=== PATIENT | female | born 1940 | race Caucasian/White ===

== ENCOUNTER 2020-01-20 15:28 | Inpatient (IN) ==
--- NOTE | 2020-01-20 16:12 | Emergency Department Note ---
ED Provider Note NAME: CRYSTAL REYNOLDS AGE: 79 SEX: F ARRIVES VIA: Walk-In INFORMANT: [Patient] ED PROVIDER(S): [Alex Carpenter MD] CHIEF COMPLAINT: Fevers, dysuria, abdominal pain IMPRESSION: Neutropenic fever, Acute UTI, Thrombocytopenia, Dehydration MEDICAL DECISION MAKING: The patient is a pleasant 71-year-old woman with a past medical history of breast cancer undergoing chemotherapy who presents emergency department with complaint of fevers, nausea, generalized weakness, abdominal pain in setting of being seen in the emergency department for similar symptoms but also including cough. Of note, the on the patient's prior emergency visit she did have a urine analysis that demonstrated WBCs bacteria but epithelial cells> 30. At that time the patient denied any urinary symptoms and so decision was made to defer treatment. Urine culture subsequently resulting with E. coli. An earlier urine analysis that was obtained at outside hospital previous to her visit here also resulted demonstrating E. coli with antibiotic sensitivities showing resistance to Cipro but sensitivity to cephalosporin. However the patient is chronically ill-appearing, fatigued but no acute distress, afebrile stable vital signs. The patient appears clinically dry. She has generalized abdominal discomfort without discrete tenderness. UA today with clean sample again consistent with UTI. WBC 1.45 decreased from prior result with new neutropenia with ANC of 0.6. H/H9 0.4/28.1 also decreased from prior value. Platelets stable at 78K. Sodium 128 however in the setting of glucose 201. Lactate 1.1. Chemistry without acidosis. Electrolytes and LFTs otherwise unremarkable. Troponin negative/undetectable. EKG unremarkable without evidence of acute ischemia. CXR negative. Procalcitonin within normal range. Thus, given sepsis less likely and urine culture with antibiotic sensitivities will treat with ceftriaxone for now despite the patient's neutropenic fever. Given the patient's symptoms in the setting of neutropenia patient is agreeable for admission. Case was discussed with Dr. Marte, [facility] hospitalist, who evaluate the patient for admission. Triage Nursing notes reviewed and agree them. [Prior medical records reviewed] [] Differential diagnosis: Viral syndrome, otitis, pharyngitis, pneumonia, influenza, meningitis, urinary tract infection, sepsis, bacteremia, as well as other pathologies. ER treatment provided: See below Diagnostics interpreted by me: ECG: NSR, 98 bpm, Normal axis, No ectopy, No ST elevation or depression. Cardiac Monitoring: NSR, 98 bpm, No extopy. Laboratory studies: [See below] [] Imaging studies: [See below] [] Consultation(s): Dr. Marte, [facility] hospitalist. HPI: The patient is a pleasant 71-year-old woman with a past medical history of breast cancer undergoing chemotherapy who presents emergency department with co mplaint of fevers, nausea, generalized weakness, abdominal pain in setting of being seen in the emergency department for similar symptoms but also including cough. The patient reports onset as gradual. Reports no provoking factors. Describes symptoms as malaise. Reports no radiation. Reports severity as moderate. Timing of symptoms are constant. Has tried Compazine for nausea with some improvement . ROS: See above HPI for pertinent positives & negatives. A total of [10] systems reviewed and were otherwise negative. PAST MEDICAL HISTORY:[See Below] PAST SURGICAL HISTORY:[See Below] FAMILY HISTORY:[See Below] SOCIAL HISTORY:[See Below] HOME MEDICATIONS:[See Below] ALLERGIES:[See Below] VITALS:[See Below] PHYSICAL EXAMINATION: GENERAL: Awake, alert, Fatigued/ill-appearing, in no distress HENT: Normocephalic, atraumatic. Oropharynx with dry mucous membranes and otherwise unremarkable. . EYES: Normal conjunctiva. Sclera non-icteric. NECK: Supple. No nuchal rigidity. FROM. No JVD. RESPIRATORY: Clear to auscultation. CARDIAC: Regular rate, normal rhythm. Extremities warm and well perfused. Pulses equal. ABDOMEN: Soft, non-distended. Generalized abdominal discomfort without discrete tenderness. No rebound or guarding. No masses. RECTAL: Deferred. MUSCULOSKELETAL: Chest examination reveals no tenderness. The back is symmetrical on inspection without obvious abnormality. There is no CVA tenderness to palpation. No joint edema. LOWER EXTREMITIES: Calves are equal size bilaterally and non-tender. No edema. No discoloration. NEURO: Normal sensorium. No sensory or motor deficits noted. SKIN: No rash or jaundice noted. ED COURSE: Procedures: [none] [Critical Care:] [None] Impression & Plan Neutropenic fever, Acute UTI, Thrombocytopenia, Dehydration Past Med/Surg History Medical History Arthritis Breast cancer, left 10/2001 > LUMPECTOMY > RECENTLY DX'ED AGAIN WITH LEFT BREAST CA Carotid stenosis Mild stenosis at the origin of the left common carotid artery. Cataract of both eyes (Chronic) Chronic kidney disease, stage III (moderate) (Chronic) F/U PCP Diabetes (Chronic) Glaucoma Hyperlipidemia Hypertension Pt went to ED week of 11/19 with BP in 200s systolic. Had f/u with PCP, med changes made. 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 Vision loss potentially related to stroke though MRI negative. Osteoporosis (Chronic) Raynauds syndrome (Chronic) Reflux esophagitis (Chronic) Vertebral artery stenosis Moderate stenosis at origin of L vertebral artery per 10/2019 Neck CTA Visual impairment 2/2 vertebral artery stenosis. F/U DR VIRGEN-PLACED ON PLAVIX Surgical History H/O tubal ligation (Chronic) H/O: hysterectomy (Chronic) History of appendectomy (Chronic) 1974 History of cataract surgery R/L History of colonoscopy Port-A-Cath in place (01/03/20) Access port placement. Dr. Mendoza 01-03-20 S/P bronchoscopy few weeks ago at [facility] S/P lumpectomy, left breast (Chronic) Family History Father Coronary heart disease Heart disease Hypertension Mother Diabetes CHF (congestive heart failure) Heart disease Colorectal cancer Hypertension Stroke Family history of reaction to anesthesia SLOW TO WAKE UP Son Multiple sclerosis Social History Preferred Language: German Communication Ability: Effective Visual Impairment: No Limitations Hearing Ability: Normal [employer] Required: No Beliefs That Will Affect Care: None marital status: Current Living Situation: Spouse current occupational status: other current occupation: semi retired substitute clerical person Feels Safe at Home: Yes Safety Concerns: Feels Safe At This Time Smoking Status: Never smoker Second Hand Exposure: No ; Hx Alcohol Use: No Hx Substance Use: No Results & Data Vital Signs Vital Signs - 24 hr 01/20/20 15:30 01/20/20 15:54 01/20/20 16:00 Temperature 36.9 C Temperature Source Oral Pulse Rate 106 H 102 H 100 H Pulse Rate [Right Finger] Pulse Rate from SpO2 Sensor 103 H 100 H Respiratory Rate 20 25 H 28 H Respiratory Effort / Characteristics Blood Pressure 110/51 L 126/51 L 132/49 L Blood Pressure Mean 70 67 87 Blood Pressure Position Sitting Pulse Oximetry 94 89 L 91 Oxygen Delivery Method Oxygen Flow Rate Sepsis Recent Fever Within 48 Hours No Sepsis New/Unexplained Change in Mental Status No Sepsis Action Taken by Nursing No Action Required 01/20/20 16:30 01/20/20 16:48 01/20/20 17:00 Temperature Temperature Source Pulse Rate 101 H 100 H Pulse Rate [Right Finger] 102 H Pulse Rate from SpO2 Sensor 101 H 100 H Respiratory Rate 28 H 25 H 27 H Respiratory Effort / Characteristics Spontaneous Blood Pressure 130/51 L 135/56 L Blood Pressure Mean 72 89 Blood Pressure Position Pulse Oximetry 91 99 98 Oxygen Delivery Method Room Air Oxygen Flow Rate Sepsis Recent Fever Within 48 Hours Sepsis New/Unexplained Change in Mental Status Sepsis Action Taken by Nursing 01/20/20 17:13 01/20/20 17:30 01/20/20 17:31 Temperature Temperature Source Pulse Rate 108 H 109 H Pulse Rate [Right Finger] Pulse Rate from SpO2 Sensor 106 H 109 H Respiratory Rate 25 H 27 H Respiratory Effort / Characteristics Blood Pressure 139/57 L 135/63 Blood Pressure Mean 92 98 Blood Pressure Position Pulse Oximetry 97 98 95 Oxygen Delivery Method Room Air Oxygen Flow Rate Sepsis Recent Fever Within 48 Hours Sepsis New/Unexplained Change in Mental Status Sepsis Action Taken by Nursing 01/20/20 18:00 01/20/20 18:30 01/20/20 19:00 Temperature Temperature Source Pulse Rate 114 H 113 H 113 H Pulse Rate [Right Finger] Pulse Rate from SpO2 Sensor 114 H 113 H 114 H Respiratory Rate 29 H 26 H 39 H Respiratory Effort / Characteristics Blood Pressure 156/59 H 142/63 H 159/83 H Blood Pressure Mean 93 87 100 Blood Pressure Position Pulse Oximetry 92 91 91 Oxygen Delivery Method Oxygen Flow Rate Sepsis Recent Fever Within 48 Hours Sepsis New/Unexplained Change in Mental Status Sepsis Action Taken by Nursing 01/20/20 19:01 01/20/20 19:29 01/20/20 19:30 Temperature Temperature Source Pulse Rate 112 H 113 H Pulse Rate [Right Finger] Pulse Rate from SpO2 Sensor 112 H 116 H Respiratory Rate 30 H 30 H Respiratory Effort / Characteristics Blood Pressure 129/76 Blood Pressure Mean 91 Blood Pressure Position Pulse Oximetry 90 96 93 Oxygen Delivery Method Nasal Cannula Room Air Nasal Cannula Oxygen Flow Rate 2 2 Sepsis Recent Fever Within 48 Hours Sepsis New/Unexplained Change in Mental Status Sepsis Action Taken by Nursing 01/20/20 19:31 01/20/20 20:00 01/20/20 20:01 Temperature Temperature Source Pulse Rate 112 H 107 H 108 H Pulse Rate [Right Finger] Pulse Rate from SpO2 Sensor 114 H 107 H 111 H Respiratory Rate 20 32 H 32 H Respiratory Effort / Characteristics Blood Pressure 129/54 L Blood Pressure Mean 83 Blood Pressure Position Pulse Oximetry 90 93 92 Oxygen Delivery Method Nasal Cannula Nasal Cannula Nasal Cannula Oxygen Flow Rate 2 2 2 Sepsis Recent Fever Within 48 Hours Sepsis New/Unexplained Change in Mental Status Sepsis Action Taken by Skilled Nursing Medications Current Medication List: was personally reviewed by me Laboratory Data Attestation: I reviewed the patient's lab results. Result diagrams: 01/20/20 16:40 01/20/20 16:40 Lab Results 01/20/20 01/20/20 01/20/20 Range/Units 16:40 16:40 16:40 WBC 1.45 L (4.8-10.8) K/uL RBC 3.31 L (4.2-5.4) M/uL Hgb 9.4 L (12.0-16.0) g/dL Hct 28.1 L (37-47) % MCV 84.9 (80-100) fL MCH 28.4 (25-34) pg MCHC 33.5 (32-36) g/dL RDW Std Deviation 37.0 (36.4-46.3) fL RDW Coeff of Alfredo 11.8 (11.5-14.5) % Plt Count 78 L (130-400) K/uL MPV 10.9 H (7.4-10.4) fL Neutrophils % (Manual) 41.5 % Lymphocytes % (Manual) 20.4 % Monocytes % (Manual) 31.0 % Eosinophils % (Manual) 3.5 % Metamyelocytes % (Man) 2.7 % Blast Cells % (Manual) 0.9 % Neutrophils # (Manual) 0.60 L (1.4-6.5) K/uL Total Absolute Neuts 0.60 L* (1.4-6.5) K/uL Lymphocytes # (Manual) 0.30 L (1.2-3.4) K/uL Total Abs Lymphocytes 0.30 L (1.2-3.4) K/uL Monocytes # (Manual) 0.45 (0.11-0.59) K/uL Eosinophils # (Manual) 0.05 (0-0.5) K/uL Metamyelocytes # (Man) 0.04 H (0-0) K/uL Blast Cells # (Man) 0.01 H (0-0) K/uL Toxic Granulation 1+ Toxic Vacuolation 1+ Dohle Bodies 1+ Platelet Estimate Decreased L (Normal) Giant Platelets 1+ PT 11.4 (9.0-12.0) Seconds INR 1.1 (0.9-1.1) APTT 29.9 (21.0-31.0) Seconds PTT Ratio 1.1 Sodium 128 L (136-145) mmol/L Potassium 3.9 (3.5-5.1) mmol/L Chloride 96 L (98-107) mmol/L Carbon Dioxide 25 (21-32) mmol/L Anion Gap 7.0 (3-11) BUN 19 H (7-18) mg/dl Creatinine 1.00 (0.6-1.2) mg/dl Est Cr Clr Drug Dosing 38.3 ml/min Est GFR ( Amer) 62.5 Est GFR (Non-Af Amer) 53.9 BUN/Creatinine Ratio 18.9 (10-20) Glucose 201 H (70-99) mg/dl Osmolality (280-300) mOsm/kg Lactate (0.4-2.0) mmol/L Calcium 8.2 L (8.5-10.1) mg/dl Phosphorus 3.4 (2.5-4.9) mg/dl Magnesium 1.9 (1.8-2.4) mg/dl Total Bilirubin 0.9 (0.2-1) mg/dl AST 9 L (15-37) U/L ALT 18 (12-78) U/L Alkaline Phosphatase 75 (45-117) U/L Troponin I < 0.015 (0-0.045) ng/ml Total Protein 6.4 (6.4-8.2) gm/dl Albumin 3.0 L (3.4-5.0) gm/dl Globulin 3.4 (2.5-4.0) gm/dl Albumin/Globulin Ratio 0.9 (0.9-2) Procalcitonin (0-0.5) ng/ml Urine Color Urine Appearance (Clear) Urine pH (4.5-7.5) Ur Specific [place] (1.000-1.030) Urine Protein (Negative) Urine Glucose (UA) (Negative) Urine Ketones (Negative) Urine Blood (Negative) Urine Nitrite (Negative) Urine Bilirubin (Negative) Urine Urobilinogen (Negative) Ur Leukocyte Esterase (Negative) Urine RBC (0-4) /hpf Urine WBC (0-5) /hpf Ur Epithelial Cells (0-5) /lpf Urine Bacteria (Negative) Influenza Type A (PCR) (Neg) Influenza Type B (PCR) (Neg) 01/20/20 01/20/20 01/20/20 Range/Units 16:40 16:40 16:47 WBC (4.8-10.8) K/uL RBC (4.2-5.4) M/uL Hgb (12.0-16.0) g/dL Hct (37-47) % MCV (80-100) fL MCH (25-34) pg MCHC (32-36) g/dL RDW Std Deviation (36.4-46.3) fL RDW Coeff of Alfredo (11.5-14.5) % Plt Count (130-400) K/uL MPV (7.4-10.4) fL Neutrophils % (Manual) % Lymphocytes % (Manual) % Monocytes % (Manual) % Eosinophils % (Manual) % Metamyelocytes % (Man) % Blast Cells % (Manual) % Neutrophils # (Manual) (1.4-6.5) K/uL Total Absolute Neuts (1.4-6.5) K/uL Lymphocytes # (Manual) (1.2-3.4) K/uL Total Abs Lymphocytes (1.2-3.4) K/uL Monocytes # (Manual) (0.11-0.59) K/uL Eosinophils # (Manual) (0-0.5) K/uL Metamyelocytes # (Man) (0-0) K/uL Blast Cells # (Man) (0-0) K/uL Toxic Granulation Toxic Vacuolation Dohle Bodies Platelet Estimate (Normal) Giant Platelets PT (9.0-12.0) Seconds INR (0.9-1.1) APTT (21.0-31.0) Seconds PTT Ratio Sodium (136-145) mmol/L Potassium (3.5-5.1) mmol/L Chloride (98-107) mmol/L Carbon Dioxide (21-32) mmol/L Anion Gap (3-11) BUN (7-18) mg/dl Creatinine (0.6-1.2) mg/dl Est Cr Clr Drug Dosing ml/min Est GFR ( Amer) Est GFR (Non-Af Amer) BUN/Creatinine Ratio (10-20) Glucose (70-99) mg/dl Osmolality 274 L (280-300) mOsm/kg Lactate 1.1 (0.4-2.0) mmol/L Calcium (8.5-10.1) mg/dl Phosphorus (2.5-4.9) mg/dl Magnesium (1.8-2.4) mg/dl Total Bilirubin (0.2-1) mg/dl AST (15-37) U/L ALT (12-78) U/L Alkaline Phosphatase (45-117) U/L Troponin I (0-0.045) ng/ml Total Protein (6.4-8.2) gm/dl Albumin (3.4-5.0) gm/dl Globulin (2.5-4.0) gm/dl Albumin/Globulin Ratio (0.9-2) Procalcitonin 0.19 (0-0.5) ng/ml Urine Color Urine Appearance (Clear) Urine pH (4.5-7.5) Ur Specific [place] (1.000-1.030) Urine Protein (Negative) Urine Glucose (UA) (Negative) Urine Ketones (Negative) Urine Blood (Negative) Urine Nitrite (Negative) Urine Bilirubin (Negative) Urine Urobilinogen (Negative) Ur Leukocyte Esterase (Negative) Urine RBC (0-4) /hpf Urine WBC (0-5) /hpf Ur Epithelial Cells (0-5) /lpf Urine Bacteria (Negative) Influenza Type A (PCR) (Neg) Influenza Type B (PCR) (Neg) 01/20/20 01/20/20 Range/Units 17:15 17:15 WBC (4.8-10.8) K/uL RBC (4.2-5.4) M/uL Hgb (12.0-16.0) g/dL Hct (37-47) % MCV (80-100) fL MCH (25-34) pg MCHC (32-36) g/dL RDW Std Deviation (36.4-46.3) fL RDW Coeff of Alfredo (11.5-14.5) % Plt Count (130-400) K/uL MPV (7.4-10.4) fL Neutrophils % (Manual) % Lymphocytes % (Manual) % Monocytes % (Manual) % Eosinophils % (Manual) % Metamyelocytes % (Man) % Blast Cells % (Manual) % Neutrophils # (Manual) (1.4-6.5) K/uL Total Absolute Neuts (1.4-6.5) K/uL Lymphocytes # (Manual) (1.2-3.4) K/uL Total Abs Lymphocytes (1.2-3.4) K/uL Monocytes # (Manual) (0.11-0.59) K/uL Eosinophils # (Manual) (0-0.5) K/uL Metamyelocytes # (Man) (0-0) K/uL Blast Cells # (Man) (0-0) K/uL Toxic Granulation Toxic Vacuolation Dohle Bodies Platelet Estimate (Normal) Giant Platelets PT (9.0-12.0) Seconds INR (0.9-1.1) APTT (21.0-31.0) Seconds PTT Ratio Sodium (136-145) mmol/L Potassium (3.5-5.1) mmol/L Chloride (98-107) mmol/L Carbon Dioxide (21-32) mmol/L Anion Gap (3-11) BUN (7-18) mg/dl Creatinine (0.6-1.2) mg/dl Est Cr Clr Drug Dosing ml/min Est GFR ( Amer) Est GFR (Non-Af Amer) BUN/Creatinine Ratio (10-20) Glucose (70-99) mg/dl Osmolality (280-300) mOsm/kg Lactate (0.4-2.0) mmol/L Calcium (8.5-10.1) mg/dl Phosphorus (2.5-4.9) mg/dl Magnesium (1.8-2.4) mg/dl Total Bilirubin (0.2-1) mg/dl AST (15-37) U/L ALT (12-78) U/L Alkaline Phosphatase (45-117) U/L Troponin I (0-0.045) ng/ml Total Protein (6.4-8.2) gm/dl Albumin (3.4-5.0) gm/dl Globulin (2.5-4.0) gm/dl Albumin/Globulin Ratio (0.9-2) Procalcitonin (0-0.5) ng/ml Urine Color Yellow Urine Appearance Cloudy A (Clear) Urine pH 5.5 (4.5-7.5) Ur Specific [place] 1.025 (1.000-1.030) Urine Protein Negative (Negative) Urine Glucose (UA) Negative (Negative) Urine Ketones Negative (Negative) Urine Blood Trace H (Negative) Urine Nitrite Negative (Negative) Urine Bilirubin Negative (Negative) Urine Urobilinogen Negative (Negative) Ur Leukocyte Esterase Negative (Negative) Urine RBC 0-4 (0-4) /hpf Urine WBC 10-30 H (0-5) /hpf Ur Epithelial Cells 0-5 (0-5) /lpf Urine Bacteria 4+ H (Negative) Influenza Type A (PCR) Neg for Influ A (Neg) Influenza Type B (PCR) Neg for Influ B (Neg) Administered Medications Guaifenesin (Mucinex) 1,200 mg PO Q12 [facility] Stop: 02/19/20 23:18 Last Admin: 01/21/20 00:00 Dose: 1,200 mg Documented by: [id number] Sodium Chloride (Nss 1000ml) 1,000 mls @ 80 mls/hr IV .[id number] [facility] Stop: 01/22/20 00:18 Last Admin: 01/20/20 23:57 Dose: 80 mls/hr Documented by: [id number] Cefepime HCl 2,000 mg/ Syringe 20 mls @ 5.5 mls/min IV Q24H [facility]; Protocol Stop: 01/26/20 00:00 Last Admin: 01/21/20 00:11 Dose: 5.5 mls/min Documented by: [id number] Insulin Aspart (Novolog Flexpen) 0 units SC ACHS [facility] Stop: 02/19/20 23:18 Last Admin: 01/21/20 00:01 Dose: 2 units Documented by: [id number] Cosigned by: [id number] Insulin Detemir (Levemir Flextouch) 15 units SC [facility] Stop: 02/19/20 23:29 Last Admin: 01/21/20 00:02 Dose: 15 units Documented by: [id number] Cosigned by: [id number] Metoprolol Succinate (Toprol Xl) 100 mg PO [facility] Stop: 02/19/20 23:18 Last Admin: 01/21/20 00:00 Dose: 100 mg Documented by: [id number] Prochlorperazine (Compazine) 10 mg PO Q6 PRN PRN Reason: nausea Stop: 02/20/20 00:00 Last Admin: 01/21/20 00:03 Dose: 10 mg Documented by: [id number] Rosuvastatin Calcium (Crestor) 5 mg PO [facility] Stop: 02/19/20 23:18 Last Admin: 01/20/20 23:59 Dose: 5 mg Documented by: [id number] Discontinued Medications Albuterol (Duoneb) 12 ml NEB ONE ONE Stop: 01/20/20 16:33 Last Admin: 01/20/20 16:48 Dose: 12 ml Documented by: [id number] Benzonatate (Tessalon Perle) 100 mg PO NOW ONE Stop: 01/20/20 16:35 Last Admin: 01/20/20 17:15 Dose: 100 mg Documented by: [id number] Sodium Chloride (Nss 1000ml) 1,000 mls @ 999 mls/hr IV .Q1H1M ONE Stop: 01/20/20 17:32 Last Infusion: 01/20/20 18:23 Dose: 0 mls/hr Documented by: [id number] Admin: 01/20/20 17:17 Dose: 999 mls/hr Documented by: [id number] Ceftriaxone Sodium (Rocephin) 2,000 mg in 70 mls @ 140 mls/hr IV NOW STA Stop: 01/20/20 17:04 Last Infusion: 01/20/20 18:23 Dose: 0 mls/hr Documented by: [id number] Admin: 01/20/20 17:15 Dose: 140 mls/hr Documented by: [id number] Prochlorperazine (Compazine) 1 mls @ 1 mls/min IV ONE ONE Stop: 01/20/20 18:02 Last Admin: 01/20/20 18:32 Dose: 1 mls/min Documented by: [id number] Famotidine (Pepcid 20mg Iv Push) 20 mg in 5 mls @ 2.5 mls/min IV NOW STA Stop: 01/20/20 18:02 Last Admin: 01/20/20 18:32 Dose: 2.5 mls/min Documented by: [id number] Imaging Data Radiologist's Impression: XR chest 1V portable CLINICAL HISTORY: SEPSIS COMPARISON STUDY: 01/18/2020 FINDINGS: The cardiac and mediastinal contours remain stable. There is a right- sided A-Port catheter. There is no failure. There is no focal pulmonary consolidation. There is minimal left basilar atelectasis. A small metallic clip projects over the left lung base/breast. There are no significant pleural effusions.[ IMPRESSION: No active disease in the chest.\ Blood Pressure Blood Pressure Findings: Normal blood pressure Discharge Plan Visit Data *Final* Discharge Date/Time: 01/20/20 22:34 Chief Complaint: Urinary Symptoms Stated Complaint: URINARY SYMPTOMS ED Provider: Alex Carpenter Discharge Problem: Neutropenic fever, Acute UTI, Thrombocytopenia, Dehydration Patient Disposition: Admitted As Inpatient Discharge Instructions Interventions: ED Discharge Assessment Last Done: 01/20/20 22:34 Meds Home Medications and Allergies Home Medications Medication Instructions Recorded Confirmed Type cholecalciferol (vitamin D3) 25 1,000 units PO QAM 10/02/18 01/20/20 History mcg (1,000 unit) capsule insulin aspar prot-insulin aspart 6 units SQ .supper ml 10/02/18 01/20/20 History 100 unit/mL (70-30) subcutaneous pen levothyroxine 88 mcg capsule 88 mcg PO QAM 10/02/18 01/20/20 History ranitidine HCl 300 mg tablet 300 mg PO QPM 10/02/18 01/20/20 History rosuvastatin 5 mg tablet 5 mg PO HS tab 10/02/18 01/20/20 History aspirin 81 mg tablet,delayed 81 mg PO QAM 10/19/19 01/20/20 History release clopidogrel 75 mg tablet 75 mg PO QAM 10/19/19 01/20/20 History losartan 50 mg-hydrochlorothiazide 1 tab PO QAM 10/19/19 01/20/20 History 12.5 mg tablet metoprolol succinate 50 mg 100 mg PO HS 10/19/19 01/20/20 History tablet,extended release 24 hr Allergy Relief (cetirizine) 10 mg PO HS 11/27/19 01/20/20 History insulin detemir U-100 100 unit/mL 15 units SUBCUT HS ml 12/07/19 01/20/20 History subcutaneous solution magnesium hydroxide [Milk of 400 mg PO 3XWK PRN 12/28/19 01/20/20 History Magnesia] Cytoxan 0 mg IV UD 01/18/20 01/20/20 History docetaxel [Taxotere] 0 mg IV UD 01/18/20 01/20/20 History letrozole 2.5 mg PO DAILY 01/18/20 01/20/20 History loratadine [Claritin] 10 mg PO DAILY 01/18/20 01/20/20 History prochlorperazine maleate 10 mg PO Q6 PRN 01/18/20 01/20/20 History Allergies Allergy/AdvReac Type Severity Reaction Status Date / Time Penicillins Allergy Unknown ITCHY Verified 01/20/20 16:05 morphine AdvReac Severe NAUSEA AND Verified 01/20/20 16:05 VOMITING
[2020-01-20] MEDS ORDERED: SODIUM CHLORIDE 0.9% 1000ML 1,000 ML IV ONE (16:32)
[2020-01-20] MEDS ORDERED: ALBUT/IPRATROP 3MG/0.5MG NEB 3 ML VIAL NEB ONE (16:32)
[2020-01-20] MEDS ORDERED: BENZONATATE 100 MG CAPSULE PO ONE (16:34)
[2020-01-20] MEDS ORDERED: cefTRIAXone SODIUM 2,000 MG/70 ML BAG IV STA (16:35)
[2020-01-20 17:05] LABS: Hematocrit (blood only) 28.1 % (37-47); Hemoglobin 9.4 g/dL (12.0-16.0); Mean Corpuscular Hemoglobin 28.4 pg (25-34); Mean Corpuscular Hgb Conc 33.5 g/dL (32-36); Mean Corpuscular Volume 84.9 fL (80-100); RDW Coefficient of Variation 11.8 % (11.5-14.5); Red Blood Count 3.31 M/uL (4.2-5.4); White Blood Count 1.45 K/uL (4.8-10.8)
--- NOTE | 2020-01-20 17:12 | XRay Report ---
XR chest 1V portable CLINICAL HISTORY: SEPSIS COMPARISON STUDY: 01/18/2020 FINDINGS: The cardiac and mediastinal contours remain stable. There is a right-sided A-Port catheter. There is no failure. There is no focal pulmonary consolidation. There is minimal left basilar atelec tasis. A small metallic clip projects over the left lung base/breast. There are no significant pleura l effusions.[ IMPRESSION: No active disease in the chest. ACT 112: Negative or not required by law. Electronically signed by: Ari Taylor M.D. 01/20/2020 5:10 PM
[2020-01-20 17:20] LABS: INR 1.1 (0.9-1.1); Partial Thromboplastin Ratio 1.1; Partial Thromboplastin Time 29.9 Seconds (21.0-31.0); Prothrombin Time 11.4 Seconds (9.0-12.0)
[2020-01-20 17:28] LABS: Alanine Aminotransferase 18 U/L (12-78); Aspartate Aminotransferase 9 U/L (15-37); BUN Creatinine Ratio 18.9 (10-20); Blood Urea Nitrogen 19 mg/dl (7-18); Calcium 8.2 mg/dl (8.5-10.1); Carbon Dioxide 25 mmol/L (21-32); Chloride 96 mmol/L (98-107); Creatinine Clr Calc Pharmacy 38.3 ml/min; Est GFR (African American) 62.5; Est GFR (Non-African American) 53.9; Glucose 201 mg/dl (70-99); Magnesium 1.9 mg/dl (1.8-2.4); Potassium 3.9 mmol/L (3.5-5.1); Sodium 128 mmol/L (136-145)
[2020-01-20 17:30] LABS: Mean Platelet Volume 10.9 fL (7.4-10.4); Platelet Count 78 K/uL (130-400)
[2020-01-20 17:36] LABS: Albumin Globulin Ratio 0.9 (0.9-2); Alkaline Phosphatase 75 U/L (45-117); Bilirubin,Total 0.9 mg/dl (0.2-1); Globulin 3.4 gm/dl (2.5-4.0); Phosphorus 3.4 mg/dl (2.5-4.9); Total Protein 6.4 gm/dl (6.4-8.2); Troponin I < 0.015 ng/ml (0-0.045)
[2020-01-20 17:40] LABS: Appearance Urine Cloudy (Clear); Bilirubin Urine Negative (Negative); Blood Urine Trace (Negative); Color Urine Yellow; Glucose Urine UA Negative (Negative); Ketones Urine Negative (Negative); Leukocyte Esterase Urine Negative (Negative); Nitrite Urine Negative (Negative); Protein Urine Negative (Negative); Specific Gravity Urine 1.025 (1.000-1.030); Urobilinogen Urine Negative (Negative); pH Urine 5.5 (4.5-7.5)
[2020-01-20 18:00] LABS: Dohle Bodies 1+; Giant Platelets 1+; Platelet Estimate Decreased (Normal); Toxic Granulation 1+; Toxic Vacuolation 1+
[2020-01-20 18:01] LABS: Blast # (manual) 0.01 K/uL (0-0); Blast Cells % (manual) 0.9 %; Eosinophils # (manual) 0.05 K/uL (0-0.5); Eosinophils % (manual) 3.5 %; Lymphocytes % (manual) 20.4 %; Metamyelocytes # (manual) 0.04 K/uL (0-0); Metamyelocytes % (manual) 2.7 %; Monocytes # (manual) 0.45 K/uL (0.11-0.59); Neutrophils % (manual) 41.5 %
[2020-01-20] MEDS ORDERED: FAMOTIDINE 20MG IV PUSH 20 MG/5 ML SYR IV STA (18:01)
[2020-01-20] MEDS ORDERED: PROCHLORPERAZINE 1 ML IV ONE (18:01)
[2020-01-20 18:05] LABS: Bacteria Urine 4+ (Negative); Epithelial Cell Urine 0-5 /lpf (0-5); RBC Urine 0-4 /hpf (0-4)
[2020-01-20 18:16] LABS: Influenza A virus by PCR Neg for Influ A (Neg); Influenza B virus by PCR Neg for Influ B (Neg)
--- NOTE | 2020-01-20 20:22 | History & Physical Report ---
Date of Service January 20, 2020 Assessment & Plan (1) Neutropenia: 79yo C female with invasive ductal carcinoma of left breast recently started on chemotherapy. Question of metastatic disease currently undergoing workup under Dr. Nagel and Dr. Rios, planned for video mediastinoscopy 01/29/20 to assess mediastinal LAD which was suspicious on PET. +Fever at home. +UTI -Admit to medical floor -Monitor CBC -Neutropenic precautions -Heme/Onc consultation appreciated Present on Admission?: Yes (2) UTI (urinary tract infection): +Urine culture from 01/17 - >100,000 CFU of E. coli. Sn/Sp pending -Cefepime 2gm IV q 8 hours for now. -Await sensitivities and adjust antibiotics accordingly Present on Admission?: Yes (3) Breast cancer, left: Patient follows with Hematology. To have mediastinoscopy for metastatic workup -Continue letrozole -Heme/Onc consultation as above Present on Admission?: Yes (4) Chronic kidney disease, stage III (moderate): BUN=19, Cr=1 which is near baseline. Patient appears to be dry on physical exam -IVF - NSS at 80mL/hr x 2 liters -Monitor BUN/Cr/electrolytes and UOP -Avoid nephrotoxic agents Present on Admission?: Yes (5) Diabetes: Chronic -Continue levemir 15u qHS -ISS -CC diet -Hold ASA due to low platelets Present on Admission?: Yes (6) Hypertension: BP stable -Continue home medications -Losartan/HCTZ -Metoprolol Present on Admission?: Yes (7) Hypothyroidism: Chronic -Continue Synthroid Present on Admission?: Yes (8) High cholesterol: Chronic -Continue Crestor F/E/N - NSS at 80mL/hr x 2 liters, monitor electrolytes, CC diet Ppx - SCDs, no DVT chemoppx due to low platelets at this time Code - Full Dispo - Admit to medical floor 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 She returned to care in September 2019 with an inverted left nipple found to have new masses. Biopsy of nipple lesion on 10/10/19 consistent with ductal breast carcinoma. PET CT on 12/03/19 with moderate uptake, borderline enlarged mediastinal and right hilar LN and 8mm irregular RUL pulmonary nodule. She had bronchoscopy/EBUS and transbronchial biopsy performed of multiple nodes on 12/14/19 which were negative for malignancy by biopsy. However, concern remains that these lesions/nodes are, indeed, metastatic despite negative biopsies by EBUS, therefore patient is to have a mediastinocopy on 01/29/20. She was started on neoadjuvant letrozole on 01/14/20. She began feeling ill on Wednesday 01/17. She was seen in the ER with complaint of cough/congestion and chest tightness as well as generalized weakness, nausea and vomiting. WBC = 2.99 and Neutrophil # = 2.83. She was discharged home after negative workup. Patient states that antibiotics were to be called in from the ER, however, upon review of the ER note, no obvious source of infection was identified during that visit therefore no prescriptions were given. Her urine culture from that visit 01/17 grew >100,000 E. coli, Sn/Sp pending resulted on 01/20/20. She returns today with subjective fevers, chills, body aches as well as weakness/fatigue. She has had a cough productive for yellow sputum since receiving chemotherapy. Additionally she complains of diffuse abdominal pain and constipation. Fever to 101 today which prompted her to come to the ER. Patient with no recent international or domestic travel. No sick contacts. No concern for exposure to Covid-19. ER Course: Albuterol, Tessalon, Ceftriaxone, Pepcid Allergies Allergy/AdvReac Type Severity Reaction Status Date / Time Penicillins Allergy Unknown ITCHY Verified 01/20/20 16:05 morphine AdvReac Severe NAUSEA AND Verified 01/20/20 16:05 VOMITING Home Medications Home Medications Medication Instructions Recorded Confirmed Type cholecalciferol (vitamin D3) 25 1,000 units PO QAM 10/02/18 01/20/20 History mcg (1,000 unit) capsule insulin aspar prot-insulin aspart 6 units SQ .supper ml 10/02/18 01/20/20 History 100 unit/mL (70-30) subcutaneous pen levothyroxine 88 mcg capsule 88 mcg PO QAM 10/02/18 01/20/20 History ranitidine HCl 300 mg tablet 300 mg PO QPM 10/02/18 01/20/20 History rosuvastatin 5 mg tablet 5 mg PO HS tab 10/02/18 01/20/20 History aspirin 81 mg tablet,delayed 81 mg PO QAM 10/19/19 01/20/20 History release clopidogrel 75 mg tablet 75 mg PO QAM 10/19/19 01/20/20 History losartan 50 mg-hydrochlorothiazide 1 tab PO QAM 10/19/19 01/20/20 History 12.5 mg tablet metoprolol succinate 50 mg 100 mg PO HS 10/19/19 01/20/20 History tablet,extended release 24 hr Allergy Relief (cetirizine) 10 mg PO HS 11/27/19 01/20/20 History insulin detemir U-100 100 unit/mL 15 units SUBCUT HS ml 12/07/19 01/20/20 History subcutaneous solution magnesium hydroxide [Milk of 400 mg PO 3XWK PRN 12/28/19 01/20/20 History Magnesia] Cytoxan 0 mg IV UD 01/18/20 01/20/20 History docetaxel [Taxotere] 0 mg IV UD 01/18/20 01/20/20 History letrozole 2.5 mg PO DAILY 01/18/20 01/20/20 History loratadine [Claritin] 10 mg PO DAILY 01/18/20 01/20/20 History prochlorperazine maleate 10 mg PO Q6 PRN 01/18/20 01/20/20 History Past Med/Surg History Social History Preferred Language: [place] Communication Ability: Effective Visual Impairment: No Limitations Hearing Ability: Normal Lining Strap Closer Required: No Beliefs That Will Affect Care: None marital status: Current Living Situation: Spouse current occupational status: other current occupation: semi retired substitute clerical person Feels Safe at Home: Yes Safety Concerns: Feels Safe At This Time Smoking Status: Never smoker Second Hand Exposure: No ; Hx Alcohol Use: No Hx Substance Use: No Review of Systems Review of Systems: All systems reviewed & are unremarkable except as noted in HPI & below +weakness/fatigue/fevers/chills/body aches/abdominal pain/constipation Physical Exam Physical Exam: General: patient resting comfortably, ill in appearance, AA&O x 4 Skin: warm, dry, intact, no rashes or lesions HEENT: NC/AT, PERRL, EOMI, anicteric sclera, conjunctiva without injection, external ear normal to inspection and nontender, nares patent, dry mucus membranes, dentition intact, no oropharyngeal lesions, neck supple, trachea midline, no LAD, no thyromegaly, no JVD Heart: +S1/S2, regular, no m/r/g, port in right chest Lungs: equal air entry bilaterally, no rales/rhonchi/wheezes Abd: +BS, soft, NT/ND, no masses/organomegaly/ascites Ext: warm, 2+ pulses in UE/LE bilaterally, no clubbing/cyanosis or edema Neuro: nonfocal, patient AA&O x 4, speech intact, no facial droop, moving all extremities on command with equal strength 5/5 Results & Data Vital Signs (Past 12 Hours) Vital Signs Temp Pulse Pulse Resp BP Pulse Ox 01/20/20 19:30 113 H 22 129/76 93 01/20/20 19:29 96 01/20/20 19:00 113 H 39 H 159/83 H 91 01/20/20 18:30 113 H 26 H 142/63 H 91 01/20/20 18:00 114 H 29 H 156/59 H 92 01/20/20 17:31 95 01/20/20 17:30 109 H 27 H 135/63 98 01/20/20 17:13 108 H 25 H 139/57 L 97 01/20/20 17:00 100 H 27 H 135/56 L 98 01/20/20 16:48 102 H 25 H 99 01/20/20 16:30 101 H 28 H 130/51 L 91 01/20/20 16:00 100 H 28 H 132/49 L 91 01/20/20 15:54 102 H 25 H 126/51 L 89 L 01/20/20 15:30 36.9 C 106 H 20 110/51 L 94 Laboratory Results Lab Results 01/20/20 01/20/20 01/20/20 Range/Units 16:40 16:40 16:40 WBC 1.45 L (4.8-10.8) K/uL RBC 3.31 L (4.2-5.4) M/uL Hgb 9.4 L (12.0-16.0) g/dL Hct 28.1 L (37-47) % MCV 84.9 (80-100) fL MCH 28.4 (25-34) pg MCHC 33.5 (32-36) g/dL RDW Std Deviation 37.0 (36.4-46.3) fL RDW Coeff of Alfredo 11.8 (11.5-14.5) % Plt Count 78 L (130-400) K/uL MPV 10.9 H (7.4-10.4) fL Neutrophils % (Manual) 41.5 % Lymphocytes % (Manual) 20.4 % Monocytes % (Manual) 31.0 % Eosinophils % (Manual) 3.5 % Metamyelocytes % (Man) 2.7 % Blast Cells % (Manual) 0.9 % Neutrophils # (Manual) 0.60 L (1.4-6.5) K/uL Total Absolute Neuts 0.60 L* (1.4-6.5) K/uL Lymphocytes # (Manual) 0.30 L (1.2-3.4) K/uL Total Abs Lymphocytes 0.30 L (1.2-3.4) K/uL Monocytes # (Manual) 0.45 (0.11-0.59) K/uL Eosinophils # (Manual) 0.05 (0-0.5) K/uL Metamyelocytes # (Man) 0.04 H (0-0) K/uL Blast Cells # (Man) 0.01 H (0-0) K/uL Toxic Granulation 1+ Toxic Vacuolation 1+ Dohle Bodies 1+ Platelet Estimate Decreased L (Normal) Giant Platelets 1+ PT 11.4 (9.0-12.0) Seconds INR 1.1 (0.9-1.1) APTT 29.9 (21.0-31.0) Seconds PTT Ratio 1.1 Sodium 128 L (136-145) mmol/L Potassium 3.9 (3.5-5.1) mmol/L Chloride 96 L (98-107) mmol/L Carbon Dioxide 25 (21-32) mmol/L Anion Gap 7.0 (3-11) BUN 19 H (7-18) mg/dl Creatinine 1.00 (0.6-1.2) mg/dl Est Cr Clr Drug Dosing 38.3 ml/min Est GFR ( Amer) 62.5 Est GFR (Non-Af Amer) 53.9 BUN/Creatinine Ratio 18.9 (10-20) Glucose 201 H (70-99) mg/dl POC Glucose (70-99) mg/dl Lactate (0.4-2.0) mmol/L Calcium 8.2 L (8.5-10.1) mg/dl Phosphorus 3.4 (2.5-4.9) mg/dl Magnesium 1.9 (1.8-2.4) mg/dl Total Bilirubin 0.9 (0.2-1) mg/dl AST 9 L (15-37) U/L ALT 18 (12-78) U/L Alkaline Phosphatase 75 (45-117) U/L Troponin I < 0.015 (0-0.045) ng/ml Total Protein 6.4 (6.4-8.2) gm/dl Albumin 3.0 L (3.4-5.0) gm/dl Globulin 3.4 (2.5-4.0) gm/dl Albumin/Globulin Ratio 0.9 (0.9-2) Procalcitonin (0-0.5) ng/ml Urine Color Urine Appearance (Clear) Urine pH (4.5-7.5) Ur Specific [place] (1.000-1.030) Urine Protein (Negative) Urine Glucose (UA) (Negative) Urine Ketones (Negative) Urine Blood (Negative) Urine Nitrite (Negative) Urine Bilirubin (Negative) Urine Urobilinogen (Negative) Ur Leukocyte Esterase (Negative) Urine RBC (0-4) /hpf Urine WBC (0-5) /hpf Ur Epithelial Cells (0-5) /lpf Urine Bacteria (Negative) Influenza Type A (PCR) (Neg) Influenza Type B (PCR) (Neg) 01/20/20 01/20/20 01/20/20 Range/Units 16:40 16:47 17:15 WBC (4.8-10.8) K/uL RBC (4.2-5.4) M/uL Hgb (12.0-16.0) g/dL Hct (37-47) % MCV (80-100) fL MCH (25-34) pg MCHC (32-36) g/dL RDW Std Deviation (36.4-46.3) fL RDW Coeff of Alfredo (11.5-14.5) % Plt Count (130-400) K/uL MPV (7.4-10.4) fL Neutrophils % (Manual) % Lymphocytes % (Manual) % Monocytes % (Manual) % Eosinophils % (Manual) % Metamyelocytes % (Man) % Blast Cells % (Manual) % Neutrophils # (Manual) (1.4-6.5) K/uL Total Absolute Neuts (1.4-6.5) K/uL Lymphocytes # (Manual) (1.2-3.4) K/uL Total Abs Lymphocytes (1.2-3.4) K/uL Monocytes # (Manual) (0.11-0.59) K/uL Eosinophils # (Manual) (0-0.5) K/uL Metamyelocytes # (Man) (0-0) K/uL Blast Cells # (Man) (0-0) K/uL Toxic Granulation Toxic Vacuolation Dohle Bodies Platelet Estimate (Normal) Giant Platelets PT (9.0-12.0) Seconds INR (0.9-1.1) APTT (21.0-31.0) Seconds PTT Ratio Sodium (136-145) mmol/L Potassium (3.5-5.1) mmol/L Chloride (98-107) mmol/L Carbon Dioxide (21-32) mmol/L Anion Gap (3-11) BUN (7-18) mg/dl Creatinine (0.6-1.2) mg/dl Est Cr Clr Drug Dosing ml/min Est GFR ( Amer) Est GFR (Non-Af Amer) BUN/Creatinine Ratio (10-20) Glucose (70-99) mg/dl POC Glucose (70-99) mg/dl Lactate 1.1 (0.4-2.0) mmol/L Calcium (8.5-10.1) mg/dl Phosphorus (2.5-4.9) mg/dl Magnesium (1.8-2.4) mg/dl Total Bilirubin (0.2-1) mg/dl AST (15-37) U/L ALT (12-78) U/L Alkaline Phosphatase (45-117) U/L Troponin I (0-0.045) ng/ml Total Protein (6.4-8.2) gm/dl Albumin (3.4-5.0) gm/dl Globulin (2.5-4.0) gm/dl Albumin/Globulin Ratio (0.9-2) Procalcitonin 0.19 (0-0.5) ng/ml Urine Color Yellow Urine Appearance Cloudy A (Clear) Urine pH 5.5 (4.5-7.5) Ur Specific [place] 1.025 (1.000-1.030) Urine Protein Negative (Negative) Urine Glucose (UA) Negative (Negative) Urine Ketones Negative (Negative) Urine Blood Trace H (Negative) Urine Nitrite Negative (Negative) Urine Bilirubin Negative (Negative) Urine Urobilinogen Negative (Negative) Ur Leukocyte Esterase Negative (Negative) Urine RBC 0-4 (0-4) /hpf Urine WBC 10-30 H (0-5) /hpf Ur Epithelial Cells 0-5 (0-5) /lpf Urine Bacteria 4+ H (Negative) Influenza Type A (PCR) (Neg) Influenza Type B (PCR) (Neg) 01/20/20 01/20/20 Range/Units 17:15 23:29 WBC (4.8-10.8) K/uL RBC (4.2-5.4) M/uL Hgb (12.0-16.0) g/dL Hct (37-47) % MCV (80-100) fL MCH (25-34) pg MCHC (32-36) g/dL RDW Std Deviation (36.4-46.3) fL RDW Coeff of Alfredo (11.5-14.5) % Plt Count (130-400) K/uL MPV (7.4-10.4) fL Neutrophils % (Manual) % Lymphocytes % (Manual) % Monocytes % (Manual) % Eosinophils % (Manual) % Metamyelocytes % (Man) % Blast Cells % (Manual) % Neutrophils # (Manual) (1.4-6.5) K/uL Total Absolute Neuts (1.4-6.5) K/uL Lymphocytes # (Manual) (1.2-3.4) K/uL Total Abs Lymphocytes (1.2-3.4) K/uL Monocytes # (Manual) (0.11-0.59) K/uL Eosinophils # (Manual) (0-0.5) K/uL Metamyelocytes # (Man) (0-0) K/uL Blast Cells # (Man) (0-0) K/uL Toxic Granulation Toxic Vacuolation Dohle Bodies Platelet Estimate (Normal) Giant Platelets PT (9.0-12.0) Seconds INR (0.9-1.1) APTT (21.0-31.0) Seconds PTT Ratio Sodium (136-145) mmol/L Potassium (3.5-5.1) mmol/L Chloride (98-107) mmol/L Carbon Dioxide (21-32) mmol/L Anion Gap (3-11) BUN (7-18) mg/dl Creatinine (0.6-1.2) mg/dl Est Cr Clr Drug Dosing ml/min Est GFR ( Amer) Est GFR (Non-Af Amer) BUN/Creatinine Ratio (10-20) Glucose (70-99) mg/dl POC Glucose 221 H (70-99) mg/dl Lactate (0.4-2.0) mmol/L Calcium (8.5-10.1) mg/dl Phosphorus (2.5-4.9) mg/dl Magnesium (1.8-2.4) mg/dl Total Bilirubin (0.2-1) mg/dl AST (15-37) U/L ALT (12-78) U/L Alkaline Phosphatase (45-117) U/L Troponin I (0-0.045) ng/ml Total Protein (6.4-8.2) gm/dl Albumin (3.4-5.0) gm/dl Globulin (2.5-4.0) gm/dl Albumin/Globulin Ratio (0.9-2) Procalcitonin (0-0.5) ng/ml Urine Color Urine Appearance (Clear) Urine pH (4.5-7.5) Ur Specific [place] (1.000-1.030) Urine Protein (Negative) Urine Glucose (UA) (Negative) Urine Ketones (Negative) Urine Blood (Negative) Urine Nitrite (Negative) Urine Bilirubin (Negative) Urine Urobilinogen (Negative) Ur Leukocyte Esterase (Negative) Urine RBC (0-4) /hpf Urine WBC (0-5) /hpf Ur Epithelial Cells (0-5) /lpf Urine Bacteria (Negative) Influenza Type A (PCR) Neg for Influ A (Neg) Influenza Type B (PCR) Neg for Influ B (Neg) Diagnostic Findings XR chest 1V portable CLINICAL HISTORY: SEPSIS COMPARISON STUDY: 01/18/2020 FINDINGS: The cardiac and mediastinal contours remain stable. There is a right- sided A-Port catheter. There is no failure. There is no focal pulmonary consolidation. There is minimal left basilar atelectasis. A small metallic clip projects over the left lung base/breast. There are no significant pleural e ffusions.[ IMPRESSION: No active disease in the chest. ACT 112: Negative or not required by law. Electronically signed by: Ari Taylor M.D. 01/20/2020 5:10 PM Dictated: 01/20/201708 Transcribed: 01/20/201708 ECG Additional Comments: NSR at 98, normal axis, KY=386, QRS=68, MHi=188, no acute ischemic changes Code Status & VTE Plan Code Status FULL CODE VTE Prophylaxis Plan VTE Prophylaxis will be ordered: Yes PG Care Time/CCT Total # of Minutes Spent Total Time Spent with Patient: Total time spent is greater than 50% in coordination of care (as documented) at patient's floor/unit and/or counseling patient: Coding Level of Care Code 00119 Initial Inpt Care Lvl 3 Diagnoses Neutropenia D70.1; T45.1X5A Neutropenia type: secondary to cancer chemotherapy UTI (urinary tract infection) N30.00 Urinary tract infection type: acute cystitis Hematuria presence: without hematuria Breast cancer, left C50.912 Breast location: unspecified site of breast Estrogen receptor status: unspecified Patient sex: female Chronic kidney disease, stage III (moderate) N18.3 Diabetes E11.9; Z79.4 Diabetes mellitus type: type 2 Diabetes mellitus cager operator insulin use: with cager operator use Diabetes mellitus complication status: without complication Hypertension I10 Hypertension type: essential hypertension Hypothyroidism E03.9 Hypothyroidism type: unspecified High cholesterol E78.00 (1) Neutropenia Neutropenia type: secondary to cancer chemotherapy Qualified Code(s): D70.1 - Agranulocytosis secondary to cancer chemotherapy; T45.1X5A - Adverse effect of antineoplastic and immunosuppressive drugs, initial encounter (2) Breast cancer, left Breast location: unspecified site of breast Estrogen receptor status: unspecified Patient sex: female Qualified Code(s): C50.912 - Malignant neoplasm of unspecified site of left female breast (3) Diabetes Diabetes mellitus type: type 2 Diabetes mellitus cager operator insulin use: with fci use Diabetes mellitus complication status: without complication Qualified Code(s): E11.9 - Type 2 diabetes mellitus without complications; Z79.4 - health information specialist (current) use of insulin (4) Hypertension Hypertension type: essential hypertension Qualified Code(s): I10 - Essential (primary) hypertension (5) Hypothyroidism Hypothyroidism type: unspecified Qualified Code(s): E03.9 - Hypothyroidism, unspecified (6) UTI (urinary tract infection) Urinary tract infection type: acute cystitis Hematuria presence: without hematuria Qualified Code(s): N30.00 - Acute cystitis without hematuria
[2020-01-20] MEDS ORDERED: DEXTROSE 50% 50 ML SYRINGE IV PRN (23:19)
[2020-01-20] MEDS ORDERED: DOCUSATE SODIUM 100 MG CAP PO PRN (23:19)
[2020-01-20] MEDS ORDERED: GLUCOSE 40% GEL 15 GM TUBE PO PRN (23:19)
[2020-01-20] MEDS ORDERED: POLYETHYLENE (MIRALAX) 17 GM PACK PO PRN (23:19)
[2020-01-20] MEDS ORDERED: GLUCOSE 10 TABS/TUBE PO PRN (23:19)
[2020-01-20] MEDS ORDERED: CARBOHYDRATES FOR HYPOGLYCEMIA PO PRN (23:19)
[2020-01-20] MEDS ORDERED: ACETAMINOPHEN 325 MG TAB PO PRN (23:19)
[2020-01-20] MEDS ORDERED: GLUCAGON FOR INJ 1 MG VIAL SQ PRN (23:19)
[2020-01-20] MEDS ORDERED: CEFEPIME 2,000 MG in SYRINGE 7.5 ML IV SCH (23:19)
[2020-01-20] MEDS: SODIUM CHLORIDE 0.9% 1000ML 1,000 ML IV SCH (23:57)
[2020-01-20] MEDS: ROSUVASTATIN CALCIUM 5 MG TAB PO SCH (23:59)
[2020-01-21] MEDS: INSULIN ASPART 100 UNITS/ML 3 ML PEN SC SCH ×5 (00:01→21:29)
[2020-01-21] MEDS: INSULIN DETEMIR FLEXPEN/FLEX TOUCH 100 UNITS/ML 3ML SC SCH ×2 (00:02→21:57)
[2020-01-21] MEDS: PROCHLORPERAZINE MALEATE 10 MG TAB PO PRN ×2 (00:03→17:20)
[2020-01-21] MEDS: CEFEPIME 2,000 MG in SYRINGE 7.5 ML IV SCH ×2 (00:11→23:57)
[2020-01-21 01:57] LABS: Sodium Random Urine 50 mmol/L; Urea Nitrogen, Urine Random 213 mg/dl
[2020-01-21] MEDS: LEVOTHYROXINE SODIUM 88 MCG TABLET PO SCH (05:44)
[2020-01-21 06:41] LABS: Hematocrit (blood only) 25.7 % (37-47); Hemoglobin 8.6 g/dL (12.0-16.0); Mean Corpuscular Hemoglobin 28.5 pg (25-34); Mean Corpuscular Hgb Conc 33.5 g/dL (32-36); Mean Corpuscular Volume 85.1 fL (80-100); RDW Coefficient of Variation 11.9 % (11.5-14.5); RDW Standard Deviation 37.3 fL (36.4-46.3); Red Blood Count 3.02 M/uL (4.2-5.4); White Blood Count 3.08 K/uL (4.8-10.8)
[2020-01-21 06:46] LABS: Mean Platelet Volume 10.8 fL (7.4-10.4); Platelet Count 90 K/uL (130-400)
[2020-01-21 07:09] LABS: Basophils # (auto) 0.01 K/uL (0-0.2); Basophils % (auto) 0.3 %; Dohle Bodies 1+; Eosinophils # (auto) 0.06 K/uL (0-0.5); Eosinophils % (auto) 1.9 %; Giant Platelets 1+; Immature Granulocytes # (auto) 0.07 K/uL (0.00-0.02); Immature Granulocytes % (auto) 2.3 %; Lymphocytes # (auto) 0.31 K/uL (1.2-3.4); Lymphocytes % (auto) 10.1 %; Monocytes # (auto) 1.02 K/uL (0.11-0.59); Monocytes % (auto) 33.1 %; Neutrophils # (auto) 1.61 K/uL (1.4-6.5); Neutrophils % (auto) 52.3 %; Toxic Granulation 1+; Toxic Vacuolation 1+
[2020-01-21 07:13] LABS: BUN Creatinine Ratio 17.2 (10-20); Calcium 8.2 mg/dl (8.5-10.1); Creatinine Clr Calc Pharmacy 39.9 ml/min; Est GFR (African American) 69.1; Est GFR (Non-African American) 59.6
[2020-01-21] MEDS: LETROZOLE 2.5 MG TAB PO SCH (08:35)
[2020-01-21] MEDS: LORATADINE 10 MG TAB PO SCH (08:35)
[2020-01-21] MEDS: LOSARTAN/HCTZ 50/12.5MG TAB PO SCH (08:35)
[2020-01-21] MEDS: guaiFENesin 600 MG TABCR PO SCH ×3 (08:35→21:32)
[2020-01-21] MEDS: CLOPIDOGREL BISULFATE 75 MG TAB PO SCH (08:35)
--- NOTE | 2020-01-21 10:57 | Hospitalist Progress Note ---
Date of Service January 21, 2020 Assessment & Plan (1) Neutropenia: Chemotherapy induced 79yo C female with invasive ductal carcinoma of left breast recently started on chemotherapy. Question of metastatic disease currently undergoing workup under Dr. Nagel and Dr. Rios, planned for video mediastinoscopy 01/29/20 to assess mediastinal LAD which was suspicious on PET. +Fever at home. +UTI -Neutropenic precautions - wbcs improved today -Heme/Onc consultation appreciated (2) Pancytopenia: Chemotherapy induced - Anemia, thrombocytopenia Hgb decreased to 8.6 today, no s/s of bleeding Platelets improving somewhat at 90,000 (3) UTI (urinary tract infection): +Urine culture from 01/17 - >100,000 CFU of E. coli. -Continue Cefepime 2gm IV q 8 hours - will await blood culture results before adjusting antibiotics (4) Breast cancer, left: Patient follows with Hematology. 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 Viral bronchitis vs chemo induced (12) Hyponatremia: On admission sodium was 128, now resolved. (13) DVT prophylaxis: Ppx - SCDs, no DVT chemoppx due to low platelets at this time and decreasing hgb Admission and Anticipated Discharge Date Admission Date: January 20, 2020 Subjective Ms. Ray reports feeling better today than when she came in. She continues to have a cough which is productive of colorless sputum which started after chemotherapy. No sob. She did have some chest pain which she attributed to coughing that has resolved. ROS Constitutional: no chills, aches, sweats or fever Respiratory: see HPI Cardiac: no chest pain, palpitations, edema, orthopnea or lightheadedness GI: no abdominal pain, nausea, vomiting, diarrhea or constipation : no dysuria or hesitancy Extremities: no joint pain or weakness Skin: no rash All other systems reviewed and negative Physical Exam Physical Exam: General: no distress Eyes: normal inspection, PERLL Respiratory: chest non tender, clear to auscultation, normal breath sounds, no respiratory distress, no accessory muscle use Cardiac: regular rate and rhythm, no rub or gallop, no murmur, no edema, no jvd GI/: active bowel sounds, no abd pain or tenderness, soft, non distended Extremities: normal range of motion, normal strength, non tender Neuro/Psych: alert and oriented x 3, normal mood and affect Skin: normal color, dry Results & Data ([facility]) Vital Signs (Past 12 Hours) Vital Signs Temp Pulse Resp BP Pulse Ox 01/21/20 07:15 36.8 C 89 18 119/61 98 01/21/20 04:00 36.9 C 99 H 18 121/64 91 01/20/20 23:42 36.9 C 102 H 20 135/68 94 PG Care Time/CCT Total # of Minutes Spent Total Time Spent with Patient: Total time spent is greater than 50% in coordination of care (as documented) at patient's floor/unit and/or counseling patient: Coding Level of Care Code 25613 Subseq Hosp Care Lvl 3 Diagnoses Neutropenia D70.1; T45.1X5A Neutropenia type: secondary to cancer chemotherapy Pancytopenia D61.818 UTI (urinary tract infection) N30.00 Urinary tract infection type: acute cystitis Hematuria presence: without hematuria Breast cancer, left C50.912 Breast location: unspecified site of breast Estrogen receptor status: unspecified Patient sex: female Chronic kidney disease, stage III (moderate) N18.3 Diabetes E11.9; Z79.4 Diabetes mellitus type: type 2 Diabetes mellitus terminal operations supervisor insulin use: with terminal operations supervisor use Diabetes mellitus complication status: without complication Hypertension I10 Hypertension type: essential hypertension Hypothyroidism E03.9 Hypothyroidism type: unspecified High cholesterol E78.00 Artery stenosis I77.1 Cough R05 Hyponatremia E87.1 DVT prophylaxis Z29.9 (1) Neutropenia Neutropenia type: secondary to cancer chemotherapy Qualified Code(s): D70.1 - Agranulocytosis secondary to cancer chemotherapy; T45.1X5A - Adverse effect of antineoplastic and immunosuppressive drugs, initial encounter (2) UTI (urinary tract infection) Urinary tract infection type: acute cystitis Hematuria presence: without hematuria Qualified Code(s): N30.00 - Acute cystitis without hematuria (3) Breast cancer, left Breast location: unspecified site of breast Estrogen receptor status: unspecified Patient sex: female Qualified Code(s): C50.912 - Malignant neoplasm of unspecified site of left female breast (4) Diabetes Diabetes mellitus type: type 2 Diabetes mellitus fpc insulin use: with terminal operations supervisor use Diabetes mellitus complication status: without complication Qualified Code(s): E11.9 - Type 2 diabetes mellitus without complications; Z79.4 - intermediate accountant (current) use of insulin (5) Hypertension Hypertension type: essential hypertension Qualified Code(s): I10 - Essential (primary) hypertension (6) Hypothyroidism Hypothyroidism type: unspecified Qualified Code(s): E03.9 - Hypothyroidism, unspecified
[2020-01-21] MEDS ORDERED: MAGNESIUM HYDROXIDE SUSP 30 ML UDC PO PRN (11:56)
[2020-01-21] MEDS ORDERED: MAGNESIUM HYDROXIDE SUSP 30 ML UDC ONE (12:06)
[2020-01-21] MEDS: ONDANSETRON INJ 2 MG/ML 2 ML VIAL IV PRN ×2 (12:21→21:32)
[2020-01-21] MEDS: SODIUM CHLORIDE 0.9% 1000ML 1,000 ML IV SCH (12:21)
--- NOTE | 2020-01-21 19:34 | CT Scan Report ---
CT SCAN OF THE ABDOMEN AND PELVIS WITHOUT IV CONTRAST CLINICAL HISTORY: Generalized abdominal pain. Nausea. COMPARISON STUDY: PET/CT dated 12/03/2019. TECHNIQUE: CT scan of the abdomen and pelvis is performed from the lung bases to the proximal femora. Images are reviewed in the axial, sagittal, and coronal planes. IV contrast was not administered for this examination as per the referring clinician. Note that the examination is suboptimal without IV contrast. Oral contrast was utilized. A dose lowering technique was utilized adhering to the principl es of ALA. CT DOSE: 251.57 mGy.cm FINDINGS: Lung bases: The heart is normal in size and without pericardial effusion. There is a trace right pleu ral effusion. Tree-in-bud airspace opacities with groundglass consolidation is present at both lung b ases, right greater than left. Postoperative change is noted in the left breast. There is a small hia nickie hernia. Liver: The unenhanced liver is normal in size, contour, and attenuation. There are coronary artery ca lcifications. There is no intrahepatic biliary ductal dilatation. Gallbladder: Unremarkable. Spleen: Normal in size and attenuation. There is a 12 mm peripherally calcified splenic artery aneury sm. Pancreas: The unenhanced pancreas is atrophic and grossly unremarkable. Adrenal glands: Unremarkable. Kidneys: The unenhanced kidneys are atrophic and without hydronephrosis. There are no renal calculi i dentified. There is no evidence of contour deforming renal mass lesion. A retroaortic left renal vein is incidentally noted. Abdominal vasculature: The abdominal aorta is normal in course and caliber noting moderate to advance d atherosclerotic calcification. Bowel: There is moderate to severe constipation. No bowel obstruction is identified. Enteric contrast reaches the right colon. The appendix is not identified and reported surgically absent. Peritoneum: There is no intraperitoneal free air or abdominal ascites. Lymphadenopathy: None. Pelvic viscera: The bladder is normal as visualized. The uterus is surgically absent. No adnexal lesi on is seen. Skeletal structures: The skeletal structures are osteopenic. Lumbosacral spondylosis is observed. The re are chronic compression deformities of L2, L3, L4, and L5. Mildly retropulsed fragments are noted at L2, L3, and L4. No lytic or blastic lesions are seen. IMPRESSION: 1. There is a trace right pleural effusion with bibasilar tree-in-bud nodularity/ground glass consoli dation. The appearance is typical for a mild infectious/inflammatory pneumonitis and clinical correla tion will be required. 2. No acute infectious or inflammatory findings are seen in the abdomen or pelvis. 3. Moderate to severe constipation. 4. Additional findings as above. ACT 112: Negative or not required by law. Electronically signed by: Dario Chandler M.D. 01/21/2020 7:33 PM
[2020-01-21] MEDS ORDERED: SOD PHOSPHATE/SOD BIPHOSPHATE ENEMA 132 ML BTL PR STA (20:12)
[2020-01-21] MEDS: DOCUSATE SODIUM 100 MG CAP PO SCH (21:31)
[2020-01-21] MEDS: ROSUVASTATIN CALCIUM 5 MG TAB PO SCH (21:31)
[2020-01-21] MEDS: METOPROLOL SUCC 50MG EXT REL TAB PO SCH ×2 (21:32)
[2020-01-22] MEDS: PROCHLORPERAZINE MALEATE 10 MG TAB PO PRN ×2 (03:07→12:00)
[2020-01-22] MEDS: HEPARIN 100 UNIT/ML 5ML FLUSH FLUSH PRN (05:24)
--- NOTE | 2020-01-22 05:31 | Electrocardiogram Report ---
Test Reason : Blood Pressure : / mmHG Vent. Rate : 098 BPM Atrial Rate : 098 BPM P-R Int : 138 ms QRS Dur : 068 ms QT Int : 346 ms P-R-T Axes : 026 021 069 degrees QTc Int : 441 ms Normal sinus rhythm Normal ECG When compared with ECG of 18-JAN-2020 21:03, No significant change was found Confirmed by Luis Smith ([id number]) on 01/22/2020 5:30:48 AM Referred By: REFERRED SELF Confirmed By:Luis Smith
[2020-01-22] MEDS: LEVOTHYROXINE SODIUM 88 MCG TABLET PO SCH (05:43)
[2020-01-22 06:43] LABS: BUN Creatinine Ratio 23.8 (10-20); Calcium 7.3 mg/dl (8.5-10.1); Creatinine Clr Calc Pharmacy 43.7 ml/min; Est GFR (African American) 77.2; Est GFR (Non-African American) 66.6; Potassium 3.6 mmol/L (3.5-5.1)
[2020-01-22 07:02] LABS: Hematocrit (blood only) 27.6 % (37-47); Mean Corpuscular Hemoglobin 27.9 pg (25-34); Mean Corpuscular Hgb Conc 32.6 g/dL (32-36); Mean Corpuscular Volume 85.4 fL (80-100); Mean Platelet Volume 10.6 fL (7.4-10.4); Platelet Count 141 K/uL (130-400); Red Blood Count 3.23 M/uL (4.2-5.4)
[2020-01-22 07:05] LABS: Dohle Bodies 1+; Lymphocytes % (manual) 0.9 %; Monocytes % (manual) 3.5 %; Myelocytes % (manual) 0.9 %; Neutrophils % (manual) 94.7 %; Toxic Granulation 3+
[2020-01-22] MEDS ORDERED: POLYETHYLENE (MIRALAX) 17 GM PACK PO ONE (08:23)
[2020-01-22] MEDS ORDERED: bisacodyL 10 MG SUPP PR PRN (08:24)
[2020-01-22] MEDS ORDERED: SOD PHOSPHATE/SOD BIPHOSPHATE ENEMA 132 ML BTL PR PRN (08:24)
[2020-01-22] MEDS ORDERED: AZITHROMYCIN 500 MG in DEXTROSE 5% 250 ML IV ONE (08:45)
[2020-01-22] MEDS: cefTRIAXone SODIUM 1,000 MG in DEXTROSE 5% 50 ML IV SCH (08:52)
[2020-01-22] MEDS: INSULIN ASPART 100 UNITS/ML 3 ML PEN SC SCH ×4 (09:01→20:35)
[2020-01-22] MEDS: SODIUM CHLORIDE 0.9% 1000ML 1,000 ML IV SCH ×2 (10:10→21:53)
[2020-01-22] MEDS: DOCUSATE SODIUM 100 MG CAP PO SCH ×2 (10:27→20:31)
[2020-01-22] MEDS: LORATADINE 10 MG TAB PO SCH (11:59)
[2020-01-22] MEDS: guaiFENesin 600 MG TABCR PO SCH ×2 (11:59→20:34)
[2020-01-22] MEDS: CLOPIDOGREL BISULFATE 75 MG TAB PO SCH (11:59)
[2020-01-22] MEDS: FAMOTIDINE 20 MG TAB PO SCH ×2 (11:59→20:32)
[2020-01-22] MEDS: LETROZOLE 2.5 MG TAB PO SCH (11:59)
[2020-01-22] MEDS: LOSARTAN/HCTZ 50/12.5MG TAB PO SCH (11:59)
[2020-01-22] MEDS ORDERED: Nursing to Pharmacy Communication ONE (12:05)
[2020-01-22] MEDS ORDERED: PHARMACY GLYCEMIC MGMT CONSULT PRN (12:08)
[2020-01-22] MEDS ORDERED: INSULIN DETEMIR FLEXPEN/FLEX TOUCH 100 UNITS/ML 3ML SC STA (12:33)
--- NOTE | 2020-01-22 14:19 | Pharmacy Report ---
Pharmacy Glycemic Short Note 2 - Date of Service January 22, 2020 - Glycemic Short BSG Results (Last 24 hours): 01/21/20 01/21/20 01/22/20 17:06 20:24 05:23 Glucose 121 H POC Glucose 99 105 H 01/22/20 01/22/20 08:24 11:36 Glucose POC Glucose 144 H 290 H OUTPATIENT ANTIDIABETIC REGIMEN: * Levemir 15 units SQ daily at bedtime * Novolog 6 units with supper * A1c = 7.6% 11/28/19 ASSESSMENT: * Patient admitted for febrile neutropenia, possibly from UTI * BSGs well controlled until pre-lunch BSG today - suspect this may be due to omission of basal insulin last evening, or possibly lack of prandial insulin w/ breakfast this AM * She has been eating poorly, therefore will resume basal insulin at a reduced dose (~80% of home dosage) * Will base rapid acting insulin dose upon weight and "moderate" stress level PLAN FOR INPATIENT GLYCEMIC CONTROL: * Basal insulin * Levemir 12 units SQ Bx 1 now, then resume HS dosing tomorrow * Bolus insulin * NovoLog per scale ACHS and at 0200 tonight to screen for hyper- / hypoglycemia * Goal Range: Low 110 mg/dL - High 140 mg/dL * Correction Factor: 35 mg/dL/unit * Nutritional / Prandial insulin per carb ratio of 1 unit per 15 grams CHO consumed PLAN FOR DISCHARGE: * Can likely resume outpt regimen on discharge given A1c result of 7.6% if pt's dietary habits not changing and not experiencing frequent hypoglycemic episodes.
[2020-01-22] MEDS ORDERED: SODIUM CHLORIDE 0.9% 1000ML 500 ML IV ONE (15:10)
--- NOTE | 2020-01-22 15:16 | Hospitalist Progress Note ---
Date of Service January 22, 2020 Assessment & Plan (1) Neutropenia: Chemotherapy induced - resolved 79yo C female with invasive ductal carcinoma of left breast recently started on chemotherapy. Question of metastatic disease currently undergoing workup under Dr. Nagel and Dr. Rios, planned for video mediastinoscopy 01/29/20 to assess mediastinal LAD which was suspicious on PET. +Fever at home. +UTI -Patient no longer neutropenic - mild leukocytosis - had received Neulasta -Heme/Onc consultation appreciated (2) Pancytopenia: Chemotherapy induced - Anemia, thrombocytopenia Hgb improving, no s/s of bleeding Platelets normalized (3) UTI (urinary tract infection): +Urine culture from 01/17 - >100,000 CFU of E. coli. -Discontinue Cefepime and initiate ceftriaxone as E.coli in urine is sensitive (4) Pneumonia: As seen on CT abd/pelvis Add azithromycin and ceftriaxone as above (5) Breast cancer, left: Patient follows with Hematology. 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 (13) DVT prophylaxis: Ppx - SCDs, initiate DVT proph now that hgb is improving and platelets have normalized - heparin subq Admission and Anticipated Discharge Date Admission Date: January 20, 2020 Supervising Physician Co-Signing Physician Notes I supervised Allison Denney NP on this patient's care. I examined the patient today independently of her. I discussed the plan of care with her with the plan being as written in her note except for any following changes/exceptions: None. Tired today, but focal issues improving (shortness of breath, diarrhea). No indication of untreated infectious source. Continue abx, monitor CBC. Hopeful discharge soon. Subjective Ms. Ray feels generally unwell though her specific complaints are im proving such as abdominal pain and cough. She is having frequent bowel movements since starting laxatives. She continues to be nauseas ROS Constitutional: no chills, aches, sweats or fever Respiratory: see HPI Cardiac: no chest pain, palpitations, edema, orthopnea or lightheadedness GI: no abdominal pain,vomiting, : no dysuria or hesitancy Extremities: no joint pain or weakness Skin: no rash All other systems reviewed and negative Physical Exam Physical Exam: General: no distress Eyes: normal inspection, PERLL Respiratory: chest non tender, clear to auscultation, normal breath sounds, no respiratory distress, no accessory muscle use Cardiac: regular rate and rhythm, no rub or gallop, no murmur, no edema, no jvd GI/: active bowel sounds, no abd pain or tenderness, soft, non distended Extremities: normal range of motion, normal strength, non tender Neuro/Psych: alert and oriented x 3, normal mood and affect Skin: normal color, dry Results & Data ([facility]) Vital Signs (Past 12 Hours) Vital Signs Temp Pulse Resp BP Pulse Ox 01/22/20 11:15 37 C 89 16 97/59 L 97 01/22/20 07:25 36.4 C L 90 16 106/56 L 91 01/22/20 03:35 36.8 C 90 16 108/47 L 92 PG Care Time/CCT Total # of Minutes Spent Total Time Spent with Patient: Total time spent is greater than 50% in coordination of care (as documented) at patient's floor/unit and/or counseling patient: Coding Level of Care Code 03398 Subseq Hosp Care Lvl 3 Diagnoses Neutropenia D70.1; T45.1X5A Neutropenia type: secondary to cancer chemotherapy Pancytopenia D61.818 UTI (urinary tract infection) N30.00 Hematuria presence: without hematuria Urinary tract infection type: acute cystitis Pneumonia J18.9 Breast cancer, left C50.912 Breast location: unspecified site of breast Estrogen receptor status: unspecified Patient sex: female Chronic kidney disease, stage III (moderate) N18.3 Diabetes E11.9; Z79.4 Diabetes mellitus complication status: without complication Diabetes mellitus prison insulin use: with prison use Diabetes mellitus type: type 2 Hypertension I10 Hypertension type: essential hypertension Hypothyroidism E03.9 Hypothyroidism type: unspecified High cholesterol E78.00 Artery stenosis I77.1 Hyponatremia E87.1 DVT prophylaxis Z29.9 (1) UTI (urinary tract infection) Hematuria presence: without hematuria Urinary tract infection type: acute cystitis Qualified Code(s): N30.00 - Acute cystitis without hematuria (2) Breast cancer, left Breast location: unspecified site of breast Estrogen receptor status: unspecified Patient sex: female Qualified Code(s): C50.912 - Malignant neoplasm of unspecified site of left female breast (3) Diabetes Diabetes mellitus complication status: without complication Diabetes mellitus prison insulin use: with emt intermediate use Diabetes mellitus type: type 2 Edgar lified Code(s): E11.9 - Type 2 diabetes mellitus without complications; Z79.4 - emt intermediate (current) use of insulin (4) Hypothyroidism Hypothyroidism type: unspecified Qualified Code(s): E03.9 - Hypothyroidism, unspecified (5) Neutropenia Neutropenia type: secondary to cancer chemotherapy Qualified Code(s): D70.1 - Agranulocytosis secondary to cancer chemotherapy; T45.1X5A - Adverse effect of antineoplastic and immunosuppressive drugs, initial encounter (6) Hypertension Hypertension type: essential hypertension Qualified Code(s): I10 - Essential (primary) hypertension
[2020-01-22] MEDS: ALUMINUM/MAGNESIUM SUSP 50 ML, DiphenhydrAMINE Syrup 125 MG, LIDOCAINE HCL 2% VISCOUS 4... PO PRN (15:55)
[2020-01-22] MEDS: METOPROLOL SUCC 50MG EXT REL TAB PO SCH (20:32)
[2020-01-22] MEDS: HEPARIN SOD 5,000 UNIT/0.5 ML VIAL SQ SCH (20:35)
[2020-01-22] MEDS: ROSUVASTATIN CALCIUM 5 MG TAB PO SCH (20:35)
[2020-01-23] MEDS ORDERED: INSULIN ASPART 100 UNITS/ML 3 ML PEN SC SCH (02:00)
[2020-01-23] MEDS: LEVOTHYROXINE SODIUM 88 MCG TABLET PO SCH (06:04)
[2020-01-23 06:19] LABS: Hematocrit (blood only) 24.3 % (37-47); Hemoglobin 8.3 g/dL (12.0-16.0); Mean Corpuscular Hemoglobin 28.8 pg (25-34); Mean Corpuscular Hgb Conc 34.2 g/dL (32-36); Mean Corpuscular Volume 84.4 fL (80-100); Mean Platelet Volume 9.6 fL (7.4-10.4); Platelet Count 173 K/uL (130-400); RDW Coefficient of Variation 12.1 % (11.5-14.5); RDW Standard Deviation 37.6 fL (36.4-46.3); Red Blood Count 2.88 M/uL (4.2-5.4); White Blood Count 16.69 K/uL (4.8-10.8)
[2020-01-23 06:50] LABS: Basophils # (auto) 0.03 K/uL (0-0.2); Basophils % (auto) 0.2 %; Dohle Bodies 1+; Eosinophils # (auto) 0.02 K/uL (0-0.5); Eosinophils % (auto) 0.1 %; Immature Granulocytes # (auto) 0.38 K/uL (0.00-0.02); Immature Granulocytes % (auto) 2.3 %; Lymphocytes # (auto) 0.91 K/uL (1.2-3.4); Lymphocytes % (auto) 5.5 %; Monocytes # (auto) 0.99 K/uL (0.11-0.59); Monocytes % (auto) 5.9 %; Neutrophils # (auto) 14.36 K/uL (1.4-6.5); Toxic Granulation 1+
[2020-01-23 06:51] LABS: BUN Creatinine Ratio 19.4 (10-20); Calcium 7.7 mg/dl (8.5-10.1); Est GFR (African American) 63.3; Est GFR (Non-African American) 54.6; Potassium 3.4 mmol/L (3.5-5.1)
[2020-01-23] MEDS: AZITHROMYCIN 250 MG TAB PO SCH (07:38)
[2020-01-23] MEDS: guaiFENesin 600 MG TABCR PO SCH ×2 (07:38→21:07)
[2020-01-23] MEDS: CLOPIDOGREL BISULFATE 75 MG TAB PO SCH (07:38)
[2020-01-23] MEDS: DOCUSATE SODIUM 100 MG CAP PO SCH ×2 (07:39→21:06)
[2020-01-23] MEDS: LORATADINE 10 MG TAB PO SCH (07:39)
[2020-01-23] MEDS: HEPARIN SOD 5,000 UNIT/0.5 ML VIAL SQ SCH ×2 (07:39→21:11)
[2020-01-23] MEDS: ASPIRIN 81 MG ECTAB PO SCH (07:39)
[2020-01-23] MEDS: LETROZOLE 2.5 MG TAB PO SCH (07:39)
[2020-01-23] MEDS: FAMOTIDINE 20 MG TAB PO SCH ×2 (07:40→21:12)
[2020-01-23] MEDS ORDERED: POTASSIUM CHLORIDE 20 MEQ TABCR PO STA (08:14)
[2020-01-23] MEDS: INSULIN ASPART 100 UNITS/ML 3 ML PEN SC SCH ×4 (08:55→21:10)
[2020-01-23] MEDS: cefTRIAXone SODIUM 1,000 MG in DEXTROSE 5% 50 ML IV SCH (08:56)
[2020-01-23] MEDS: SODIUM CHLOR 0.45% + 20MEQ KCL 20 MEQ/1,000 ML BAG IV SCH ×2 (08:58→21:04)
--- NOTE | 2020-01-23 09:01 | Pharmacy Report ---
Pharmacy Glycemic Short Note 2 - Date of Service January 23, 2020 - Glycemic Short BSG Results (Last 24 hours): 01/22/20 01/22/20 01/22/20 11:36 14:46 16:48 Glucose POC Glucose 290 H 234 H 173 H 01/22/20 01/23/20 01/23/20 19:56 02:15 05:50 Glucose 93 POC Glucose 208 H 118 H 01/23/20 08:05 Glucose POC Glucose 91 OUTPATIENT ANTIDIABETIC REGIMEN: * Levemir 15 units SQ daily at bedtime * Novolog 6 units with supper * A1c = 7.6% 11/28/19 ASSESSMENT: * Patient admitted for febrile neutropenia, possibly from UTI * Continues on ceftriaxone 1 g IV daily * BSGs labile yesterday ranging 144-290 mg/dL * Received 22 units of insulin yesterday - 12 units of basal and 10 units of prandial/correctional * Fasting BSG this morning of 91 mg/dL - continue current basal * BSGs better controlled with tightening of CF and CR yesterday - will continue for now PLAN FOR INPATIENT GLYCEMIC CONTROL: * Basal insulin * Levemir 12 units SC HS * Bolus insulin * NovoLog per scale ACHS * Goal Range: Low 110 mg/dL - High 140 mg/dL * Correction Factor: 35 mg/dL/unit * Nutritional / Prandial insulin per carb ratio of 1 unit per 15 grams CHO consumed PLAN FOR DISCHARGE: * Can likely resume outpt regimen on discharge given A1c result of 7.6% if pt's dietary habits not changing and not experiencing frequent hypoglycemic episodes.
--- NOTE | 2020-01-23 14:03 | Hospitalist Progress Note ---
Date of Service January 23, 2020 Assessment & Plan (1) Neutropenia: Chemotherapy induced - resolved 79yo C female with invasive ductal carcinoma of left breast recently started on chemotherapy. Question of metastatic disease currently undergoing workup under Dr. Nagel and Dr. Rios, planned for video mediastinoscopy 01/29/20 to assess mediastinal LAD which was suspicious on PET. +Fever at home. +UTI -Patient no longer neutropenic - mild leukocytosis - had received Neulasta previous to admission -Heme/Onc consultation appreciated (2) Pancytopenia: Chemotherapy induced - Anemia, thrombocytopenia Hgb stable, no s/s of bleeding Platelets normalized (3) UTI (urinary tract infection): +Urine culture from 01/17 - >100,000 CFU of E. coli. -Discontinued Cefepime - will change ceftriaxone to po cefdinir (4) Pneumonia: As seen on CT abd/pelvis Continue azithromycin and change ceftriaxone as above (5) Breast cancer, left: Patient follows with Hematology. 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 (13) DVT prophylaxis: Ppx - SCDs, heparin subq Admission and Anticipated Discharge Date Admission Date: January 20, 2020 Subjective Ms. Ray is feeling much better today. Nausea under better control. She has been having diarrhea over the last few days. She continues to cough with small amount of sputum production. ROS Constitutional: no chills, aches, sweats or fever Respiratory: see HPI Cardiac: no chest pain, palpitations, edema, orthopnea or lightheadedness GI: no abdominal pain,vomiting, : no dysuria or hesitancy Extremities: no joint pain or weakness Skin: no rash All other systems reviewed and negative Physical Exam Physical Exam: General: no distress Eyes: normal inspection, PERLL Respiratory: chest non tender, clear to auscultation, normal breath sounds, no respiratory distress, no accessory muscle use Cardiac: regular rate and rhythm, no rub or gallop, no murmur, no edema, no jvd GI/: active bowel sounds, no abd pain or tenderness, soft, non distended Extremities: normal range of motion, normal strength, non tender Neuro/Psych: alert and oriented x 3, normal mood and affect Skin: normal color, dry Results & Data ([facility]) Vital Signs (Past 12 Hours) Vital Signs Temp Pulse Resp BP Pulse Ox 01/23/20 11:42 36.5 C 80 20 112/55 L 95 01/23/20 07:48 36.5 C 77 18 112/55 L 92 01/23/20 04:09 36.6 C 86 18 108/62 95 PG Care Time/CCT Total # of Minutes Spent Total Time Spent with Patient: Total time spent is greater than 50% in coordination of care (as documented) at patient's floor/unit and/or counseling patient: Coding Level of Care Code 38831 Subseq Hosp Care Lvl 2 Diagnoses Neutropenia D70.1; T45.1X5A Neutropenia type: secondary to cancer chemotherapy Pancytopenia D61.818 UTI (urinary tract infection) N30.00 Urinary tract infection type: acute cystitis Hematuria presence: without hematuria Pneumonia J18.9 Breast cancer, left C50.912 Breast location: unspecified site of breast Estrogen receptor status: unspecified Patient sex: female Chronic kidney disease, stage III (moderate) N18.3 Diabetes E11.9; Z79.4 Diabetes mellitus type: type 2 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 Diabetes mellitus complication status: without complication Hypertension I10 Hypertension type: essential hypertension Hypothyroidism E03.9 Hypothyroidism type: unspecified High cholesterol E78.00 Artery stenosis I77.1 Hyponatremia E87.1 DVT prophylaxis Z29.9 (1) Neutropenia Neutropenia type: secondary to cancer chemotherapy Qualified Code(s): D70.1 - Agranulocytosis secondary to cancer chemotherapy; T45.1X5A - Adverse effect of antineoplastic and immunosuppressive drugs, initial encounter (2) UTI (urinary tract infection) Urinary tract infection type: acute cystitis Hematuria presence: without hematuria Qualified Code(s): N30.00 - Acute cystitis without hematuria (3) Breast cancer, left Breast location: unspecified site of breast Estrogen receptor status: unspecified Patient sex: female Qualified Code(s): C50.912 - Malignant neoplasm of unspecified site of left female breast (4) Diabetes Diabetes mellitus type: type 2 Diabetes mellitus petroleum terminal plant operator insulin use: with petroleum terminal plant operator use Diabetes mellitus complication status: without complication Qualified Code(s): E11.9 - Type 2 diabetes mellitus without complications; Z79.4 - petroleum terminal plant operator (current) use of insulin (5) Hypertension Hypertension type: essential hypertension Qualified Code(s): I10 - Essential (primary) hypertension (6) Hypothyroidism Hypothyroidism type: unspecified Qualified Code(s): E03.9 - Hypothyroidism, unspecified
[2020-01-23] MEDS ORDERED: CEFDINIR 300 MG CAP PO STA (14:12)
[2020-01-23] MEDS ORDERED: GUAIFENESIN/CODEINE 100MG/10MG 5ML UDC PO PRN (17:50)
[2020-01-23] MEDS ORDERED: cefUROXime axetil 500 MG TAB PO SCH (21:00)
[2020-01-23] MEDS ORDERED: INSULIN DETEMIR FLEXPEN/FLEX TOUCH 100 UNITS/ML 3ML SC SCH (21:00)
[2020-01-23] MEDS: ROSUVASTATIN CALCIUM 5 MG TAB PO SCH (21:07)
[2020-01-23] MEDS: METOPROLOL SUCC 50MG EXT REL TAB PO SCH (21:12)
[2020-01-24] MEDS: LEVOTHYROXINE SODIUM 88 MCG TABLET PO SCH (06:14)
[2020-01-24] MEDS: ALUMINUM/MAGNESIUM SUSP 50 ML, DiphenhydrAMINE Syrup 125 MG, LIDOCAINE HCL 2% VISCOUS 4... PO PRN ×2 (06:18→08:23)
[2020-01-24 06:25] LABS: Hematocrit (blood only) 24.7 % (37-47); Mean Corpuscular Hemoglobin 28.1 pg (25-34); Mean Corpuscular Hgb Conc 32.4 g/dL (32-36); Mean Corpuscular Volume 86.7 fL (80-100); Mean Platelet Volume 9.8 fL (7.4-10.4); Platelet Count 198 K/uL (130-400); RDW Coefficient of Variation 12.3 % (11.5-14.5); RDW Standard Deviation 39.5 fL (36.4-46.3); Red Blood Count 2.85 M/uL (4.2-5.4); White Blood Count 16.36 K/uL (4.8-10.8)
[2020-01-24 06:58] LABS: Basophils # (auto) 0.03 K/uL (0-0.2); Basophils % (auto) 0.2 %; Eosinophils # (auto) 0.07 K/uL (0-0.5); Eosinophils % (auto) 0.4 %; Immature Granulocytes # (auto) 0.54 K/uL (0.00-0.02); Immature Granulocytes % (auto) 3.3 %; Lymphocytes # (auto) 1.28 K/uL (1.2-3.4); Lymphocytes % (auto) 7.8 %; Monocytes # (auto) 0.92 K/uL (0.11-0.59); Monocytes % (auto) 5.6 %; Neutrophils # (auto) 13.52 K/uL (1.4-6.5); Neutrophils % (auto) 82.7 %
[2020-01-24 07:10] VITALS: TEMP 98.1; O2SAT 95
[2020-01-24 07:13] LABS: BUN Creatinine Ratio 13.3 (10-20); Creatinine Clr Calc Pharmacy 41.7 ml/min; Est GFR (African American) 72.9; Est GFR (Non-African American) 62.9; Magnesium 2.1 mg/dl (1.8-2.4); Potassium 3.9 mmol/L (3.5-5.1)
[2020-01-24] MEDS: SODIUM CHLOR 0.45% + 20MEQ KCL 20 MEQ/1,000 ML BAG IV SCH (07:14)
[2020-01-24] MEDS ORDERED: SODIUM CHLORIDE 0.65% NA SOLN 45 ML (OCEAN) ONE (07:17)
[2020-01-24] MEDS: ASPIRIN 81 MG ECTAB PO SCH (08:14)
[2020-01-24] MEDS: DOCUSATE SODIUM 100 MG CAP PO SCH (08:14)
[2020-01-24] MEDS: LORATADINE 10 MG TAB PO SCH (08:14)
[2020-01-24] MEDS: guaiFENesin 600 MG TABCR PO SCH (08:15)
[2020-01-24] MEDS: FAMOTIDINE 20 MG TAB PO SCH (08:15)
[2020-01-24] MEDS: AZITHROMYCIN 250 MG TAB PO SCH (08:15)
[2020-01-24] MEDS: CLOPIDOGREL BISULFATE 75 MG TAB PO SCH (08:15)
[2020-01-24] MEDS: HEPARIN SOD 5,000 UNIT/0.5 ML VIAL SQ SCH (08:16)
[2020-01-24] MEDS: INSULIN ASPART 100 UNITS/ML 3 ML PEN SC SCH ×2 (08:18→12:21)
[2020-01-24] MEDS: LETROZOLE 2.5 MG TAB PO SCH (08:18)
--- NOTE | 2020-01-24 08:43 | Oncology Consultation ---
Date of Consultation January 23, 2020 Assessment & Plan (1) Pancytopenia: Ms. Ray had a chemotherapy induced pancytopenia on admission that is already mostly resolved. She was neutropenic on the day of admission but was not febrile and recovered by the following day. Her WBCs are high now because of the GCSF she received. She is being treated appropriately for her UTI. If her respiratory symptoms do not improve, we could consider adding coverage for HCAP. She has no history or exposures to suggest COVID-19 and her symptomatology also does not fit that diagnosis. We may need to adjust her chemotherapy given this event. We can discuss this more as an outpatient. Present on Admission?: Yes History of Present Illness Reason for Consultation: Neutropenia UTI Breast cancer Attending Physician: Nahid Briseno MD History of Present Illness Ms. Ray is a 79 year old woman with a history of of HTN, CKD, carotid stenosis, DM, and hypothyroidism. She follows with me for a recently diagnosed breast cancer. She was initially treated in 2000 and has a locally recurrent cancer in her left breast. She had some suspicious mediastinal lymph nodes on staging imaging, but they have been sampled twice and revealed no evidence of metastatic disease. She started neoadjuvant chemotherapy with Taxotere and Cytoxan on 01/13. She called my office on 01/16 complaining of urinary frequency and dysuria. We brought her in for a UA the following day that revealed an E. coli UTI. We sent her to the ER because she sounded unwell on the phone, but she was sent home that day. She returned to the ER 01/19 and was admitted for neutropenia and the UTI. She also has a cough and imaging suggests a mild pneumonic process. She has felt much better since starting IV antibiotics. Her energy is improved and she has been afebrile. She did not report other major issues with the chemo so far. She denied any nausea or vomiting, diarrhea, rashes, or neuropathy. Allergies Allergy/AdvReac Type Severity Reaction Status Date / Time Penicillins Allergy Unknown ITCHY Verified 01/20/20 16:05 morphine AdvReac Severe NAUSEA AND Verified 01/20/20 16:05 VOMITING Home Medications Home Medications Medication Instructions Recorded Confirmed Type cholecalciferol (vitamin D3) 25 1,000 units PO QAM 10/02/18 01/20/20 History mcg (1,000 unit) capsule levothyroxine 88 mcg capsule 88 mcg PO QAM 10/02/18 01/20/20 History ranitidine HCl 300 mg tablet 300 mg PO QPM 10/02/18 01/20/20 History rosuvastatin 5 mg tablet 5 mg PO HS tab 10/02/18 01/20/20 History aspirin 81 mg tablet,delayed 81 mg PO QAM 10/19/19 01/20/20 History release clopidogrel 75 mg tablet 75 mg PO QAM 10/19/19 01/20/20 History losartan 50 mg-hydrochlorothiazide 1 tab PO QAM 10/19/19 01/20/20 History 12.5 mg tablet metoprolol succinate 50 mg 100 mg PO HS 10/19/19 01/20/20 History tablet,extended release 24 hr Allergy Relief (cetirizine) 10 mg PO HS 11/27/19 01/20/20 History insulin detemir U-100 100 unit/mL 15 units SUBCUT HS ml 12/07/19 01/20/20 History subcutaneous solution magnesium hydroxide [Milk of 400 mg PO 3XWK PRN 12/28/19 01/20/20 History Magnesia] Cytoxan 0 mg IV UD 01/18/20 01/20/20 History docetaxel [Taxotere] 0 mg IV UD 01/18/20 01/20/20 History letrozole 2.5 mg PO DAILY 01/18/20 01/20/20 History loratadine [Claritin] 10 mg PO DAILY 01/18/20 01/20/20 History prochlorperazine maleate 10 mg PO Q6 PRN 01/18/20 01/20/20 History insulin aspart U-100 [Novolog 6 unit SUBCUT .WITH SUPPER 01/22/20 01/22/20 History Flexpen U-100 Insulin] Patient History Medical History Arthritis Breast cancer, left 10/2001 > LUMPECTOMY > RECENTLY DX'ED AGAIN WITH LEFT BREAST CA Carotid stenosis Mild stenosis at the origin of the left common carotid artery. Cataract of both eyes (Chronic) Chronic kidney disease, stage III (moderate) (Chronic) F/U PCP Diabetes (Chronic) Glaucoma Hyperlipidemia Hypertension Pt went to ED week of 11/19 with BP in 200s systolic. Had f/u with PCP, med changes made. 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 Vision loss potentially related to stroke though MRI negative. Osteoporosis (Chronic) Raynauds syndrome (Chronic) Reflux esophagitis (Chronic) Vertebral artery stenosis Moderate stenosis at origin of L vertebral artery per 10/2019 Neck CTA Visual impairment 2/2 vertebral artery stenosis. F/U DR VIRGEN-PLACED ON PLAVIX Surgical History H/O tubal ligation (Chronic) H/O: hysterectomy (Chronic) History of appendectomy (Chronic) 1974 History of cataract surgery R/L History of colonoscopy Port-A-Cath in place (01/03/20) Access port placement. Dr. Mendoza 01-03-20 S/P bronchoscopy few weeks ago at [facility] S/P lumpectomy, left breast (Chronic) Family History Father Coronary heart disease Heart disease Hypertension Mother Diabetes CHF (congestive heart failure) Heart disease Colorectal cancer Hypertension Stroke Family history of reaction to anesthesia SLOW TO WAKE UP Son Multiple sclerosis Social History Preferred Language: [place] Communication Ability: Effective Visual Impairment: No Limitations Hearing Ability: Normal Waiter/Waitress Tourist Class Required: No Beliefs That Will Affect Care: None marital status: Current Living Situation: Spouse current occupational status: other current occupation: semi retired substitute clerical person Feels Safe at Home: Yes Safety Concerns: Feels Safe At This Time Smoking Status: Never smoker Second Hand Exposure: No ; Hx Alcohol Use: No Hx Substance Use: No Review of Systems Review of Systems: All systems reviewed & are unremarkable except as noted in HPI & below Physical Exam Constitutional: comfortable; no acute distress ENMT: external ear and nose normal, oropharynx normal Respiratory: normal respiratory effort Coarse breath sounds and rhonchi in the R lower field, otherwise clear Cardiovascular: RRR, no murmur, no edema Gastrointestinal (Abdomen): Inspection/Auscultation: normal bowel sounds; abdomen not distended Percussion/Palpation: abdomen soft; abdomen nontender Skin: no rashes, warm and dry Psychiatric: A+Ox3, euthymic affect Lymphatic: no cervical or axillary lymphadenopathy Results & Data Vital Signs (Past 12 Hours) Vital Signs Temp Pulse Resp BP Pulse Ox 01/24/20 07:00 36.7 C 91 H 16 166/70 H 95 01/24/20 02:56 36.4 C L 72 22 141/67 H 99 01/23/20 22:53 36.9 C 99 H 20 153/78 H 95 01/23/20 21:55 18 93 Laboratory Results Laboratory Tests 01/20/20 01/23/20 01/23/20 16:40 05:50 05:50 WBC 1.45 L 16.69 H Hgb 9.4 L 8.3 L Plt Count 78 L 173 Creatinine 0.99
[2020-01-24] MEDS: HEPARIN 100 UNIT/ML 5ML FLUSH FLUSH PRN ×2 (08:54→11:48)
[2020-01-24] MEDS ORDERED: CEFDINIR 300 MG CAP PO SCH (09:00)
--- NOTE | 2020-01-24 10:32 | Pharmacy Report ---
Pharmacy Glycemic Short Note 2 - Date of Service January 24, 2020 - Glycemic Short BSG Results (Last 24 hours): 01/23/20 01/23/20 01/23/20 12:00 17:00 20:07 Glucose POC Glucose 140 H 157 H 198 H 01/24/20 01/24/20 05:05 07:34 Glucose 54 L POC Glucose 76 OUTPATIENT ANTIDIABETIC REGIMEN: * Levemir 15 units SQ daily at bedtime * Novolog 6 units with supper * A1c = 7.6% 11/28/19 ASSESSMENT: * Patient admitted for febrile neutropenia * Converted to PO antibiotics yesterday - azithromycin and cefdinir * BSGs reasonably well controlled yesterday - ranging 91-198 mg/dL * Received 17 units of insulin yesterday - 12 units of basal and 5 units of prandial/correctional * Fasting BSG this morning of 76 mg/dL - possibly due to correctional insulin HS vs. too much basal insulin * Will consider slight basal dose reduction this evening vs. loosening CF * Patient discharged today PLAN FOR DISCHARGE: * Can likely resume outpt regimen on discharge given A1c result of 7.6% if pt's dietary habits not changing and not experiencing frequent hypoglycemic episodes.
[2020-01-24 11:26] VITALS: BP 171/73; PULSE 92
--- NOTE | 2020-01-24 11:35 | Discharge Summary ---
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 She returned to care in September 2019 with an inverted left nipple found to have new masses. Biopsy of nipple lesion on 10/10/19 consistent with ductal breast carcinoma. PET CT on 12/03/19 with moderate uptake, borderline enlarged mediastinal and right hilar LN and 8mm irregular RUL pulmonary nodule. She had bronchoscopy/EBUS and transbronchial biopsy performed of multiple nodes on 12/14/19 which were negative for malignancy by biopsy. However, concern remains that these lesions/nodes are, indeed, metastatic despite negative biopsies by EBUS, therefore patient is to have a mediastinocopy on 01/29/20. She was started on neoadjuvant letrozole on 01/14/20. She began feeling ill on Wednesday 01/17. She was seen in the ER with complaint of cough/congestion and chest tightness as well as generalized weakness, nausea and vomiting. WBC = 2.99 and Neutrophil # = 2.83. She was discharged home after negative workup. Patient states that antibiotics were to be called in from the ER, however, upon review of the ER note, no obvious source of infection was identified during that visit therefore no prescriptions were given. Her urine culture from that visit 01/17 grew >100,000 E. coli, Sn/Sp pending resulted on 01/20/20. She returns today with subjective fevers, chills, body aches as well as weakness/fatigue. She has had a cough productive for yellow sputum since receiving chemotherapy. Additionally she complains of diffuse abdominal pain and constipation. Fever to 101 today which prompted her to come to the ER. Patient with no recent international or domestic travel. No sick contacts. No concern for exposure to Covid-19. ER Course: Albuterol, Tessalon, Ceftriaxone, Pepcid Principal Diagnosis UTI, pneumonia Discharge Exam Constitutional WD/WN, vitals as above Respiratory normal respiratory effort, lungs clear to auscultation Cardiovascular RRR, no murmur, no edema Gastrointestinal (Abdomen) Inspection/Auscultation: abdomen normal to inspection and normal bowel sounds; abdomen not distended Percussion/Palpation: abdomen soft; abdomen nontender Musculoskeletal no cyanosis or clubbing, extremities motor strength 5/5 Skin no rashes, warm and dry Neurologic moves all extremities and awake Psychiatric A+Ox3, euthymic affect Discharge Data Allergies Allergy/AdvReac Type Severity Reaction Status Date / Time Penicillins Allergy Unknown ITCHY Verified 01/20/20 16:05 morphine AdvReac Severe NAUSEA AND Verified 01/20/20 16:05 VOMITING Consultations 01/20/20 18:44 ED Decision to Admit Stat 01/20/20 23:19 Consult Hematology Routine Ordered Studies 01/21/20 16:30 CT abd pelvis oral con only Routine Hospital Course (1) Neutropenia: Chemotherapy induced - resolved 79yo C female with invasive ductal carcinoma of left breast recently started on chemotherapy. Question of metastatic disease currently undergoing workup under Dr. Nagel and Dr. Rios, planned for video mediastinoscopy 01/29/20 to assess mediastinal LAD which was suspicious on PET. +Fever at home. +UTI -Patient no longer neutropenic - mild leukocytosis - had received Neulasta previous to admission -Heme/Onc consultation appreciated (2) Pancytopenia: Chemotherapy induced - Anemia, thrombocytopenia Hgb stable, no s/s of bleeding Platelets normalized (3) UTI (urinary tract infection): +Urine culture from 01/17 - >100,000 CFU of E. coli. -Discontinued Cefepime - changed ceftriaxone to po cefdinir (4) Pneumonia: As seen on CT abd/pelvis Continue azithromycin and change ceftriaxone as above (5) Breast cancer, left: Patient follows with Hematology. 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 Will continue with HCTZ as patient's sodium rebounded while still taking it. May want to recheck bmp outpatient in the next weeks to verify it is staying stable. (13) DVT prophylaxis: Ppx - SCDs, heparin subq Total Time Total Time Spent Total Time Spent (In Minutes): greater than 30 minutes Discharge Plan Discharge Items Patient Disposition: Home - Self-Care Reason For Visit: NEUTROPENIC FEVER Discharge Diagnosis: Urinary tract infection, pneumonia Activity: Resume your previous activity Activity Comment: gradually as tolerated Non-emergency contact: Primary Care Provider Call non-emergency contact if: you have any medication questions Follow-up/Referrals: Billy Craig [Primary Care Provider] - (can defer on primary care follow up ) Reuben Nagel [Physician] - (follow up 1 week SPOKE WITH JIGAR AT OFFICE SHE WILL CALL PATIENT WITH APPT DUE TO LIMITED AVAILABILITY OF PHYSICIAN) Diet: Carb Consistent or DM2 Ambulatory Orders: Complete Blood Count with Diff (Routine) Timeframe: [id number] Location: Determined by Patient Ordered By: Allison Cifuentes Attending Provider Instructions: (1) Neutropenia: Chemotherapy induced - resolved (2) Pancytopenia (low blood counts): Chemotherapy induced - Anemia, thrombocytopenia (low platelets) Platelets have normalized You continue to be anemic which is likely partially from the chemotherapy and appearing worse today due to dilution from IV fluids Please call your doctor right away if you see any signs of bleeding such as blood in your stool or urine, dark tarry stools, or excessive bruising. Please have your blood drawn on Tuesday to check the blood count. You can follow up with either Dr. Craig or Dr. Nagel on the results (3) UTI (urinary tract infection): Continue cefdinir (4) Pneumonia: As seen on CT Continue azithromycin and cefdinir (5) Breast cancer, left: Please follow up with Oncology -Continue letrozole Pending Studies at Discharge: No Stand-Alone Forms: My Native[employer], Smoking Cessation Medications and DC Order Prescriptions: New azithromycin [Zithromax] 250 mg Tablet 250 mg PO QAM Qty: 3 RF: 0 cefdinir 300 mg Capsule 300 mg PO BID Qty: 7 RF: 0 codeine-guaifenesin [Guaiatussin AC] 10-100 mg/5 mL Liquid 5 ml PO HS PRN (Reason: cough) Qty: 7 RF: 0 Continued levothyroxine 88 mcg capsule 88 mcg PO QAM RF: 0 rosuvastatin [Crestor] 5 mg tablet 5 mg PO HS RF: 0 cholecalciferol (vitamin D3) 1,000 unit capsule 1,000 units PO QAM RF: 0 ranitidine HCl 300 mg tablet 300 mg PO QPM RF: 0 clopidogrel [Plavix] 75 mg tablet 75 mg PO QAM RF: 0 losartan-hydrochlorothiazide 50-12.5 mg tablet 1 tab PO QAM RF: 0 metoprolol succinate 50 mg tablet extended release 24 hr 100 mg PO HS RF: 0 aspirin [Adult Aspirin Regimen] 81 mg tablet,delayed release (DR/EC) 81 mg PO QAM RF: 0 Allergy Relief (cetirizine) 10 mg Capsule 10 mg PO HS RF: 0 Levemir U-100 Insulin 100 unit/mL solution 15 units SUBCUT HS RF: 0 magnesium hydroxide [Milk of Magnesia] 400 mg/5 mL Suspension 400 mg PO 3XWK PRN (Reason: Constipation) RF: 0 letrozole 2.5 mg tablet 2.5 mg PO DAILY RF: 0 prochlorperazine maleate 10 mg tablet 10 mg PO Q6 PRN (Reason: Nausea) RF: 0 loratadine [Claritin] 10 mg Tablet 10 mg PO DAILY RF: 0 docetaxel [Taxotere] 20 mg/mL (1 mL) Solution 0 mg IV UD RF: 0 Cytoxan 0 mg IV UD RF: 0 insulin aspart U-100 [Novolog Flexpen U-100 Insulin] 100 unit/mL (3 mL) Insulin Pen 6 unit subcut .WITH SUPPER RF: 0 Discharge Orders: Discharge Order (Routine); Ordered 01/24/20 Ordered By: Allison Denney Admission Data Admit Date/Time: 01/20/20 20:21 Attending Provider: Nahdi Briseno Admit Provider: Radha Dow Primary Care Provider: Billy rCaig Other Providers: Reuben Nagel ; Nahid Briseno Other Interventions: Discharge Summary Assessment (RN) Last Done: 01/24/20 09:59 DC Date/Time DO NOT enter until pt leaves facility: 01/24/20 13:00 Supervising Physician Co-Signing Physician Notes I supervised Allison Denney NP on this patient's care. I examined the patient today independently of her. I discussed the plan of care with her with the plan being as written in her note except for any following changes/exceptions: None. Feeling better now. Ready to go home. Focal symptoms all improved or resolved. Will follow up with labs on Tuesday and Dr. Nagel as previously planned. Coding Level of Care Code D/C Day Management >30 mins Diagnoses Neutropenia D70.1; T45.1X5A Neutropenia type: secondary to cancer chemotherapy Pancytopenia D61.818 UTI (urinary tract infection) N30.00 Hematuria presence: without hematuria Urinary tract infection type: acute cystitis Pneumonia J18.9 Breast cancer, left C50.912 Breast location: unspecified site of breast Estrogen receptor status: unspecified Patient sex: female Chronic kidney disease, stage III (moderate) N18.3 Diabetes E11.9; Z79.4 Diabetes mellitus complication status: without complication Diabetes mellitus jail insulin use: with jail use Diabetes mellitus type: type 2 Hypertension I10 Hypertension type: essential hypertension Hypothyroidism E03.9 Hypothyroidism type: unspecified High cholesterol E78.00 Artery stenosis I77.1 Hyponatremia E87.1 DVT prophylaxis Z29.9
--- NOTE | 2020-01-24 18:27 | Pharmacy Report ---
ED Pharmacist Progress Note - ED Pharmacist Progress Note Date of Service:: January 24, 2020 Notes:: Received call from [facility] pharmacy regarding prescription that was sent over today for Guaiatussin AC, they do not have this in stock but do have Virtussin AC (a different brand) and wanted to confirm dispense amount (sent over as 7 doses). Confirmed this switch is okay with Allison MARIA who was the prescribing provider and confirmed #35 mL dispense amount (for 7 doses). Attempted to call back [facility] pharmacy several times- their phone system is down. Will continue to attempt to reach.
== END 2020-01-24 13:00 | disposition home or self-care (01) | DRG 809 ==
LOC: ED 15:28 → SUATTDRO 20:21 → 4W 20:21

== ENCOUNTER 2020-05-05 07:45 | Inpatient (IN) ==
--- NOTE | 2020-01-03 06:23 | History & Physical Report ---
Date of Service January 03, 2020 Assessment & Plan (1) Recurrent cancer of left breast: Patient is for access port This will most likely be on the right side [facility] Local sedation History of Present Illness Primary Care Provider: Billy Craig Patient with recurrent left breast cancer She also had a shave biopsy of the left breast skin which was positive There is some concern Regional lymph node involvement We are considering neoadjuvant chemotherapy Patient is for an access port Allergies Allergy/AdvReac Type Severity Reaction Status Date / Time Penicillins Allergy Unknown ITCHY Verified 01/03/20 05:57 morphine AdvReac Severe NAUSEA AND Verified 01/03/20 05:57 VOMITING Home Medications Home Medications Medication Instructions Recorded Confirmed Type cholecalciferol (vitamin D3) 25 1,000 units PO QAM 10/02/18 01/03/20 History mcg (1,000 unit) capsule insulin aspar prot-insulin aspart 6 units SQ .supper ml 10/02/18 01/03/20 History 100 unit/mL (70-30) subcutaneous pen levothyroxine 88 mcg capsule 88 mcg PO QAM 10/02/18 01/03/20 History ranitidine HCl 300 mg tablet 300 mg PO QPM 10/02/18 01/03/20 History rosuvastatin 5 mg tablet 5 mg PO HS tab 10/02/18 01/03/20 History aspirin 81 mg tablet,delayed 81 mg PO QAM 10/19/19 01/03/20 History release clopidogrel 75 mg tablet 75 mg PO QAM 10/19/19 01/03/20 History losartan 50 mg-hydrochlorothiazide 1 tab PO QAM 10/19/19 01/03/20 History 12.5 mg tablet metoprolol succinate 50 mg 100 mg PO HS 10/19/19 01/03/20 History tablet,extended release 24 hr Allergy Relief (cetirizine) 10 mg PO HS 11/27/19 01/03/20 History insulin detemir U-100 100 unit/mL 15 units SUBCUT HS ml 12/07/19 01/03/20 History subcutaneous solution magnesium hydroxide [Milk of 400 mg PO 3XWK PRN 12/28/19 01/03/20 History Magnesia] letrozole 2.5 mg PO DAILY 12/31/19 01/03/20 History tramadol [Ultram] 50 mg PO QID PRN #12 tab 12/31/19 01/03/20 Rx Past Med/Surg History Medical History (Updated 12/28/19 @ 09:52 by Lima Martin PA-C) Arthritis Breast cancer, left 10/2001 > LUMPECTOMY > RECENTLY DX'ED AGAIN WITH LEFT BREAST CA Carotid stenosis Mild stenosis at the origin of the left common carotid artery. Cataract of both eyes (Chronic) Chronic kidney disease, stage III (moderate) (Chronic) F/U PCP Diabetes (Chronic) Glaucoma Hyperlipidemia Hypertension Pt went to ED week of 11/19 with BP in 200s systolic. Had f/u with PCP, med changes made. 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 Vision loss potentially related to stroke though MRI negative. Osteoporosis (Chronic) Raynauds syndrome (Chronic) Reflux esophagitis (Chronic) Vertebral artery stenosis Moderate stenosis at origin of L vertebral artery per 10/2019 Neck CTA Visual impairment 2/2 vertebral artery stenosis. F/U DR VIRGEN-PLACED ON PLAVIX Social History (Updated 11/16/19 @ 10:18 by Mitali Cosme, RN) Preferred Language: Macanese Communication Ability: Effective Visual Impairment: No Limitations Hearing Ability: Normal Fish And Wildlife Biologist Required: No Beliefs That Will Affect Care: None marital status: Current Living Situation: Spouse current occupational status: other current occupation: semi retired substitute clerical person Other Information That Helps Us Care for You: No Feels Safe at Home: Yes Safety Concerns: Feels Safe At This Time Smoking Status: Never smoker Do You Dip or Chew Tobacco: No ; Second Hand Exposure: No ; Hx Alcohol Use: No Hx Substance Use: No Review of Systems All systems reviewed & are unremarkable except as noted in HPI & below Physical Exam Physical Exam: Patient does have palpable breast disease in the left breast Involvement is in the nipple area Constitutional: well developed and well nourished; no acute distress Eyes: + anicteric sclerae Respiratory: normal respiratory effort; no respiratory distress Cardiovascular: Rate/Rhythm: regular rate Gastrointestinal (Abdomen): Percussion/Palpation: abdomen soft Musculoskeletal: Gait: normal gait Skin: no rashes, warm and dry Neurologic: awake Psychiatric: Orientation: alert
--- NOTE | 2020-01-03 08:14 | Post Operative Brief Note ---
PG Immediate Post Op with CF Date of Surgery January 03, 2020 I identified the patient and participated in the time-out.: Yes Procedure port placement Surgeon Alexis Mendoza MD, FACS [employer] nurses Estimated Blood Loss 5 Findings Consistent with Post-Op Diagnosis
--- NOTE | 2020-04-27 14:20 | PAT Medication Instructions ---
Medication Instructions Date of Service April 27, 2020 Home Medications cholecalciferol (vitamin D3) 25 mcg (1,000 unit) capsule 1,000 units PO QAM levothyroxine 88 mcg capsule 88 mcg PO QAM rosuvastatin 5 mg tablet 5 mg PO HS aspirin 81 mg tablet,delayed release 81 mg PO QAM clopidogrel 75 mg tablet 75 mg PO QAM Allergy Relief (cetirizine) 10 mg PO HS insulin detemir U-100 100 unit/mL subcutaneous solution 14 units SUBCUT HS magnesium hydroxide [Milk of Magnesia] 400 mg PO 3XWK PRN letrozole 2.5 mg PO DAILY insulin aspart U-100 [Novolog Flexpen U-100 Insulin] 6 unit SUBCUT .WITH SUPPER metoprolol succinate 50 mg tablet,extended release 24 hr 50 mg PO HS ASK your prescriber and surgeon aspirin 81 mg tablet,delayed release 81 mg PO QAM clopidogrel 75 mg tablet 75 mg PO QAM letrozole 2.5 mg PO DAILY DO NOT take the morning of surgery cholecalciferol (vitamin D3) 25 mcg (1,000 unit) capsule 1,000 units PO QAM magnesium hydroxide [Milk of Magnesia] 400 mg PO 3XWK PRN Take morning of surgery With a small sip of water, OTHERWISE NOTHING TO EAT OR DRINK AFTER MIDNIGHT: levothyroxine 88 mcg capsule 88 mcg PO QAM Take evening before surgery rosuvastatin 5 mg tablet 5 mg PO HS Allergy Relief (cetirizine) 10 mg PO HS insulin detemir U-100 100 unit/mL subcutaneous solution 14 units SUBCUT HS magnesium hydroxide [Milk of Magnesia] 400 mg PO 3XWK PRN (if needed) insulin aspart U-100 [Novolog Flexpen U-100 Insulin] 6 unit SUBCUT .WITH SUPPER metoprolol succinate 50 mg tablet,extended release 24 hr 50 mg PO HS Other Notes If you have any questions please call us at [phone] or [phone] or [phone] or [phone]
--- NOTE | 2020-05-01 09:49 | Anesthesiology Consultation ---
Date of Service May 01, 2020 Assessment & Plan (1) Encounter for pre-operative examination: Per PAT assessment on 05/01: Travel screen- Lives in [place]. Travel to [facility] for doctor appts. No known COVID-19 positive contacts. No current COVID-19 related symptoms. Patient had preop COVID testing at PAT visit 05/01. Awaiting results. - S/P video mediastinoscopy with biopsy: 12/31/19: Grade 2 view, MAC#3, ETT 7.5 at [facility] - Hx of severe left posterior cerebral artery stenosis for which she follows with neurology (Dr. Mccall). Prior to video mediastinoscopy surgery done 12/2019 at [facility], neurology preop recommendations response: 12/28/19: "no further immediate recommendations. Patient has a severe stenosis of the left posterior cerebral artery, although no evidence of stroke on MRI. She has been neurologically stable since her last assessment with me in October. I do not think the severe stenosis of the left posterior cerebral artery would present an absolute contraindication to proceeding with video mediastinoscopy and biopsy. She may continue with her antiplatelet therapy regimen which may be temporarily held for any necessary surgical procedure and restarted at the discretion of her surgeon.. Pt acceptable risk to surgery" Patient subsequently had video mediastinoscopy with biopsy 12/31/19 without issue. - ASA/plavix instructions per surgeon/prescriber (per patient, already on hold/holding 7 days prior to surgery) - Check BSG AM DOS Chart Review Chart Review: Acceptable Risk for Surgery (pending preop COVID testing) and Patient seen in Pre Admission Testing Teaching & Discussion Pre-Anesthesia Teaching/Discussion Notes: Instructed NPO after midnight before surgery,except medications with 15 cc of water. Medication instructions provided according to the PAT guidelines. History Surgery Operation Date: 05/05/20 07:00 Proposed Procedures p Bilateral Breast Mastectomy with Bilateral [place] Lymph Node Biopsy, Possilbe Left Axillary Dissection Injection Only @0800, No Needle Loc - Alexis Mendoza MD, FACS Height/Weight Height: 5 ft 2.5 in Weight: 53.5 kg Allergies Allergy/AdvReac Type Severity Reaction Status Date / Time Penicillins Allergy Unknown ITCHY Verified 04/24/20 10:35 morphine AdvReac Severe NAUSEA AND Verified 04/24/20 10:35 VOMITING Medications Home Medications Medication Instructions Recorded Confirmed Last Taken cholecalciferol (vitamin D3) 25 ,000 units PO QAM 10/02/18 04/24/20 01/20/20 mcg (1,000 unit) capsule levothyroxine 88 mcg capsule 88 mcg PO QAM 10/02/18 04/24/20 01/20/20 rosuvastatin 5 mg tablet 5 mg PO HS tab 10/02/18 04/24/20 01/19/20 aspirin 81 mg tablet,delayed 81 mg PO QAM 10/19/19 04/24/20 01/20/20 release clopidogrel 75 mg tablet 75 mg PO QAM 10/19/19 04/24/20 01/20/20 Allergy Relief (cetirizine) 10 mg PO HS 11/27/19 04/24/20 01/19/20 insulin detemir U-100 100 unit/mL 14 units SUBCUT HS ml 12/07/19 04/24/20 01/19/20 subcutaneous solution magnesium hydroxide [Milk of 400 mg PO 3XWK PRN 12/28/19 04/24/20 12/30/19 Magnesia] letrozole 2.5 mg PO DAILY 01/18/20 04/24/20 Unknown insulin aspart U-100 [Novolog 6 unit SUBCUT .WITH SUPPER 01/22/20 04/24/20 Unknown Flexpen U-100 Insulin] metoprolol succinate 50 mg 50 mg PO HS tab 04/09/20 04/24/20 Unknown tablet,extended release 24 hr Past Medical History Medical History (Updated 05/01/20 @ 15:05 by Izzy Lilly) Anemia chronic, baseline hgb in the 8-10 range Arthritis Breast cancer, left 10/2001 s/p lumpectomy, recent recurrence, chemo completed 03/24/20 Carotid stenosis Mild stenosis at the origin of the left common carotid artery Chronic kidney disease, stage III (moderate) (Chronic) follows with PCP Diabetes (Chronic) Glaucoma History of solitary pulmonary nodule under surveillance with routine imaging Hyperlipidemia Hypertension Hypothyroidism (Chronic) Migraine hx MVP (mitral valve prolapse) Very remote h/o echo per pt, no murmur 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 Vision loss potentially related to stroke though MRI negative. Osteoporosis (Chronic) Raynauds syndrome (Chronic) Vertebral artery stenosis Moderate stenosis at origin of L vertebral artery per 10/2019 Neck CTA Visual impairment 2/2 vertebral artery stenosis. F/U DR MCCALL-PLACED ON PLAVIX Exercise / Class Metabolic Activity II 4-5 Yardwork/Stairs/Walk up hill Past Family History Family History Father Coronary heart disease Heart disease Hypertension Mother Diabetes CHF (congestive heart failure) Heart disease Colorectal cancer Hypertension Stroke Family history of reaction to anesthesia SLOW TO WAKE UP Son Multiple sclerosis Past Surgical History Surgical History H/O tubal ligation (Chronic) H/O: hysterectomy (Chronic) History of appendectomy (Chronic) 1974 History of bronchoscopy video mediastinoscopy with biopsy: 12/31/19: Grade 2 view, MAC#3, ETT 7.5 at [facility] History of cataract surgery R/L History of colonoscopy Port-A-Cath in place (01/03/20) RIGHT CHEST S/P lumpectomy, left breast (Chronic) HX OF Past Anesthesia History No Hx of Anesthesia Complications Mother: "very slow to wake." No similar issues for patient. History of PONV No Hx of PONV and No Hx of Motion Sickness Social History Smoking Status: Never smoker Do You Dip or Chew Tobacco: No Hx Alcohol Use: No Hx Substance Use: No substance use type: does not use Review of Systems Patient denies chest pain, shortness of breath, dyspnea on exertion, joint pain, reflux, cough, wheezing, palpitations. Physical Exam Vital Signs VITALS BP 149/75 P 92 TEM 98.3P SP02 98%RA RESP 16 PHYSICAL Full neck and c-spine range of motion (mild cervicalgia with extension) Full TMJ range of motion. TMD 3 finger breaths Mallampati Score 1 Dentition: full dentures upper/lower Lungs: clear throughout to auscultation Cardiac: regular rate and rhythm, no murmurs noted Spine: normal Carotid arteries: negative bruit Extremities: no edema Testing Laboratory Results 05/01/20 10:10 04/03/20 SODIUM 139 POTASSIUM 4.4 CHLORIDE 109 CO2 25 BUN 16 CREATININE 1.04 GLUCOSE 217 11/28/19 HGBA1C 7.6% Electrocardiogram Date: 01/20/20 Findings: + NSR @ (98) Chest X-Ray Date: 01/20/20 FINDINGS: The cardiac and mediastinal contours remain stable. There is a right- sided A-Port catheter. There is no failure. There is no focal pulmonary consolidation. There is minimal left basilar atelectasis. A small metallic clip projects over the left lung base/breast. There are no significant pleural e ffusions. IMPRESSION: No active disease in the chest. Other Testing Neck CTA 10/29/19 1. No stenosis within the bilateral cervical internal carotid arteries. Mild plaque. 2. Suspected moderate stenosis at origin of the left vertebral artery which arises from the aortic arch. Mild stenosis at the origin of the left common c arotid artery. MRA of Head 12/10/19= No change in the narrowing of the bilateral posterior cerebral artery P1 segments (high-grade stenosis seen within the mid to distal left P1 segment and mild stenosis within the proximal right P1 segment.) Moderate focal narrowing seen within the cavernous segment of the left internal carotid artery is also unchanged. No areas of arterial occlusion or aneurysm within the chilkat of [place]. PET scan 12/03/19= Moderate FDG uptake within borderline enlarged mediastinal and right hilar lymph nodes. This kieran uptake is nonspecific and kieran spread of malignancy is within the differential. 8 mm irregular right upper lobe nodule with minimal FDG uptake. This nodule is indeterminate and comparison with prior chest CTs, if available, is recommended. In the absence of prior chest CT, a follow up chest CT in 6 months is recommended. Mild left retroareolar FDG uptake with 1 cm nodular opacity. This may correspo nd to the finding on prior ultrasound and correlation with previous biopsy results is recommended.
[2020-05-01 10:47] LABS: Basophils # (auto) 0.02 K/uL (0-0.2); Basophils % (auto) 0.4 %; Eosinophils # (auto) 0.28 K/uL (0-0.5); Eosinophils % (auto) 5.1 %; Hematocrit (blood only) 32.4 % (37-47); Hemoglobin 10.5 g/dL (12.0-16.0); Immature Granulocytes # (auto) 0.02 K/uL (0.00-0.02); Immature Granulocytes % (auto) 0.4 %; Lymphocytes # (auto) 0.61 K/uL (1.2-3.4); Lymphocytes % (auto) 11.1 %; Mean Corpuscular Hemoglobin 28.1 pg (25-34); Mean Corpuscular Hgb Conc 32.4 g/dL (32-36); Mean Corpuscular Volume 86.6 fL (80-100); Mean Platelet Volume 9.6 fL (7.4-10.4); Monocytes # (auto) 0.61 K/uL (0.11-0.59); Monocytes % (auto) 11.1 %; Neutrophils # (auto) 3.97 K/uL (1.4-6.5); Neutrophils % (auto) 71.9 %; Platelet Count 227 K/uL (130-400); RDW Coefficient of Variation 13.6 % (11.5-14.5); RDW Standard Deviation 43.4 fL (36.4-46.3); Red Blood Count 3.74 M/uL (4.2-5.4); White Blood Count 5.51 K/uL (4.8-10.8)
[~2020-05-05 07:45] MED LIST: BACITRACIN INJ 50,000 UNIT VIAL ONE; CEFAZOLIN 2000MG 2,000 MG/15 ML SYR IV SCH; DEXAMETHASONE SOD INJ 4 MG/ML VIAL ONE; GLYCOPYRROLATE 0.2 MG/ML VIAL ONE; LIDOCAINE HCL 2% 2 ML VIAL/AMP(20MG/ML) INFIL ONE; LR 15ML/HR IV SCH; MIDAZOLAM HCL 1 MG/ML 2ML VIAL ONE; NEOSTIGMINE METHYLSULFATE 5 MG/5 ML SYR ONE; ONDANSETRON INJ 2 MG/ML 2 ML VIAL ONE; PROPOFOL IV EMULSION 10 MG/ML 20 ML VIAL IV ONE; fentaNYL citrate 100 MCG/2 ML VIAL ONE
[2020-05-05] MEDS ORDERED: ISOSULFAN BLUE 10 MG/ML VIAL 5 ML ONE (08:16)
[2020-05-05] MEDS ORDERED: BUPIVACAINE 0.5 % 5 MG/1 ML MPF 30ML VIAL ONE (08:16)
[2020-05-05] MEDS ORDERED: ATROPINE SULFATE 0.1 MG/ML 10ML SYR IV PRN (08:35)
[2020-05-05] MEDS ORDERED: ONDANSETRON INJ 2 MG/ML 2 ML VIAL IV PRN ×2 (08:35→14:49)
[2020-05-05] MEDS ORDERED: ePHEDrine sulfate 50 MG/ML AMP IV PRN (08:35)
--- NOTE | 2020-05-05 08:40 | History & Physical Bridge Note ---
Date of Service May 05, 2020 History & Physical Bridge Note I have examined the patient, reviewed the History & Physical and in the interval since the performance of the History & Physical I have noted the following changes of clinical significance: no changes noted
[2020-05-05] MEDS ORDERED: BUPIVACAINE 0.5 % 5 MG/1 ML PF 10ML VIAL ONE (08:52)
--- NOTE | 2020-05-05 09:10 | Nuclear Medicine Report ---
RIGHT BREAST LYMPHOSCINTIGRAPHY CLINICAL HISTORY: BREAST BILATERAL COMPARISON STUDY: PET/CT April 09, 2020. PROCEDURE: Patient presents for bilateral breast lymphoscintigraphy. This represents the report for r ight breast lymphoscintigraphy. The procedure, risks and benefits were discussed with the patient and informed consent was obtained. The procedure was performed by Dr. Smith following a timeout. Rig ht breast was prepped and draped in typical fashion. A total of 0.478 mCi of Lymphoseek is injected i n 5 intradermal aliquots within a right periareolar distribution. The patient tolerated the procedure well. No imaging was requested. IMPRESSION: Successful right breast lymphoscintigraphy. ACT 112: Negative or not required by law. Electronically signed by: Steven Smith M.D. 05/05/2020 9:08 AM
--- NOTE | 2020-05-05 09:11 | Nuclear Medicine Report ---
LEFT BREAST LYMPHOSCINTIGRAPHY CLINICAL HISTORY: BREAST CA COMPARISON STUDY: PET/CT April 09, 2020. PROCEDURE: Patient presents for bilateral breast lymphoscintigraphy. This represents report for left breast lymphoscintigraphy. The procedure, risks and benefits were discussed with the patient and info rmed consent was obtained. This procedure was performed by Dr. Smith following a timeout. The lef t breast was prepped in typical fashion. A total of 0.473 mCi of Lymphoseek injected in 5 intradermal aliquots within the left breast. The patient tolerated the procedure well. No immediate complication s were evident. No imaging was requested. IMPRESSION: Successful left breast lymphoscintigraphy. ACT 112: Negative or not required by law. Electronically signed by: Steven Smith M.D. 05/05/2020 9:10 AM
[2020-05-05] MEDS ORDERED: ePHEDrine sulfate 50 MG/ML SYR ONE (09:52)
[2020-05-05] MEDS ORDERED: PHENYLEPHRINE 100MCG/ML 5ML SYR ONE (09:52)
[2020-05-05] MEDS ORDERED: CEFAZOLIN 1000MG 1,000 MG/7.5 ML SYR IV ONE (10:20)
[2020-05-05] MEDS ORDERED: ACETAMINOPHEN 1,000 MG/100 ML VIAL IV ONE (12:06)
--- NOTE | 2020-05-05 12:06 | Post Operative Brief Note ---
PG Immediate Post Op with CF Date of Surgery May 05, 2020 Pre & Post Diagnosis Operation Date: 05/05/20 10:00 Pre-Op Diagnosis: Reccurent Left Breast Cancer Post-Op Diagnosis: Reccurent Left Breast Cancer I identified the patient and participated in the time-out.: Yes Procedure Operation Date: 05/05/20 10:00 Actual Procedures p Bilateral Breast Mastectomy with Bilateral [place] Lymph Node Biopsy - Alexis Mendoza MD, FACS Surgeon Alexis Mendoza MD, FACS Residential Team Leader nurses Estimated Blood Loss 20 Findings Consistent with Post-Op Diagnosis Specimens Specimen Description: Permanent A: Right Axillary Lymph Node B.. Right Breast / Silk suture lateral C. Left breast /Long silk =lateral /short silk= superior and prior biopsy site D. Left breast skin /silk joe medial E. Additional left inferior pectoralis scar F. Left pectoralis- blue= deep margin G. Left sentinel node Fresh #1 Right Axillary Lymph Node #2 Left [place] Lymph Node Drains Mario-Watkins Drain ( x2 )
[2020-05-05] MEDS ORDERED: HYDROmorphone INJ 0.5 MG/0.5 ML SYR IV PRN (12:12)
[2020-05-05] MEDS: fentaNYL citrate 100 MCG/2 ML VIAL IV PRN ×2 (12:21→12:30)
--- NOTE | 2020-05-05 12:30 | Anesthesiology Progress Note ---
Date of Service May 05, 2020 Anesthesia Post Procedure Vital Signs Vital Signs: Temp Pulse Resp BP Pulse Ox 05/05/20 08:58 36.8 C 98 H 18 179/80 H 99 Transfer of Care Handoff Completed per policy Notes Mental Status: alert / awake / arousable Patient Amnestic to Procedure: Yes Nausea / Vomiting: adequately controlled Pain: adequately controlled Airway Patency, RR, SpO2: stable & adequate BP & HR: stable & adequate Hydration State: stable & adequate Anesthetic Complications: no major complications apparent Notes: block working well in pacu
--- NOTE | 2020-05-05 12:33 | Operative Report (OR) ---
DATE OF OPERATION: 05/05/2020 NAME OF OPERATION: Bilateral mastectomy with sentinel lymph node biopsy bilaterally. PREOPERATIVE DIAGNOSIS: Left breast cancer. POSTOPERATIVE DIAGNOSIS: Left breast cancer. STAFF SURGEON: Alexis Mendoza MD. SILO MAN: Harvey Mosquera PA-C. ANESTHESIA: General. DESCRIPTION OF PROCEDURE: The patient was brought in the operating room and placed on the operating table in supine position. She underwent regional block by Dr. Wilde and then her chest was prepped and draped bilaterally as well as her axilla. Right side was approached first. 0.5% plain Marcaine was used to anesthetize the axillary tissue and then incision made using the Neoprobe identifying 2 lymph nodes, one was a sentinel lymph node, one was sent as permanent. The pathology on these is currently pending. Mastectomy was performed on the right side, making an elliptical incision around the nipple-areolar complex, then dissecting the breast tissue away from the subcutaneous tissue superiorly and inferiorly down to the pectoralis major muscle and then removing the breast from the pectoralis major muscle. It was marked with a long silk suture lateral. Packing was applied and the left side of the chest was approached. Incision was made in the left axilla using 0.5% plain Marcaine. Using the Neoprobe, we dissected down deeply and superiorly identifying 2 lymph nodes, one was considered as sentinel node, which was negative on frozen section. The other one was sent as permanent. During the frozen section, mastectomy was performed on the left side. The patient had had previous lumpectomy and radiation therapy as well as sentinel lymph node biopsy. Elliptical incision was made around the nipple-areolar complex, which was noted as severely retracted from a retroareolar mass. The patient also had a prior biopsy superiorly, which was positive for carcinoma. Dissection was carried out superiorly and inferiorly, dissecting the breast tissue away from the subcutaneous tissue down to the pectoralis major muscle and then the breast dissected away from the muscle. It was very adherent retroareolar from prior radiation therapy. I did take additional muscle deep to the areola and marked it with methylene blue as the new margin. I also took additional left pectoralis scar tissue inferiorly and marked it with methylene blue as new margin. I also took a skin ellipse around the area of prior biopsy superiorly in the breast and that tissue was marked with a silk suture medially. The breast tissue was marked with a silk suture laterally. At this point, the axillae were closed, reapproximating the deep tissue using 2-0 plain suture and then 4-0 nylon for the skin. #15 round Mario-Watkins drains were placed bilaterally. The skin on the left side superiorly from the prior biopsy site was closed using 5-0 Prolene suture. Then, the main breast incisions closed using subcutaneous 3-0 Vicryl, subcuticular 4-0 Monocryl with Steri-Strips. Dressing applied and patient was transferred to recovery room in stable condition. My minister assistant helped with prepping, draping, removal of the breast tissue and axillary tissue and closure of the wounds. I attest to the content of the Intraoperative Record and any orders documented therein. Any exception s are noted below.
[2020-05-05] MEDS ORDERED: LABETALOL HCL IV 5 MG/ML 20ML IV ONE (12:50)
[2020-05-05] MEDS ORDERED: HYDROmorphone INJ 1 MG/ML SYRINGE ONE (12:51)
[2020-05-05] MEDS ORDERED: LABETALOL HCL IV 5 MG/ML 20ML IV PRN (12:58)
[2020-05-05] MEDS: HYDROmorphone INJ 0.5 MG/0.5 ML SYR IV PRN ×2 (13:01→13:25)
[2020-05-05] MEDS ORDERED: HYDROCODONE/ACETAMOPHEN 5/325MG TAB PO PRN (14:49)
[2020-05-05] MEDS ORDERED: PROMETHAZINE HCL 12.5 MG in SODIUM CHLORIDE 0.9% 50 ML IV PRN (14:49)
[2020-05-05] MEDS ORDERED: SODIUM CHLORIDE 0.9% 1000ML 1,000 ML IV SCH (14:49)
[2020-05-05] MEDS ORDERED: PNEUMOCOCCAL ADMINISTRATION CHARGE ONE (15:01)
[2020-05-05] MEDS ORDERED: PNEUMOCOCCAL POLYSACCHARIDES 25 MCG/0.5 ML VIAL/SYR IM ONE (15:01)
--- NOTE | 2020-05-05 16:05 | Hospitalist Consultation ---
Date of Consultation May 05, 2020 Assessment & Plan (1) Recurrent cancer of left breast: 05/05/20 10:00 Bilateral Breast Mastectomy with Bilateral [place] Lymph Node Biopsy, Left Axillary Dissection Surgeon: Alexis Mendoza Typically follows with Dr. [facility] on received presurgical chemotherapeutic treatment (2) Hypertension: Patient states with chemotherapy her hypertension has become easier to treat now she is only on metoprolol 50 at night (3) High cholesterol: Patient is Crestor for dyslipidemia (4) Hypothyroidism: Patient remains on Synthroid 88 mcg (5) DVT prophylaxis: pt will be on early ambulation and if stays longer than an overnight, may consider lovenox History of Present Illness Attending Physician: Alexis Mendoza MD, [facility] History of Present Illness 71-year-old female here for bilateral mastectomy with sentinel node biopsy for recurrent breast cancer initially diagnosed at the outside facility for 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 This was diagnosed as stage Ia seen most recently [facility] in March 2020 treated with docetaxel and Cytoxan. This surgery was for recurrence of changes seen on PET scan She is seen postoperatively and resting comfortably Allergies Allergy/AdvReac Type Severity Reaction Status Date / Time Penicillins Allergy Unknown ITCHY Verified 05/05/20 08:49 morphine AdvReac Severe NAUSEA AND Verified 05/05/20 08:49 VOMITING Home Medications Home Medications Medication Instructions Recorded Confirmed Type cholecalciferol (vitamin D3) 25 1,000 units PO QAM 10/02/18 05/05/20 History mcg (1,000 unit) capsule levothyroxine 88 mcg capsule 88 mcg PO QAM 10/02/18 05/05/20 History rosuvastatin 5 mg tablet 5 mg PO HS tab 10/02/18 05/05/20 History aspirin 81 mg tablet,delayed 81 mg PO QAM 10/19/19 05/05/20 History release clopidogrel 75 mg tablet 75 mg PO QAM 10/19/19 05/05/20 History Allergy Relief (cetirizine) 10 mg PO HS 11/27/19 05/05/20 History insulin detemir U-100 100 unit/mL 14 units SUBCUT HS ml 12/07/19 05/05/20 History subcutaneous solution magnesium hydroxide [Milk of 400 mg PO 3XWK PRN 12/28/19 05/05/20 History Magnesia] letrozole 2.5 mg PO DAILY 01/18/20 05/05/20 History insulin aspart U-100 [Novolog 6 unit SUBCUT .WITH SUPPER 01/22/20 05/05/20 History Flexpen U-100 Insulin] metoprolol succinate 50 mg 50 mg PO HS tab 04/09/20 05/05/20 History tablet,extended release 24 hr Patient History Medical History (Updated 05/05/20 @ 16:03 by Shaka Chan MD) Anemia chronic, baseline hgb in the 8-10 range Arthritis Breast cancer, left 10/2001 s/p lumpectomy, recent recurrence, chemo completed 03/24/20 Carotid stenosis Mild stenosis at the origin of the left common carotid artery Chronic kidney disease, stage III (moderate) (Chronic) follows with PCP Diabetes (Chronic) Glaucoma History of solitary pulmonary nodule under surveillance with routine imaging Hyperlipidemia Hypertension Hypothyroidism (Chronic) Migraine hx MVP (mitral valve prolapse) Very remote h/o echo per pt, no murmur 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 Vision loss potentially related to stroke though MRI negative. Osteoporosis (Chronic) Raynauds syndrome (Chronic) Vertebral artery stenosis Moderate stenosis at origin of L vertebral artery per 10/2019 Neck CTA Visual impairment 2/2 vertebral artery stenosis. F/U DR VIRGEN-PLACED ON PLAVIX Surgical History (Updated 05/05/20 @ 12:54 by Cassandra Hassan RN) H/O mastectomy (05/05/20) Bilateral mastectomy with sentinel lymph node biopsy bilaterally. Dr. Mendoza 05/05/20 H/O tubal ligation (Chronic) H/O: hysterectomy (Chronic) History of appendectomy (Chronic) 1974 History of bronchoscopy video mediastinoscopy with biopsy: 12/31/19: Grade 2 view, MAC#3, ETT 7.5 at [facility] History of cataract surgery R/L History of colonoscopy Port-A-Cath in place (01/03/20) RIGHT CHEST S/P lumpectomy, left breast (Chronic) HX OF Family History Father Coronary heart disease Heart disease Hypertension Mother Diabetes CHF (congestive heart failure) Heart disease Colorectal cancer Hypertension Stroke Family history of reaction to anesthesia SLOW TO WAKE UP Son Multiple sclerosis Social History Preferred Language: Nepalese Communication Ability: Effective Visual Impairment: No Limitations Hearing Ability: Normal Blood Bank Laboratory Professional Required: No Beliefs That Will Affect Care: None marital status: Current Living Situation: Spouse current occupational status: other current occupation: semi retired substitute clerical person Other Information That Helps Us Care for You: No Feels Safe at Home: Yes Smoking Status: Never smoker Do You Dip or Chew Tobacco: No ; Second Hand Exposure: No ; Hx Alcohol Use: No Hx Substance Use: No Review of Systems Review of Systems: Mild to moderate distress and fatigue no headache, blurry or double vision no speech or swallowing issues Does have some chest wall pain no shortness of breath, cough or wheezes no abdominal pain, nausea or vomiting, diarrhea or constipation no dysuria, hematuria or frequency no focal joint pain or swelling no back pain, CVA tenderness or radicular pain no bruising, bleeding or rashes no focal signs of weakness or numbness or altered sensation no complaints or anxiety or depression. Physical Exam Physical Exam: The patient appeared with thinning hair appears older than her stated age in mild distress postoperatively Vital signs as documented. Head exam is normocephalic atraumatic no scleral icterus Neck is without JVD, thyromegaly, or carotid bruits. Lungs are clear to auscultation, no focal loss of breath sounds Cardiac exam, Rhythm is regular.. No murmurs, rubs or gallops. Abdominal exam reveals normal bowel sounds, soft non tender, no masses Extremities are nonedematous and both pedal pulses are normal. Neurologic exam is alert and oriented, no focal loss of strength or sensation Results & Data Results & Data ([facility]) Vital Signs (Past 12 Hours) Vital Signs Temp Pulse Pulse Resp BP Pulse Ox 05/05/20 15:22 97.5 F L 82 16 148/67 H 96 05/05/20 14:51 97.7 F 85 14 155/64 H 96 05/05/20 14:40 97.5 F L 82 12 149/66 H 95 05/05/20 14:35 82 12 152/61 H 95 05/05/20 14:25 83 14 149/65 H 98 05/05/20 14:10 80 12 163/64 H 99 05/05/20 14:00 79 14 159/65 H 99 05/05/20 13:50 80 16 165/71 H 98 05/05/20 13:40 81 18 160/65 H 98 05/05/20 13:30 83 20 168/76 H 98 05/05/20 13:20 78 14 150/71 H 98 05/05/20 13:10 81 14 161/92 H 98 05/05/20 13:00 79 12 152/80 H 96 05/05/20 12:50 78 16 161/59 H 98 05/05/20 12:40 76 14 168/66 H 98 05/05/20 12:30 78 18 175/79 H 99 05/05/20 12:20 79 14 191/82 H 100 05/05/20 12:14 96.1 F L 79 16 196/80 H 100 05/05/20 08:58 98.2 F 98 H 18 179/80 H 99 PG Care Time/CCT Total # of Minutes Spent Total Time Spent with Patient: Total time spent is greater than 50% in coordination of care (as documented) at patient's floor/unit and/or counseling patient: Coding Level of Care Code 32739 Inpt Consult Level 3 Diagnoses Recurrent cancer of left breast C50.912 Hypertension I10 Hypertension type: essential hypertension High cholesterol E78.00 Hypothyroidism E03.9 DVT prophylaxis Z29.9 (1) Hypertension Hypertension type: essential hypertension Qualified Code(s): I10 - Essential (primary) hypertension
[2020-05-05] MEDS ORDERED: DEXTROSE 50% 50 ML SYRINGE IV PRN (17:52)
[2020-05-05] MEDS ORDERED: CARBOHYDRATES FOR HYPOGLYCEMIA PO PRN (17:52)
[2020-05-05] MEDS ORDERED: GLUCOSE 40% GEL 15 GM TUBE PO PRN (17:52)
[2020-05-05] MEDS ORDERED: GLUCAGON FOR INJ 1 MG VIAL SQ PRN (17:52)
[2020-05-05] MEDS ORDERED: GLUCOSE 10 TABS/TUBE PO PRN (17:52)
[2020-05-05] MEDS ORDERED: PHARMACY GLYCEMIC MGMT CONSULT PRN (18:02)
[2020-05-05] MEDS: INSULIN ASPART 100 UNITS/ML 3 ML PEN SC SCH ×2 (18:53→21:11)
[2020-05-05] MEDS: INSULIN DETEMIR FLEXPEN/FLEX TOUCH 100 UNITS/ML 3ML SC SCH (18:54)
[2020-05-05] MEDS: CEFAZOLIN 1000MG 1,000 MG/7.5 ML SYR IV SCH (18:57)
[2020-05-05] MEDS: ROSUVASTATIN CALCIUM 5 MG TAB PO SCH (20:43)
[2020-05-05] MEDS: METOPROLOL SUCC 50MG EXT REL TAB PO SCH (20:43)
[2020-05-05] MEDS: HYDROCODONE/ACETAMOPHEN 5/325MG TAB PO PRN (20:54)
[2020-05-05] MEDS: ACETAMINOPHEN 325 MG TAB PO PRN (20:57)
[2020-05-05] MEDS ORDERED: INSULIN DETEMIR SQ SCH (21:00)
[2020-05-06] MEDS: HYDROCODONE/ACETAMOPHEN 5/325MG TAB PO PRN ×2 (02:48→21:51)
[2020-05-06] MEDS: CEFAZOLIN 1000MG 1,000 MG/7.5 ML SYR IV SCH (02:52)
[2020-05-06 06:25] LABS: Basophils # (auto) 0.03 K/uL (0-0.2); Basophils % (auto) 0.4 %; Eosinophils # (auto) 0.09 K/uL (0-0.5); Eosinophils % (auto) 1.3 %; Hemoglobin 8.9 g/dL (12.0-16.0); Immature Granulocytes # (auto) 0.01 K/uL (0.00-0.02); Immature Granulocytes % (auto) 0.1 %; Lymphocytes # (auto) 0.58 K/uL (1.2-3.4); Lymphocytes % (auto) 8.7 %; Mean Corpuscular Hemoglobin 27.6 pg (25-34); Mean Corpuscular Hgb Conc 31.8 g/dL (32-36); Mean Corpuscular Volume 86.7 fL (80-100); Monocytes # (auto) 0.76 K/uL (0.11-0.59); Monocytes % (auto) 11.4 %; Neutrophils # (auto) 5.21 K/uL (1.4-6.5); Neutrophils % (auto) 78.1 %; Platelet Count 218 K/uL (130-400); RDW Coefficient of Variation 13.3 % (11.5-14.5); RDW Standard Deviation 42.4 fL (36.4-46.3); Red Blood Count 3.23 M/uL (4.2-5.4); White Blood Count 6.68 K/uL (4.8-10.8)
[2020-05-06] MEDS: LEVOTHYROXINE SODIUM 88 MCG TABLET PO SCH (06:26)
[2020-05-06 06:52] LABS: Estimated Average Glucose 157 mg/dl; Hemoglobin A1C 7.1 % (4.5-5.6)
--- NOTE | 2020-05-06 07:38 | Surgery Progress Note ---
Date of Service May 06, 2020 Assessment & Plan (1) H/O bilateral mastectomy: Patient status post bilateral mastectomy Overall vital signs are stable and she does not have any significant bleeding Expected drainage She is having some itching and it may be from her Antibiotics We will change her to clindamycin Continue supportive care today and possible discharge tomorrow Results & Data Vital Signs (Past 12 Hours) Vital Signs Temp Pulse Resp BP Pulse Ox 05/06/20 07:25 36.6 C 83 16 125/64 92 05/06/20 03:52 36.9 C 88 16 111/55 L 95 05/05/20 23:35 36.6 C 90 16 122/63 94 05/05/20 22:54 36.6 C 89 20 125/64 96 05/05/20 20:49 150/72 H PG Care Time/CCT Total # of Minutes Spent Total Time Spent with Patient: Total time spent is greater than 50% in coordination of care (as documented) at patient's floor/unit and/or counseling patient: Coding Level of Care Code None Diagnoses H/O bilateral mastectomy Z90.13
--- NOTE | 2020-05-06 07:54 | Anesthesiology Progress Note ---
Date of Service May 06, 2020 Anesthesia Post Procedure Vital Signs Vital Signs: Temp Pulse Pulse Resp BP Pulse Ox 05/06/20 07:25 36.6 C 83 16 125/64 92 05/06/20 03:52 36.9 C 88 16 111/55 L 95 05/05/20 23:35 36.6 C 90 16 122/63 94 05/05/20 22:54 36.6 C 89 20 125/64 96 05/05/20 20:49 150/72 H 05/05/20 19:36 36.6 C 87 16 114/63 98 05/05/20 17:50 36.6 C 87 18 139/70 97 05/05/20 16:52 36.4 C L 84 16 115/61 99 05/05/20 15:54 36.3 C L 84 16 139/64 100 05/05/20 15:22 36.4 C L 82 16 148/67 H 96 05/05/20 14:51 36.5 C 85 14 155/64 H 96 05/05/20 14:40 36.4 C L 82 12 149/66 H 95 05/05/20 14:35 82 12 152/61 H 95 05/05/20 14:25 83 14 149/65 H 98 05/05/20 14:10 80 12 163/64 H 99 05/05/20 14:00 79 14 159/65 H 99 05/05/20 13:50 80 16 165/71 H 98 05/05/20 13:40 81 18 160/65 H 98 05/05/20 13:30 83 20 168/76 H 98 05/05/20 13:20 78 14 150/71 H 98 05/05/20 13:10 81 14 161/92 H 98 05/05/20 13:00 79 12 152/80 H 96 05/05/20 12:50 78 16 161/59 H 98 05/05/20 12:40 76 14 168/66 H 98 05/05/20 12:30 78 18 175/79 H 99 05/05/20 12:20 79 14 191/82 H 100 05/05/20 12:14 35.6 C L 79 16 196/80 H 100 05/05/20 08:58 36.8 C 98 H 18 179/80 H 99 Pain Intensity Bilateral Breast: Pain Intensity: 5 Notes Mental Status: alert / awake / arousable and participated in evaluation Patient Amnestic to Procedure: Yes Nausea / Vomiting: adequately controlled Pain: adequately controlled Airway Patency, RR, SpO2: stable & adequate BP & HR: stable & adequate Hydration State: stable & adequate Anesthetic Complications: no major complications apparent, see Notes below (Patient c/o being itchy from head to toe all night. Dr. Mendoza there and thinks it's from the Anc. He is going to change the order.) and Pt Satisfied with anesthetic care
[2020-05-06] MEDS: CLINDAMYCIN 600 MG in DEXTROSE 5% 50 ML IV SCH ×3 (08:18→23:37)
[2020-05-06 08:36] LABS: Albumin Level 2.9 gm/dl (3.4-5.0); BUN Creatinine Ratio 24.2 (10-20); Calcium 9.1 mg/dl (8.5-10.1); Creatinine Clr Calc Pharmacy 37.9 ml/min; Est GFR (African American) 63.3; Est GFR (Non-African American) 54.6; Potassium 4.1 mmol/L (3.5-5.1)
[2020-05-06 08:39] LABS: Albumin Globulin Ratio 0.9 (0.9-2); Bilirubin,Total 0.3 mg/dl (0.2-1); Globulin 3.1 gm/dl (2.5-4.0)
[2020-05-06] MEDS: LETROZOLE 2.5 MG TAB PO SCH (09:33)
[2020-05-06] MEDS: INSULIN ASPART 100 UNITS/ML 3 ML PEN SC SCH ×4 (09:35→21:45)
[2020-05-06] MEDS: ACETAMINOPHEN 325 MG TAB PO PRN (09:37)
--- NOTE | 2020-05-06 14:11 | Hospitalist Progress Note ---
Date of Service May 06, 2020 Assessment & Plan (1) Recurrent cancer of left breast: * POD #1 s/p Bilateral Breast Mastectomy with Bilateral [place] Lymph Node Biopsy, Left Axillary Dissection with Dr. Mendoza on 05/05. Had received chemo prior to procedure x 4 (4 weeks apart, 2nd treatment not given based on labs, per patient) * PT/OT/Pain management/DVT prophylaxis per primary team * Pre-op h/h 10.5/32.4 * H/h dropped to 8.9/28.0 -- acute blood loss anemia likely combination of acute blood loss and IVF * Antibiotic switched from Cefazolin to Clindamycin for itching/possible reaction Ordered benadryl prn itching * CBC in AM (2) Hypertension: * Chronic. Stable --> has been on metoprolol 50mg PO HS * BP 134/66 * Continue to monitor (3) High cholesterol: * Chronic. * Continue Crestor (4) Hypothyroidism: * Last TSH 0.168 January 2020 * Patient remains on Synthroid 88 mcg -- continued * Will repeat TSH in AM (5) Diabetes mellitus: * Most recent A1c 7.1, down from 7.6 * Patient takes Levimir 14unit HS, Novolog 6 units QAM as outpatient * Continue levimir 14 units HS * ISS while inpatient --> sugars have been running on higher side --> made adjustments to CF, CR * Continue to monitor (6) Abnormal CT scan of lung: * 7.5 mm spiculated nodule posterior aspect right upper lobe on CTA 01/17, also noted on PET scan 04/09 with an 8 mm irregular right upper lobe pulmonary nodule * -->"There may be minimal FDG uptake within this lesion, and it is too small for PET characterization. The appearance remains concerning for neoplasm, and a primary pulmonary neoplasm is favored over metastatic breast cancer. At a minimum, continued attention at follow-up is recommended." * Follows with Dr. Pelayo as above (7) DVT prophylaxis: * Ambulation encouraged * Chemoprophylaxis deferred to primary Thank you for allowing medicine to participate in the care of Mrs. Ray. Hospitalist service will follow peripherally. Admission and Anticipated Discharge Date Admission Date: May 05, 2020 Supervising Physician Co-Signing Physician Notes PA Supervision Note: I did not personally see or examine the patient today, but I verified all vo points of TENZIN Cervantes's assessment and plan with the following exceptions/additions: None Subjective Patient evaluated this morning. Reports pain as tolerable with tylenol and is requesting to just stick to that for now, but is aware that there are other medications available if needed. Eating and drinking without difficulty. She states she did have somewhat of a rough night, with increased pain and itching/flushing of her face. Discussed that Dr. Mendoza switched her antibiotic and suggested that we can try to see if benadryl provides any relief. She denies any need currently, but states she would be appreciative if it was available if needed. She states her last chemo prior to b/l mastectomy was on March 24 and she follows with Dr[address] Pelayo. She states she has had a cough, but no recent reported shortness of breath. She states she is aware of RUL nodule on imaging that will need follow up outpatient. She states she already has scan scheduled. She states she has had some sputum production but has a history of allergies and takes generic cetirizine as needed. She believes increased congestion prior to admission secondary to air conditioner use but she has not had any issues since being in the hospital and states she does not believe she needs anything at this time. She has been utilizing her incentive spirometer. She states she had issues in the past with her blood pressure, but since being on chemo she has been able to cut her metoprolol down to 50mg at night. Review of Systems Review of Systems: All systems reviewed & are unremarkable except as noted in HPI & below Constitutional: no fever and no chills Ear, Nose, Mouth, Throat: no sore throat and no dysphagia Respiratory: + cough; no dyspnea Cardiovascular: no chest pain, no palpitations and no syncope Gastrointestinal: no abdominal pain, no nausea and no vomiting Musculoskeletal: no back pain and no joint pain Physical Exam Constitutional: + thin and + frail appearing; no acute distress thinning hair with cap on Eyes: + anicteric sclerae ENMT: Mouth: no dentition abnormality Mallampati Class: II Neck: normal visual inspection Respiratory: normal respiratory effort; no respiratory distress Auscultation: lungs clear to auscultation bilaterally Cardiovascular: Rate/Rhythm: regular rate and regular rhythm Chest (Breasts): Additional Comments: dressing to chest just changed by nursing c/d/i sutures to bilateral axilla increased tenderness to palpation left axilla bilateral REINA drains in place with bloody drainage Gastrointestinal (Abdomen): Percussion/Palpation: abdomen soft Musculoskeletal: Gait: normal gait Skin: warm, dry flushing to bilateral checks and nose Neurologic: PERRL, EOMI, accommodation nl, no face palsy, no dysarthria Psychiatric: Orientation: alert Lymphatic: no cervical or axillary lymphadenopathy Results & Data Results & Data ([facility]) Vital Signs (Past 12 Hours) Vital Signs Temp Pulse Resp BP Pulse Ox 05/06/20 11:20 36.7 C 83 16 130/63 95 05/06/20 07:25 36.6 C 83 16 125/64 92 05/06/20 03:52 36.9 C 88 16 111/55 L 95 Laboratory Results 05/06/20 05/06/20 05/06/20 Range/Units 17:14 13:26 12:17 WBC (4.8-10.8) K/uL RBC (4.2-5.4) M/uL Hgb (12.0-16.0) g/dL Hct (37-47) % MCV (80-100) fL MCH (25-34) pg MCHC (32-36) g/dL RDW Std Deviation (36.4-46.3) fL RDW Coeff of Alfredo (11.5-14.5) % Plt Count (130-400) K/uL MPV (7.4-10.4) fL Immature Gran % (Auto) % Neut % (Auto) % Lymph % (Auto) % Sharp % (Auto) % Eos % (Auto) % Baso % (Auto) % Neut # (Auto) (1.4-6.5) K/uL Lymph # (Auto) (1.2-3.4) K/uL Sharp # (Auto) (0.11-0.59) K/uL Eos # (Auto) (0-0.5) K/uL Baso # (Auto) (0-0.2) K/uL Immature Gran # (Auto) (0.00-0.02) K/uL Sodium (136-145) mmol/L Potassium (3.5-5.1) mmol/L Chloride (98-107) mmol/L Carbon Dioxide (21-32) mmol/L Anion Gap (3-11) BUN (7-18) mg/dl Creatinine (0.6-1.2) mg/dl Est Cr Clr Drug Dosing ml/min Est GFR ( Amer) Est GFR (Non-Af Amer) BUN/Creatinine Ratio (10-20) Glucose (70-99) mg/dl POC Glucose 180 H 150 H 175 H (70-99) mg/dl Estimat Average Glucose mg/dl Hemoglobin A1c (4.5-5.6) % Calcium (8.5-10.1) mg/dl Total Bilirubin (0.2-1) mg/dl AST (15-37) U/L ALT (12-78) U/L Alkaline Phosphatase (45-117) U/L Total Protein (6.4-8.2) gm/dl Albumin (3.4-5.0) gm/dl Globulin (2.5-4.0) gm/dl Albumin/Globulin Ratio (0.9-2) 05/06/20 05/06/20 05/06/20 Range/Units 08:16 06:11 06:05 WBC 6.68 (4.8-10.8) K/uL RBC 3.23 L (4.2-5.4) M/uL Hgb 8.9 L (12.0-16.0) g/dL Hct 28.0 L (37-47) % MCV 86.7 (80-100) fL MCH 27.6 (25-34) pg MCHC 31.8 L (32-36) g/dL RDW Std Deviation 42.4 (36.4-46.3) fL RDW Coeff of Alfredo 13.3 (11.5-14.5) % Plt Count 218 (130-400) K/uL MPV 9.0 (7.4-10.4) fL Immature Gran % (Auto) 0.1 % Neut % (Auto) 78.1 % Lymph % (Auto) 8.7 % Sharp % (Auto) 11.4 % Eos % (Auto) 1.3 % Baso % (Auto) 0.4 % Neut # (Auto) 5.21 (1.4-6.5) K/uL Lymph # (Auto) 0.58 L (1.2-3.4) K/uL Sharp # (Auto) 0.76 H (0.11-0.59) K/uL Eos # (Auto) 0.09 (0-0.5) K/uL Baso # (Auto) 0.03 (0-0.2) K/uL Immature Gran # (Auto) 0.01 (0.00-0.02) K/uL Sodium 141 (136-145) mmol/L Potassium 4.1 (3.5-5.1) mmol/L Chloride 109 H (98-107) mmol/L Carbon Dioxide 26 (21-32) mmol/L Anion Gap 6.0 (3-11) BUN 24 H (7-18) mg/dl Creatinine 0.99 (0.6-1.2) mg/dl Est Cr Clr Drug Dosing 37.9 ml/min Est GFR ( Amer) 63.3 Est GFR (Non-Af Amer) 54.6 BUN/Creatinine Ratio 24.2 H (10-20) Glucose 145 H (70-99) mg/dl POC Glucose 134 H (70-99) mg/dl Estimat Average Glucose mg/dl Hemoglobin A1c (4.5-5.6) % Calcium 9.1 (8.5-10.1) mg/dl Total Bilirubin 0.3 (0.2-1) mg/dl AST 15 (15-37) U/L ALT 15 (12-78) U/L Alkaline Phosphatase 77 (45-117) U/L Total Protein 6.0 L (6.4-8.2) gm/dl Albumin 2.9 L (3.4-5.0) gm/dl Globulin 3.1 (2.5-4.0) gm/dl Albumin/Globulin Ratio 0.9 (0.9-2) 05/06/20 05/06/20 05/05/20 Range/Units 06:05 02:49 22:52 WBC (4.8-10.8) K/uL RBC (4.2-5.4) M/uL Hgb (12.0-16.0) g/dL Hct (37-47) % MCV (80-100) fL MCH (25-34) pg MCHC (32-36) g/dL RDW Std Deviation (36.4-46.3) fL RDW Coeff of Alfredo (11.5-14.5) % Plt Count (130-400) K/uL MPV (7.4-10.4) fL Immature Gran % (Auto) % Neut % (Auto) % Lymph % (Auto) % Sharp % (Auto) % Eos % (Auto) % Baso % (Auto) % Neut # (Auto) (1.4-6.5) K/uL Lymph # (Auto) (1.2-3.4) K/uL Sharp # (Auto) (0.11-0.59) K/uL Eos # (Auto) (0-0.5) K/uL Baso # (Auto) (0-0.2) K/uL Immature Gran # (Auto) (0.00-0.02) K/uL Sodium (136-145) mmol/L Potassium (3.5-5.1) mmol/L Chloride (98-107) mmol/L Carbon Dioxide (21-32) mmol/L Anion Gap (3-11) BUN (7-18) mg/dl Creatinine (0.6-1.2) mg/dl Est Cr Clr Drug Dosing ml/min Est GFR ( Amer) Est GFR (Non-Af Amer) BUN/Creatinine Ratio (10-20) Glucose (70-99) mg/dl POC Glucose 193 H 245 H (70-99) mg/dl Estimat Average Glucose 157 mg/dl Hemoglobin A1c 7.1 H (4.5-5.6) % Calcium (8.5-10.1) mg/dl Total Bilirubin (0.2-1) mg/dl AST (15-37) U/L ALT (12-78) U/L Alkaline Phosphatase (45-117) U/L Total Protein (6.4-8.2) gm/dl Albumin (3.4-5.0) gm/dl Globulin (2.5-4.0) gm/dl Albumin/Globulin Ratio (0.9-2) 05/05/20 05/05/20 Range/Units 21:07 21:05 WBC (4.8-10.8) K/uL RBC (4.2-5.4) M/uL Hgb (12.0-16.0) g/dL Hct (37-47) % MCV (80-100) fL MCH (25-34) pg MCHC (32-36) g/dL RDW Std Deviation (36.4-46.3) fL RDW Coeff of Alfredo (11.5-14.5) % Plt Count (130-400) K/uL MPV (7.4-10.4) fL Immature Gran % (Auto) % Neut % (Auto) % Lymph % (Auto) % Sharp % (Auto) % Eos % (Auto) % Baso % (Auto) % Neut # (Auto) (1.4-6.5) K/uL Lymph # (Auto) (1.2-3.4) K/uL Sharp # (Auto) (0.11-0.59) K/uL Eos # (Auto) (0-0.5) K/uL Baso # (Auto) (0-0.2) K/uL Immature Gran # (Auto) (0.00-0.02) K/uL Sodium (136-145) mmol/L Potassium (3.5-5.1) mmol/L Chloride (98-107) mmol/L Carbon Dioxide (21-32) mmol/L Anion Gap (3-11) BUN (7-18) mg/dl Creatinine (0.6-1.2) mg/dl Est Cr Clr Drug Dosing ml/min Est GFR ( Amer) Est GFR (Non-Af Amer) BUN/Creatinine Ratio (10-20) Glucose (70-99) mg/dl POC Glucose 222 H 246 H (70-99) mg/dl Estimat Average Glucose mg/dl Hemoglobin A1c (4.5-5.6) % Calcium (8.5-10.1) mg/dl Total Bilirubin (0.2-1) mg/dl AST (15-37) U/L ALT (12-78) U/L Alkaline Phosphatase (45-117) U/L Total Protein (6.4-8.2) gm/dl Albumin (3.4-5.0) gm/dl Globulin (2.5-4.0) gm/dl Albumin/Globulin Ratio (0.9-2) PG Care Time/CCT Total # of Minutes Spent Total Time Spent with Patient: Total time spent is greater than 50% in coordination of care (as documented) at patient's floor/unit and/or counseling patient: Coding Level of Care Code 73663 Subseq Hosp Care Lvl 3 Diagnoses Recurrent cancer of left breast C50.912 Hypertension I10 Hypertension type: essential hypertension High cholesterol E78.00 Hypothyroidism E03.9 Diabetes mellitus E11.[address] scan of lung R91.8 DVT prophylaxis Z29.9 (1) Hypertension Hypertension type: essential hypertension Qualified Code(s): I10 - Essential (primary) hypertension
[2020-05-06] MEDS ORDERED: DiphenhydrAMINE HCL 50 MG/ML VIAL IV PRN (14:30)
--- NOTE | 2020-05-06 15:21 | Pharmacy Report ---
Glycemic Control Consultation - Date of Service May 06, 2020 - Scope Scope: Glycemic Pharmacist consulted for glycemic control and to write orders per [facility] inpatient glycemic control protocol. - Objective Weight: 53.2 kg Accuchecks BSG (last 24hrs): 05/05/20 05/05/20 05/05/20 17:12 21:05 21:07 Glucose POC Glucose 192 H 246 H 222 H 05/05/20 05/06/20 05/06/20 22:52 02:49 06:11 Glucose 145 H POC Glucose 245 H 193 H 05/06/20 05/06/20 05/06/20 08:16 12:17 13:26 Glucose POC Glucose 134 H 175 H 150 H Laboratory Data (last 24hrs): 05/06/20 06:11 Potassium 4.1 Carbon Dioxide 26 Anion Gap 6.0 Creatinine 0.99 Est Cr Clr Drug Dosing 37.9 HbA1c: Hemoglobin A1c 7.1 % (4.5-5.6) H 05/06/20 06:05 - Recent Pertinent Medications Outpatient Anti-diabetic Regimen: * Levemir 14 units hs, novolog 6 units with dinner * A1c = 7.1 % 04/2020 Risk Factors for Insulin Resistance: * Recent Surgery POD1 * Diet: yes - Assessment & Plan Assessment & Plan: ASSESSMENT: * 79 year old female now s/p mastectomy. POD 1 - pharmacy consulted for glycemic management postop * Steroids given intraop therefore BSGs yesterday were elevated / however now trending down * Plan to continue home regimen for now - received home dose last evening and fasting BSG this AM w/in range - diet ordered and po intake increasing PLAN FOR INPATIENT GLYCEMIC CONTROL: * Basal insulin * Lantus 14 units HS * Bolus insulin * NovoLog per scale ACHS or Q6hrs while NPO * Goal Range: Low 110 mg/dL - High 140 mg/dL * Correction Factor: 35 mg/dL/unit * Nutritional / Prandial insulin per carb ratio of 1 unit per 12 grams CHO consumed * Please note that the plan above was derived based on current level of insulin resistance and hospital stress. These recommendations are appropriate for inpatient admission only. Plan of care upon discharge will need to be reassessed to avoid potential outpatient hypo/hyperglycemia. Thank you.
[2020-05-06] MEDS ORDERED: ENOXAPARIN INJ 40 MG/0.4 ML SYR SQ SCH (21:00)
[2020-05-06] MEDS: INSULIN DETEMIR FLEXPEN/FLEX TOUCH 100 UNITS/ML 3ML SC SCH (21:45)
[2020-05-06] MEDS: ROSUVASTATIN CALCIUM 5 MG TAB PO SCH (21:51)
[2020-05-06] MEDS: METOPROLOL SUCC 50MG EXT REL TAB PO SCH (21:52)
[2020-05-07] MEDS: ACETAMINOPHEN 325 MG TAB PO PRN (04:23)
[2020-05-07] MEDS: LEVOTHYROXINE SODIUM 88 MCG TABLET PO SCH (04:25)
[2020-05-07 07:32] VITALS: BP 148/68; PULSE 79; TEMP 97.7; O2SAT 94
[2020-05-07] MEDS: CLINDAMYCIN 600 MG in DEXTROSE 5% 50 ML IV SCH (08:55)
[2020-05-07] MEDS: INSULIN ASPART 100 UNITS/ML 3 ML PEN SC SCH (08:57)
[2020-05-07] MEDS: LETROZOLE 2.5 MG TAB PO SCH (09:15)
--- NOTE | 2020-05-07 13:15 | Discharge Summary (DS) ---
PRINCIPAL DIAGNOSIS: Left breast cancer. PROCEDURES: The patient underwent bilateral mastectomy with bilateral sentinel lymph node biopsy. HISTORY OF PRESENT ILLNESS: The patient is a 79-year-old female with recurrent left breast cancer, brought into the hospital on 05/05/2020. She underwent bilateral mastectomy with bilateral sentinel lymph node biopsy. She has done quite well and has progressed in both diet and activity and felt stable for discharge home on 05/07/2020, to be followed in the surgical clinic within 1 week. She does have drains in place.
--- NOTE | 2020-05-14 14:42 | Coding Query ---
PATHOLOGY To promote full compliance with coding requirements relating to patient care, physician participation is requested in all cases of hims coder uncertainty. Please assist us with the question(s) below: Please review the Pathology report and please document any relevant diagnosis(es) below: Diagnosis(es): Lt breast cancer with metastatic disease to Lt axillary lymph node After discussion with Dr Arreola- we feel the initial "Right" axillary lymph node was mislabelled and was actually the Left sentinel lymph node and the tissue cells were identical to the Lt breast cancer Thank you Christa WELDON
== END 2020-05-07 11:14 | disposition home health service (06) | DRG 580 ==
LOC: ASU 07:45 → 3E 12:06

== ENCOUNTER 2021-10-10 18:14 | Inpatient (IN) ==
[2021-10-10] MEDS ORDERED: ONDANSETRON INJ 2 MG/ML 2 ML VIAL IV STA ×2 (20:20→23:23)
[2021-10-10] MEDS ORDERED: HYDROmorphone INJ 0.5 MG/0.5 ML SYR IV STA ×2 (20:20→23:23)
--- NOTE | 2021-10-10 20:25 | Emergency Department Note ---
Impression & Plan Sternal fracture, Closed rib fracture, Fall ED Provider Note NAME: CRYSTAL REYNOLDS AGE: 81 SEX: F : 1940 ARRIVES VIA: Walk-In INFORMANT: Patient ED PROVIDER(S): Aubrey Lomeli DO CHIEF COMPLAINT: chest pain HPI: Patient is an 81-year-old female who presents the ER following mechanical fall around 3 PM today. She was walking with 2 boxes to go to a craft show. She fell forward and onto her buttocks that she was carrying. She hit her chest above the nipple line and has been having severe pain since then. Is worse with breathing, twisting, turning, and bending. Denies any belly pain, nausea, vomiting, or diarrhea. No dysuria, urgency, or frequency. No other exacerbating or remitting factors. Pain is sharp and a 10 out of 10. Improves with trying to stay as still as possible. She did not hit her head or neck. There is no loss consciousness. She does take Plavix. ROS: See above HPI for pertinent positives & negatives. A total of 10 systems reviewed and were otherwise negative. PAST MEDICAL HISTORY:See Below PAST SURGICAL HISTORY:See Below FAMILY HISTORY:See Below SOCIAL HISTORY:See Below HOME MEDICATIONS:See Below ALLERGIES:See Below VITALS:See Below PHYSICAL EXAMINATION: GENERAL: alert, well appearing, well nourished, no distress, non-toxic HEAD: normal cephalic, atraumatic EYE EXAM: normal conjunctiva, PERRL and EOM's grossly intact OROPHARYNX: no exudate, no erythema, lips, buccal mucosa, and tongue normal and mucous membranes are moist NECK: supple, no nuchal rigidity, no adenopathy, non-tender CHEST: stable to compression anteriorly and posteriorly but severe reproducible tenderness over the anterior chest wall in the mid sternum around ribs 3 through 6 LUNGS: clear to auscultation. Normal chest wall mechanics HEART: no murmurs, S1 normal and S2 normal ABDOMEN: abdomen soft, non-tender, normo-active bowel sounds, no masses, no rebound or guarding. PELVIS: stable to compression anteriorly and posteriorly BACK: Back is symmetrical on inspection and there is no deformity, no midline tenderness, no CVA tenderness. UPPER EXTREMITIES: full active and passive range of motion of all joints without tenderness to palpation LOWER EXTREMITIES: full active and passive range of motion of all joints without tenderness to palpation NEURO EXAM: Normal sensorium, cranial nerves II-XII grossly intact, normal speech, no gross weakness of arms, no gross weakness of legs. GCS: 15. MEDICAL DECISION MAKING: Patient is an 81-year-old female who presents ER following mechanical fall for chest wall pain. IV was established with orders taylor labs show no significant leukocytosis. No significant anemia. BMP along with LFTs bilirubin and troponin was negative. Covid was negative. CT of the chest showed sternal fracture and 3 rib fractures. She had significant pain with any kind of movement and consequently was given 2 rounds of morphine. Updated bedside discussed the hospitalist Victor M for further evaluation. Triage Nursing notes reviewed. Limited review of prior medical records performed Vital Signs: reviewed and remarkable for HTN Differential diagnosis: Differential diagnoses include major intracranial, cervical, spinal, thoracic, abdominal, pelvic and neurologic injury. Fracture, contusion, sprain, strain, laceration, abrasions included as well. ER treatment provided: See below Diagnostics interpreted by me: ECG: Sinus rhythm rate of 98 Normal axis No PVCs QTC 444 Cardiac Monitoring: An order was placed for continuous cardiac monitoring. The monitor shows a rate of 99 with sinus rhythm. Laboratory studies: As stated above and show below. Imaging studies: CT as described shows rib fractures and sternal fracture Consultation(s): Discussed with Dinora Dow for further evaluation Procedures: none Critical Care: None Past Med/Surg History Medical History (Updated 10/11/21 @ 01:19 by Aubrey Lomeli DO) Abnormal CT scan of lung Anemia chronic, baseline hgb in the 8-10 range Artery stenosis Arthritis Breast cancer, left (10/10/19) Carotid stenosis Mild stenosis at the origin of the left common carotid artery Cataract of both eyes Chronic kidney disease, stage III (moderate) follows with PCP Diabetes mellitus DVT prophylaxis Glaucoma History of solitary pulmonary nodule under surveillance with routine imaging Hyperlipidemia Hypertension Hyponatremia Hypothyroidism Lumbar compression fracture Acute L4 and chronic L2 Mediastinal adenopathy Migraine hx MVP (mitral valve prolapse) Very remote h/o echo per pt, no murmur 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 Vision loss potentially related to stroke though MRI negative. Osteoporosis Raynauds syndrome Recurrent cancer of left breast Reflux esophagitis Vertebral artery stenosis Moderate stenosis at origin of L vertebral artery per 10/2019 Neck CTA Visual impairment 2/2 vertebral artery stenosis. F/U DR VIRGEN-PLACED ON PLAVIX Surgical History (Updated 07/24/21 @ 13:22 by Genevieve Cobb PA-C) H/O mastectomy (05/05/20) H/O tubal ligation H/O: hysterectomy History of appendectomy 1975 History of bronchoscopy video mediastinoscopy with biopsy: 12/31/19: Grade 2 view, MAC#3, ETT 7.5 at [facility] History of cataract surgery R/L History of colonoscopy Port-A-Cath in place (01/03/20) RIGHT CHEST S/P bronchoscopy HX OF S/P lumpectomy, left breast HX OF Family History Father Coronary heart disease Heart disease Hypertension Mother , age 86 Diabetes CHF (congestive heart failure) Heart disease Colorectal cancer Hypertension Stroke Family history of reaction to anesthesia SLOW TO WAKE UP Son Multiple sclerosis Social History Smoking Status: Never smoker Second Hand Exposure: No; Hx Alcohol Use: No Hx Substance Use: No Preferred Language: Icelandic Communication Ability: Effective Visual Impairment: No Limitations Hearing Ability: Normal Tandem Mill Roller Required: No Beliefs That Will Affect Care: None marital status: Current Living Situation: Spouse current occupational status: other current occupation: semi retired substitute clerical person How many Children do You have: 6 How many Children do You have Comment: 6 Feels Safe at Home: Yes Childhood Exposure to Second-Hand Smoke: No during the past year weight has: remained stable Dental Care, Regularly: No Assistive Devices: Walker Allergies Allergies Allergy/AdvReac Type Severity Reaction Status Date / Time Penicillins Allergy Intermediate ITCHY Verified 10/10/21 20:48 morphine AdvReac Intermediate NAUSEA AND Verified 10/10/21 20:48 VOMITING Home Meds Home Medications Medication Instructions Recorded Confirmed cholecalciferol (vitamin D3) 25 1,000 units PO QAM 10/02/18 10/10/21 mcg (1,000 unit) capsule levothyroxine 88 mcg capsule 88 mcg PO QAM 10/02/18 10/10/21 rosuvastatin 5 mg tablet (Crestor) 5 mg PO HS tab 10/02/18 10/10/21 clopidogrel 75 mg tablet (Plavix) 75 mg PO QAM 10/19/19 10/10/21 cetirizine 10 mg capsule (Allergy 10 mg PO HS 11/27/19 10/10/21 Relief (cetirizine)) magnesium hydroxide 400 mg/5 mL 400 mg PO 3XWK PRN 12/28/19 10/10/21 oral suspension (Milk of Magnesia) letrozole 2.5 mg tablet 2.5 mg PO HS 01/18/20 10/10/21 vitamin E (dl, acetate) 180 mg 400 unit PO DAILY 07/15/20 10/10/21 (400 unit) capsule insulin aspart U-100 100 unit/mL 4 unit SUBCUT QPM ml 02/19/21 10/10/21 (3 mL) subcutaneous pen (Novolog Flexpen U-100 Insulin aspart) insulin detemir U-100 100 unit/mL 10 unit SUBCUT HS ml 02/19/21 10/10/21 subcutaneous solution (Levemir U-100 Insulin) metoprolol succinate 100 mg 100 mg PO HS 10/10/21 10/10/21 tablet,extended release 24 hr Results & Data (ED) Vital Signs Vital Signs - 24 hr 10/10/21 18:38 10/10/21 21:04 10/10/21 22:20 Temperature 35.7 C L Temperature Source Temporal Artery Scan Pulse Rate 97 H Pulse Rate [Finger] 94 H 94 H Respiratory Rate 18 18 20 Respiratory Effort / Characteristics Non-Labored Non-Labored Spontaneous Non-Labored Spontaneous Respiratory Depth Normal Normal Normal Respiratory Pattern Regular Blood Pressure 194/89 H Blood Pressure [Right Arm] 185/73 H 172/77 H Blood Pressure Mean 124 Blood Pressure Mean [Right Arm] 110 108 Pulse Oximetry 98 94 92 Oxygen Delivery Method Room Air Room Air Room Air Sepsis Recent Fever Within 48 Hours No Sepsis New/Unexplained Change in Mental Status No Sepsis Action Taken by Nursing No Action Required 10/11/21 00:13 Temperature Temperature Source Pulse Rate Pulse Rate [Finger] 96 H Respiratory Rate 16 Respiratory Effort / Characteristics Non-Labored Spontaneous Respiratory Depth Normal Respiratory Pattern Blood Pressure Blood Pressure [Right Arm] 172/84 H Blood Pressure Mean Blood Pressure Mean [Right Arm] 113 Pulse Oximetry 95 Oxygen Delivery Method Room Air Sepsis Recent Fever Within 48 Hours Sepsis New/Unexplained Change in Mental Status Sepsis Action Taken by Nursing Laboratory Data Result diagrams: 10/10/21 20:47 10/10/21 20:47 Lab Results 10/10/21 10/10/21 10/10/21 Range/Units 20:26 20:47 20:47 WBC 10.19 (4.8-10.8) K/uL RBC 4.09 L (4.2-5.4) M/uL Hgb 11.6 L (12.0-16.0) g/dL POC Hgb (12.0-16.0) g/dl Hct 35.2 L (37-47) % POC Hct (37-47) % MCV 86.1 (80-100) fL MCH 28.4 (25-34) pg MCHC 33.0 (32-36) g/dL RDW Std Deviation 39.3 (36.4-46.3) fL RDW Coeff of Alfredo 12.3 (11.5-14.5) % Plt Count 215 (130-400) K/uL MPV 8.7 (7.4-10.4) fL Immature Gran % (Auto) 0.1 % Neut % (Auto) 86.7 % Lymph % (Auto) 5.8 % [place] % (Auto) 7.1 % Eos % (Auto) 0.2 % Baso % (Auto) 0.1 % Neut # (Auto) 8.84 H (1.4-6.5) K/uL Lymph # (Auto) 0.59 L (1.2-3.4) K/uL [place] # (Auto) 0.72 H (0.11-0.59) K/uL Eos # (Auto) 0.02 (0-0.5) K/uL Baso # (Auto) 0.01 (0-0.2) K/uL Immature Gran # (Auto) 0.01 (0.00-0.02) K/uL POC Sodium (135-144) mmol/L Sodium 139 (136-145) mmol/L POC Potassium (3.3-5.0) mmol/L Potassium 3.9 (3.5-5.1) mmol/L POC Chloride (101-112) mmol/L Chloride 108 H (98-107) mmol/L Carbon Dioxide 25 (21-32) mmol/L POC Total CO2 (24-31) mmol/L Anion Gap 7.0 (3-11) POC Anion Gap (16-25) mmol/L POC BUN (7-18) mg/dl BUN 20 H (7-18) mg/dl Creatinine 0.75 (0.6-1.2) mg/dl POC Creatinine (0.6-1.3) mg/dl Est Cr Clr Drug Dosing Not Reportable Est GFR ( Amer) 87.3 ml/min Est GFR (Non-Af Amer) 75.3 ml/min BUN/Creatinine Ratio 26.5 H (10-20) Glucose 171 H (70-99) mg/dl POC Glucose 161 H (70-99) mg/dl POC Glucose (other) (70-99) mg/dl Calcium 9.2 (8.5-10.1) mg/dl POC Ioniz Calcium Hannah (1.12-1.32) mmol/l Total Bilirubin 0.4 (0.2-1) mg/dl AST 15 (15-37) U/L ALT 26 (12-78) Alkaline Phosphatase 103 (45-117) U/L Troponin I < 0.015 (0-0.045) ng/ml Total Protein 7.7 (6.4-8.2) gm/dl Albumin 3.9 (3.4-5.0) gm/dl Globulin 3.8 (2.5-4.0) gm/dl Albumin/Globulin Ratio 1.0 (0.9-2) SARS-CoV-2, RNA, NAAT (NEGATIVE) 10/10/21 10/10/21 Range/Units 20:53 23:40 WBC (4.8-10.8) K/uL RBC (4.2-5.4) M/uL Hgb (12.0-16.0) g/dL POC Hgb 11.2 L (12.0-16.0) g/dl Hct (37-47) % POC Hct 33 L (37-47) % MCV (80-100) fL MCH (25-34) pg MCHC (32-36) g/dL RDW Std Deviation (36.4-46.3) fL RDW Coeff of Alfredo (11.5-14.5) % Plt Count (130-400) K/uL MPV (7.4-10.4) fL Immature Gran % (Auto) % Neut % (Auto) % Lymph % (Auto) % [place] % (Auto) % Eos % (Auto) % Baso % (Auto) % Neut # (Auto) (1.4-6.5) K/uL Lymph # (Auto) (1.2-3.4) K/uL [place] # (Auto) (0.11-0.59) K/uL Eos # (Auto) (0-0.5) K/uL Baso # (Auto) (0-0.2) K/uL Immature Gran # (Auto) (0.00-0.02) K/uL POC Sodium 141 (135-144) mmol/L Sodium (136-145) mmol/L POC Potassium 3.9 (3.3-5.0) mmol/L Potassium (3.5-5.1) mmol/L POC Chloride 106 (101-112) mmol/L Chloride (98-107) mmol/L Carbon Dioxide (21-32) mmol/L POC Total CO2 24 (24-31) mmol/L Anion Gap (3-11) POC Anion Gap 15.0 L (16-25) mmol/L POC BUN 20 H (7-18) mg/dl BUN (7-18) mg/dl Creatinine (0.6-1.2) mg/dl POC Creatinine 0.6 (0.6-1.3) mg/dl Est Cr Clr Drug Dosing Est GFR ( Amer) ml/min Est GFR (Non-Af Amer) ml/min BUN/Creatinine Ratio (10-20) Glucose (70-99) mg/dl POC Glucose (70-99) mg/dl POC Glucose (other) 175 H (70-99) mg/dl Calcium (8.5-10.1) mg/dl POC Ioniz Calcium Hannah 1.20 (1.12-1.32) mmol/l Total Bilirubin (0.2-1) mg/dl AST (15-37) U/L ALT (12-78) Alkaline Phosphatase (45-117) U/L Troponin I (0-0.045) ng/ml Total Protein (6.4-8.2) gm/dl Albumin (3.4-5.0) gm/dl Globulin (2.5-4.0) gm/dl Albumin/Globulin Ratio (0.9-2) SARS-CoV-2, RNA, NAAT NEGATIVE (NEGATIVE) Administered Medications Discontinued Medications Hydromorphone HCl (Hydromorphone Inj 0.5 Mg/0.5 Ml Syr) 0.5 mg IV NOW STA Stop: 10/10/21 20:21 Last Admin: 10/10/21 20:58 Dose: 0.5 mg Documented by: [id number] Hydromorphone HCl (Hydromorphone Inj 0.5 Mg/0.5 Ml Syr) 0.5 mg IV NOW STA Stop: 10/10/21 23:24 Last Admin: 10/10/21 23:35 Dose: 0.5 mg Documented by: [id number] Ioversol (Optiray 320 100ml) 95 ml IV ONCE ONE Stop: 10/10/21 21:51 Last Admin: 10/10/21 21:50 Dose: 1 ml Documented by: [id number] Ondansetron HCl (Ondansetron Inj 2 Mg/Ml 2 Ml Vial) 4 mg IV NOW STA Stop: 10/10/21 20:21 Last Admin: 10/10/21 20:56 Dose: 4 mg Documented by: [id number] Ondansetron HCl (Ondansetron Inj 2 Mg/Ml 2 Ml Vial) 4 mg IV NOW STA Stop: 10/10/21 23:24 Last Admin: 10/10/21 23:34 Dose: 4 mg Documented by: [id number] Discharge Plan Visit Data Chief Complaint: Chest Pain Stated Complaint: FALL, CHEST PAINS ED Provider: Aubrey Lomeli Discharge Problem: Sternal fracture, Closed rib fracture, Fall Forms Stand Alone Forms: [facility] Prescriptions Prescriptions: No Action levothyroxine 88 mcg capsule 88 mcg PO QAM RF: 0 rosuvastatin [Crestor] 5 mg tablet 5 mg PO HS RF: 0 cholecalciferol (vitamin D3) 1,000 unit capsule 1,000 units PO QAM RF: 0 vitamin E (dl, acetate) 400 unit capsule 400 unit PO DAILY RF: 0 clopidogrel [Plavix] 75 mg tablet 75 mg PO QAM RF: 0 insulin aspart U-100 [Novolog Flexpen U-100 Insulin] 100 unit/mL (3 mL) insulin pen 4 unit subcut QPM RF: 0 Allergy Relief (cetirizine) 10 mg Capsule 10 mg PO HS RF: 0 Levemir U-100 Insulin 100 unit/mL solution 10 unit SUBCUT HS RF: 0 magnesium hydroxide [Milk of Magnesia] 400 mg/5 mL Suspension 400 mg PO 3XWK PRN (Reason: Constipation) RF: 0 letrozole 2.5 mg tablet 2.5 mg PO HS RF: 0 metoprolol succinate 100 mg tablet extended release 24 hr 100 mg PO HS RF: 0 Referrals Referrals: Billy Craig [Primary Care Provider] - Discharge Problem: Sternal fracture Qualifiers: Encounter type: initial encounter Sternal location: unspecified Fracture type: closed Qualified Code(s): S22.20XA - Unspecified fracture of sternum, initial encounter for closed fracture Closed rib fracture Qualifiers: Encounter type: initial encounter Rib fracture type: multiple ribs Laterality: unspecified laterality Qualified Code(s): S22.49XA - Multiple fractures of ribs, unspecified side, initial encounter for closed fracture Fall Qualifiers: Encounter type: initial encounter Qualified Code(s): W19.XXXA - Unspecified fall, initial encounter
[2021-10-10 20:55] LABS: Basophils # (auto) 0.01 K/uL (0-0.2); Basophils % (auto) 0.1 %; Eosinophils # (auto) 0.02 K/uL (0-0.5); Eosinophils % (auto) 0.2 %; Hematocrit (blood only) 35.2 % (37-47); Hemoglobin 11.6 g/dL (12.0-16.0); Immature Granulocytes # (auto) 0.01 K/uL (0.00-0.02); Immature Granulocytes % (auto) 0.1 %; Lymphocytes # (auto) 0.59 K/uL (1.2-3.4); Lymphocytes % (auto) 5.8 %; Mean Corpuscular Hemoglobin 28.4 pg (25-34); Mean Corpuscular Volume 86.1 fL (80-100); Mean Platelet Volume 8.7 fL (7.4-10.4); Monocytes # (auto) 0.72 K/uL (0.11-0.59); Monocytes % (auto) 7.1 %; Neutrophils # (auto) 8.84 K/uL (1.4-6.5); Neutrophils % (auto) 86.7 %; Platelet Count 215 K/uL (130-400); RDW Coefficient of Variation 12.3 % (11.5-14.5); RDW Standard Deviation 39.3 fL (36.4-46.3); Red Blood Count 4.09 M/uL (4.2-5.4); White Blood Count 10.19 K/uL (4.8-10.8)
[2021-10-10 21:05] LABS: iSTAT Creatinine 0.6 mg/dl (0.6-1.3); iSTAT Hemoglobin 11.2 g/dl (12.0-16.0); iSTAT Ionized Calcium 1.2 mmol/l (1.12-1.32); iSTAT Potassium 3.9 mmol/L (3.3-5.0)
[2021-10-10 21:32] LABS: Alanine Aminotransferase 26 (12-78); Albumin Level 3.9 gm/dl (3.4-5.0); Aspartate Aminotransferase 15 U/L (15-37); BUN Creatinine Ratio 26.5 (10-20); Blood Urea Nitrogen 20 mg/dl (7-18); Calcium 9.2 mg/dl (8.5-10.1); Carbon Dioxide 25 mmol/L (21-32); Chloride 108 mmol/L (98-107); Est GFR (African American) 87.3 ml/min; Est GFR (Non-African American) 75.3 ml/min; Glucose 171 mg/dl (70-99); Potassium 3.9 mmol/L (3.5-5.1); Sodium 139 mmol/L (136-145)
[2021-10-10 21:37] LABS: Alkaline Phosphatase 103 U/L (45-117); Bilirubin,Total 0.4 mg/dl (0.2-1); Globulin 3.8 gm/dl (2.5-4.0); Total Protein 7.7 gm/dl (6.4-8.2); Troponin I < 0.015 ng/ml (0-0.045)
[2021-10-10] MEDS ORDERED: OPTIRAY 320 100ml IV ONE (21:50)
--- NOTE | 2021-10-11 01:07 | History & Physical Report ---
Date of Service October 11, 2021 Assessment & Plan (1) Sternal fracture: Plan: 81yo female s/p mechanical fall with mild anterior chest wall trauma resulting in depressed sternal fracture as well as acute fracture of ribs 3, 4 and 5. No cardiac contusion, pulmonary contusion, damage of great vessels, pericardial effusion. EKG is WNL. Troponin is WNL. Patient is in significant discomfort, short and shallow breathing due to splinting. -Observation to medical -Pain control with Lidoderm patch, scheduled Tylenol 1gm po TID -Cautious use of opioids in elderly female - Oxycodone 5mg po q 4 hours PRN and Morphine 0.5mg - 1mg per acute pain scale -Zofran PRN -Colace PRN -Incentive spirometry - encourage use q hourly as tolerated (2) Closed rib fracture: Plan: As above. Non-displaced. No PTX or effusion -Pain control as above -Incentive spirometry -Ambulation with assistance as tolerated (3) Fall: Plan: Mechanical fall - no head trauma or LOC -Fall precautions (4) Diabetes mellitus: Plan: Chronic. Blood sugar = 171 at present. -Lantus 4u BID -ISS -Goal blood sugar 100 - 140 (5) Hyperlipidemia: Plan: Chronic -Continue Crestor 5mg po qHS (6) Hypertension: Plan: Chronic. Blood pressure elevated in setting of acute trauma with pain -Continue Metoprolol succinate 100mg po qHS (7) Hypothyroidism: Plan: Chronic -Continue Synthroid 88mcg po daily Plan: F/E/N - Heplock. Electrolytes WNL, CC diet as tolerated Ppx - SCDs Code - Full per discussion with patient Dispo - Admit to medical for ongoing pain control History of Present Illness Chief Complaint: Sternal and rib pain Primary Care Provider: Billy Craig Jo Ray is a pleasant 81yo female with history of DM, HTN, HLP, remote breast CA s/p bilateral mastectomy. 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 She was moving plastic totes full of craft supplies and lost her balance and fell forward striking her anterior chest off the corner of the plastic tote. She had immediate pain. ER workup revealed a depressed sternal fracture as well as fractures of ribs 3, 4 and 5. Presently complaining of bandlike upper chest pain, pleuritic in nature, Discomfort 9/10 with breathing and 5/10 at rest. She developed some mild dizziness and nausea after receiving pain medication in the ER but states that pain medications often make her nauseous. No additional complaints at this time. ER Course: Dilaudid, Zofran Allergies Allergy/AdvReac Type Severity Reaction Status Date / Time Penicillins Allergy Intermediate ITCHY Verified 10/10/21 20:48 morphine AdvReac Intermediate NAUSEA AND Verified 10/10/21 20:48 VOMITING Home Medications Medication Instructions Recorded Confirmed Type cholecalciferol (vitamin D3) 25 1,000 units PO QAM 10/02/18 10/10/21 History mcg (1,000 unit) capsule levothyroxine 88 mcg capsule 88 mcg PO QAM 10/02/18 10/10/21 History rosuvastatin 5 mg tablet (Crestor) 5 mg PO HS tab 10/02/18 10/10/21 History clopidogrel 75 mg tablet (Plavix) 75 mg PO QAM 10/19/19 10/10/21 History cetirizine 10 mg capsule (Allergy 10 mg PO HS 11/27/19 10/10/21 History Relief (cetirizine)) magnesium hydroxide 400 mg/5 mL 400 mg PO 3XWK PRN 12/28/19 10/10/21 History oral suspension (Milk of Magnesia) letrozole 2.5 mg tablet 2.5 mg PO HS 01/18/20 10/10/21 History vitamin E (dl, acetate) 180 mg 400 unit PO DAILY 07/15/20 10/10/21 History (400 unit) capsule insulin aspart U-100 100 unit/mL 4 unit SUBCUT QPM ml 02/19/21 10/10/21 History (3 mL) subcutaneous pen (Novolog Flexpen U-100 Insulin aspart) insulin detemir U-100 100 unit/mL 10 unit SUBCUT HS ml 02/19/21 10/10/21 History subcutaneous solution (Levemir U-100 Insulin) metoprolol succinate 100 mg 100 mg PO HS 10/10/21 10/10/21 History tablet,extended release 24 hr Past Med/Surg History Medical History (Updated 10/11/21 @ 02:56 by Radha Dow DO) Abnormal CT scan of lung Anemia chronic, baseline hgb in the 8-10 range Artery stenosis Arthritis Breast cancer, left (10/10/19) Carotid stenosis Mild stenosis at the origin of the left common carotid artery Cataract of both eyes Chronic kidney disease, stage III (moderate) follows with PCP Diabetes mellitus DVT prophylaxis Glaucoma History of solitary pulmonary nodule under surveillance with routine imaging Hyperlipidemia Hypertension Hyponatremia Hypothyroidism Lumbar compression fracture Acute L4 and chronic L2 Mediastinal adenopathy Migraine hx MVP (mitral valve prolapse) Very remote h/o echo per pt, no murmur 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 Vision loss potentially related to stroke though MRI negative. Osteoporosis Raynauds syndrome Recurrent cancer of left breast Reflux esophagitis Vertebral artery stenosis Moderate stenosis at origin of L vertebral artery per 10/2019 Neck CTA Visual impairment 2/2 vertebral artery stenosis. F/U DR VIRGEN-PLACED ON PLAVIX Surgical History (Updated 07/24/21 @ 13:22 by Genevieve Cobb PA-C) H/O mastectomy (05/05/20) H/O tubal ligation H/O: hysterectomy History of appendectomy 1974 History of bronchoscopy video mediastinoscopy with biopsy: 12/31/19: Grade 2 view, MAC#3, ETT 7.5 at [facility] History of cataract surgery R/L History of colonoscopy Port-A-Cath in place (01/03/20) RIGHT CHEST S/P bronchoscopy HX OF S/P lumpectomy, left breast HX OF Family History Father Coronary heart disease Heart disease Hypertension Mother , age 86 Diabetes CHF (congestive heart failure) Heart disease Colorectal cancer Hypertension Stroke Family history of reaction to anesthesia SLOW TO WAKE UP Son Multiple sclerosis Social History Smoking Status: Never smoker Second Hand Exposure: No; Hx Alcohol Use: No Hx Substance Use: No Preferred Language: Croatian Communication Ability: Effective Visual Impairment: No Limitations Hearing Ability: Normal Supervisor [employer] Furniture Assembly Required: No Beliefs That Will Affect Care: None marital status: Current Living Situation: Spouse current occupational status: other current occupation: semi retired substitute clerical person How many Children do You have: 6 How many Children do You have Comment: 6 Feels Safe at Home: Yes Safety Concerns: Feels Safe At This Time Childhood Exposure to Second-Hand Smoke: No during the past year weight has: remained stable Dental Care, Regularly: No Assistive Devices: None Review of Systems Review of Systems: All systems reviewed & are unremarkable except as noted in HPI & below Physical Exam Physical Exam: General: patient in significant discomfort, short/shallow breaths, tearful Skin: warm, dry, intact, no rashes or lesions HEENT: NC/AT, PERRL, EOMI, anicteric sclera, conjunctiva without injection, external ear normal to inspection and nontender, nares patent, moist mucus membranes, dentition intact, no oropharyngeal lesions, neck supple, trachea midline, no LAD, no thyromegaly, no JVD Heart: +S1/S2, regular, no m/r/g, no bruising of anterior chest wall, no crepitus. Extreme tenderness with light palpation of sternum and anterior ribs. Normal chest wall mechanics. Lungs: equal air entry bilaterally, no rales/rhonchi/wheezes Abd: +BS, soft, NT/ND, no masses/organomegaly/ascites Ext: warm, 2+ pulses in UE/LE bilaterally, no clubbing/cyanosis or edema Neuro: nonfocal, patient AA&O x 4, speech intact, no facial droop, moving all extremities on command with equal strength 5/5 Results & Data Results & Data ([facility]) Vital Signs (Past 12 Hours) Vital Signs Temp Pulse Pulse Resp BP BP Pulse Ox 10/11/21 00:13 96 H 16 172/84 H 95 10/10/21 22:20 94 H 20 172/77 H 92 10/10/21 21:04 94 H 18 185/73 H 94 10/10/21 18:38 35.7 C L 97 H 18 194/89 H 98 Laboratory Results Laboratory Results WBC 10.19 K/uL (4.8-10.8) 10/10/21 20:47 RBC 4.09 M/uL (4.2-5.4) L 10/10/21 20:47 Hgb 11.6 g/dL (12.0-16.0) L 10/10/21 20:47 POC Hgb 11.2 g/dl (12.0-16.0) L 10/10/21 20:53 Hct 35.2 % (37-47) L 10/10/21 20:47 POC Hct 33 % (37-47) L 10/10/21 20:53 MCV 86.1 fL (80-100) 10/10/21 20:47 MCH 28.4 pg (25-34) 10/10/21 20:47 MCHC 33.0 g/dL (32-36) 10/10/21 20:47 RDW Std Deviation 39.3 fL (36.4-46.3) 10/10/21 20:47 RDW Coeff of Alfredo 12.3 % (11.5-14.5) 10/10/21 20:47 Plt Count 215 K/uL (130-400) 10/10/21 20:47 MPV 8.7 fL (7.4-10.4) 10/10/21 20:47 Immature Gran % (Auto) 0.1 % 10/10/21 20:47 Neut % (Auto) 86.7 % 10/10/21 20:47 Lymph % (Auto) 5.8 % 10/10/21 20:47 Stark % (Auto) 7.1 % 10/10/21 20:47 Eos % (Auto) 0.2 % 10/10/21 20:47 Baso % (Auto) 0.1 % 10/10/21 20:47 Neut # (Auto) 8.84 K/uL (1.4-6.5) H 10/10/21 20:47 Lymph # (Auto) 0.59 K/uL (1.2-3.4) L 10/10/21 20:47 Stark # (Auto) 0.72 K/uL (0.11-0.59) H 10/10/21 20:47 Eos # (Auto) 0.02 K/uL (0-0.5) 10/10/21 20:47 Baso # (Auto) 0.01 K/uL (0-0.2) 10/10/21 20:47 Immature Gran # (Auto) 0.01 K/uL (0.00-0.02) 10/10/21 20:47 POC Sodium 141 mmol/L (135-144) 10/10/21 20:53 Sodium 139 mmol/L (136-145) 10/10/21 20:47 POC Potassium 3.9 mmol/L (3.3-5.0) 10/10/21 20:53 Potassium 3.9 mmol/L (3.5-5.1) 10/10/21 20:47 POC Chloride 106 mmol/L (101-112) 10/10/21 20:53 Chloride 108 mmol/L (98-107) H 10/10/21 20:47 Carbon Dioxide 25 mmol/L (21-32) 10/10/21 20:47 POC Total CO2 24 mmol/L (24-31) 10/10/21 20:53 Anion Gap 7.0 (3-11) 10/10/21 20:47 POC Anion Gap 15.0 mmol/L (16-25) L 10/10/21 20:53 POC BUN 20 mg/dl (7-18) H 10/10/21 20:53 BUN 20 mg/dl (7-18) H 10/10/21 20:47 Creatinine 0.75 mg/dl (0.6-1.2) 10/10/21 20:47 POC Creatinine 0.6 mg/dl (0.6-1.3) 10/10/21 20:53 Est Cr Clr Drug Dosing Not Reportable 10/10/21 20:47 Est GFR ( Amer) 87.3 ml/min 10/10/21 20:47 Est GFR (Non-Af Amer) 75.3 ml/min 10/10/21 20:47 BUN/Creatinine Ratio 26.5 (10-20) H 10/10/21 20:47 Glucose 171 mg/dl (70-99) H 10/10/21 20:47 POC Glucose 161 mg/dl (70-99) H 10/10/21 20:26 POC Glucose (other) 175 mg/dl (70-99) H 10/10/21 20:53 Calcium 9.2 mg/dl (8.5-10.1) 10/10/21 20:47 POC Ioniz Calcium Hannah 1.20 mmol/l (1.12-1.32) 10/10/21 20:53 Total Bilirubin 0.4 mg/dl (0.2-1) 10/10/21 20:47 AST 15 U/L (15-37) 10/10/21 20:47 ALT 26 (12-78) 10/10/21 20:47 Alkaline Phosphatase 103 U/L (45-117) 12/04/21 20:47 Troponin I < 0.015 ng/ml (0-0.045) 10/10/21 20:47 Total Protein 7.7 gm/dl (6.4-8.2) 10/10/21 20:47 Albumin 3.9 gm/dl (3.4-5.0) 10/10/21 20:47 Globulin 3.8 gm/dl (2.5-4.0) 10/10/21 20:47 Albumin/Globulin Ratio 1.0 (0.9-2) 10/10/21 20:47 SARS-CoV-2, RNA, NAAT NEGATIVE (NEGATIVE) 10/10/21 23:[address] Chest with contrast - per STAT-rad - Sternal fracture depressed. NO mediastinal hematoma. No traumatic injury to the heart or great vessels. Postradiation changes in the NOHEMY as well as within the left anterolateral ribs. Fractures of the left 3rd, 4th and 5th ribs appear acute. No pulmonary contusio n, pleural effusion or PTX ECG Additional Comments: EKG with NSR at 98, normal axis, GB=583, QRS=66, OTj=989, LVH criteria met, no change when compared with prior study. No acute ischemic changes, arrhythmia or ectopy. Code Status & VTE Plan VTE Prophylaxis Plan VTE Prophylaxis will be ordered: Yes PG Care Time/CCT Total # of Minutes Spent Total Time Spent with Patient: Total time spent is greater than 50% in coordination of care (as documented) at patient's floor/unit and/or counseling patient: Coding Level of Care Code INT OBSERVATION CARE 70M LVL 3 Diagnoses Sternal fracture S22.20XA Encounter type: initial encounter Fracture type: closed Sternal location: unspecified Closed rib fracture S22.49XA Encounter type: initial encounter Laterality: unspecified laterality Rib fracture type: multiple ribs Fall W19.XXXA Encounter type: initial encounter Diabetes mellitus E11.9 Hyperlipidemia E78.5 Hypertension I10 Hypothyroidism E03.9 Hypothyroidism type: unspecified (1) Sternal fracture Encounter type: initial encounter Fracture type: closed Sternal location: unspecified Qualified Code(s): S22.20XA - Unspecified fracture of sternum, initial encounter for closed fracture (2) Closed rib fracture Encounter type: initial encounter Laterality: unspecified laterality Rib fracture type: multiple ribs Qualified Code(s): S22.49XA - Multiple fractures of ribs, unspecified side, initial encounter for closed fracture (3) Fall Encounter type: initial encounter Qualified Code(s): W19.XXXA - Unspecified fall, initial encounter (4) Hypothyroidism Hypothyroidism type: unspecified Qualified Code(s): E03.9 - Hypothyroidism, unspecified
[2021-10-11] MEDS ORDERED: GLUCOSE 10 TABS/TUBE PO PRN (02:24)
[2021-10-11] MEDS ORDERED: GLUCAGON FOR INJ 1 MG VIAL SQ PRN (02:24)
[2021-10-11] MEDS ORDERED: MoRPHine SULFATE 4 MG/ML 1 ML CARP\\VIAL IV PRN (02:24)
[2021-10-11] MEDS ORDERED: GLUCOSE 40% GEL 15 GM TUBE PO PRN (02:24)
[2021-10-11] MEDS ORDERED: CARBOHYDRATES FOR HYPOGLYCEMIA PO PRN (02:24)
[2021-10-11] MEDS ORDERED: MoRPHine SULFATE 2 MG/ML CARP IV PRN (02:24)
[2021-10-11] MEDS ORDERED: ONDANSETRON INJ 2 MG/ML 2 ML VIAL IV PRN (02:24)
[2021-10-11] MEDS ORDERED: DEXTROSE 50% 50 ML SYRINGE IV PRN (02:24)
[2021-10-11] MEDS ORDERED: DOCUSATE SODIUM 100 MG CAP PO PRN (02:59)
[2021-10-11] MEDS: oxyCODONE HCL IR 5 MG TAB (IMMEDIATE RELEASE) PO PRN ×2 (04:18→10:29)
[2021-10-11] MEDS: LEVOTHYROXINE SODIUM 88 MCG TABLET PO SCH (05:37)
[2021-10-11] MEDS: ACETAMINOPHEN 500 MG TAB PO SCH ×3 (08:03→20:50)
[2021-10-11] MEDS: LIDOCAINE 5% 1 PATCH TD SCH (08:03)
[2021-10-11] MEDS: CLOPIDOGREL BISULFATE 75 MG TAB PO SCH (08:03)
[2021-10-11] MEDS ORDERED: INSULIN GLARGINE SOLOSTAR 100 UNITS/ML 3 ML PEN SC SCH (09:00)
[2021-10-11] MEDS: INSULIN ASPART 100 UNITS/ML 3 ML PEN SC SCH ×4 (09:26→21:01)
[2021-10-11] MEDS ORDERED: HEPARIN 100 UNIT/ML 5ML FLUSH FLUSH PRN (10:12)
--- NOTE | 2021-10-11 10:18 | XRay Report ---
XR sternum min 2V CLINICAL HISTORY: Fall. Mid chest pain. Evaluate for sternal fracture. COMPARISON STUDY: Chest 10/10/2021. FINDINGS: A right subclavian Port-A-Cath terminates at the distal SVC. Mildly displaced sternal fract ure with presternal soft tissue swelling. Deformity within the left anterior ribs consistent with age indeterminate fractures. IMPRESSION: 1. Mildly displaced sternal fracture. 2. Deformity within the left anterior ribs consistent with age indeterminate fractures. ACT 112: Negative or not required by law. Electronically signed by: Niko Waite M.D. 10/11/2021 10:17 AM
--- NOTE | 2021-10-11 10:32 | CT Scan Report ---
CHEST CT WITH CONTRAST CT DOSE: 174.49 mGy.cm HISTORY: fall severe chest pain TECHNIQUE: Multiaxial CT images of the chest were performed following the intravenous administration of contrast. A dose lowering technique was utilized adhering to the principles of ALARA. COMPARISON: Chest CTA 03/24/2021. FINDINGS: Mildly displaced sternal fracture. This demonstrates up to 4 mm of posterior displacement. Left third through fifth anterior rib fractures which appear acute. Sclerosis within the left anterio r ribs favoring post radiation change. Mild peristernal edema. There is an oval-shaped hyperdense foc us within the retrosternal soft tissues adjacent to the internal mammary vessels on the left. This me asures 1.2 x 0.6 cm and is concerning for a mildly enlarged internal mammary lymph node. This could a lso represent trace retrosternal hemorrhage secondary to the fracture. Prior left mastectomy. Skin th ickening favors post radiation change. Suggestion of prior right mastectomy. Limited views of the upp er abdomen demonstrate a normal liver, spleen, and adrenal glands. Normal caliber esophagus. No supra clavicular, axillary, or hilar lymphadenopathy. No pleural or pericardial effusions. The heart remain s mildly enlarged. Normal caliber thoracic aorta with no evidence for dissection. The heart is normal in size. The central pulmonary arteries are patent. Right subclavian Port-A-Cath terminates at the d istal SVC. Consolidation within the left lung apex favors fibrosis and may be due to post radiation c hanges. Subpleural thickening within the left upper lobe anteriorly also suggestive post radiation ch [place]uko. No change in the 8 mm irregular nodule within the right upper lobe on image 68. Groundglass den sities within the lung bases favor mild dependent change. No pneumothorax. IMPRESSION: 1. Mildly displaced sternal fracture. No pneumothorax. 2. Left anterior third through fifth rib fractures which may also be acute. 3. There is an oval-shaped hyperdense focus within the retrosternal soft tissues adjacent to the inte rnal mammary vessels on the left. This measures 1.2 x 0.6 cm and is concerning for a mildly enlarged internal mammary lymph node. This could also represent trace retrosternal hemorrhage secondary to the fracture. Follow-up chest CT in one to 2 months is recommended for further evaluation. 4. Stable irregular 8 mm nodule within the right upper lobe. This bears watching on future examinatio ns. ACT 112: Positive. There are findings on this exam that require communication between the performing entity and the patient following Patient Test Result Information Act ([place] Act 112) guidelines. Electronically signed by: Niko Waite M.D. 10/11/2021 10:31 AM
--- NOTE | 2021-10-11 11:01 | XRay Report ---
XR chest 2V PA/lateral HISTORY: sternal pain eval for fx COMPARISON: Chest 03/24/2021. FINDINGS: No pneumothorax. No pleural effusions. Heart is normal in size. Right subclavian central ve nous catheter terminates in the distal SVC. There is mild chronic interstitial thickening, unchanged. Surgical clips within the left axilla are noted. Chronic left apical opacity consistent with fibrosi s remains unchanged. Mildly displaced acute left lateral fourth rib fracture. There are old, healed l eft upper rib fractures also noted. Mildly displaced mid sternal fracture. Compression deformities wi thin the upper lumbar spine are likely chronic. IMPRESSION: 1. Mildly displaced sternal fracture. 2. Displaced left lateral fourth rib fracture. 3. No pneumothorax. ACT 112: Negative or not required by law. Electronically signed by: Niko Waite M.D. 10/11/2021 10:59 AM
[2021-10-11] MEDS: DICLOFENAC SOD 1% GEL 100 GM TUBE EXT SCH ×2 (11:33→20:53)
[2021-10-11 12:06] LABS: Hematocrit (blood only) 30.9 % (37-47); Mean Corpuscular Hemoglobin 27.9 pg (25-34); Mean Corpuscular Hgb Conc 32.4 g/dL (32-36); Mean Corpuscular Volume 86.1 fL (80-100); Mean Platelet Volume 9.4 fL (7.4-10.4); Platelet Count 195 K/uL (130-400); RDW Coefficient of Variation 12.2 % (11.5-14.5); RDW Standard Deviation 38.3 fL (36.4-46.3); Red Blood Count 3.59 M/uL (4.2-5.4); White Blood Count 6.16 K/uL (4.8-10.8)
[2021-10-11] MEDS ORDERED: diphenhydrAMINE 50 MG/ML VIAL IV STA (12:15)
[2021-10-11] MEDS ORDERED: traMADol HCL 50 MG TABLET PO STA (12:20)
[2021-10-11 12:37] LABS: BUN Creatinine Ratio 16.7 (10-20); Calcium 8.7 mg/dl (8.5-10.1); Creatinine Clr Calc Pharmacy 34.8 ml/min; Est GFR (African American) 60.2 ml/min; Est GFR (Non-African American) 51.9 ml/min; Potassium 3.7 mmol/L (3.5-5.1)
[2021-10-11] MEDS ORDERED: PHARMACY GLYCEMIC MGMT CONSULT PRN (12:53)
--- NOTE | 2021-10-11 13:01 | Electrocardiogram Report ---
Test Reason : Blood Pressure : / mmHG Vent. Rate : 098 BPM Atrial Rate : 098 BPM P-R Int : 172 ms QRS Dur : 066 ms QT Int : 348 ms P-R-T Axes : 047 029 061 degrees QTc Int : 444 ms Normal sinus rhythm Voltage criteria for left ventricular hypertrophy Abnormal ECG When compared with ECG of 24-MAR-2021 19:50, No significant change was found Confirmed by Ariel Peter ([id number]) on 10/11/2021 1:00:22 PM Referred By: REFERRED SELF Confirmed By:Ariel Peter
[2021-10-11 13:13] LABS: Beta-Hydroxybutyrate 0.57 mg/dl (0.2-2.81)
[2021-10-11] MEDS ORDERED: INSULIN ASPART 100 UNITS/ML 3 ML PEN SC ONE (13:22)
[2021-10-11] MEDS ORDERED: INSULIN GLARGINE SOLOSTAR 100 UNITS/ML 3 ML PEN SC ONE (13:45)
[2021-10-11] MEDS ORDERED: diphenhydrAMINE 50 MG/ML VIAL IV PRN (18:12)
--- NOTE | 2021-10-11 18:25 | History & Physical Bridge Note ---
Date of Service October 11, 2021 History & Physical Bridge Note I have examined the patient, reviewed the History & Physical and in the interval since the performance of the History & Physical I have noted the following changes of clinical significance: no changes noted Patient evaluated this afternoon. Just got a dose of oxycodone and has been extremely uncomfortable with itching and this is causing her some mild distress and she has not yet been able to get rest because of this. Any movement of chest/sitting up in bed or palpation causes increased discomfort as well. Port to R chest. No crepitus appreciated. Shallow breathing 2nd to pain-- she notes she has been using the incentive spirometer but "not getting it very high" ~200. Encouraged adequate pain control and continued use given multiple rib fractures. (of note hx breast ca s/p b/l mastectomy and prior note of tracer uptake in area of an anterior rib in past, also with suspicious lung nodule RUL) Benadryl 25mg x1 NOW, then 12.5mg prn itching if she requires further opiates CT Chest on admission: * 1. Mildly displaced sternal fracture. No pneumothorax. * 2. Left anterior third through fifth rib fractures which may also be acute. * 3. There is an oval-shaped hyperdense focus within the retrosternal soft tissues adjacent to the internal mammary vessels on the left. This measures 1.2 x 0.6 cm and is concerning for a mildly enlarged internal mammary lymph node. This could also represent trace retrosternal hemorrhage secondary to the fracture. Follow-up chest CT in one to 2 months is recommended for further evaluation. * 4. Stable irregular 8 mm nodule within the right upper lobe. This bears watching on future examinations. --> when I had patient in April 2020 s/p b/l mastectomy it was noted she had spiculated nodule posterior aspect RUL on CT 01/17 and noted on PET scan 04/09 with 8mm irregular RUL pulm nodule and would have continued follow up as outpatient Continue incentive spirometer -- currently 93% on RA hgb 10 from 11.6 on admission --> no chemo DVT proph/ambulation encouraged. Continue to monitor blood counts. BSGs increased to 300s this evening (was switched to glargine 4u BID, normally takes 10u HS and missed evening dose) --> admin extra 10u NOW this afternoon, resume usual 10u HS * --> Continue to monitor BSGs No fever/chills/abd pain/nausea or vomiting at this time. Discussed trial tramadol/Voltaren --> improvement in pain control attending addendum, Aubrey Martinez DO: chart reviewed, case d/w L Billy PAC. agree w above
[2021-10-11] MEDS: METOPROLOL SUCC 50MG EXT REL TAB PO SCH (20:49)
[2021-10-11] MEDS: ROSUVASTATIN CALCIUM 5 MG TAB PO SCH (20:49)
[2021-10-11] MEDS: LETROZOLE 2.5 MG TAB PO SCH (20:49)
[2021-10-11] MEDS: traMADol HCL 50 MG TABLET PO PRN (21:01)
[2021-10-12] MEDS: traMADol HCL 50 MG TABLET PO PRN ×2 (04:03→18:42)
[2021-10-12] MEDS: LEVOTHYROXINE SODIUM 88 MCG TABLET PO SCH (06:24)
[2021-10-12] MEDS: ACETAMINOPHEN 500 MG TAB PO SCH ×3 (08:49→20:29)
[2021-10-12] MEDS: CLOPIDOGREL BISULFATE 75 MG TAB PO SCH (08:49)
[2021-10-12] MEDS: DICLOFENAC SOD 1% GEL 100 GM TUBE EXT SCH ×2 (08:49→20:28)
[2021-10-12] MEDS: LIDOCAINE 5% 1 PATCH TD SCH (08:49)
[2021-10-12] MEDS: INSULIN ASPART 100 UNITS/ML 3 ML PEN SC SCH ×4 (08:50→20:34)
[2021-10-12 10:15] LABS: Hematocrit (blood only) 35.3 % (37-47); Hemoglobin 11.4 g/dL (12.0-16.0); Mean Corpuscular Hemoglobin 27.9 pg (25-34); Mean Corpuscular Hgb Conc 32.3 g/dL (32-36); Mean Corpuscular Volume 86.5 fL (80-100); Mean Platelet Volume 8.8 fL (7.4-10.4); Platelet Count 220 K/uL (130-400); RDW Coefficient of Variation 12.3 % (11.5-14.5); RDW Standard Deviation 39.4 fL (36.4-46.3); Red Blood Count 4.08 M/uL (4.2-5.4); White Blood Count 5.88 K/uL (4.8-10.8)
[2021-10-12 10:44] LABS: BUN Creatinine Ratio 19.5 (10-20); Calcium 8.8 mg/dl (8.5-10.1); Creatinine Clr Calc Pharmacy 38.6 ml/min; Est GFR (African American) 68.2 ml/min; Est GFR (Non-African American) 58.8 ml/min
--- NOTE | 2021-10-12 14:17 | Hospitalist Progress Note ---
Date of Service October 12, 2021 Assessment & Plan (1) Sternal fracture: Plan: Supportive care. Pain control measures. OT and PT evaluations. No sign of cardiac contusion. Incentive spirometry (2) Closed rib fracture: Plan: As above. Non-displaced multiple left rib fractures. No PTX or effusion -Pain control as above -Incentive spirometry -Ambulation with assistance as tolerated (3) Fall: Plan: Mechanical fall - no head trauma or LOC -Fall precautions (4) Diabetes mellitus: Plan: Chronic. -Lantus 4u BID -ISS -ADA diet (5) Hyperlipidemia: Plan: Chronic -Continue Crestor 5mg po qHS (6) Hypertension: Plan: Chronic. Blood pressure elevated in setting of acute trauma with pain -Continue Metoprolol succinate 100mg po qHS (7) Hypothyroidism: Plan: Chronic -Continue Synthroid 88mcg po daily (8) Anemia due to blood loss, acute: Plan: Currently mild. Repeat CBC tomorrowOctober 13 Plan: F/E/N - [place]. Electrolytes WNL, CC diet as tolerated Ppx - SCDs Code - Full per discussion with patient Dispo -home tomorrowOctober 13 if hemodynamically stable. Admission and Anticipated Discharge Date Admission Date: October 11, 2021 Subjective Alert and oriented. Considerable sternal fracture pain at times. Hemoglobin is drifting down consistent with acute blood loss anemia due to fractures. We will continue to monitor this and request OT and PT evaluations. Hopefully she will remain stable and she can go home tomorrow, October 13. Review of Systems Review of Systems: Constitutional-no fever or chills ENT-no blurred vision, no double vision, no epistaxis, no sore throat Respiratory-no cough, no wheezing, no shortness of breath Cardiac-no palpitations, no chest pain, no syncope GI-no nausea, vomiting, diarrhea, melena, hematochezia -no urinary retention, no urinary incontinence, no dysuria, no hematuria Musculoskeletal-markedly tender sternum and several left lateral ribs Skin-no bruising, no rashes, no pruritus Neuro-no isolated weakness, no paresthesia, no weakness Psych-no depression, no anxiety Physical Exam Physical Exam: General-alert and oriented x3, no fevers, no chills HEENT-head atraumatic and normocephalic, TMs intact bilaterally, pupils equal and reactive to light, extraocular muscles intact Neck-no lymphadenopathy or thyromegaly, trachea midline Chest-clear to auscultation percussion. No rales wheezing or rhonchi Cardiac-regular rate and rhythm, normal S1 and S2, no murmurs Abdomen-normal bowel sounds, nontender, no hepatosplenomegaly Extremities-no cyanosis, clubbing, or edema Neuro-cranial nerves II through XII intact, motor and sensory function within normal limits, strength symmetrical 5/5, no focal deficits Psych-normal affect, normal mood Results & Data Results & Data ([facility]) Vital Signs (Past 12 Hours) Vital Signs Temp Pulse Resp BP Pulse Ox 10/12/21 07:30 36.7 C 73 16 119/57 L 91 Laboratory Results 10/12/21 09:41 10/12/21 09:41 PG Care Time/CCT Total # of Minutes Spent Total Time Spent with Patient: Total time spent is greater than 50% in coordination of care (as documented) at patient's floor/unit and/or counseling patient: Coding Level of Care Code 51905 Subseq Hosp Care Lvl 3 Diagnoses Sternal fracture S22.20XA Encounter type: initial encounter Fracture type: closed Sternal location: unspecified Closed rib fracture S22.49XA Encounter type: initial encounter Laterality: unspecified laterality Rib fracture type: multiple ribs Fall W19.XXXA Encounter type: initial encounter Diabetes mellitus E11.9 Hyperlipidemia E78.5 Hypertension I10 Hypothyroidism E03.9 Hypothyroidism type: unspecified Anemia due to blood loss, acute D62 (1) Sternal fracture Encounter type: initial encounter Fracture type: closed Sternal location: unspecified Qualified Code(s): S22.20XA - Unspecified fracture of sternum, initial encounter for closed fracture (2) Closed rib fracture Encounter type: initial encounter Laterality: unspecified laterality Rib fracture type: multiple ribs Qualified Code(s): S22.49XA - Multiple fractures of ribs, unspecified side, initial encounter for closed fracture (3) Fall Encounter type: initial encounter Qualified Code(s): W19.XXXA - Unspecified fall, initial encounter (4) Hypothyroidism Hypothyroidism type: unspecified Qualified Code(s): E03.9 - Hypothyroidism, unspecified
[2021-10-12] MEDS ORDERED: INSULIN GLARGINE SOLOSTAR 100 UNITS/ML 3 ML PEN SC SCH (18:00)
[2021-10-12] MEDS: METOPROLOL SUCC 50MG EXT REL TAB PO SCH (20:29)
[2021-10-12] MEDS: LETROZOLE 2.5 MG TAB PO SCH (20:29)
[2021-10-12] MEDS: ROSUVASTATIN CALCIUM 5 MG TAB PO SCH (20:29)
[2021-10-12 23:21] VITALS: O2SAT 93
[2021-10-13] MEDS: LEVOTHYROXINE SODIUM 88 MCG TABLET PO SCH (05:46)
[2021-10-13 07:22] VITALS: BP 152/71; PULSE 77; TEMP 98.8
[2021-10-13] MEDS: ACETAMINOPHEN 500 MG TAB PO SCH ×2 (08:28→14:02)
[2021-10-13] MEDS: LIDOCAINE 5% 1 PATCH TD SCH (08:29)
[2021-10-13] MEDS: CLOPIDOGREL BISULFATE 75 MG TAB PO SCH (08:29)
[2021-10-13] MEDS: DICLOFENAC SOD 1% GEL 100 GM TUBE EXT SCH (08:38)
[2021-10-13 09:25] LABS: Basophils # (auto) 0.02 K/uL (0-0.2); Basophils % (auto) 0.3 %; Eosinophils # (auto) 0.12 K/uL (0-0.5); Eosinophils % (auto) 1.9 %; Hematocrit (blood only) 34.5 % (37-47); Hemoglobin 11.1 g/dL (12.0-16.0); Immature Granulocytes # (auto) 0.01 K/uL (0.00-0.02); Immature Granulocytes % (auto) 0.2 %; Lymphocytes # (auto) 0.72 K/uL (1.2-3.4); Lymphocytes % (auto) 11.6 %; Mean Corpuscular Hemoglobin 28.1 pg (25-34); Mean Corpuscular Hgb Conc 32.2 g/dL (32-36); Mean Corpuscular Volume 87.3 fL (80-100); Mean Platelet Volume 9.1 fL (7.4-10.4); Monocytes # (auto) 0.67 K/uL (0.11-0.59); Monocytes % (auto) 10.8 %; Neutrophils # (auto) 4.66 K/uL (1.4-6.5); Neutrophils % (auto) 75.2 %; Platelet Count 216 K/uL (130-400); RDW Coefficient of Variation 12.2 % (11.5-14.5); RDW Standard Deviation 39.4 fL (36.4-46.3); Red Blood Count 3.95 M/uL (4.2-5.4)
[2021-10-13 09:55] LABS: BUN Creatinine Ratio 19.4 (10-20); Calcium 8.9 mg/dl (8.5-10.1); Creatinine Clr Calc Pharmacy 43.3 ml/min; Est GFR (African American) 78.3 ml/min; Est GFR (Non-African American) 67.6 ml/min; Potassium 4.2 mmol/L (3.5-5.1)
[2021-10-13] MEDS: INSULIN ASPART 100 UNITS/ML 3 ML PEN SC SCH ×2 (10:20→13:56)
[2021-10-13] MEDS ORDERED: MAGNESIUM HYDROXIDE SUSP 30 ML UDC PO ONE (11:04)
--- NOTE | 2021-10-13 12:08 | Discharge Summary ---
Date of Service October 13, 2021 Admission HPI Per Admitting Provider Jo Ray is a pleasant 81yo female with history of DM, HTN, HLP, remote breast CA s/p bilateral mastectomy. 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 She was moving plastic totes full of craft supplies and lost her balance and fell forward striking her anterior chest off the corner of the plastic tote. She had immediate pain. ER workup revealed a depressed sternal fracture as well as fractures of ribs 3, 4 and 5. Presently complaining of bandlike upper chest pain, pleuritic in nature, Discomfort 9/10 with breathing and 5/10 at rest. She developed some mild d izziness and nausea after receiving pain medication in the ER but states that pain medications often make her nauseous. No additional complaints at this time. ER Course: Tono Luke Principal Diagnosis Mechanical fall resulting in sternal fracture and left third fourth and fifth rib fractures Discharge Exam General-alert and oriented x3, no fevers, no chills HEENT-head atraumatic and normocephalic, TMs intact bilaterally, pupils equal and reactive to light, extraocular muscles intact Neck-no lymphadenopathy or thyromegaly, trachea midline Chest-clear to auscultation percussion. No rales wheezing or rhonchi Cardiac-regular rate and rhythm, normal S1 and S2, no murmurs Abdomen-normal bowel sounds, nontender, no hepatosplenomegaly Extremities-no cyanosis, clubbing, or edema Neuro-cranial nerves II through XII intact, motor and sensory function within normal limits, strength symmetrical , no focal deficits MS- tender sternum and left lateral ribs Psych-normal affect, normal mood Discharge Data Allergies Allergy/AdvReac Type Severity Reaction Status Date / Time Penicillins Allergy Intermediate ITCHY Verified 10/10/21 20:48 morphine AdvReac Intermediate NAUSEA AND Verified 10/10/21 20:48 VOMITING Consultations 10/10/21 23:38 ED Decision to Admit Stat Ordered Studies 10/10/21 20:20 CT chest diagnostic w con Urgent Hospital Course (1) Sternal fracture: Supportive care. Pain control measures. OT and PT evaluations. No sign of cardiac contusion. Incentive spirometry (2) Closed rib fracture: As above. Non-displaced multiple left rib fractures. No PTX or effusion -Pain control as above -Incentive spirometry -Ambulation with assistance as tolerated (3) Fall: Mechanical fall - no head trauma or LOC -Fall precautions (4) Diabetes mellitus: Chronic. -Lantus 4u BID -ISS -ADA diet (5) Hyperlipidemia: Chronic -Continue Crestor 5mg po qHS (6) Hypertension: Chronic. Blood pressure was elevated in setting of acute trauma with pain on admission. -Continue Metoprolol succinate 100mg po qHS (7) Hypothyroidism: Chronic -Continue Synthroid 88mcg po daily (8) Anemia due to blood loss, acute: Currently mild. Repeat CBC tomorrow, October 13 Ppx - SCDs Code - Full Dispo -home todayOctober 13. Oxycodone prn. Follow up with PCP if hemodynamically stable. Total Time Total Time Spent Total Time Spent (In Minutes): 35 Discharge Plan Discharge Items Patient Disposition: Home - Self-Care Reason For Visit: STERNAL FRACTURE, RIB FRACTURES Discharge Diagnosis: Mechanical fall with sternal fracture and left third/fourth/fifth rib fracture Condition on Discharge: Good Activity: Resume your previous activity Non-emergency contact: Primary Care Provider Call non-emergency contact if: you have any medication questions and your symptoms worsen Follow-up/Referrals: Billy Craig [Primary Care Provider] - 10/19/21 10:00 am Diet: Carb Consistent or DM2 Addtl Attending Provider Instructions: Take oxycodone as needed for pain control. You may need to take a laxative since oxycodone can cause constipation Pending Studies at Discharge: No Stand-Alone Forms: My [facility] [employer], Smoking Cessation Medications and DC Order Prescriptions: New oxycodone 5 mg Tablet 5 mg PO Q4H PRN (Reason: pain) Qty: 20 RF: 0 Continued levothyroxine 88 mcg capsule 88 mcg PO QAM RF: 0 rosuvastatin [Crestor] 5 mg tablet 5 mg PO HS RF: 0 cholecalciferol (vitamin D3) 1,000 unit capsule 1,000 units PO QAM RF: 0 vitamin E (dl, acetate) 400 unit capsule 400 unit PO DAILY RF: 0 clopidogrel [Plavix] 75 mg tablet 75 mg PO QAM RF: 0 insulin aspart U-100 [Novolog Flexpen U-100 Insulin] 100 unit/mL (3 mL) insulin pen 4 unit subcut QPM RF: 0 Allergy Relief (cetirizine) 10 mg Capsule 10 mg PO HS RF: 0 Levemir U-100 Insulin 100 unit/mL solution 10 unit SUBCUT HS RF: 0 magnesium hydroxide [Milk of Magnesia] 400 mg/5 mL Suspension 400 mg PO 3XWK PRN (Reason: Constipation) RF: 0 letrozole 2.5 mg tablet 2.5 mg PO HS RF: 0 metoprolol succinate 100 mg tablet extended release 24 hr 100 mg PO HS RF: 0 Discharge Orders: Discharge Order (Routine); Ordered 10/13/21 Ordered By: Alexis Ascencio Admission Data Admit Date/Time: 10/12/21 14:18 Attending Provider: Alexis Ascencio Admit Provider: Radha Dow Primary Care Provider: Billy Craig Other Providers: Radha Dow Coding Level of Care Code D/C DAY MANAGEMENT >30 MINS Diagnoses Sternal fracture S22.20XA Encounter type: initial encounter Fracture type: closed Sternal location: unspecified Closed rib fracture S22.49XA Encounter type: initial encounter Laterality: unspecified laterality Rib fracture type: multiple ribs Fall W19.XXXA Encounter type: initial encounter Diabetes mellitus E11.9 Hyperlipidemia E78.5 Hypertension I10 Hypothyroidism E03.9 Hypothyroidism type: unspecified Anemia due to blood loss, acute D62
== END 2021-10-13 15:44 | disposition home or self-care (01) | DRG 184 ==
LOC: ED 18:14 → 3N 18:14 → SUATTDRO 10-11 00:59 → 3N 10-11 01:57

== ENCOUNTER 2024-12-08 18:58 | Inpatient (IN) ==
--- OUTSIDE RECORDS SUMMARY | 2024-12-08 19:02 | External Medical Summary | Continuity of Care Document ---
Author Name Unknown Organization [facility] Address [address] [place] [phone] Care Team Providers Care Furniture And Bedding Inspector Name Role Phone Jorge Wiley Primary Care Physician [phone] [id number] Date(s): 11/23/24 - 11/24/[address] [id number] [phone] Discharge Disposition: Left Against Medical Advice Attending Physician: MD Linda, Sanjay Shearer Allergies, Adverse Reactions, Alerts Substance Criticality Severity Reaction Reaction Severity Status morphine Hallucinosis Nausea Active penicillins Itching Hives Active traMADol Unable to assess criticality Moderate Nausea Itchy Active Immunizations Given and Recorded Vaccine Date Status Refusal Reason SARS-CoV-2 mRNA-1273 (6y+ bivalent) 09/09/22 Recor ded SARS-CoV-2 (COVID-19) mRNA BNT-162b2 vax 09/08/21 Recorded SARS-CoV-2 (COVID-19) mRNA-1273 vaccine 01/02/21 R ecorded SARS-CoV-2 (COVID-19) mRNA-1273 vaccine 12/05/20 R ecorded influenza virus vaccine, H1N1 09/13/09 Recorded Medications Allergy Relief Start: 01/26/22 3:28:00 PM EDT, 10 mg =, PO, Daily Start Date: 01/26/22 Status: Ordered atorvastatin 10 mg oral tablet 1 tab, PO, Daily, TAKE 1 TAB NIGHTLY WITH LARGE GLASS OF WATER Start Date: 08/10/24 Status: Ordered Benadryl Allergy 12.5 mg/5 mL oral liquid Start: 11/01/24 2:33:00 PM EST, See Instructions, Disp# 120 mL, Refills: 3, Patient an mix with viscous lidocaine and maalox and/or water to create a solution. then swish and spit 5 to 10 cc q4H, Pharmacy: [facility]/pharmacy #[id number] Start Date: 11/01/24 Status: Ordered Colace 100 mg oral capsule Start: 11/10/24 2:02:00 PM EST, 2 cap, PO, Daily, Disp# 60 cap, PRN: as needed for constipation, Pharmacy: [facility]/pharmacy #[id number] Start Date: 11/10/24 Status: Ordered Compazine 10 mg oral tablet Start: 11/23/24 9:01:00 AM EST, 1 tab, PO, q6h, Disp# 60 tab, Refills: 1, PRN: as needed for nausea/vomiting, Pharmacy: [facility] Start Date: 11/23/24 Status: Ordered fulvestrant 50 mg/mL intramuscular solution Start: 10/05/24 12:50:00 PM EST, 1 mL, IM, [id number] Start Date: 10/05/24 Status: Ordered HumaLOG Insulin Sliding Scale Tool 5 unit, subQ, 11/23/24 8:18:00 AM EST, Maintenance, Constant Indicator Start Date: 11/23/24 Status: Ordered Levemir Vial 100 units/mL subcutaneous solution Start: 08/10/24 2:15:00 PM EDT, 9 unit =, subQ, qhs Start Date: 08/10/24 Status: Ordered levothyroxine 88 mcg (0.088 mg) oral tablet Start: 01/26/22 3:27:00 PM EDT, 1 tab, PO, Daily, not taking on Sat/Sun Start Date: 01/26/22 Status: Ordered Lidocaine Viscous 2% mucous membrane solution Start: 11/01/24 2:31:00 PM EST, See Instructions, Disp# 100 mL, Refills: 3, As directed for mouth sores, with or without mixture with liquid benadryl and maaolx/water into a solution., Pharmacy: [facility]/pharmacy #[id number] Start Date: 11/01/24 Status: Ordered Magic mouthwash Start: 11/14/24 9:38:00 AM EST, Magic mouthwash, eRx Product Type: Compound, See Instructions, Disp# 480 mL, Refills: 3, magic mouthwash = Maalox/benadryl/lidocaine in 1:1:1 solution. Take 5-10 ml po q4h for mouth sores/pain., Pharmacy [facility] Start Date: 11/14/24 Status: Ordered metoprolol succinate 100 mg oral tablet, extended release Start: 01/26/22 3:27:00 PM EDT, 125 mg =, PO, Daily, 100mg at HS 25mg in AM Start Date: 01/26/22 Status: Ordered MiraLax oral powder for reconstitution Start: 10/09/24 10:47:00 AM EST, 17 g =, PO, Daily, Disp# 14 each, Pharmacy: [facility] Start Date: 10/09/24 Stop Date: 10/23/24 Status: Ordered nystatin 100,000 units/mL oral suspension Start: 11/23/24 9:04:00 AM EST, 5 mL, PO, qid, Disp# 60 mL, Refills: 0, Pharmacy: [facility] Start Date: 11/23/24 Status: Ordered oxyCODONE 10 mg oral tablet, extended release Start: 11/01/24 1:08:00 PM EST, See Instructions, Disp# 30 tab, Refills: 0, 1 tab PO at bedtime, Pharmacy: [facility]/pharmacy #[id number] Start Date: 11/01/24 Status: Ordered oxyCODONE 5 mg oral tablet Start: 10/19/24 4:58:00 PM EST, 5 mg =, PO, q4h, Disp# 180 tab, Refills: 0, PRN: as needed for pain, Pharmacy: [facility]/pharmacy #[id number] Start Date: 10/19/24 Status: Ordered OxyCONTIN 10 mg oral tablet, extended release Start: 10/30/24 9:42:00 AM EST, 15 each, 0 Refill(s), TAKE 1 TABLET BY MOUTH EVERYDAY AT BEDTIME Start Date: 10/30/24 Status: Ordered pantoprazole 20 mg oral delayed release tablet Start: 11/01/24 1:04:00 PM EST, 1 tab, PO, Daily, Disp# 60 tab, Refills: 2, Pharmacy: [facility]/pharmacy #[id number] Start Date: 11/01/24 Status: Ordered Peridex 0.12% mucous membrane liquid Start: 10/29/24 2:06:00 PM EST, 15 mL, swish + spit, bid, Disp# 900 mL, Refills: 1, Swish and spit;do not swallow, Pharmacy: [facility]/pharmacy #[id number] Start Date: 10/29/24 Stop Date: 12/28/24 Status: Ordered Plavix 75 mg oral tablet Start: 01/26/22 3:27:00 PM EDT, 1 tab, PO, Daily Start Date: 01/26/22 Status: Ordered senna (sennosides) 8.6 mg oral tablet Start: 11/26/24 7:10:00 AM EST, 1 tab, PO, bid, PRN: as needed for constipation Start Date: 11/26/24 Status: Ordered Tylenol 325 mg oral tablet Start: 10/08/24 8:54:00 AM EST, 2 tab, PO, q6h, Alternate with tramadol every 3 hours for pain. Do not exceed 4000mg/day. Start Date: 10/08/24 Status: Ordered Vitamin D3 1000 intl units (25 mcg) oral capsule Start: 01/26/22 3:27:00 PM EDT, 1 cap, PO, Daily Start Date: 01/26/22 Status: Ordered vitamin E 400 intl units oral capsule Start: 01/26/22 3:30:00 PM EDT, 1 cap, PO, Daily, Patient states 450 mg, 1 tab daily Start Date: 01/26/22 Status: Ordered Zofran 8 mg oral tablet Start: 11/23/24 9:01:00 AM EST, 1 tab, PO, q8h, Disp# 60 tab, Refills: 1, Starting 48 hrs after chemotherapy, PRN: as needed for nausea/vomiting, Pharmacy: [facility] Start Date: 11/23/24 Status: Ordered Problem List Condition Confirmation Course Effective Dates Status Health Status Informant Occlusion, artery, cerebral Confirmed Active Diabetes Confirmed Active Essential tremor Confirmed Active Hyperlipidemia Confirmed Active Hypertension Confirmed Active Hypothyroidism Confirmed Active Anorexia symptom Confirmed Active 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 In January 2022 she underwent partial glossectomy by OMFS with primary closure 01/2022 Comple libra bilateral cataract surgery Completed bilateral mastectomies Co mpleted Colonoscopy Completed Detached retina s/p L eye repair Completed Hysterectomy Completed previous biopsy of the media stinal lymph node Completed Results Laboratory List Name Date Glucose Meter (GLUCOSE METER) 11/23/24 Most recent to oldest [Reference Range]: 1 Gluc Meter [74-109 mg/dL] 303 mg/dL *HI* (11/23/24 10:22 PM) Vital Signs Most recent to oldest [Reference Range]: 1 Height 157.2 cm (11/23/24 10:16 PM) Patient Weight 47.8 kg (11/23/24 10:16 PM) Body Mass Index 19.34 kg/m2 (11/23/24 10:16 PM) Temperature [36.5-37.9 DegC] 36.1 DegC *LOW* (11/23/24 10:16 PM) Heart Rate 95 bpm (11/23/24 10:16 PM) Respiratory Rate 18 br/min (11/23/24 10:16 PM) Blood Pressure 156/73mmHg (11/23/24 10:16 PM) Mean Blood Pressure 96 mmHg (11/23/24 10:16 PM) Cuff Pulse Pressure 83 mmHg (11/23/24 10:16 PM) BP Location # 1 Right Arm (11/23/24 10:16 PM) Social History Social History Type Response Smoking Status Never smoked cigaret janes Sex Sex Representation Female (finding) Patient Care team information Care Team Personnel Name: MD Inez, Jorge Shearer Position: Referring Member Role: Primary Care Provider Address: [address] Name: Morgan Catalan Mohammed Position: Pharmacist Member Role: Pharmacy - Lifetime Name: Ayaan Armenta Position: HIS Supervisor_P Member Role: HIS Lifetime Care Team Related Persons Name: FERN GAO Name: SHIN LOO Name: KASSIE MORALES Name: JEREMY REYNOLDS
--- OUTSIDE RECORDS SUMMARY | 2024-12-08 19:02 | External Medical Summary | Continuity of Care Document ---
Author Name Unknown Organization [facility] Address [address] [place] [address] [id number] Care Team Providers Care Vp Medical Name Role Phone Jorge Gee Primary Care Physician [phone] 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/24 Palliative care by specialist(Discharge Diagnosis) - 11/29/24 Cancer related pain(Discharge Diagnosis) - 11/29/24 Discharge Disposition: Home w/ Home Health Care Attending Physician: MD Amaral Veronica Admitting Physician: MD Perez Kisha Allergies, Adverse Reactions, Alerts Substance Criticality Severity Reaction Reaction Severity Status morphine Hallucinosis Nausea Active penicillins Itching Hives Active traMADol Unable to assess criticality Moderate Nausea Itchy Active Functional Status 12/01/24 Neurological Symptoms Weakness ADLs Moderate assistance Facial Symmetry Symmetric Gait Unable to assess Swallowing Difficulty Pills, Solids Level of Consciousness Neuro Alert Hallucinations Present None Speech Pattern Clear 12/01/24 History of Fall in Last 3 Months Marks N o Presence of Secondary Diagnosis Marks Ye s Use of Ambulatory Aid Marks None/bedrest /nurse assist IV/Heparin Lock Fall Risk Marks Yes Gait/Transferring Fall Risk Marks Weak Mental Status Fall Risk Marks Oriented t o own ability Marks Fall Risk Score 45 Marks Fall Risk Low Risk Immunizations Given and Recorded Vaccine Date Status [...] spit 5 to 10 cc q4H, Pharmacy: [facility] #[id number] Start Date: 11/01/24 Status: Ordered Ceftin 500 mg oral tablet Start: 11/30/24 9:59:00 AM EST, 1 tab, G-tube, bid, Disp# 14, Pharmacy: [facility]/pharmacy #[id number] Start Date: 11/30/24 Status: Ordered Colace 100 mg oral capsule Start: 11/10/24 2:02:00 PM EST, 2 cap, PO, Daily, Disp# 60 cap, PRN: as needed for constipation, Pharmacy: [facility]/pharmacy #[id number] Start Date: 11/10/24 Status: Ordered Compazine 10 mg oral tablet Start: 11/23/24 9:01:00 AM EST, 1 tab, PO, q6h, Disp# 60 tab, Refills: 1, PRN: as needed for nausea/vomiting, Pharmacy: [facility] Start Date: 11/23/24 Status: Ordered fulvestrant 50 mg/mL intramuscular solution Start: 10/05/24 12:50:00 PM EST, 1 mL, IM, [id number] Start Date: 10/05/24 Status: Ordered HumaLOG Insulin Sliding Scale Tool 5 unit, subQ, 11/23/24 8:18:00 AM EST, Maintenance, Constant Indicator Start Date: 11/23/24 Status: Ordered HumaLOG Sliding Scale Moderate Dose Range: SSI, injection, subQ, 12/01/24 6:00:00 AM EST, 12/01/24 6:27:41 AM EST, Estimated correction need for patients using total insulin daily dose between 61 and 100 units., 11/26/24 7:31:00 EST Start Date: 12/01/24 Stop Date: 12/01/24 Status: Completed HumaLOG Sliding Scale Moderate Dose Range: SSI, injection, subQ, 11/30/24 10:00:00 PM EST, 11/30/24 10:39:15 PM EST, Estimated correction need for patients using total insulin daily dose between 61 and 100 units., 11/26/24 7:31:00 EST Start Date: 11/30/24 Stop Date: 11/30/24 Status: Completed lactulose 10 g/15 mL oral syrup Start: 12/01/24 11:08:00 AM EST, 15 mL, SD, Daily, Disp# 300 mL, PRN: as needed for constipation, Pharmacy: [facility]acy #[id number] Start Date: 12/01/24 Status: Ordered Levemir Vial 100 units/mL subcutaneous solution Start: 11/30/24 9:22:00 AM EST, 15 unit =, subQ, q12h, Disp# 15 mL, Pharmacy: [facility] #[id number] Start Date: 11/30/24 Status: Ordered levothyroxine 88 mcg (0.088 mg) oral tablet Start: 01/26/22 3:27:00 PM EDT, 1 tab, PO, Daily, not taking on Sat/Sun Start Date: 01/26/22 Status: Ordered Lidocaine Viscous 2% mucous membrane solution Start: 11/01/24 2:31:00 PM EST, See Instructions, Disp# 100 mL, Refills: 3, As directed for mouth sores, with or without mixture with liquid benadryl and maaolx/water into a solution., Pharmacy: [facility] #[id number] Start Date: 11/01/24 Status: Ordered Magic mouthwash Start: 11/14/24 9:38:00 AM EST, Magic mouthwash, eRx Product Type: Compound, See Instructions, Disp# 480 mL, Refills: 3, magic mouthwash = Maalox/benadryl/lidocaine in 1:1:1 solution. Take 5-10 ml po q4h for mouth sores/pain., Pharmacy [facility] Start Date: 11/14/24 Status: Ordered metoprolol tartrate 25 mg, oral susp, PEG-tube, 12/01/24 8:00:00 AM EST, 12/01/24 9:13:42 AM EST, immediate release product, 11/26/24 8:00:00 EST Start Date: 12/01/24 Stop Date: 12/01/24 Status: Completed metoprolol tartrate 50 mg oral tablet Start: 12/01/24 11:33:00 AM EST, 1 tab, PO, bid, Disp# 60 tab, Pharmacy: [facility] #[id number] Start Date: 12/01/24 Status: Ordered MiraLax oral powder for reconstitution Start: 10/09/24 10:47:00 AM EST, 17 g =, PO, Daily, Disp# 14 each, Pharmacy: [facility] Start Date: 10/09/24 Stop Date: 10/23/24 Status: Ordered nystatin 100,000 units/g topical ointment Start: 12/01/24 2:17:00 PM EST, 1 appl, topical, tid, Disp# 30 g, Pharmacy: [facility] #[id number] Start Date: 12/01/24 Status: Ordered nystatin 100,000 units/mL oral suspension Start: 12/03/24 4:03:00 PM EST, 5 mL, PO, qid, Disp# 60 mL, Refills: 0, Pharmacy: [facility] #[id number] Start Date: 12/03/24 Status: Ordered oxyCODONE 5 mg oral tablet Start: 11/30/24 9:26:00 AM EST, 5 mg =, PO, q4h, Disp# 180 tab, Refills: 0, PRN: as needed for pain,Pharmacy: [facility] #[id number] Start Date: 11/30/24 Status: Ordered pantoprazole 20 mg oral delayed release tablet Start: 11/01/24 1:04:00 PM EST, 1 tab, PO, Daily, Disp# 60 tab, Refills: 2, [id number] Start Date: 11/01/24 Status: Ordered Peridex 0.12% mucous membrane liquid Start: 10/29/24 2:06:00 PM EST, 15 mL, swish + spit, bid, Disp# 900 mL, Refills: 1, Swish and spit;do not swallow, Pharmacy: [facility] #[id number] Start Date: 10/29/24 Stop Date: 12/28/24 [...] exceed 4000mg/day. Start Date: 10/08/24 Status: Ordered Valtrex 1 g oral tablet Start: 12/01/24 11:31:00 AM EST, 1 tab, PO, tid, Disp# 30 tab, [id number] Start Date: 12/01/24 Status: Ordered Vitamin D3 1000 intl units [...] chemotherapy, PRN: as needed for nausea/vomiting, Pharmacy: [facility] Start Date: 11/23/24 Status: Ordered Mental Status 11/26/24 Communication Barrier Present No Primary Language Greenlandic Problem List Condition Confirmation Course Effective Dates [...] Active Palliative care by specialist Confirmed Active Diagnosis Diagnosis Type Effective Dates Health Status Clinical Service Informant Sepsis Discharge Diagnosis 11/26/24 Non-Specified Immunocompromised Discharge Diagnosis 11/26/24 Non-Specified Hyperglycemia Discharge Diagnosis 11/26/24 Non-Specified Hyponatremia Discharge Diagnosis 11/26/24 Non-Specified History of breast cancer Discharge Diagnosis 11/28/24 Non-Specified Oral ulcer Discharge Diagnosis 11/28/24 Non-Specified Lung nodules Discharge Diagnosis 11/28/24 Non-Specified Squamous cell cancer of tongue Discharge Diagnosis 11/28/24 Non-Specified HSV-1 (herpes simplex virus 1) infection Discharge Diagnosis 11/28/24 Non-Specified Cancer related pain Discharge Diagnosis 11/29/24 Non-Specified Palliative care by specialist Discharge Diagnosis 11/29/24 Non-Specified Procedures Procedure Date Related Diagnosis Body Site [...] List Name Date Glucose Meter (GLUCOSE METER) 12/01/24 Glucose Meter (GLUCOSE METER) 12/01/24 Glucose Meter (GLUCOSE METER) 12/01/24 Complete Blood Count w Differential (CBC w Platelets and Diff) 12/01/24 Comprehensive Metabolic Panel (CMP) 12/01 Magnesium Level (Mg Level) 12/01/24 Phosphorus Level 12/01/24 Complete Blood Count w Differential (CBC w Platelets and Diff) 11/30/24 Comprehensive Metabolic Panel (CMP) 11/30 Magnesium Level (Mg Level) 11/30/24 Phosphorus Level 11/30/24 Complete Blood Count w Differential (CBC w Platelets and Diff) 11/29/24 Comprehensive Metabolic Panel (CMP) 11/29 Magnesium Level (Mg Level) 11/29/24 Phosphorus Level 11/29/24 Specimen Type (SPECIMEN TYPE) 11/28/24 Urine Container on Hold in Laboratory (E XTRA URINE) 11/28/24 Histoplasma Antigen 11/28/24 Urine Analysis, Microscopic Only (Urinal ysis, Microscopic Only) 11/28/24 Legionella Antigen, Urine 11/28/24 Blood Glucose Monitoring Nurse POC Blood Type/Antibody Screen ( for possible transfusion) (Type and Screen (for possible transfusion)) 11/28/24 Histoplasma Antigen 11/28/24 Blood Type/Antibody Screen ( for possible transfusion) (Type and Screen (for possible transfusion)) 11/28/24 Fungitell 11/27/24 Cytomegalovirus, by PCR, Blood (CMV, by PCR, Blood) 11/27/24 Jose Velazquez Virus, by PCR, Blood (EBV, by PCR, Blood) 11/27/24 Complete Blood Count w Differential (CBC w Platelets and Diff) 11/27/24 Strep pneumoniae antigen, urine 11/26/24 Osmolality, Urine 11/26/24 Sodium, Urine, Random (Urine Sodium, Ran dom) 11/26/24 Creatinine, Urine, Random (Urine Creatin ine, Random) 11/26/24 MRSA Surveillance (Nasal Swab) 11/26/24 Osmolality 11/26/24 Prothrombin Time w/ INR (INR) 11/26/24 Thyroid Stimulating Hormone (TSH) 5 Free T3 11/26/24 Hemoglobin A1C 11/26/24 T4, Free 11/26/24 Specimen Type (SPECIMEN TYPE) 11/26/24 Specimen Type (SPECIMEN TYPE) 11/26/24 Urine Container on Hold in Laboratory (E XTRA URINE) 11/26/24 Urine Container on Hold in Laboratory (E XTRA URINE) 11/26/24 Urine Analysis w/ Reflexed Microscopic. (Urinalysis w/ Reflexed Microscopic.) 11/26/24 Lactic Acid Level 11/25/24 Lipase Level 11/25/24 Most recent to oldest [Reference Range]: 1 2 3 Urine Container Specimen available from 0 to 3 days based on specimen stability. Please use addon order if you wish to order testing. (11/28/24 7:26 PM) Specimen available from 0 to 3 days based on specimen stability. Please use addon order if you wish to order testing. (11/26/24 5:00 AM) Specimen available from 0 to 3 days based on specimen stability. Please use addon order if you wish to order testing. (11/26/24 5:00 AM) ABO/Rh B POSITIVE (11/28/24 11:07 AM) B POSITIVE (11/28/24 7:00 AM) Antibody Scr NEGATIVE (11/28/24 11:07 AM) NEGATIVE (11/28/24 7:00 AM) Expires at 0600AM on 12/01/2024 (11/28/24 11:07 AM) 12/01/2024 (11/28/24 7:00 AM) # Units 0 (11/28/24 11:07 AM) 1 (11/28/24 7:00 AM) R Number NRQ (11/28/24 11:07 AM) NRQ (11/28/24 7:00 AM) Fungitell <31 1 (11/27/24 8:51 PM) eGFR CKD-EPI [>60 mL/min/1.73 m2] 78 mL/min/1.73 m2 (12/01/24 6:21 AM) 79 mL/min/1.73 m2 (11/30/24 9:27 AM) 76 mL/min/1.73 m2 (11/29/24 8:15 AM) Blood Glucose [70-120 mg/dL] 106 mg/dL 2 (12/01/24 6:27 AM) 124 mg/dL 3 *HI* (11/30/24 10:38 PM) 108 mg/dL 4 (11/30/24 6:25 AM) Estimated Average Glucose 212 mg/dL (11/26/24 8:16 AM) Blood Glucose Ref Range [70 - 120 mg/dl] (11/30/24 6:25 AM) [70 - 120 mg/dl] (11/28/24 5:32 PM) [70 - 120 mg/dl] (11/26/24 8:27 PM) CMV, by PCR (bld), Log 1.74 I.U./mL (11/27/24 5:27 PM) Platelet Morphology NORMAL (11/27/24 5:43 AM) LegionellaAg NEGATIVE 5 (11/28/24 7:02 PM) EBV, by PCR (bld) EBV DNA Detected, <35.0 I.U./mL (11/27/24 5:27 PM) EBV, by PCR (bld), Log <1.54 I.U./mL (11/27/24 5:27 PM) EBV, by PCR, Srce BLOOD (11/27/24 5:27 PM) Histoplasma Ag Interpretation Negative 6 (11/28/24 7:02 PM) Negative 7 (11/28/24 7:06 AM) Estimated CrCl 43.74 mL/min (12/01/24 7:32 AM) 44.32 mL/min (11/30/24 10:23 AM) 43.17 mL/min (11/29/24 9:04 AM) MPV [9.0-12.2 fL] 9.8 fL (12/01/24 6:21 AM) 9.6 fL (11/30/24 9:27 AM) 9.7 fL (11/29/24 8:15 AM) Immature Gran% 0.4 % (12/01/24 6:21 AM) 1.2 % (11/30/24 9:27 AM) 1.2 % (11/29/24 8:15 AM) Neut% 85.5 % (12/01/24 6:21 AM) 92.3 % (11/30/24 9:27 AM) 95.4 % (11/29/24 8:15 AM) Lymph% 9.2 % (12/01/24 6:21 AM) 3.9 % (11/30/24 9:27 AM) 2.7 % (11/29/24 8:15 AM) [place]% 4.7 % (12/01/24 6:21 AM) 2.4 % (11/30/24 9:27 AM) 0.7 % (11/29/24 8:15 AM) Baso% 0.0 % (12/01/24 6:21 AM) 0.1 % (11/30/24 9:27 AM) 0.0 % (11/29/24 8:15 AM) Eos% 0.2 % (12/01/24 6:21 AM) 0.1 % (11/30/24 9:27 AM) 0.0 % (11/29/24 8:15 AM) Immat Gran, Abs [0-0.4 K/uL] 0.02 K/uL (12/01/24 6:21 AM) 0.10 K/uL (11/30/24 9:27 AM) 0.07 K/uL (11/29/24 8:15 AM) Neut, Abs [2.0-7.7 K/uL] 4.16 K/uL (12/01/24 6:21 AM) 7.41 K/uL (11/30/24 9:27 AM) 5.71 K/uL (11/29/24 8:15 AM) Lymph, Abs [1.0-3.4 K/uL] 0.45 K/uL *LOW* (12/01/24 6:21 AM) 0.31 K/uL *LOW* (11/30/24 9:27 AM) 0.16 K/uL *LOW* (11/29/24 8:15 AM) [place], Abs [0-1.0 K/uL] 0.23 K/uL (12/01/24 6:21 AM) 0.19 K/uL (11/30/24 9:27 AM) 0.04 K/uL (11/29/24 8:15 AM) Baso, Abs [0-0.1 K/uL] 0.00 K/uL (12/01/24 6:21 AM) 0.01 K/uL (11/30/24 9:27 AM) 0.00 K/uL (11/29/24 8:15 AM) Eos, Abs [0-0.5 K/uL] 0.01 K/uL (12/01/24 6:21 AM) 0.01 K/uL (11/30/24 9:27 AM) 0.00 K/uL (11/29/24 8:15 AM) Type of Diff: AUTO (12/01/24 6:21 AM) AUTO (11/30/24 9:27 AM) AUTO (11/29/24 8:15 AM) RBC Morphology NORMAL (11/27/24 5:43 AM) RDW [11.5-14.2 %] 12.6 % (12/01/24 6:21 AM) 12.4 % (11/30/24 9:27 AM) 12.1 % (11/29/24 8:15 AM) B Comments Second specimen for [facility] confirmation requested from: LEEANN 11/28/24 0733 (11/28/24 7:00 AM) Histoplasma Ag REPORT 8 (11/28/24 7:02 PM) REPORT 9 (11/28/24 7:06 AM) Histoplasma Ag, Specimen URINE (11/28/24 7:02 PM) SERUM 10 (11/28/24 7:06 AM) Component RED CELLS (11/28/24 11:07 AM) RED CELLS (11/28/24 7:00 AM) Squamous Epithelial Cells (u) FEW (11/28/24 7:02 PM) Mucous (u) FEW (11/28/24 7:02 PM) CMV, by PCR (bld) 55.0 I.U./mL 11 (11/27/24 5:27 PM) Fungitell Interpretation Negative N 12 (11/27/24 8:51 PM) MRSA Surveillance, on Admission [MSND] MRSA NOT detected (11/26/24 8:16 AM) Anion Gap [5-14 mmol/L] 10 mmol/L (12/01/24 6:21 AM) 12 mmol/L (11/30/24 9:27 AM) 12 mmol/L (11/29/24 8:15 AM) Alb [3.5-5.2 g/dL] 2.8 g/dL *LOW* (12/01/24 6:21 AM) 3.0 g/dL *LOW* (11/30/24 9:27 AM) 3.0 g/dL *LOW* (11/29/24 8:15 AM) Alk Phos [35-115 unit/L] 126 unit/L 13 *HI* (12/01/24 6:21 AM) 130 unit/L 14 *HI* (11/30/24 9:27 AM) 118 unit/L 15 *HI* (11/29/24 8:15 AM) ALT [0-33 unit/L] 49 unit/L *HI* (12/01/24 6:21 AM) 49 unit/L *HI* (11/30/24 9:27 AM) 28 unit/L (11/29/24 8:15 AM) AST [0-32 unit/L] 44 unit/L *HI* (12/01/24 6:21 AM) 57 unit/L *HI* (11/30/24 9:27 AM) 18 unit/L (11/29/24 8:15 AM) Bact (u) [NONE-NONE] NONE (11/28/24 7:02 PM) Bili (u) [NEG] NEGATIVE 16 (11/26/24 12:25 AM) BUN [6-23 mg/dL] 25 mg/dL *HI* (12/01/24 6:21 AM) 30 mg/dL *HI* (11/30/24 9:27 AM) 30 mg/dL *HI* (11/29/24 8:15 AM) Ca [8.4-10.2 mg/dL] 8.8 mg/dL (12/01/24 6:21 AM) 8.7 mg/dL (11/30/24 9:27 AM) 8.5 mg/dL (11/29/24 8:15 AM) Cl- [98-107 mmol/L] 99 mmol/L (12/01/24 6:21 AM) 98 mmol/L (11/30/24 9:27 AM) 99 mmol/L (11/29/24 8:15 AM) HCO3 [22-29 mmol/L] 25 mmol/L (12/01/24 6:21 AM) 22 mmol/L (11/30/24 9:27 AM) 22 mmol/L (11/29/24 8:15 AM) Cret [0.60-1.00 mg/dL] 0.76 mg/dL (12/01/24 6:21 AM) 0.75 mg/dL (11/30/24 9:27 AM) 0.77 mg/dL (11/29/24 8:15 AM) BF Source Urine cx tube held f or 48 hours (11/28/24 7:26 PM) Urine in TIGER top tube good for UA only (11/26/24 5:00 AM) Urine cx tube held for 48 hours (11/26/24 5:00 AM) HbA1c [<5.7 %] 9.0 % 17 *HI* (11/26/24 8:16 AM) Glu [74-109 mg/dL] 110 mg/dL 18 *HI* (12/01/24 6:21 AM) 202 mg/dL 19 *HI* (11/30/24 9:27 AM) 315 mg/dL 20 *HI* (11/29/24 8:15 AM) Gluc Meter [74-109 mg/dL] 129 mg/dL *HI* (12/01/24 2:13 PM) 190 mg/dL *HI* (12/01/24 9:32 AM) 106 mg/dL (12/01/24 5:55 AM) Hct [35-44 %] 23.6 % *LOW* (12/01/24 6:21 AM) 26.0 % *LOW* (11/30/24 9:27 AM) 26.4 % *LOW* (11/29/24 8:15 AM) Hgb [11.7-15.0 g/dL] 7.7 g/dL *LOW* (12/01/24 6:21 AM) 8.2 g/dL *LOW* (11/30/24 9:27 AM) 8.6 g/dL *LOW* (11/29/24 8:15 AM) INR [0.9-1.1] 1.1 21 (11/26/24 8:16 AM) K [3.5-5.1 mmol/L] 4.7 mmol/L 22 (12/01/24 6:21 AM) 4.7 mmol/L (11/30/24 9:27 AM) 4.7 mmol/L (11/29/24 8:15 AM) Ketones [NEG mg/dL] NEGATIVE mg/dL (11/26/24 12:25 AM) Lactate [0.5-2.2 mmol/L] 1.6 mmol/L (11/25/24 11:55 PM) Lipase [13-60 unit/L] 53 unit/L (11/25/24 11:53 PM) Leuk Est [NEG] NEGATIVE 23 (11/26/24 12:25 AM) MCH [28-33 pg] 28.7 pg (12/01/24 6:21 AM) 28.1 pg (11/30/24 9:27 AM) 28.7 pg (11/29/24 8:15 AM) MCHC [32-36 g/dL] 32.6 g/dL (12/01/24 6:21 AM) 31.5 g/dL *LOW* (11/30/24 9:27 AM) 32.6 g/dL (11/29/24 8:15 AM) MCV [81-96 fL] 88.1 fL (12/01/24 6:21 AM) 89.0 fL (11/30/24 9:27 AM) 88.0 fL (11/29/24 8:15 AM) Mg [1.6-2.6 mg/dL] 2.2 mg/dL (12/01/24 6:21 AM) 2.1 mg/dL (11/30/24 9:27 AM) 2.2 mg/dL (11/29/24 8:15 AM) Na [136-145 mmol/L] 134 mmol/L *LOW* (12/01/24 6:21 AM) 132 mmol/L *LOW* (11/30/24 9:27 AM) 133 mmol/L *LOW* (11/29/24 8:15 AM) Nitrite (u) [NEG] NEGATIVE 24 (11/26/24 12:25 AM) Osmolality [275-295 mOsm/kg] 285 mOsm/kg (11/26/24 8:16 AM) PO4 [2.5-4.5 mg/dL] 2.7 mg/dL (12/01/24 6:21 AM) 2.1 mg/dL *LOW* (11/30/24 9:27 AM) 2.2 mg/dL *LOW* (11/29/24 8:15 AM) Plts [150-350 K/uL] 186 K/uL (12/01/24 6:21 AM) 206 K/uL (11/30/24 9:27 AM) 241 K/uL (11/29/24 8:15 AM) PT [12.0-14.2 seconds] 14.2 seconds (11/26/24 8:16 AM) RBC [3.90-5.00 M/uL] 2.68 M/uL *LOW* (12/01/24 6:21 AM) 2.92 M/uL *LOW* (11/30/24 9:27 AM) 3.00 M/uL *LOW* (11/29/24 8:15 AM) Free T4 [0.9-1.7 ng/dL] 1.11 ng/dL (11/26/24 8:16 AM) T Bili [0.0-1.2 mg/dL] 0.3 mg/dL (12/01/24 6:21 AM) 0.2 mg/dL (11/30/24 9:27 AM) 0.2 mg/dL (11/29/24 8:15 AM) Prot [6.4-8.3 g/dL] 5.8 g/dL *LOW* (12/01/24 6:21 AM) 6.1 g/dL *LOW* (11/30/24 9:27 AM) 6.0 g/dL *LOW* (11/29/24 8:15 AM) TSH [0.30-4.20 uIU/mL] 3.01 uIU/mL (11/26/24 8:16 AM) Appear (u) CLEAR (11/26/24 12:25 AM) Color (u) YELLOW (11/26/24 12:25 AM) Creat (u) 17.47 mg/dL 25 (11/26/24 4:15 PM) Glu (u) [NEG mg/dL] >=500 mg/dL 26 *Abnormal* (11/26/24 12:25 AM) Hgb (u) [NEG] NEGATIVE 27 (11/26/24 12:25 AM) Na (u) 111 mmol/L 28 (11/26/24 4:15 PM) Osmol (u) [100-1000 mOsm/kg] 446 mOsm/kg (11/26/24 4:15 PM) pH (u) [5.0-8.0 unit] 8.0 unit (11/26/24 12:25 AM) Prot (u) [NEG mg/dL] NEGATIVE mg/dL (11/26/24 12:25 AM) RBC (u) [0-4 /HPF] 0-4 /HPF (11/28/24 7:02 PM) Urobili [0.1-1.0 EU/dL] 0.1-1.0 EU/dL (11/26/24 12:25 AM) SG [1.005-1.030] 1.010 (11/26/24 12:25 AM) WBC (u) [0-4 /HPF] 0-4 /HPF (11/28/24 7:02 PM) WBC [4.0-10.4 K/uL] 4.87 K/uL (12/01/24 6:21 AM) 8.03 K/uL (11/30/24 9:27 AM) 5.98 K/uL (11/29/24 8:15 AM) S Pneumo Antigens, Urine NEGATIVE 29 (11/26/24 4:15 PM) Free T3 [2.0-4.4 pg/mL] 1.5 pg/mL *LOW* (11/26/24 8:16 AM) 1Result Comment: Reference range: <60 Unit: pg/mL Performed at [facility] (formerly known as [facility]) [address] [place] [id number]. 2Result Comment: Performed at: [address] [place] [phone] 3Result Comment: Performed at: [address] [place] [address] 4Result Comment: Performed at: [address] [place] [address] 5Result Comment: Reference range: NEGATIVE Sample is negative for the presence of L. pneumophila serogroup 1 antigen in urine, suggesting no recent or current infection. Legionnaires' Disease cannot be ruled out since other serogroups and species may also cause disease. INTERPRETIVE INFORMATION: Legionella pneumophila Antigen, Urine This assay detects Legionella pneumophila serogroup one (1) antigen. Performed By: [facility] [address] [place] [id number] Phytochemistry Professor: Reed Baumann MD, PhD CLIA Number: [id number] 6Result Comment: Reference range: SEE COMMENT This test was developed and its performance characteristics determined by [facility]. It has not been cleared or approved by the FDA; however, FDA clearance or approval is not currently required for clinical use. The results are not intended to be used as the sole means for clinical diagnosis or patient management decisions. This document contains confidential privileged information. The recipient of the information is prohibited from disclosing the contents to another green party without authorization. If you are not the intended recipient, you are hereby notified that disclosure of the contents is strictly prohibited. Please notify [facility] immediately if you received this information in error. Test performed by [facility] [address] [place] [id number] Phone: Phytochemistry Professor: Jessie Cummings. PhD, D(ABMM) Test Reported by [facility], [address] [place] [id number] Niko Posada M.D., Ph.D., Director of Laboratories , CLIA [id number] Performed at [facility] (formerly known as [facility]) [address] [place] [address] . 7Result Comment: Reference range: SEE COMMENT This test was developed and its performance characteristics determined by [facility]. It has not been cleared or approved by the FDA; however, FDA clearance or approval is not currently required for clinical use. The results are not intended to be used as the sole means for clinical diagnosis or patient management decisions. This document contains confidential privileged information. The recipient of the information is prohibited from disclosing the contents to another green party without authorization. If you are not the intended recipient, you are hereby notified that disclosure of the contents is strictly prohibited. Please notify [facility] immediately if you received this information in error. Test performed by [facility] [address] [place] [id number] Phone: Phytochemistry Professor: Jessie Cumminsg. PhD, D(ABMM) Test Reported by [employer] [facility], [address] [place], [place] Niko Posada M.D., Ph.D., Director of Laboratories , CLIA [id number] Performed at [facility] (formerly known as [facility]) [address] [place] [address] . 8Result Comment: Reference range: SEE COMMENT Result: None Detected ng/mL Test Parameters: Reference Interval: None Detected Reportable Range: Positive Results reported in ng/mL from 0.20 ng/mL to 20.00 ng/mL Positive results above 20.00 ng/mL are reported as "Above the Limit of Quantification" Cross-reactions occur with Blastomyces spp., Coccidioides spp., and Paracoccidioides brasiliensis. Performed at [facility] (formerly known as [facility]) [address] [place] [address] . 9Result Comment: Reference range: SEE COMMENT Result: None Detected ng/mL Test Parameters: Reference Interval: None Detected Reportable Range: Positive Results reported in ng/mL from 0.20 ng/mL to 20.00 ng/mL Positive results above 20.00 ng/mL are reported as "Above the Limit of Quantification" Cross-reactions occur with Blastomyces spp., Coccidioides spp., and Paracoccidioides brasiliensis. Performed at [facility] (formerly known as [facility]) [address] [place] [address] . 10Result Comment: Corrected on 11/28 AT 1325: Previously reported as BLOOD 11Result Comment: by Britany Tommie [id number], (Real Time PCR) 12Result Comment: Reference range: SEE COMMENT This assay can be used as an aid in the diagnosis of invasive fungal infections and should be used in conjunction with other diagnostic procedures. Certain fungi, such as the genus Cryptococcus which produces very low levels of (1-3)-B-D-glucan, may not result in serum (1-3)-B-D-glucan sufficiently elevated so as to be detected by the assay. Infections with fungi of the Order Mucorales such as Absidia, Mucor and Rhizopus which are not known to produce (1-3)-B-D-glucan, are also observed to yield low serum (1-3)-B-D-glucan titers. In addition, the yeast phase of Blastomyces dermatitidis produces little (1-3)-B-D-glucan and may not be detected by the assay. Test Performed by [facility], [employer] [facility], [address] [place] [address] Niko Posada M.D., Ph.D., Director of Laboratories , [facility] [id number] Performed at [facility] (formerly known as [facility]) [address] [place] [address]. 13Result Comment: Low levels of ALKP may indicate a deficiency in zinc, magnesium, or malnutritionbutcan also be an indicator of a rare genetic disease hypophosphatasia (HPP). 14Result Comment: Low levels of ALKP may indicate a deficiency in zinc, magnesium, or malnutritionbutcan also be an indicator of a rare genetic disease hypophosphatasia (HPP). 15Result Comment: Low levels of ALKP may indicate a deficiency in zinc, magnesium, or malnutritionbutcan also be an indicator of a rare genetic disease hypophosphatasia (HPP). 16Result Comment: POSSIBLE INTERFERING SUBSTANCE. ASCORBIC ACID DETECTED IN URINE. RESULTS MAY BEUNRELIABLE. 17Result Comment: ADA Recommended [place] Reference Range: Normal: <5.7% Prediabetes: 5.7-6.4% Diabetes: >6.4% Hb A1c results in patients with severe anemia or recent RBC transfusion are unreliable and do not represent the patient glycemic control. 18Result Comment: ADA recommendation for FASTING Serum/Plasma Glucose: Normal: 70-100 mg/dL Prediabetes: 100-125 mg/dL Diabetes: 126 mg/dL or higher 19Result Comment: ADA recommendation for FASTING Serum/Plasma Glucose: Normal: 70-100 mg/dL Prediabetes: 100-125 mg/dL Diabetes: 126 mg/dL or higher 20Result Comment: ADA recommendation for FASTING Serum/Plasma Glucose: Normal: 70-100 mg/dL Prediabetes: 100-125 mg/dL Diabetes: 126 mg/dL or higher 21Result Comment: Suggested therapeutic range for low-intensity Coumadin therapy for venous thromboembolism is INR 2.0-3.0 (ex: atrial fibrillation, history of TIA/stroke). For high risk patients, the suggested therapeutic range is INR 2.5-3.5 (ex: mechanical prosthetic valves). 22Result Comment: HEMOLYZED SPECIMEN 23Result Comment: POSSIBLE INTERFERING SUBSTANCE. ASCORBIC ACID DETECTED IN URINE. RESULTS MAY BEUNRELIABLE. 24Result Comment: POSSIBLE INTERFERING SUBSTANCE. ASCORBIC ACID DETECTED IN URINE. RESULTS MAY BEUNRELIABLE. 25Result Comment: Reference Range for Random Urine Not Established. 26Result Comment: POSSIBLE INTERFERING SUBSTANCE. ASCORBIC ACID DETECTED IN URINE. RESULTS MAY BEUNRELIABLE. 27Result Comment: POSSIBLE INTERFERING SUBSTANCE. ASCORBIC ACID DETECTED IN URINE. RESULTS MAY BEUNRELIABLE. 28Result Comment: Reference Range for Random Urine Not Established. 29Result Comment: Reference range: NEGATIVE INTERPRETIVE INFORMATION: Streptococcus pneumoniae Ag, Urine False-positives may occur because of cross-reactivity with other members of the S. mitis group. Clinical correlation is recommended. 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 Susceptibilty: Herpes simplex type 1 detected Tested Drug TEST:Blood.Cx STATUS:Auth (Verified) BODY SITE: SOURCE:Blood COLLECTED DATE/TIME:11/26/24 8:16 AM Status FINAL 12/01/2024 TEST:Blood.Cx STATUS:Auth (Verified) BODY SITE: SOURCE:Blood COLLECTED DATE/TIME:11/25/24 11:56 PM Culture NO GROWTH IN 5 DAYS TEST:Blood.Cx STATUS:Auth (Verified) BODY SITE: SOURCE:Blood COLLECTED DATE/TIME:11/25/24 11:55 PM Status FINAL 12/01/2024 TEST:Respiratory Virus Panel, by PCR STATUS:Auth (Verified) BODY SITE: SOURCE:Nasal/Pharyngeal COLLECTED DATE/TIME:11/25/24 11:55 PM Status FINAL 11/26/2024 Radiology Reports * Exam Date Time Procedure Performing Provider Status 11/27/24 10:01 AM XR Abdomen 1 View Jorge Luis Pa; Long forman Notes: (XR Abdomen 1 View) Reason For Exam: pain XR Abdomen 1 View EXAMINATION: XR Abdomen 1 View CLINICAL HISTORY: pain COMPARISON: CT abdomen pelvis 11/26/2024. FINDINGS: AP supine view of the abdomen. Percutaneous enteric gastrostomy tube tip and balloon overlying the stomach. External urinary catheter. Nonobstructive bowel gas pattern. Technique limits evaluation for pneumoperitoneum. Partially visualized nodular opacities within the lungs, better evaluated on prior CT chest. No new large effusion or consolidative opacity within the visible lungs. Unchanged osseous structures. Bladder opacified with excreted contrast. IMPRESSION: Nonobstructive bowel gas pattern. Dr. Jose Alfredo Dias is the dictating resident. 'Finalized' report status indicates that the attending radiologist has reviewed the images and agrees with the interpretation. 'Preliminary' report status should be regarded as NOT interpreted by the attending radiologist. 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 presents with fevers COMPARISON: Outside CT 10/26/[address] 10/17/2024 TECHNIQUE: Routine helical tomographic images were obtained from the skull base through the upper thorax with intravenous contrast, sagittal and coronal reformats. CONTRAST: Contrast Type (IV): Omnipaque 350 Contrast Volume (IV) in ml: 75.00 DOSE: Total Reported Dose Length Product (DLP) = 321.23 mGy.cm FINDINGS: Neck: Peripherally enhancing, necrotic mass in the anterior right floor of the mouth measuring 2.4 x 2.9 x 2.4 cm, increased from 10/08/24. The mass is infiltrating adjacent intrinsic tongue musculature with displacement of the midline of the tongue. There is abutment of the mandible without erosivechanges. Salivary glands: Unchanged 1 cm lesion within the left parotid, likely lymph node. Increase enhancement of the right submandibular gland is also noted. Lymph nodes: Multiple bilateral necrotic lymph nodes, progressed from 10/08/2024. The largest lymph node on the left measures 1.6 cm and is located in level 3. The largest lymph node on the right measures 1.5 cm and is located in level IIa. Vascular structures: Dominant right internal jugular vein. Mild mass effect from enlarged lymph nodes without thrombosis. Thyroid gland: No dominant nodule. Paranasal sinuses: Clear Osseous structures: Multilevel degenerative disc changes. Visualized orbits/brain: Unremarkable. Lung apices: Please see separately dictated CT chest for multiple pulmonary lesions/masses. IMPRESSION: 1. Progression of anterior right floor of mouth squamous carcinoma compared to 10/08/2024. 2. Multiple bilateral enlarged, necrotic cervical lymph nodes, suspicious for metastatic disease and also progressed from prior CT. Please see separately dictated CT chest. [place] Act 112: This study does not meet the requirements of [place] Act 112. Dr. Alhaji Jurado is the dictating resident. Finalized reports status indicates that the attending has reviewed the images and report, and agrees with the interpretation. Preliminary report status should be regarded as NOT interpreted by the attending radiologist. Workstation ID: [id number] Final Dictated by:MD Jurado Aroh Jamanadas Dictated DT/TM:11/26/2024 9:01 Resident:MD Jurado Aroh Jamanadas Signed by:DO Haque Kyaw N Signed (Electronic Signature):11/26/2024 9:00 a * Exam Date Time Procedure Performing Provider Status 11/26/24 7:[address] Thorax w/ Contrast Lisa Cash ; Final Notes: (CT Thorax w/ Contrast) Reason For Exam: 84 yo with recurrence of SCC of floor of mouth, presents with fevers. r/o infection, abcess CT Thorax w/ Contrast EXAMINATION: CT CHEST WITH CONTRAST CLINICAL HISTORY: 84 yo with recurrence of SCC of floor of mouth, presents with fevers. r/o infection, abcess COMPARISON: Chest radiograph 11/14/[address] 10/17/2024 TECHNIQUE: Helical CT scan through the chest after intravenous contrast administration. Data reconstructed as axial, sagittal and coronal slices. CONTRAST: Contrast Type (IV): Omnipaque 350 Contrast Volume (IV) in ml: 75.00 FINDINGS: Pleura and Lungs: Multiple bilateral shaggy solid nodules, new and significantly progressed from outside PET/CT dated 10/17/2024. One of the largest is a right infrahilar 2.8 cm nodule previously 1cm. Chronic left apical scarring. Small left and trace right pleural effusion. No pneumothorax. Left upper lobe opacity Central airways: Patent. Lymph nodes: 1.5 cm enhancing, necrotic subcarinal lymph node, progressed from prior. Additional smaller lymph nodes throughout the mediastinum. Supraclavicular lymph nodes, necrotic node measuring 0.9 cm on the right. Thyroid and Mediastinum: Heterogenous enhancement of the thyroid. Heart and Great vessels: Normal heart size. Atherosclerosis of the aorta and its branches. Right chest Mediport with tip at the cavoatrial junction. Upper abdomen: Gastrostomy balloon with the stomach. No change from CT abdomen pelvis earlier same day. Chest wall: Multilevel degenerative disc changes of the spine. Surgical changes left anterior chestwall. IMPRESSION: 1. Multiple new solid, shaggy nodules compared to PET/CT on 10/17/2024, highly suspicious for metastatic disease. 2. Progression of mediastinal lymphadenopathy, also suspicious for metastatic disease. 3. One of the focal left upper lobe opacities may be metastatic disease or focal pneumonia. Please see separately dictated CT neck. [place] Act 112: This study does not meet the requirements of [place] Act 112. Dr. Alhaji Jurado is the dictating resident. Finalized reports status indicates that the attending has reviewed the images and report, and agrees with the interpretation. Preliminary report status should be regarded as NOT interpreted by the attending radiologist. Workstation ID: [id number] Final Dictated by:MD Rhiannon, Alhaji Schuster Dictated DT/TM:11/26/2024 10:16 Resident:MD Rhiannon, Alhaji Schuster Signed by:MD Paty, Katiana Quinn Signed (Electronic Signature):11/26/2024 10:15 * Exam Date Time Procedure Performing Provider Status 11/26/24 1:[address] Abdomen and Pelvis w/ Contrast Fost er, Faiza E; Final Notes: (CT Abdomen and Pelvis w/ Contrast) Reason For Exam: recent PEG tube, immunocompromised, abdominal pain CT Abdomen and Pelvis w/ Contrast EXAMINATION: CT Abdomen and Pelvis w/ Contrast CLINICAL HISTORY: recent PEG tube, immunocompromised, abdominal pain COMPARISON: CT abdomen pelvis 11/08/2024 TECHNIQUE: Helical CT of the abdomen and pelvis with contrast. Coronal and sagittal reformats. CONTRAST: Contrast Type (IV): Omnipaque 350 Contrast Volume (IV) in ml: 100.00 DOSE: Total Reported Dose Length Product (DLP) = 212.72 mGy.cm FINDINGS: Lower chest: Multiple bilateral pulmonary lesions, increased in size compared to 11/08/2024 and central necrosis. For example left lower lobe nodule measuring 1.7 cm, previously 1.3 cm. New trace rightand small left pleural effusion. ABDOMEN Liver, Gallbladder \\T\\ bile ducts: No focal hepatic abnormality. Normal gallbladder. No biliary dilation. Pancreas: Unremarkable Spleen: Unremarkable in size. 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 Adrenals: Unremarkable Kidneys, collecting system and ureters: Symmetric renal enhancement. Multifocal scarring on the right. No hydronephrosis. Right renal cyst. Mild bilateral hydroureter, likely secondary to markedly distended bladder. Retroperitoneum, lymph nodes, and vessels: No retroperitoneal lymphadenopathy. Retroaortic left renal vein. Bowel \\T\\ Mesentery: Percutaneous gastrostomy tube with inflated balloon in appropriate position. Nonobstructed bowel. No mesenteric lymphadenopathy. No free fluid. PELVIS Bladder: Distended bladder. Reproductive organs: Absent uterus Extraperitoneal, lymph nodes, vessels: No pelvic lymphadenopathy. Osseous and body wall: No acute abnormality. Multilevel degenerative changes of the visualized spine. Compression deformities of L2-L4, unchanged. Patchy densities in the subcutaneous fat, just overlying the gluteus musculature. Uncertain etiology. IMPRESSION: 1. Gastrostomy tube in appropriate position. 2. Enlargement of pulmonary metastatic lesions , compared to CT 11/08/2024. 3. Trace right and small left pleural effusions, new. [place] Act 112: This study does not [place] the requirements [place] Act 112. Dr. Mark Mancera is the dictating resident. Finalized reports status indicates that the attending has reviewed the images and report, and agrees with the interpretation. Preliminary report status should be regarded as NOT interpreted by the attending radiologist. Workstation ID: [id number] Final Dictated by:DO Mancera Aivy Dictated DT/TM:11/26/2024 8:16 Resident:DO Mancera Aivy Signed by:MD Newman Kathryn L Signed (Electronic Signature):11/26/2024 8:15 a * Exam Date Time Procedure Performing Provider Status 11/26/24 12:38 AM XR Chest 2 Views Mikhail Ramos; Final Notes: (XR Chest 2 Views) Reason For Exam: r/o PNA XR Chest 2 Views EXAMINATION: XR Chest 2 Views CLINICAL HISTORY: r/o PNA COMPARISON: Chest radiograph 11/14/[address] abdomen pelvis 02/05/2022. Chest CT 02/05/2022. FINDINGS: Upright AP and lateral views. Right IJ Mediport catheter tip in distal SVC. Normal cardiomediastinal silhouette and pulmonary vasculature. Multiple pulmonary nodules within both lungs, better visualized on CT abdomen pelvis 11/08/2024. Left apical scarring, unchanged. No pleural effusion. No pneumothorax. No acute osseous abnormality. IMPRESSION: Pulmonary nodules, as seen on CT 11/08/2024. No other focal opacity to suggest pneumonia. Dr. Mark Mancera is the dictating resident. Finalized reports status indicates that the attending has reviewed the images and report, and agrees with the interpretation. Preliminary report status should be regarded as NOT interpreted by the attending radiologist. Workstation ID: [id number] Final Dictated by:DO Mancera Aivy Dictated DT/TM:11/26/2024 4:06 Resident:DO Mancera Aivy Signed by:MD Helms Joseph H Signed (Electronic Signature):11/26/2024 4:05 a Vital Signs Most recent to oldest [Reference Range]: 1 2 3 Height 157.5 cm (11/25/24 11:29 PM) Patient Weight 52.4 kg (11/30/24 3:30 AM) 49.4 kg (11/25/24 11:29 PM) Body Mass Index 19.91 kg/m2 (11/25/24 11:29 PM) Temperature [36.5-37.9 DegC] 36.7 DegC (12/01/24 11:42 AM) 37.0 DegC (12/01/24 8:31 AM) 36.5 DegC (12/01/24 6:02 AM) Heart Rate 105 bpm (12/01/24 11:42 AM) 106 bpm (12/01/24 9:04 AM) 106 bpm (12/01/24 8:31 AM) Respiratory Rate 18 br/min (12/01/24 11:42 AM) 21 br/min (12/01/24 9:04 AM) 20 br/min (12/01/24 8:31 AM) Blood Pressure 157/56mmHg (12/01/24 11:42 AM) 134/60mmHg (12/01/24 9:04 AM) 134/60mmHg (12/01/24 8:31 AM) Mean Blood Pressure 85 mmHg (12/01/24 11:42 AM) 79 mmHg (12/01/24 9:04 AM) 79 mmHg (12/01/24 8:31 AM) Cuff Pulse Pressure 101 mmHg (12/01/24 11:42 AM) 74 mmHg (12/01/24 8:31 AM) 79 mmHg (12/01/24 6:02 AM) BP Location # 1 Right Arm (12/01/24 11:42 AM) Right Arm (12/01/24 8:31 AM) Right Arm (12/01/24 6:02 AM) Social History Social History Type Response Smoking Status Never smoked cigaret janes Sex Sex Representation Female (finding) History and physical note * MD Chris, Fanta: MODIFY, MODIFY, MODIFY, MODIFY, MODIFY, MODIFY, MODIFY, MODIFY, MODIFY, PERFORM, MODIFY, MODIFY Event Display: H&P Authored Date: [id number] Name:CRYSTAL REYNOLDS Patient Number:[id number] :1940 Date of Service:11/26/2024 Chief Complaint on chemo, 101.6 fever 1 hr ago. sent in by oncology. 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 Pt started C1 of carboplatin/pembrolizumab/5 FU (at 25%) on Thursday 11/23.. Pt remains with continuous infusion of5FU infusion pump.Pt presents with persistent this evening of Tm 101.5 at home.Pt more lethargic over last few days. h/o UTI in past but denies dysuria, hematuria, urinary frequency. +Recently constipated x 12d and started on senna s with good results. last bm was this eveningprior to being brought to ED. Pt denies sick contacts, cough, sob,n/v, diarrhea. Though,bmyesterday was slightly loose;on stool softeners. Since chemotherapy on Tuesday, family has noticed high blood sugars that usual.Last bs at home was 333, tookhumalog 12 units andalso took levemir 10 units. Son at bedside.History obtained from him and Mrs Reynolds. Pt's has dementia First point of contact is Dayanara (daughter) [phone] or son. 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 Treated with lumpectomy, SLNB, adjuvant RT and tamoxifen for 5 years. - Invasive ductal carcinoma recurrence of left breast in 10/2019. - PET/CT 10/2020 revealed non-specific/borderline mediastinal hilar adenopathy. - Bronch/EBUS 12/2019 biopsies of multiple nodes revealed lymphoid tissue without maligant cells. - 03/2020 Underwent 4 cycles of neoadjuvant Taxotere/Cyclophosphamide. - 04/2020 underwent bilateral mastectomies. - Adjuvant RT to left chest wall and axilla completed 08/2020. - Diagnosed with bone metastases of sternum in 09/2022, again ER+ IDC ofbreast primary. - 3palliative RT tosternum. - Started on palliativeIbrance/AI in early [address] Alfaro at [facility]. - She had multiple pauses of treatment due to cytopenias and was switched to abemaclib per Dr. Alfaro. Abemaciclib was held since Jun 2024 due to intolerance and she has been maintained on monthly fulvestrant injections. - PET/CT 07/11/[address] neck 08/03/2024 was reportedly negative for recurrent disease. 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 - Around 06/2024 she started having pain and discomfort in right side of floor of mouth/tongue and she saw Dr. Hurst from ENT/H&N surgery. - In-office biopsies on 08/21 and 09/04/2024 was negative/non-diagnostic. - CT neck 10/08/2024 showed a deep right FOM/tongue lesion abutting the mandible. - She was taken to the OR 10/08/[address]Dr. Hurstfor exam under anesthesia and incisional biopsy,which confirmed SCC. - PET/CT 10/17/2024 revealed hypermetabolic diseaseat the known siteof the floor of mouth, bilateral necks, and thereisevidence ofmultiple new metastaticpulmonary nodulesconcerning for oligometastatic disease. - She was discussed athead/neck MDCin whichshe was deemed anon-surgical candidate for suspected metastatic disease and poor performance status to tolerate/recover from a significant surgical resection/reconstruction. She was seenin Oct 2024to discuss treatment options and we recommendedCarboplatin/5- FU/Pembrolizumab per Keynote-048 vs single agent pembrolizumab if she is a PDL-1 expressor. She still has intact performance status so she could toleratecombination chemo-immunotherapy, with dose reduction of 5-FU by 25% to aid in tolerance.We donot favor pembrolizumab monotherapy due to her rapidly progressive disease needing quicker palliation. She continues on her hormone injections per Dr. Alfaro but has no plan to resume CDK 4/6 inhibitors for the time being. Lung biopsy was offered by Dr. Alfaro, however has not been pursued per patient at this time. Besides her history of MBC, she also has history of CKD (CrCl in 20-30s), DM2, HTN, but no known heart, liver, or auto-immune disease. Interim History on clinic visit 11/23/24: She got IR guided G-tube placement on 11/09/24. She is also following with radiation oncology and started getting IMRT quad shot last week. Patient is accompanied by her daughter and during this visit. She is in a wheelchair during this visit and appears fatigued. She is currently taking 4 to5 feeds/day and denies any other complaints other than fatigue. They are using insulin sliding scale and report a better control of blood sugar. Review of Systems Review of Systems Constitutional symptoms: +Generalized Weakness, +fatigue, +fever, no chills. Skin symptoms: No rash, Eye symptoms: No blindness, blurred vision, eye pain ENMT symptoms: No ear pain, no nasal congestion, no post nasal drip, no sore throat. Mouth: +Dry mouth,+Perioral dryness/dry lips, No bleeding gums negative. Respiratory symptoms: No shortness of breath, cough, sputum production, hemoptysis. Cardiovascular symptoms: No chest pain, palpitations, dizziness Gastrointestinal symptoms:+abdominal pain, +nausea, +constipation. No vomiting, diarrhea,melena, hematochezia. Genitourinary symptoms: No dysuria, hematuria Musculoskeletal symptoms: No back pain, Neurologic symptoms: No headache, limb weakness Psychiatric symptoms:No anxiety or depression Physical Exam Vitals & Measurements T:36.4C HR:101(Monitored) RR:23 BP:167/67 SpO2:93% Oxygen Therapy:Room Air HT:157.5cm WT:49.400kg(Dosing) WT:49.4kg BMI:19.91 General:_ appears lethargic, dehydrated. NC/AT HEENT:_ PERRLA, EOMI, anicteric sclera, dry oral mucosa, thicksaliva secretion in oral cavity, no pus drainage, partial resection right side of tongue, some deviation of tongue to left Neck:_ supple, no JVD Cardiac:_ [id number], no murmurs R CW mediport c/d/i, nt, no erythema or exudate; with infusion pump Lungs:_ occ scattered rhonchi, otherwise mostly clear Abdomen:_ soft, protuberant, some nodularity to RLQ/infra-umbilical area with mild TTP w/o erythema or warmth, +palpable bladder with some distension (pt urinated after palpation), PEG site c/d/i Rectal/:_ deferred Back:_ non tender spine, no rashes Extremities:_ no c/c/e Neuro:_ A&O x 3. mildly slurred speech.flataffect, strength 5/5 BUE/BLE, no drift or asterixis Skin:_ no rashes Diagnostic Results Na 125 BUN/Cr 26/0.84 WBC 15 Hbg 9.2, MCV 88 Plt 313 Lactic acid 1.6 ALT 43 T bilirubin 0.4 Alk Phos 138 Alt [address] A/P FINDINGS: Lower chest: Multiple bilateral pulmonary lesions, increased in size compared to 11/08/2024 and central necrosis. For example left lower lobe nodule measuring 1.7 cm, previously 1.3 cm. New trace rightand small left pleural effusion. ABDOMEN Liver, Gallbladder \\T\\ bile ducts: No focal hepatic abnormality. Diffuse hepatic steatosis. Normal gallbladder. No biliary dilation. Pancreas: Unremarkable Spleen: Unremarkable Adrenals: Unremarkable Kidneys, collecting system and ureters: Symmetric renal enhancement. No hydronephrosis. Right renalcyst. Mild bilateral hydroureter, likely secondary to markedly distended bladder. Retroperitoneum, lymph nodes, and vessels: No retroperitoneal lymphadenopathy. Retroaortic left renal vein. Bowel \\T\\ Mesentery: Percutaneous gastrostomy tube with inflated balloon in appropriate position. Nonobstructed bowel. No mesenteric lymphadenopathy. No free fluid. PELVIS Bladder: Distended bladder. Reproductive organs: Unremarkable Extraperitoneal, lymph nodes, vessels: No pelvic lymphadenopathy. Osseous and body wall: No acute abnormality. Multilevel degenerative changes of the visualized spine. Compression deformities of L2-L4, unchanged. IMPRESSION: 1. Gastrostomy tube in appropriate position. 2. Progression of pulmonary metastatic disease, compared to CT 11/08/2024.3. Trace right and small left pleural effusions. CXR IMPRESSION:Pulmonary nodules, as seen on CT 11/08/2024. No other focal opacity to suggest pneumonia. Assessment/Plan Fevers Sepsis Immunocompromised -High grade fever -s/p 2.5 L LR bolus in ED -Panculture -Given IV Cefepime, IV Flagyl and IV Vanco loadin the ED. Will hold further IV Vanco for now. Check MRSA nares swab -h/o UTI in the past; ua no LE/nitrite -Suspect abdominal pain may be due to metastatic deposits under skin though none seen on CT. -CT A/P no acute findings but did catch the lung bases and show increased in size multiple pulmonary nodules with now central necrosis, new trace right and small left pleural effusion -Obtain CT thorax and CT neck/mandible for further investigation -Keep npo for now. Pt still takes all her pills at home with sips water or applesauce and eats softfoods occasionally like yogurt. Obtain ST cs to r/o aspiration. -consider ID cs. 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 -Follows with Dr Koch HTN -uncontrolled -NPO for now so unable to use Toprol XL (resume if safe for po); For now sub with Metoprolol 25mg peg q6h, hold for sbp <120 or HR <55 Anemia, normocytic -Trend -Maybe related to chemotherapy or disease process -Monitor DM -uncontrolled. -possibly steroid related -obtain hbaic -serial fs q6h -home regimen included Levemir 10 Units qhs + Humalog 5x/day pre bolus feeds 9 units base + 1 unit per every 50 unit above 200 -Increase Levemir to 15 units qhs and ISS level moderate Hyponatremia -likely multifactorial; due to dehydration and pseudo-hyponatremia from hyperglycemia -however, there is consideration for SIADH -given 2.5 L LR bolus in ED for sepsis -repeat Na, BS. Obtain urine lytes. Transaminitis -CT A/P no liver, GB, GB duct abnormality -Trend Hypothyroidism -outpt pharmacy records show current dosing is Synthroid 75mcq po daily; resume. h/o long standing Allergies -Pt on claritin 10mg qhs chronically, resume. Chronic pain -Takes Oxycontin 10mg po qhs (will resume if safe for po; ER can not go through PEG)and prn [id number] po q4hr pn -continue bowel regimen with senna s bid. IV access - R CW mediport VTE prophylaxis - Lovenox, hold for plts <50 Diet - NPO. PEG tube feeds. Home regimen: Diabetic Source AC 237 cc 5x/day, flush 50 cc pre feed, free water 237 cc 5x/day post bolus feed Obtain Nutrition cs for appropriate tube feed source Level of care - FULL SUPPORT Disposition - Hematology/oncology unit, floor status Pt walks at home steady on flat surface but needs assistance with climbing steps Daughter Dayanara requests daily update. She was called and updated on pt's condition and plan of care; all questions answered. 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 In January 2022 she underwent partialglossectomy by OMFS with primary closure| Service Date: 01/2022HysterectomyDetached retina s/p L eye repairColonoscopybilateral mastectomiesprevious biopsy of the mediastinal lymph nodebilateral cataract surgery Medications Inpatient cefepime, 2000 mg= 50 mL, IV, q8h metroNIDAZOLE(Flagyl), 500 mg= 100 mL, IV, q8h Home acetaminophen(Tylenol 325 mg oral tablet), 650 mg= 2 tab, PO, q6h atorvastatin(atorvastatin 10 mg oral tablet), 10 mg= 1 tab, PO, Daily chlorhexidine topical(Peridex 0.12% mucous membrane liquid), 0.018 g= 15 mL, swish + spit, bid, 1 refills cholecalciferol(Vitamin D3 1000 intl units (25 mcg) oral capsule), 25 mcg= 1 cap, PO, Daily clopidogrel(Plavix 75 mg oral tablet), 75 mg= 1 tab, PO, Daily diphenhydrAMINE(Benadryl Allergy 12.5 mg/5 mL oral liquid), See Instructions, 3 refills docusate(Colace 100 mg oral capsule), 200 mg= 2 cap, PO, Daily, PRN fulvestrant(fulvestrant 50 mg/mL intramuscular solution), 50 mg= 1 mL, IM, [id number] insulin detemir(Levemir Vial 100 units/mL subcutaneous solution), 9 unit, subQ, qhs insulin lispro(HumaLOG Insulin Sliding Scale Tool), 5 unit, subQ levothyroxine(levothyroxine 88 mcg (0.088 mg) oral tablet), 88 mcg= 1 tab, PO, Daily lidocaine topical(Lidocaine Viscous 2% mucous membrane solution), See Instructions, 3 refills loratadine(Allergy Relief), 10 mg, PO, Daily metoprolol(metoprolol succinate 100 mg oral tablet, extended release), 125 mg, PO, Daily nystatin(nystatin 100,000 units/mL oral suspension), 063258 unit= 5 mL, PO, qid ondansetron(Zofran 8 mg oral tablet), 8 mg= 1 tab, PO, q8h, PRN, 1 refills oxyCODONE(OxyCONTIN 10 mg oral tablet, extended release) oxyCODONE(oxyCODONE 10 mg oral tablet, extended release), See Instructions oxyCODONE(oxyCODONE 5 mg oral tablet), 5 mg, PO, q4h, PRN pantoprazole(pantoprazole 20 mg oral delayed release tablet), 20 mg= 1 tab, PO, Daily, 2 refills polyethylene glycol 3350(MiraLax oral powder for reconstitution), 17 g, PO, Daily prochlorperazine(Compazine 10 mg oral tablet), 10 mg= 1 tab, PO, q6h, PRN, 1 refills unlisted medication(Magic mouthwash), See Instructions, 3 refills vitamin E(vitamin E 400 intl units oral capsule), 400 Int_Unit= 1 cap, PO, Daily Allergies traMADol (Moderate)Nausea, Itchy morphineHallucinosis, Nausea penicillinsItching, Hives Social History Smoking Status Never smoked cigarettes No illicit drug usage No ETOH usage She is , has 6 children, 9 grand children, and 3 great grand children. 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 Family History Mother with colon cancer Immunizations Vaccine Date Status SARS-CoV-2 mRNA-1273 (6y+ bivalent) 09/09/2022 Recorded SARS-CoV-2 (COVID-19) mRNA BNT-162b2 vax 09/08/2021 Recorded SARS-CoV-2 (COVID-19) mRNA-1273 vaccine 01/02/2021 Recorded SARS-CoV-2 (COVID-19) mRNA-1273 vaccine 12/05/2020 Recorded influenza virus vaccine, H1N1 09/13/2009 Recorded Electronic Signature on File Electronically Reviewed/Signed by: Fanta Perez MD Author Signature Dt/Tm:11/26/2024 07:52 AM Division of Hematology Oncology Electronically Reviewed/Signed by: Fanta Perez MD Cosigner Signature Dt/Tm: 11/26/2024 07:57AM Division of Hematology Oncology [facility] Palliative care Consult note * MD Nuris, Rito: PERFORM, MODIFY Event Display: Palliative Care Consult Authored Date: PALLIATIVE CARE INPATIENT CONSULTATION REPORT Name:CRYSTAL REYNOLDS Patient Number:[id number] :1940 Requesting Service/Attending:Hematology/Oncology Reason for Consultation:Symptom Management Chief Complaint on chemo, 101.6 fever 1 hr ago. sent in by oncology. 12/17 abd pain History of Present Illness Patient is [id number] femalewith a past medical history ofsquamous cell carcinoma of the right tonguecurrently on chemotherapy, history ofstage I invasive ductal carcinoma of the left breastwho wasbrought to the hospital by familyaftermultiple readings of a fever with a Tmax of 101.6. Hospitalization has been complicated by ongoingpain. Palliative care consulted foraidin symptom management. Assessment&Recommendations 1. Cancer related pain -Reportsthroat painas well as bilateral ear painthat she describes assharp/stabbing. There is a component ofconstant pain with episodes ofincrease in pain intensity. She finds thatheat alleviates the painandcold airmay exacerbate it. -At home she had been taking OxyContin 10 mg nightlyand oxycodone 5 mgevery 4 hours as needed(3-4doses per dayaccording to her report)this was controlling her pain adequately. -Currently she is onoxycodone 5 mgevery 4 hours as neededfor moderate painand has taken 1 dose since yesterday. - Throat pain is bothering her but it is mostly ear pain that is currently an issue. Possibly referred otalgia from her cancer -Patient states that Magic mouthwash provides some numbing of her mouth but quickly wears out. -Decadronlikely also helping with pain control. Recommendations: -Would recommendscheduling some of her oxycodone (can start with oxycodone 5mg TID; at least until cleared to resume taking tablets by mouth). Continueoxycodone 5mg q4h prn formoderate pain andoxycodone 7.5mg for severe. Can add order of hydromorphone 0.4mg IV q4h prnfor breakthrough pain n ot controlled 1 hour after administration of PO PRN dose or for acute pain needing immediate relief. -If she is able to tolerate these changes without issue we could consider adding gabapentin 300 mg 3 times daily in the coming days to address neuropathic component of pain. -If patient wants to continue using the Magic mouthwash it would be okay to continue it however if it is not providing adequate relief I would recommend discontinuing it. 2. 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 -s/p XRT 1 week ago,Follows with Dr Koch -CT scan showing multiple new and significantly progressed shaggy solid nodules of the bilateral lungs, progression of mediastinal lymphadenopathy - chronic illness with severeprogression Recommendations: -Would recommendoncology update patient and family on progression of her disease andthe influencethis might have on her treatmentcourseas well as prognosis. 3. Goals of care -Current goalremains toidentify source of her fevers.Longer term goal is to finalizepracticalmatters regardingfinancial paperwork for inheritance for his children,selling properties,assuring her is taking care of. -She is worriedaboutdyingin the short-termbut is working acceptingwhat ever comesin thenear future. She is relying heavily on her faithforsupport and strength. -She states that she has a living will and a healthcare power of mounter clarinets however does not knowwhat it contains and who is named ashealthcare agent. She believes it is one of her sons. She isinterested in changing her healthcare power of mounter clarinets toname one of her granddaughters who is the healthcarefield. -We discussedher thoughts regarding resuscitationand advanced life support. She states thatwhen she has considered it in the pastshe has foundthat CPR andinitiallife support withmachines would be acceptable but would not want to be long-term onlife support. We discussed thatgiven her advancedcancerit would be reasonableand advisableto consider placing some limitationssuch asDNR/DNIgiven that ultimatelywe would be unable to changethe outcome given the progression of her disease. She stated that she would think about it. Recommendations/plan: -We will continue conversationsas hospitalization progresses. -Patient interested in completing healthcare power of attorneyformwhichwe can help facilitate. Communication:Discussed with primary team (hematology/oncology) Palliative care assessment Illness Understanding: very good Goals of care: life prolonging and rehabilitative, would like to proceed with surgery and radiation Communication Preferences: straight forward information Advance Directives: HCPOA completed ( [place]), has not completed a Living Will Level of Support: FULL Prognosis: guarded, depends onfurther chemotherapy optionsafter thisdisease progression. Functional Status: previously had a good functional status however after herchemotherapyshe hasbeen feeling more fatiguedandunable to be fully independent in her ADLs. Usually walks steadyon a flat surface but needs assistance with climbing stairs. Spirituality: Anabaptist, goes to adventist every Tuesday. Very important to her. 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 Anticipatory Loss/Grief: no Social history: 2nd time with current for the past 10 years. Lives in [facility] with . Has 6 adult children, many grandchildren, very supportive family. Negative for cigarettes, alcohol or recreational drugs Review of Systems As noted in the HPI, all other systems reviewed and negative for 14 point ROS. Physical Exam Vitals & Measurements T:36.5C TMIN:36.1C TMAX:36.6C HR:101(Monitored) RR:18 BP:134/74 SpO2:96% Oxygen Therapy:Room Air Input and Output - Last 24 hours (Last 8 hours) Total In: 2654 (1624) Total Out: 200 (0) Total Balance: 2454 (1624) PEG Tube:711 (711) 11/26/2024 Female External Urinary Device:200 (0) PEG Tube:1470 (750) MED INTAKE:473 (163) Stool Count 2(1) GENERAL:In no acute distress;chronically ill appearing EYES:No scleral icterus;normal lids, no lid-lag;no discharge. ENT:thicksaliva and secretions in oral cavity,dry lips,partial resectionof the right sideof the tongue,ulcers seen under the tongue and on oral floor. LUNGS:Breath sounds are equal and clear bilaterally.normal respiratory effort,no intercostal retractions HEART:Regular rate and rhythm with normal S1 and S2.No peripheral edema ABDOMEN: Soft,nontender,non-distended. SKIN: No rashes are noted on visible skin. Normal temperature, turgor and texture PSYCH:no significant depression,no anxiety;no evidence of delirium;oriented to person, place and time Diagnostic Results (11/26/2024 07:[address] Thorax w/ Contrast) FINDINGS: Pleura and Lungs: Multiple bilateral shaggy solid nodules, new and significantly progressed from outside PET/CT dated 10/17/2024. One of the largest is a right infrahilar 2.8 cm nodule previously 1cm. Chronic left apical scarring. Small left and trace right pleural effusion. No pneumothorax. Left upper lobe opacity Central airways: Patent. Lymph nodes: 1.5 cm enhancing, necrotic subcarinal lymph node, progressed from prior. Additional smaller lymph nodes throughout the mediastinum. Supraclavicular lymph nodes, necrotic node measuring 0.9 cm on the right. Thyroid and Mediastinum: Heterogenous enhancement of the thyroid. Heart and Great vessels: Normal heart size. Atherosclerosis of the aorta and its branches. Right chest Mediport with tip at the cavoatrial junction. Upper abdomen: Gastrostomy balloon with the stomach. No change from CT abdomen pelvis earlier same day. Chest wall: Multilevel degenerative disc changes of the spine. Surgical changes left anterior chestwall. IMPRESSION: 1. Multiple new solid, shaggy nodules compared to PET/CT on 10/17/2024, highly suspicious for metastatic disease. 2. Progression of mediastinal lymphadenopathy, also suspicious for metastatic disease. 3. One of the focal left upper lobe opacities may be metastatic disease or focal pneumonia. 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 Reviewed the followinglab teststo ensurethat occasion appropriateness:BUN,creatinine,creatinine clearance,AST,ALT, ALK Phos,T. bili. Reviewed the followingimaging tests:CT thorax, CT neck soft tissue, CT abdomen pelvis,x-ray abdomen. Reviewed the followingnotesfromadditional teams:IDconsultand follow- up,hematology oncologyH&Pand progress Notes,ENT office visit. Patient is receiving parenteralIV opiatesas high risk medications MDM:high. 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 In January 2022 she underwent partialglossectomy by OMFS with primary closure| Service Date: 01/2022HysterectomyDetached retina s/p L eye repairColonoscopybilateral mastectomiesprevious biopsy of the mediastinal lymph nodebilateral cataract surgery Medications Inpatient acetaminophen(Tylenol), 650 mg= 20.3 mL, G-tube, q4h, PRN Al hydroxide/Mg hydroxide/simethicone(Mylanta), 2 mL, swish + spit, q4h (6a-10p) cefepime, 2000 mg= 50 mL, IV, q12h chlorhexidine topical(Peridex), 15 mL, swish + spit, bid cholecalciferol(Vitamin D3), 25 mcg= 1 tab, PEG-tube, Daily clopidogrel(Plavix), 75 mg= 1 tab, PEG-tube, Daily dexAMETHasone(Decadron), 4 mg= 1 mL, IV Push, q6h dextrose(Dextrose 50% syringe), 25 mL, IV Push, As indicated, PRN diphenhydrAMINE(diphenhydrAMINE 2.5 mg/mL oral soln), 5 mg= 2 mL, swish + spit, q4h (6a-10p), PRN enoxaparin, 40 mg= 0.4 mL, subQ, q24h famotidine(Pepcid), 20 mg= 2.5 mL, G-tube, Daily heparin flush(heparin flush 100 units/mL), 5 mL, intracatheter, As indicated, PRN insulin glargine(Semglee), 15 unit= 0.15 mL, subQ, bid insulin lispro(HumaLOG Sliding Scale Moderate), SSI, subQ, 5x/Day insulin lispro(HumaLOG), 5 unit= 0.05 mL, subQ, 5x/Day lactulose, 10 g, G-tube, tid levothyroxine, 75 mcg= 1 tab, PEG-tube, qMon thru Fri lidocaine topical(Lidocaine Viscous), 2 mL, swish + spit, q4h (6a-10p), PRN lidocaine topical(LMX 4 topical cream), 1 appl, topical, As indicated, PRN loratadine, 10 mg= 1 tab, PEG-tube, qhs magnesium hydroxide(Milk of Magnesia), 30 mL, G-tube, Daily melatonin(Melatonin), 5 mg= 1 tab, PEG-tube, qhs, PRN metoprolol(metoprolol tartrate), 25 mg= 2.5 mL, PEG-tube, q6h metroNIDAZOLE(Flagyl), 500 mg= 100 mL, IV, q8h nystatin(nystatin 100,000 units/mL oral suspension), 5 mL, PO, qid ondansetron, 4 mg= 2 mL, IV Push, q6h, PRN oxyCODONE, 5 mg= 5 mL, G-tube, q4h, PRN oxyCODONE, 5 mg= 5 mL, PO, q8h oxyCODONE, 7.5 mg= 7.5 mL, PO, q4h, PRN senna, 8.8 mg= 5 mL, PEG-tube, bid sodium chloride(Saline rinse q2hWA), 15 mL, swish + spit, q2h (6a-10p) Home acetaminophen(Tylenol 325 mg oral tablet), 650 mg= 2 tab, PO, q6h atorvastatin(atorvastatin 10 mg oral tablet), 10 mg= 1 tab, PO, Daily chlorhexidine topical(Peridex 0.12% mucous membrane liquid), 0.018 g= 15 mL, swish + spit, bid, 1 refills cholecalciferol(Vitamin D3 1000 intl units (25 mcg) oral capsule), 25 mcg= 1 cap, PO, Daily clopidogrel(Plavix 75 mg oral tablet), 75 mg= 1 tab, PO, Daily diphenhydrAMINE(Benadryl Allergy 12.5 mg/5 mL oral liquid), See Instructions, 3 refills docusate(Colace 100 mg oral capsule), 200 mg= 2 cap, PO, Daily, PRN fulvestrant(fulvestrant 50 mg/mL intramuscular solution), 50 mg= 1 mL, IM, [id number] insulin detemir(Levemir Vial 100 units/mL subcutaneous solution), 9 unit, subQ, qhs insulin lispro(HumaLOG Insulin Sliding Scale Tool), 5 unit, subQ levothyroxine(levothyroxine 88 mcg (0.088 mg) oral tablet), 88 mcg= 1 tab, PO, Daily lidocaine topical(Lidocaine Viscous 2% mucous membrane solution), See Instructions, 3 refills loratadine(Allergy Relief), 10 mg, PO, Daily metoprolol(metoprolol succinate 100 mg oral tablet, extended release), 125 mg, PO, Daily nystatin(nystatin 100,000 units/mL oral suspension), 727495 unit= 5 mL, PO, qid ondansetron(Zofran 8 mg oral tablet), 8 mg= 1 tab, PO, q8h, PRN, 1 refills oxyCODONE(OxyCONTIN 10 mg oral tablet, extended release) oxyCODONE(oxyCODONE 10 mg oral tablet, extended release), See Instructions oxyCODONE(oxyCODONE 5 mg oral tablet), 5 mg, PO, q4h, PRN pantoprazole(pantoprazole 20 mg oral delayed release tablet), 20 mg= 1 tab, PO, Daily, 2 refills polyethylene glycol 3350(MiraLax oral powder for reconstitution), 17 g, PO, Daily prochlorperazine(Compazine 10 mg oral tablet), 10 mg= 1 tab, PO, q6h, PRN, 1 refills senna(senna (sennosides) 8.6 mg oral tablet), 8.6 mg= 1 tab, PO, bid, PRN unlisted medication(Magic mouthwash), See Instructions, 3 refills vitamin E(vitamin E 400 intl units oral capsule), 400 Int_Unit= 1 cap, PO, Daily Allergies traMADol (Moderate)Nausea, Itchy morphineHallucinosis, Nausea penicillinsItching, Hives Social History Smoking Status Never smoked cigarettes Lab Results BMP: Date Na K Cl HC03 BUN Cret Glu Ca 11/28/2024 07:00 133 4.1 98 24 27 0.81 254 8.9 11/27/2024 05:43 130 4.3 96 24 23 0.75 235 8.3 11/26/2024 08:16 131 4.2 96 24 18 0.63 238 8.7 CBC: Date WBC Hgb Hct Plts Neut, Abs 11/28/2024 07:00 5.2 8.8 27.3 260 4.8 11/27/2024 05:43 9.2 7.9 24.7 255 8.8 11/26/2024 08:16 14.4 9.1 28.1 267 13.8 M.3 Phos:2.1 Date: PT: PTT: INR: 11/26/24 08:16 14.2 1.1 11/08/24 11:51 14.6 1.1 [1]CT Thorax w/ Contrast; MD Paty, Katiana Quinn 11/26/2024 07:09 EST Electronic Signature on File Electronically Reviewed/Signed by: Rito Lawler MD Author Signature Dt/Tm:12/01/2024 01:33 PM Division of Palliative Care EM Otolaryngology Consult * MD Hurst Emily Kathryn: MODIFY MD Hurst Emily Kathryn: MODIFY Event Display: Otolaryngology Consult Authored Date: [id number] OTOLARYNGOLOGY HEAD AND NECK SURGERY INPATIENT CONSULTATION REPORT Name: CRYSTAL REYNOLDS Patient Number: [id number] : 1940 Date of Service: 11/28/2024 REQUESTING SERVICE: Hematology/Oncology REASON FOR CONSULTATION: Evaluate oral cavity lesions History of Present Illness: _ Ms. Reynolds is a 84 year old woman with pmh of DM, CKD, Breast cancer and [id number] SCC of the right tongue s/p right partial glossectomy and induction chemo (carboplatin/5FU), immunotherapy (pebrolizumab), and XRT (IMRT quad shot). History is obtained from the patient, the patient's daughter, and the patient's . Since starting chemo/immunotherapy, she has endorses painful ulcerative lesions of her mouth. This was worsened by her starting XRT. She has been having significant difficultywith PO intake due to the lesions. Patient denies respiratory symptoms including increased work of breathing, noisy breathing (stridor, stertor), shortness of breath or use of accessory muscles. She does have a g-tube placed on 11/09 and has been receiving 4-5 feeds through the g-tube without issue. She was recently started on nystatin oral rinse and magic mouthwash by Dr. Taylor for treatment of oral mucositis. She was recently admitted on 11/26 by hematology oncology team due to uncontrolled diabetes and sepsis secondary to possible bacterial pneumonia. During her admission, her oral lesions were noted to be particularly painful and [facility] team was consulted for evaluation and management. Review Of Systems: A 14 point review of systems was conducted. Pertinent positives noted above. Past Medical History: Problems Active [facility] Palliativecarebyspecialist Anorexiasymptom Constipationduetoopioidtherapy Neoplasmrelatedpain Squamouscellcanceroftongue S/Potolaryngologicalsurgery,follow-upexam [facility]cellcarcinomaoffn[facility] Essentialtremor Occlusion,artery,cerebral Breastcancer Diabetes Seasonalallergies Hypertension Hyperlipidemia Hypothyroidism Surgical History: Procedure History Procedure Procedure Date Comments bilateral cataract surgery previous biopsy of the mediastinal lymph node bilateral mastectomies Colonoscopy Detached retina s/p L eye repair Hysterectomy 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 In January 2022 she underwent partial glossectomy by OMFS with primary closure 01/2022 Family History: No family history recorded. Social History: Social & Psychosocial Habits No Data Available Allergies and Sensitivities: traMADol(Itchy) traMADol(Nausea) penicillins(Hives) penicillins(Itching) morphine(Nausea) morphine(Hallucinosis) Active Inpt Meds: Al hydroxide/Mg hydroxide/simethicone (Mylanta) 2 mL swish + spit q4h (6a-10p) cefepime 2,000 mg IV q12h chlorhexidine topical (Peridex) 15 mL swish + spit bid cholecalciferol (Vitamin D3) 25 mcg PEG-tube Daily clopidogrel (Plavix) 75 mg PEG-tube Daily dexAMETHasone (Decadron) 4 mg IV Push q6h enoxaparin 40 mg subQ q24h famotidine (Pepcid) 20 mg G-tube Daily insulin glargine (Semglee) 15 unit subQ bid insulin lispro (HumaLOG Sliding Scale Moderate) subQ 5x/Day insulin lispro (HumaLOG) 5 unit subQ 5x/Day lactulose 10 g G-tube tid levothyroxine 75 mcg PEG-tube qMon thru Fri loratadine 10 mg PEG-tube qhs magnesium hydroxide (Milk of Magnesia) 30 mL G-tube Daily metoprolol (metoprolol tartrate) 25 mg PEG-tube q6h metroNIDAZOLE (Flagyl) 500 mg IV q8h nystatin (nystatin 100,000 units/mL oral suspension) 5 mL PO qid oxyCODONE 5 mg PO q8h senna 8.8 mg PEG-tube bid sodium chloride (Saline rinse q2hWA) 15 mL swish + spit q2h (6a-10p) Active PRN Meds: acetaminophen (Tylenol) 650 mg G-tube q4h dextrose (Dextrose 50% syringe) 25 mL IV Push As indicated diphenhydrAMINE (diphenhydrAMINE 2.5 mg/mL oral soln) 5 mg swish + spit q4h (6a-10p) heparin flush (heparin flush 100 units/mL) 5 mL intracatheter As indicated lidocaine topical (Lidocaine Viscous) 2 mL swish + spit q4h (6a-10p) lidocaine topical (LMX 4 topical cream) 1 appl topical As indicated melatonin (Melatonin) 5 mg PEG-tube qhs ondansetron 4 mg IV Push q6h oxyCODONE 5 mg G-tube q4h oxyCODONE 7.5 mg PO q4h One Time Meds: (Completed) famotidine (Pepcid) 20 mg w/ IV ONCE Active IV Meds: None Current Home Meds: (Last Updated 11/26 07:11) acetaminophen (Tylenol 325 mg oral tablet) 650 mg PO q6h Alternate with tramadol every 3 hours for pain. Do not exceed 4000mg/day. atorvastatin (atorvastatin 10 mg oral tablet) 10 mg PO Daily TAKE 1 TAB NIGHTLY WITH LARGE GLASS OFWATER chlorhexidine topical (Peridex 0.12% mucous membrane liquid) 0.018 g swish + spit bid Swish and spit; do not swallow cholecalciferol (Vitamin D3 1000 intl units (25 mcg) oral capsule) 25 mcg PO Daily clopidogrel (Plavix 75 mg oral tablet) 75 mg PO Daily diphenhydrAMINE (Benadryl Allergy 12.5 mg/5 mL oral liquid) Patient an mix with viscous lidocaine and maalox and/or water to create a solution. then swish and spit 5 to 10 cc q4H docusate (Colace 100 mg oral capsule) 200 mg PO Daily PRN: as needed for constipation fulvestrant (fulvestrant 50 mg/mL intramuscular solution) 50 mg IM [id number] HAZARDOUS MEDICATION | injection: Nursing - teal, Pharmacy - [facility] Barbie 10/05 12:50 insulin detemir (Levemir Vial 100 units/mL subcutaneous solution) 9 unit subQ qhs insulin lispro (HumaLOG Insulin Sliding Scale Tool) 5 unit subQ for every 50 over 150 give 1 extra until, not to exceed over 9 units - S [place] 11/23 08:19 levothyroxine (levothyroxine 88 mcg (0.088 mg) oral tablet) 88 mcg PO Daily not taking on Sat/Sun lidocaine topical (Lidocaine Viscous 2% mucous membrane solution) As directed for mouth sores, withor without mixture with liquid benadryl and maaolx/water into a solution. loratadine (Allergy Relief) 10 mg PO Daily metoprolol (metoprolol succinate 100 mg oral tablet, extended release) 125 mg PO Daily 100mg at HS 25mg in AM nystatin (nystatin 100,000 units/mL oral suspension) 500,000 unit PO qid ondansetron (Zofran 8 mg oral tablet) 8 mg PO q8h PRN: as needed for nausea/vomiting Starting 48 hrs after chemotherapy oxyCODONE (oxyCODONE 5 mg oral tablet) 5 mg PO q4h PRN: as needed for pain oxyCODONE (OxyCONTIN 10 mg oral tablet, extended release) 15 each, 0 Refill(s), TAKE 1 TABLET BY MOUTH EVERYDAY AT BEDTIME Responsible Provider: BRUCE MOSES Bupteresa 10/30 09:42 oxyCODONE (oxyCODONE 10 mg oral tablet, extended release) 1 tab PO at bedtime pantoprazole (pantoprazole 20 mg oral delayed release tablet) 20 mg PO Daily polyethylene glycol 3350 (MiraLax oral powder for reconstitution) 17 g PO Daily prochlorperazine (Compazine 10 mg oral tablet) 10 mg PO q6h PRN: as needed for nausea/vomiting senna (senna (sennosides) 8.6 mg oral tablet) 8.6 mg PO bid PRN: as needed for constipation unlisted medication (Magic mouthwash) magic mouthwash = Maalox/benadryl/lidocaine in 1:1:1 solution. Take 5-10 ml po q4h for mouth sores/pain. vitamin E (vitamin E 400 intl units oral capsule) 400 Int_Unit PO Daily Patient states 450 mg, 1 tab daily Vitals: Last Updated 11/28/24 17:41 Weights: Last Updated 11/25/24 23:29 Date Temp Pulse BP RR SpO2 FIO2 Date Wt(kg) Wt(lb) 11/28 17:41 18 11/25 23:29 49.4 109 11/28 17:17 101 134/74 11/25 23:29 49.4 109 11/28 17:14 36.5 101 134/74 22 96 11/28 11:24 36.2 97 123/55 23 97 11/28 09:59 99 149/54 24 Hr Tmax: 36.6 at 11/28 09:26 Initial Wt: 11/25 49.4 kg 109 lb No Vent Detail Found. Physical Exam: General: Normocephalic and atraumatic. Alert, calm, cooperative. Eyes: PERRLA, EOMI Ears: Normal auricle, No otorrhea. Nasal cavity: Nasal cavity without masses, lesions, or polyps. Small amount of dried blood at kiesselbach's plexus on the right. Oral cavity: dried cracked lips, multiple areas of ulcerative lesions of the oral tongue, floor of mouth, buccal mucosa c/w mucositis and radiation wan, no exudate Oropharynx: Similar mucositis like lesions of the soft palate, pharyngeal pillars and posterior pharyngeal wall, No obvious masses, lesions, or fullness to the soft palate, tonsils, vallecula, or base of tongue. Normal palatal mobility. Neck: No lymphadenopathy appreciated, NT, trachea midline, ROM wnl Skin: Skin is warm, dry, good turgor and color. Respiratory: unlabored respirations, no stridor/stertor Neurologic: AO x3, CN 2-12 grossly intact Musculoskeletal: ROBERT nonedematous, normal ROM Flexible Fiberoptic Exam: _ Most Recent 24 Hour CBC/BMP Results CBC: on 11/28/2024 07:00 CMP: on 11/28/2024 07:00 8.8 133 98 27 5.2 260 254 27.3 4.1 24 0.81 Abs Neut = 4.8 Ca = 8.9 Most Recent 24 Hour Labs: 11/28/24 1734 Blood Glucose 240 H 11/28/24 1732 Gluc Meter 240 H Blood Glucose Ref Range See Flowsheet 11/28/24 1107 ABO/Rh See Flowsheet Antibody Scr See Flowsheet Expires at 0600AM on See Flowsheet # Units 0 R Number See Flowsheet Component See Flowsheet 11/28/24 0832 Estimated CrCl 41.04 11/28/24 0700 B Comments See Flowsheet MCH 28.0 MCHC 32.2 MCV 86.9 RBC 3.14 L MPV 9.5 Immature Gran% 0.6 Neut% 92.1 Lymph% 5.2 [place]% 1.3 Baso% 0.2 Eos% 0.6 Immat Gran, Abs 0.03 Lymph, Abs 0.27 L [place], Abs 0.07 Baso, Abs 0.01 Eos, Abs 0.03 Type of Diff: See Flowsheet RDW 12.6 Anion Gap 11 Mg 2.3 PO4 2.1 L eGFR CKD-EPI 72 Alk Phos 127 H ALT 37 H AST 23 T Bili 0.2 Alb 3.1 L Prot 6.5 11/28/24 0032 Herpes Simplex 1,2 by PCR Final: Pos. Studies: Pending or Completed in the Last 24 Hours No studies found ASSESSMENT: Ms. 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 She was recently admitted on 11/26 by hematology oncology team due to uncontrolled diabetes and sepsis secondary to possible bacterial pneumonia. [facility] was consulted for ulcerative lesions of the throat. RECOMMENDATIONS: No [facility] intervention necessary at this time. Patient's oral cavity ulcerations are consistent with mucositis from chemo/immunotherapy or wan from her radiation. There is no strong evidence of ongoing oral cavity or oropharyngeal infection. Vaseline to lips q2hWA PRN for dry lips Mucositis treatment per Dr. Taylor. Evaluation and treatment by SELVAGE MACHINE OPERATOR for swallowing therapy would likely improve patient's overall PO intake. Thank you for allowing us to be a part of your patient's care. Attending attestation: I saw and examined this patient with the residents, I reviewed the medical record and I agree with the history and exam as noted above. I agree with the plan. 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 She was unfortunately not a surgical candidate, and has started aggressive management to control primary and distant cancer. Underwent Quadshot radiation with Dr. Taylor and developed significant tongue edema and glossoproptosis. She has now initiated induction chemo. Tongue edema greatly improved from her clinic visit with me last week. She has some mucosal wan likely secondary to quadshot, at area adjacent to her metal post. Continues to have firm tumor at anterior floor of mouth and tongue. No evidence of exposed bone. I am available to assist at any time during her admission. Please TigerText with any concerns or questions. Marcie Hurst MD [employer] of OtolaryngologyHead and Neck Surgery [facility] Electronic Signature on File Electronically Reviewed/Signed by: Juventino Benavides MD Author Signature Dt/Tm:11/28/2024 07:10 PM Resident Department of Otolaryngology Electronically Reviewed/Signed by: Marcie Hurst MD Cosigner Signature Dt/Tm: 11/29/2024 06:35 PM Department of Otolaryngology RB * MD Bermudez Rezhan H: MODIFY MD Bermudez Rezhan H: MODIFY, MODIFY MD Bermudez Rezhan H: MODIFY, MODIFY MD Bermudez Rezhan H: MODIFY, MODIFY MD Bermudez Rezhan H: MODIFY, MODIFY MD Bermudez Rezhan H: MODIFY, MODIFY, MODIFY, MODIFY, MODIFY Event Display: ID General Inpt Consult Authored Date: [id number] ID GENERAL INPATIENT CONSULTATION REPORT Name: CRYSTAL REYNOLDS Patient Number: [id number] : 1940 Date of Admission: 11/25/2024 Date of Service: 11/27/2024 REQUESTING PHYSICIAN'S NAME: MD Amaral Veronica REASON FOR CONSULTATION: Fever and new lung opacities on imaging, concerning for infection. 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 CT thorax showed focal left upperlobe opacities which might be metastatic disease or focal pneumonia. Patient is in immunocompromised state and has a history of soil exposure. Possible fungal and other bacterial causes of pneumonia is considered. Lines: Esparza PEG tube Antibiotics: Vancomycin: 11/26 Metronidazole: 11/26- Cefepime: 11/26- Infectious disease related issues: # Multiple bilateral shaggy solid nodules, new and significantly progressed from outside PET/CT dated 10/17/2024. Likely metastatic disease from SCC of the oral cavity but will look for fungal infection. # Focal left upper lobe opacities in the setting of recent fever and immunocompromised state - Last fever was 11/25. Patient has remained afebrile since. - Patient does not have any respiratory symptoms but is immunocompromised and does indoor gardeningand exposure to soil without wearing a mask. - RVP and MRSA swab are negative - blood culture NGTD - Urine culture pending. - CT thorax showed Multiple new solid, shaggy nodules compared to PET/CT on 10/17/2024, highly suspicious for metastatic disease.Progression of mediastinal lymphadenopathy, also suspicious for metastatic disease.One of the focal left upper lobe opacities may be metastatic disease or focal pneumonia. -Causes of possible pneumonia include bacterial (legionella, strep pneumo)and fungal (histoplasmosis, blastomycosis,cryptococcosis, aspergillosis) #Oral ulcers - Continue magic mouth wash and nystatin - Could be caused by HSV 1 check PCR, also check, CMV and EBV PCR. # Renal insufficiency: Creatinine clearance 44. RECOMMENDATIONS: 1 ) Please obtain HSV 1 and 2 oral swab PCR and CMV, EBV PCR of serum for oral ulcers 2 ) Please continue magic mouth wash and nystatin 3 ) Please continue cefepime 2 g IV q 12 hours and Flagyl 500 mg IV/PEG po q 8 hours. 4) Please obtain legionella and strep pneumococcal urine antigen test, fungitell serum test, aspergillosis serum test, histoplasmosis serum and urine test, sputum culture to investigate possible infectious cause of patient's lung finding. ID Faculty: I was physically present with the medical student (Mesfin Jain) and patient, having personally performed/re-performed the physical exam and medical decision making activities for the service. I verify that the history, physical exam and medical decision making as documented in the note by the medical student are accurate, changes are made in blue color. Ariel Bermudez MD Billing justification / Time spent on day of encounter: 60 minutes 20 minutes ----- Reviewing select portions of EMR, cultures, lab results, imaging and medication doses. 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 She is accompanied by family who provided part of the history. Family notes that she developed a fever throughout the day on 11/25. Tmax of 101.6 F. She was sentto ED by oncology. She has been having 1-2 loose BM since 11/25.Denies any upper respiratory symptoms, chills, night swet, SOB, chest pain, headache, UTI symptoms, confusion, sick contact or recent travel. There is no leakage of the PEG tube. She complains that she is more fatigued than usual. Also complaining of bilateral ear pain, mouth pain and pain along her b/l neck. Patient notes that she does gardening and had exposure to soil before this hospitalization. In the ED, she was febrile to 38.9 on 11/25. She was given IV Cefepime, IV Flagyl and IV Vanco load in the ED. Vancomycin was discontinued. She initially presented with leukocytosis of 15 with no neutropenia. She has remained afebrile since 11/26 and her WBC is normal. CT of her neck showed Progression of anterior right floor of mouth squamous carcinoma compared to 10/08/2024.Multiple bilateral enlarged, necrotic cervical lymph nodes, suspicious for metastatic disease and also progressed from prior CT. PAST MEDICAL HISTORY: Problems: Mass of floor of mouth Anorexia symptom Constipation due to opioid therapy Neoplasm related pain Squamous cell cancer of tongue S/P otolaryngological surgery Squamous cell carcinoma of floor of mouth Essential tremor Occlusion, artery, cerebral Breast cancer Diabetes mellitus Seasonal allergies Hypertension Hyperlipidemia Hypothyroidism Hospital Day: 2 MEDICATIONS: Active Inpt Meds: Al hydroxide/Mg hydroxide/simethicone (Mylanta) 2 mL swish + spit q4h (6a-10p) cefepime 2,000 mg IV q12h chlorhexidine topical (Peridex) 15 mL swish + spit bid cholecalciferol (Vitamin D3) 25 mcg PEG-tube Daily clopidogrel (Plavix) 75 mg PEG-tube Daily enoxaparin 40 mg subQ q24h insulin glargine (Semglee) 10 unit subQ bid insulin lispro (HumaLOG Sliding Scale Moderate) subQ 5x/Day insulin lispro (HumaLOG) 5 unit subQ 5x/Day lactulose 10 g G-tube tid levothyroxine 75 mcg PEG-tube qMon thru Fri loratadine 10 mg PEG-tube qhs magnesium hydroxide (Milk of Magnesia) 30 mL G-tube Daily metoprolol (metoprolol tartrate) 25 mg PEG-tube q6h metroNIDAZOLE (Flagyl) 500 mg IV q8h nystatin (nystatin 100,000 units/mL oral suspension) 5 mL PO qid senna 8.8 mg PEG-tube bid Active PRN Meds: acetaminophen (Tylenol) 650 mg G-tube q4h dextrose (Dextrose 50% syringe) 25 mL IV Push As indicated diphenhydrAMINE (diphenhydrAMINE 2.5 mg/mL oral soln) 5 mg swish + spit q4h (6a-10p) heparin flush (heparin flush 100 units/mL) 5 mL intracatheter As indicated lidocaine topical (Lidocaine Viscous) 2 mL swish + spit q4h (6a-10p) lidocaine topical (LMX 4 topical cream) 1 appl topical As indicated melatonin (Melatonin) 5 mg PEG-tube qhs ondansetron 4 mg IV Push q6h oxyCODONE 5 mg G-tube q4h Allergies and Sensitivities: traMADol(Itchy) traMADol(Nausea) penicillins(Hives) penicillins(Itching) morphine(Nausea) morphine(Hallucinosis) ROS: (Brett with an X to the left of the System if asked and negative; otherwise detail under Symptoms) System Symptoms (details) X Constitutional Fatigue _ Eyes _ X Ears, Nose, Mouth, Throat Mouth pain, ear pain and neck pain _ Cardiovascular _ _ Respiratory _ _ Genitourinary _ X Gastrointestinal Loose BM _ Musculoskeletal _ _ Skin _ _ Neurologic _ _ Psychiatric _ _ Endocrine _ _ Hematologic/Lymphatic _ _ Allergic/Immunologic _ VITAL SIGNS AND EXAM: Vitals: Weights: Date Temp Pulse BP RR SpO2 FIO2 Date Wt(kg) Wt(lb) 11/27 11:12 37.1 101 162/61 20 94 11/25 23:29 49.4 109 11/27 11:05 97 11/25 23:29 49.4 109 11/27 08:23 36.4 99 137/65 23 94 11/27 04:54 101 152/65 11/27 04:39 36.4 101 152/65 20 24 Hr Tmax: 37.6 at 11/26 20:41 36 Hr Tmax: 37.6 at 11/26 20:41 Vital Signs are the last 5 in the past 48 hours. Weights display the last 5 within 7 days. Initial Wt: 11/25 49.4 kg 109 lb EXAM: General: _ appears lethargic, dehydrated. NC/AT HEENT: _ PERRLA, EOMI, anicteric sclera, dry oral mucosa, thick saliva secretion in oral cavity, nopus drainage, partial resection right side of tongue, white ulcers seen under the tongue and on oral floor. Neck: _ supple, no JVD Cardiac: _ s1s2 tachycardia, no murmurs Lungs: CTAB. No wheezing, rales or rhonchi Abdomen: _ soft, nondistended, nontender to palpation in all four quadrants, +BS. PEG site c/d/i Back: _ non tender spine, no rashes Extremities: _ no c/c/e Neuro: _ A&O x 3. mildly slurred speech. Skin: _ no rashes LABS: Most Recent Lab Results over the last 24 Hours: CBC: on 11/27/2024 05:43 CMP: on 11/27/2024 05:43 7.9 130 96 23 9.2 255 235 24.7 4.3 24 0.75 Abs Neut = 8.8 Ca = 8.3 eGFR CKD-EPI: 79 11/27 0627 Estimated CrCl 44.32 11/27 0543 MCH 28.1 MCHC 32.0 MCV 87.9 RBC 2.81 L MPV 9.4 Immature Gran% 0.0 Neut% 96.4 Lymph% 0.9 [place]% 1.8 Baso% 0.0 Eos% 0.9 Immat Gran, Abs 0.00 Lymph, Abs 0.08 L [place], Abs 0.17 Baso, Abs 0.00 Eos, Abs 0.08 Type of Diff: See Flowsheet RBC Morphology See Flowsheet RDW 12.3 Platelet Morpho See Flowsheet Anion Gap 10 Mg 2.1 PO4 2.3 L eGFR CKD-EPI 79 Alk Phos 127 H ALT 47 H AST 35 H T Bili 0.3 Alb 2.8 L Prot 5.9 L Relevant Cultures: 11/25/2024 blood cultures 2 sets: NGTD 11/26/2024 blood culture: NGTD Relevant Imagin11/26/[address] scan Pleura and Lungs: Multiple bilateral shaggy solid nodules, new and significantly progressed from outside PET/CT dated 10/17/2024. One of the largest is a right infrahilar 2.8 cm nodule previously 1cm. Chronic left apical scarring. Small left and trace right pleural effusion. No pneumothorax. Left upper lobe opacity Central airways: Patent. Lymph nodes: 1.5 cm enhancing, necrotic subcarinal lymph node, progressed from prior. Additional smaller lymph nodes throughout the mediastinum. Supraclavicular lymph nodes, necrotic node measuring 0.9 cm on the right. Thyroid and Mediastinum: Heterogenous enhancement of the thyroid. Heart and Great vessels: Normal heart size. Atherosclerosis of the aorta and its branches. Right chest Mediport with tip at the cavoatrial junction. Upper abdomen: Gastrostomy balloon with the stomach. No change from CT abdomen pelvis earlier same day. Chest wall: Multilevel degenerative disc changes of the spine. Surgical changes left anterior chestwall. IMPRESSION: 1. Multiple new solid, shaggy nodules compared to PET/CT on 10/17/2024, highly suspicious for metastatic disease. 2. Progression of mediastinal lymphadenopathy, also suspicious for metastatic disease. 3. One of the focal left upper lobe opacities may be metastatic disease or focal pneumonia. Electronic Signature on File CC: Ariel Bermudez MD, FACP, FIDSA [address] [facility] [id number] Electronically Reviewed/Signed by: Mesfin Jain Author Signature Dt/Tm:11/27/2024 03:59 PM Medical Student Electronically Reviewed/Signed by: Ariel Bermudez MD, FACP, FIDSA Cosigner Signature Dt/Tm: 11/28/2024 11:02 PM president celebrity acquistion Division of Infectious Diseases Department of Medicine YD .D/C Summary * MD Cristin, Aracelis: PERFORM Event Display: .D/C Summary Authored Date: [id number] [facility] For medical concerns, call: . Address: [address] [place] [address] TERRENCE CHAVEZ [id number] (MOBILE) [phone] (ALTERNATE) :1940 . Date of Admission:11/25/2024 Date of Discharge:12/01/2024 Physician:MD Amaral Veronica Service:Hematology/Oncology Discharge Disposition: Primary Care Provider/Phone: MD GEE JAMES E (BUSINESS) [phone] (FAX BUSINESS) Principal Diagnosis: fever Other Diagnoses: Cancer related pain HSV-1 (herpes simplex virus 1) infection History of breast cancer Hyperglycemia Hyponatremia Immunocompromised Lung nodules Oral ulcer Palliative care by specialist Sepsis Squamous cell cancer of tongue Brief History of Present Illness: 84 yo f with DM, HTN, hypothyroidism, essential tremor, cerebral artery occlusion (denies h/o CVA),L breast cancer, and recently diagnosed recurrence of SCC of the right tongue, now right side floorof mouth/tongue. Pt started C1 of carboplatin/pembrolizumab/5 FU (at 25%) on Thursday 11/23.. Pt remains with continuous infusion of5FU infusion pump.Pt presents with persistent this evening of Tm 101.5 at home.Pt more lethargic over last few days. h/o UTI in past but denies dysuria, hematuria, urinary frequency. +Recently constipated x 12d and started on senna s with good results. last bm was this eveningprior to being brought to ED. Pt denies sick contacts, cough, sob,n/v, diarrhea. Though,bmyesterday was slightly loose;on stool softeners. Since chemotherapy on Tuesday, family has noticed high blood sugars that usual.Last bs at home was 333, tookhumalog 12 units andalso took levemir 10 units. Patient was started on IV Cefepime, IV Flagyl, mouth swabs sent and positive for HSV1,started on Acyclovir, as per ID evaluation pneumonia is unlikely , she has multiple lungs metastases . Her fever resolved, speech therapy started her on regular diet, she was seen by ENT, no need for steroids, palliative consulted for pain control, she does not want to take pain meds around the clock. For betterDM type 2 control started on Levemir 15 units BID, as per ID she was transitioned to Ceftin and Valcyclovir, she probably has to be on Acyclovir later on. PT recommended home PT, SNF option offered to family, but daughter want to take her home. Continue tube feeds as prescribed. Hospital Course: Exam on Discharge: Vitals & Measurements: T:37.0C TMIN:36.3C TMAX:37.2C HR:106(Monitored) RR:21 BP:134/60 SpO2:95% Oxygen Therapy:Room Air Discharge Medications: 1.Levothyroxine (levothyroxine 88 mcg (0.088 mg) oral tablet) 88 mcg (1 tab) by mouth once daily. not taking on Sat/Sun. 2.Cholecalciferol (Vitamin D3 1000 intl units (25 mcg) oral capsule) 25 mcg (1 cap) by mouth once daily. 3.Clopidogrel (Plavix 75 mg oral tablet) 75 mg (1 tab) by mouth once daily. 4.Loratadine (Allergy Relief) 10 mg by mouth once daily. 5.Vitamin E (vitamin E 400 intl units oral capsule) 400 Int_Unit (1 cap) by mouth once daily. Patient states 450 mg, 1 tab daily. 6.Atorvastatin (atorvastatin 10 mg oral tablet) 10 mg (1 tab) by mouth once daily. TAKE 1 TAB NIGHTLY WITH LARGE GLASS OF WATER. 7.Fulvestrant (fulvestrant 50 mg/mL intramuscular solution) 50 mg (1 mL) intramuscularly every 4 weeks. 8.Acetaminophen (Tylenol 325 mg oral tablet) 650 mg (2 tab) by mouth every 6 hours. Alternate with tramadol every 3 hours for pain. Do not exceed 4000mg/day.. 9.Polyethylene glycol 3350 (MiraLax oral powder for reconstitution) 17 g by mouth once daily. 10.Chlorhexidine topical (Peridex 0.12% mucous membrane liquid) 0.018 g (15 mL) swish in mouth and spit 2 times daily. Swish and spit; do not swallow. 11.Pantoprazole (pantoprazole 20 mg oral delayed release tablet) 20 mg (1 tab) by mouth once daily. 12.DiphenhydrAMINE (Benadryl Allergy 12.5 mg/5 mL oral liquid) See Instructions . Patient an mix with viscous lidocaine and maalox and/or water to create a solution. then swish and spit 5 to 10 cc q4H. 13.Lidocaine topical (Lidocaine Viscous 2% mucous membrane solution) See Instructions . As directed for mouth sores, with or without mixture with liquid benadryl and maaolx/water into a solution.. 14.Docusate (Colace 100 mg oral capsule) 200 mg (2 cap) by mouth once daily, as needed for constipation. 15.Unlisted medication (Magic mouthwash) See Instructions . magic mouthwash = Maalox/benadryl/lidocaine in 1:1:1 solution. Take 5-10 ml po q4h for mouth sores/pain.. 16.Prochlorperazine (Compazine 10 mg oral tablet) 10 mg (1 tab) by mouth every 6 hours, as needed for nausea/vomiting. 17.Nystatin (nystatin 100,000 units/mL oral suspension) 500,000 unit (5 mL) by mouth 4 times daily. 18.Insulin lispro (HumaLOG Insulin Sliding Scale Tool) 5 unit subcutaneously . 19.Ondansetron (Zofran 8 mg oral tablet) 8 mg (1 tab) by mouth every 8 hours, as needed for nausea/vomiting. Starting 48 hrs after chemotherapy. 20.Senna (senna (sennosides) 8.6 mg oral tablet) 8.6 mg (1 tab) by mouth 2 times daily, as needed for constipation. 21.Metoprolol (Metoprolol Tartrate 25 mg oral tablet) 25 mg (1 tab) by G-tube every 6 hours. 22.ValACYclovir (Valtrex 1 g oral tablet) 1 g (1 tab) by mouth every 8 hours. 23.Insulin detemir (Levemir Vial 100 units/mL subcutaneous solution) 15 unit subcutaneously every 12 hours. 24.OxyCODONE (oxyCODONE 5 mg oral tablet) 5 mg by mouth every 4 hours, as needed for pain. 25.Cefuroxime (Ceftin 500 mg oral tablet) 500 mg (1 tab) by G-tube 2 times daily. Allergies and Sensitivities: traMADol (Moderate)Nausea, Itchy morphineHallucinosis, Nausea penicillinsItching, Hives Tests Pending: Extra Red Fungitell Extra Red Histoplasma Antigen Histoplasma Antigen To obtain results pending at hospital discharge, call and ask for the following Physician:MD Amaral Veronica Scheduled Appointments: Date/Time:Provider/Resource: Nov 01:[address] [facility] Location/Instructions: Date/Time:Provider/Resource: Dec 08:30 amRapid Infusion Injection Location/Instructions:[facility], [address], Infusion 1st floor, [address], [place] [address] Date/Time:Provider/Resource: Dec 02:45 MD Saeed Danh C Location/Instructions:[facility], [address], 1st floor, [address], [place] [address] Date/Time:Provider/Resource: Dec 04:00 pmInfusion C 23 Location/Instructions:[facility], [address], Infusion 1st floor, [address], [place] [address] Date/Time:Provider/Resource: Dec 01:00 MD Deluna James Andrew Location/Instructions:[facility], [address], 1st floor, [address], [place] [address] Date/Time:Provider/Resource: Dec 09:45 amRapid Infusion 3 Location/Instructions:[facility], [address], Infusion 1st floor, [address], [place] [address] Date/Time:Provider/Resource: Dec 10:30 amInfusion C 25 Location/Instructions:[facility], [address], Infusion 1st floor, [address], [place] [address] [facility]: [facility] P: [phone] F: [phone] Additional Information: Home Health Service Discharge Services: Service: Organization: Business Address: Phone Number: Durable Medical Equipment Jamilah [facility] [address], [address], [place], [address] Home Care Physician Services [facility] (formerly [facility]) [address] [facility], [place], [address] Care Instructions: DISCHARGE INSTRUCTIONS: 1. Please take temperature 3 - 4 times per day or if you don't feel well or experience the chills, call immediately if temperature is greater than 100.4 2. Eat as much as possible to keep up your nutrition. 3. Drink plenty of fluids. 4. Call for anynew orworsening symptoms includingbut not limited to:fever, chills, nausea, vomiting, diarrhea, shortness of breath,blood in urine/stool,or any other symptom of concern. 5. Try to stay active as much as possible. 6. Avoid unnecessary exposure to infection. 7. Wash hands frequently when out in public. 8. Please continue a neutropenic diet until your counts recover. 9. Due to COVID pandemic, please avoid travel outside the home unless for necessary appointment or medical care. Please advise those who reside with you to limit their exposure to the public/community. Please limit visitors, especially with anyone who has recently traveled 10. Wear your N95 mask (or surgical mask if you don't have one) when leaving the hospital and returning for appointments. We would also recommend wearing your mask in community settings. This is important when your white blood counts are low to prevent quinten respiratory diseases. 11. Wash hands frequently. Please disinfect any items you take in and out of the home. 12. Please call your provider immediately if you experience fever, shortness of breath, and cough. Please do not report to the emergency department, clinic, or urgent care without calling first unless you are experiencing a life threatening emergency. - Please follow-up as previously scheduled with Dr Koch . Please refer to the Appointment section of this paperwork for details. If this appointment has not yet been scheduled, you should be contacted with this appointment in the next 2-3 business days. If you are not, please call [phone] or your RN coordinator to follow up. - Please arrange for follow-up with your primary care provider in 7-10 days after your discharge. Please take a copy of this paperwork with you to this appointment to discuss this hospitalization/medication changes. Medications: - Your medication list has been reviewed and reconciled upon discharge to ensure accuracy and continuity of care. - You are provided with a list of all your current medications at this time. Please review closely and make note of any changes. - Please take all of your medications exactly as prescribed. - Tell your primary care provider if you cannot afford your medications. - Call your primary care provider if you are having any side effects or any other problems. - Call your primary care provider before taking any over the counter medications or supplements, including herbals and vitamins, because some of these may interact with your current medications and/or make your symptoms worse. Discharge instructions, follow-up care, and home medication regimen were reviewed with the patient prior to discharge. Patient verbalized understanding and was in agreement with discharge plan/planof care. Patient was discharged in stable condition on 12/01/24 . Advance Directive:None I personally spent 45 minutes in discharge planning. Electronic Signature on File Electronically Reviewed/Signed by: Aracelis Amaral MD Author Signature Dt/Tm:12/01/2024 11:07 AM Division of Hematology Oncology [facility] Emergency department Summary note * DO Tracey Christopher L: MODIFY DO Tracey Christopher L: MODIFY, MODIFY, MODIFY, MODIFY Event Display: ED Summary Authored Date: [id number] Basic Information Time Seen: MD Todd Samuel 11/25/2024 23:49 Chief Complaint on chemo, 101.6 fever 1 hr ago. sent in by oncology. 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 Accompanied by family.Developed a feverthroughout the day today. Tmax of 101.6 F. Sent in by oncology. A week ago she was not defecating although she got started on bowel regimen and she has been pooping for thelast couple of dayswith normal stool. Denies any other acute symptoms other than generalized abdominal painaround the site of her PEG tube. There is no leakage of the PEG tube. Is not endorsing a coughor dysuria. Family states that her tongue has become more swollen over the day although she is able to still speak and alsois not complaining ofdifficulty controlling her secretions orwith breathing. She complains that she is more fatigued than usual. Also complaining of bilateral ear pain. Review of Systems 10 point review system conducted negative save for HPI. Physical Exam Vitals & Measurements T:38.9C HR:107(Monitored) RR:20 BP:138/49 SpO2:94% Oxygen Therapy:Room Air HT:157.5cm WT:49.400kg(Dosing) WT:49.4kg BMI:19.91 General:Fatiguedalthough alert and answering questions appropriately. Hard of hearing. Has her chemotherapyrunning in adevice attached to her abdomen. Skin:Warm, dry. Head:Normocephalic, atraumatic. Bilateral tympanic membranes havefullness in the tympanic membrane'salthough no significant purulence. Tongue is swollenalthough not obstructing the posterior oropharynx. There isthrush overlying the tongue for which patient does take nystatin. Neck:Trachea midline. Eye:Normal conjunctiva, Sclera: Clear. Cardiovascular:Regular rate and rhythm, Normal peripheral perfusion. Respiratory:Lungs are clear to auscultation, respirations are non-labored. Chest wall:No deformity. Gastrointestinal:Soft, Non distended, PEG tube in place with no significant erythema or leakage. There is tenderness palpation overlying the entirety of the abdomen worse around the PEG tube site. Extremities:No gross deformity or trauma. Neurological:Normal speech observed, Level of consciousness: Appropriate for age. Moves all extremities appropriately. Follows all commands appropriately. Psychiatric:Cooperative, appropriate affect. 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 Patient has underlyingcancer of the oropharynx and is currently on chemotherapy. She has been out of the hospital the last month. She is immunocompromise and is high risk of infection. Patient is complaining of bilateral ear pain although no significant signs ofear infection at this timefor which she may haveimpacted sinuses contributing to her fullness in the tympanic membrane's. Denies a cough or dysuriaalthough does have abdominal discomfort despite having bowel movements noted by family. There is concern that given her recent surgeryas well as abdominal pain and feversshe may have intra-abdominal pathology contributing to her symptoms. Plan for septic workup including CBC, CMP, blood cultures, UA, urine culture, lactic acid, RVP,PT/INR, electrolyte evaluation. Plan for CT abdomenpelvis with contrast. Plan for IV Tylenol, IV fluids. Patient states that she is not in significant pain at this time and did not take her oxycodone today. Of notefamily notes that she is an insulin-dependent diabetic and has gone up and her insulin demands today on account of blood sugars in 300s. This is likely secondary to concern for sepsisfor whichwe will continue to monitor. Reexamination/Reevaluation 0451 - Lab work shows hyponatremia 125, no creatinine elevation. No other significant electrolytederangements. No anion gap elevation. There is also significant leukocytosis nearly 16 which isup from patient's baseline around 9.9. Also has mild anemia 9.2 which is her baseline. Lactic acid was not elevated. There is also a new transaminitis with ALT 43, AST 37, alk phos elevated 138. RVP was negative. UA did not show signs of infection. Chest x-ray did not show cardiopulmonary abnormalities. CT abdomen pelvis shows adequate positioning of the PEG tube although there is mild pleural effusions otherwise no acute intra-abdominal pathology. However given the patient's fev ers and tachycardia empirically started patient IV vancomycin, IV cefepime, IV Flagyl. Given 30 cc/kg of IV fluids.Hyponatremiamay be in the setting of decreased p.o. intakein setting of her chemotherapy. Fevers may be due to her metastatic diseasewhich is also shownto be worse on CT. Discussed patient care with heme-onctoevaluate patient for admission. By this time patient has been admitted to the heme-onc service for further evaluation and treatment. Patient's tonguedoes remain swollen although she is tolerating her secretions and her airway is patent. Assessment/Plan Hyperglycemia Hyponatremia Immunocompromised Sepsis Medication Reconciliation Unchanged acetaminophen (Tylenol 325 mg oral tablet)2 tab(s) by mouth every 6 hours. Alternate with tramadol every 3 hours for pain. Do not exceed 4000mg/day.. atorvastatin (atorvastatin 10 mg oral tablet)1 tab(s) by mouth once daily. TAKE 1 TAB NIGHTLY WITH LARGE GLASS OF WATER. chlorhexidine topical (Peridex 0.12% mucous membrane liquid)15 Milliliter swish in mouth and spit 2times daily for 30 Days. Swish and spit; do not swallow. Refills: 1. cholecalciferol (Vitamin D3 1000 intl units (25 mcg) oral capsule)1 cap by mouth once daily. clopidogrel (Plavix 75 mg oral tablet)1 tab(s) by mouth once daily. diphenhydrAMINE (Benadryl Allergy 12.5 mg/5 mL oral liquid)Patient an mix with viscous lidocaine and maalox and/or water to create a solution. then swish and spit 5 to 10 cc q4H. Refills: 3. docusate (Colace 100 mg oral capsule)2 cap by mouth once daily as needed as needed for constipation. Refills: 0. fulvestrant (fulvestrant 50 mg/mL intramuscular solution)1 Milliliter intramuscularly every 4 weeks. insulin detemir (Levemir Vial 100 units/mL subcutaneous solution)9 unit(s) subcutaneously at bedtime. insulin lispro (HumaLOG Insulin Sliding Scale Tool)5 unit(s) subcutaneously. levothyroxine (levothyroxine 88 mcg (0.088 mg) oral tablet)1 tab(s) by mouth once daily. not takingon Sat/Sun. lidocaine topical (Lidocaine Viscous 2% mucous membrane solution)As directed for mouth sores, with or without mixture with liquid benadryl and maaolx/water into a solution.. Refills: 3. loratadine (Allergy Relief)10 Milligram by mouth once daily. metoprolol (metoprolol succinate 100 mg oral tablet, extended release)125 Milligram by mouth once daily. 100mg at HS 25mg in AM. nystatin (nystatin 100,000 units/mL oral suspension)5 Milliliter by mouth 4 times daily. Refills: 0. ondansetron (Zofran 8 mg oral tablet)1 tab(s) by mouth every 8 hours as needed as needed for nausea/vomiting. Starting 48 hrs after chemotherapy. Refills: 1. oxyCODONE (oxyCODONE 10 mg oral tablet, extended release)1 tab PO at bedtime. Refills: 0. oxyCODONE (oxyCODONE 5 mg oral tablet)5 Milligram by mouth every 4 hours as needed as needed for pain. Refills: 0. oxyCODONE (OxyCONTIN 10 mg oral tablet, extended release)15 each, 0 Refill(s), TAKE 1 TABLET BY MOUTH EVERYDAY AT BEDTIME. pantoprazole (pantoprazole 20 mg oral delayed release tablet)1 tab(s) by mouth once daily. Refills:2. polyethylene glycol 3350 (MiraLax oral powder for reconstitution)17 gram by mouth once daily for 14Days. Refills: 0. prochlorperazine (Compazine 10 mg oral tablet)1 tab(s) by mouth every 6 hours as needed as needed for nausea/vomiting. Refills: 1. unlisted medication (Magic mouthwash)magic mouthwash = Maalox/benadryl/lidocaine in 1:1:1 solution.Take 5-10 ml po q4h for mouth sores/pain.. Refills: 3. vitamin E (vitamin E 400 intl units oral capsule)1 cap by mouth once daily. Patient states 450 mg, 1 tab daily. Attestation I have verified the documentation and attest to completing the substantive portion (medical decision-making)as above. 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 In January 2022 she underwent partialglossectomy by [facility] with primary closure| Service Date: 01/2022HysterectomyDetached retina s/p L eye repairColonoscopybilateral mastectomiesprevious biopsy of the mediastinal lymph nodebilateral cataract surgery Allergies traMADol (Moderate)Nausea, Itchy morphineHallucinosis, Nausea penicillinsItching, Hives Lab Results Chemistry LATEST RESULTS HISTORICAL RESULTS Na 11/25/24 23:53 125 mmol/L Low 11/21/24 131 mmol/L Low K 11/25/24 23:53 4.6 mmol/L 11/21/24 4.3 mmol/L Cl- 11/25/24 23:53 89 mmol/L Low 11/21/24 92 mmol/L Low HCO3 11/25/24 23:53 23 mmol/L 11/21/24 27 mmol/L Anion Gap 11/25/24 23:53 13 mmol/L 11/21/24 12 mmol/L BUN 11/25/24 23:53 26 mg/dL High 11/21/24 25 mg/dL High Cret 11/25/24 23:53 0.84 mg/dL 11/21/24 0.83 mg/dL Estimated CrCl 11/26/24 00:45 39.57 11/21/24 37.86 eGFR CKD-EPI 11/25/24 23:53 69 mL/min/1.73 m2 11/21/24 70 mL/min/1.73 m2 Glu 11/25/24 23:53 367 mg/dL High 11/21/24 261 mg/dL High Ca 11/25/24 23:53 8.5 mg/dL 11/21/24 9.5 mg/dL Mg 11/25/24 23:53 1.9 mg/dL 11/14/24 2.4 mg/dL PO4 11/25/24 23:53 2.5 mg/dL 11/14/24 3.3 mg/dL CBC LATEST RESULTS HISTORICAL RESULTS WBC 11/25/24 23:53 15.80 K/uL High 11/21/24 9.90 K/uL Hgb 11/25/24 23:53 9.2 g/dL Low 11/21/24 9.4 g/dL Low Hct 11/25/24 23:53 28.4 % Low 11/21/24 27.9 % Low RBC 11/25/24 23:53 3.21 M/uL Low 11/21/24 3.19 M/uL Low MCV 11/25/24 23:53 88.5 fL 11/21/24 87.5 fL MCHC 11/25/24 23:53 32.4 g/dL 11/21/24 33.7 g/dL MCH 11/25/24 23:53 28.7 pg 11/21/24 29.5 pg RDW 11/25/24 23:53 12.2 % 11/21/24 12.0 % Plts 11/25/24 23:53 313 K/uL 11/21/24 286 K/uL MPV 11/25/24 23:53 9.4 fL 11/21/24 9.1 fL Type of Diff: 11/25/24 23:53 AUTO 11/21/24 AUTO Immature Gran% 11/25/24 23:53 0.8 % 11/21/24 0.6 % Neut% 11/25/24 23:53 95.4 % 11/21/24 82.8 % Lymph% 11/25/24 23:53 1.9 % 11/21/24 5.2 % [place]% 11/25/24 23:53 1.8 % 11/21/24 10.5 % Baso% 11/25/24 23:53 0.1 % 11/21/24 0.2 % Eos% 11/25/24 23:53 0.0 % 11/21/24 0.7 % Immat Gran, Abs 11/25/24 23:53 0.12 K/uL 11/21/24 0.06 K/uL Neut, Abs 11/25/24 23:53 15.07 K/uL High 11/21/24 8.20 K/uL High Lymph, Abs 11/25/24 23:53 0.30 K/uL Low 11/21/24 0.51 K/uL Low [place], Abs 11/25/24 23:53 0.29 K/uL 11/21/24 1.04 K/uL High Baso, Abs 11/25/24 23:53 0.02 K/uL 11/21/24 0.02 K/uL Eos, Abs 11/25/24 23:53 0.00 K/uL 11/21/24 0.07 K/uL Blood Gases LATEST RESULTS Lactate 11/25/24 23:55 1.6 mmol/L Liver/GI LATEST RESULTS HISTORICAL RESULTS ALT 11/25/24 23:53 43 unit/L High 11/21/24 22 unit/L T Bili 11/25/24 23:53 0.4 mg/dL 01/15/25 0.4 mg/dL Alk Phos 11/25/24 23:53 138 unit/L High 11/21/24 110 unit/L AST 11/25/24 23:53 37 unit/L High 11/21/24 29 unit/L Lipase 11/25/24 23:53 53 unit/L Nutrition LATEST RESULTS HISTORICAL RESULTS Alb 11/25/24 23:53 3.0 g/dL Low 11/21/24 3.7 g/dL Prot 11/25/24 23:53 6.4 g/dL 11/21/24 7.3 g/dL Immunology LATEST RESULTS Respiratory Virus Panel, by PCR 11/25/24 23:55 Final: Urine LATEST RESULTS Color (u) 11/26/24 00:25 YELLOW Appear (u) 11/26/24 00:25 CLEAR Glu (u) 11/26/24 00:25 >=500 mg/dL Abnormal Bili (u) 11/26/24 00:25 NEGATIVE Ketones 11/26/24 00:25 NEGATIVE mg/dL SG 11/26/24 00:25 1.010 Hgb (u) 11/26/24 00:25 NEGATIVE pH (u) 11/26/24 00:25 8.0 unit Prot (u) 11/26/24 00:25 NEGATIVE mg/dL Urobili 11/26/24 00:25 0.1-1.0 EU/dL Nitrite (u) 11/26/24 00:25 NEGATIVE Leuk Est 11/26/24 00:25 NEGATIVE Diagnostic Results (11/26/2024 01:[address] Abdomen and Pelvis w/ Contrast) IMPRESSION: 1. Gastrostomy tube in appropriate position. 2. Progression of pulmonary metastatic disease, compared to CT 11/08/2024. 3. Trace right and small left pleural effusions. [1] (11/26/2024 00:38 EST XR Chest 2 Views) IMPRESSION: Pulmonary nodules, as seen on CT 11/08/2024. No other focal opacity to suggest pneumonia. [2] [1]CT Abdomen and Pelvis w/ Contrast; Faiza Mccann 11/26/2024 01:35 EST [2]XR Chest 2 Views; MD Analia, Nicolas Myrick 11/26/2024 00:38 EST Electronic Signature on File Electronically Reviewed/Signed by: Nate Todd MD Author Signature Dt/Tm:11/26/2024 04:53 AM Resident Department of Emergency Medicine Electronically Reviewed/Signed by: DO Oswaldo Gentile Signature Dt/Tm: 11/26/2024 05:01 AM Department of Emergency Medicine [facility] Discharge instructions * MD Amaral Veronica: PERFORM, MODIFY, MODIFY, MODIFY Event Display: Patient Discharge Instructions Authored Date: [id number] CRYSTAL REYNOLDS :1940 Visit Date:11/25/2024 Patient Discharge Instructions [facility] For medical concerns, call: . Date of Admission:11/25/2024 Date of Discharge:11/30/2024 Physician:MD Amaral Veronica Service:Hematology/Oncology Discharge Disposition: . Advance Directive:None Reason for Hospitalization fever, HSV-1 infection Your Diagnoses Cancer related pain HSV-1 (herpes simplex virus 1) infection History of breast cancer Hyperglycemia Hyponatremia Immunocompromised Lung nodules Oral ulcer Palliative care by specialist Sepsis Squamous cell cancer of tongue My Health Patient Portal: [facility] makes it easy for you to manage your health information online. My [facility] is a free service that provides you instant, secure access to your medical information anytime, anywhere. Sign in or set up your account today at [email or web address] Thank you for allowing us to assist you with your healthcare needs. If you need additional community resources, [facility] can help at [email or web address].[facility].org. [facility] can assist you in connecting with social programs based on your unique needs and locations. [facility] is an anonymous search that can help you locate resources for: Food, Housing, Transportation, Goods, Education and Healthcare. Medications What How Much When Instructions Next Dose New cefuroxime (Ceftin 500 mg oral tablet) 1 tab(s) by G-tube 2 times daily Pickup at [facility]/pharmacy #[id number] New lactulose (lactulose 10 g/ 15 mL oral syrup) 15 Milliliter rectally Once daily as needed for as needed for constipation Pickup at [facility]/pharmacy #[id number] New valACYclovir (Valtrex 1 g oral tablet) 1 tab(s) by mouth 3 times daily Pickup at [facility]/pharmacy #[id number] Changed insulin detemir (Levemir Vial 100 units/ mL subcutaneous solution) 15 unit(s) subcutaneously Every 12 hours Pickup at [facility]/pharmacy #[id number] Changed metoprolol (metoprolol tartrate 50 mg oral tablet) 1 tab(s) by mouth 2 times daily Pickup at [facility]/pharmacy #[id number] Changed oxyCODONE (oxyCODONE 5 mg oral tablet) 5 Milligram by mouth Every 4 hours as needed for as needed for pain Pickup at [facility]/pharmacy #[id number] Unchanged acetaminophen (Tylenol 325 mg oral tablet) 2 tab(s) by mouth Every 6 hours Alternate with tramadol every 3 hours for pain. Do not exceed 4000mg/ day. Unchanged atorvastatin (atorvastatin 10 mg oral tablet) 1 tab(s) by mouth Once daily TAKE 1 TAB NIGHTLY WITH LARGE GLASS OF WATER Unchanged chlorhexidine topical (Peridex 0.12% mucous membrane liquid) 15 Milliliter swish in mouth and spit 2 times daily Duration: 30 Days Swish and spit; do not swallow Unchanged cholecalciferol (Vitamin D3 1000 intl units (25 mcg) oral capsule) 1 cap by mouth Once daily Unchanged clopidogrel (Plavix 75 mg oral tablet) 1 tab(s) by mouth Once daily Unchanged diphenhydrAMINE (Benadryl Allergy 12.5 mg/ 5 mL oral liquid) See instructions Patient an mix with viscous lidocaine and maalox and/ or water to create a solution. then swish and spit 5 to 10 cc q4H Unchanged docusate (Colace 100 mg oral capsule) 2 cap by mouth Once daily as needed for as needed for constipation Unchanged fulvestrant (fulvestrant 50 mg/ mL intramuscular solution) 1 Milliliter intramuscularly Every 4 weeks Unchanged insulin lispro (HumaLOG Insulin Sliding Scale Tool) 5 unit(s) subcutaneously Unchanged levothyroxine (levothyroxine 88 mcg (0.088 mg) oral tablet) 1 tab(s) by mouth Once daily not taking on Sat/ Sun Unchanged lidocaine topical (Lidocaine Viscous 2% mucous membrane solution) See instructions As directed for mouth sores, with or without mixture with liquid benadryl and maaolx/ water into a solution. Unchanged loratadine (Allergy Relief) 10 Milligram by mouth Once daily Unchanged nystatin (nystatin 100,000 units/ mL oral suspension) 5 Milliliter by mouth 4 times daily Unchanged ondansetron (Zofran 8 mg oral tablet) 1 tab(s) by mouth Every 8 hours as needed for as needed for nausea/vomiting Starting 48 hrs after chemotherapy Unchanged pantoprazole (pantoprazole 20 mg oral delayed release tablet) 1 tab(s) by mouth Once daily Unchanged polyethylene glycol 3350 (MiraLax oral powder for reconstitution) 17 gram by mouth Once daily Duration: 14 Days Unchanged prochlorperazine (Compazine 10 mg oral tablet) 1 tab(s) by mouth Every 6 hours as needed for as needed for nausea/vomiting Unchanged senna (senna (sennosides) 8.6 mg oral tablet) 1 tab(s) by mouth 2 times daily as needed for as needed for constipation Unchanged unlisted medication (Magic mouthwash) See instructions magic mouthwash = Maalox/ benadryl/ lidocaine in 1:1:1 solution. Take 5-10 ml po q4h for mouth sores/ pain. Unchanged vitamin E (vitamin E 400 intl units oral capsule) 1 cap by mouth Once daily Patient states 450 mg, 1 tab daily Pharmacy Information [facility]/pharmacy #[id number]: [id number] [facility] [place] [id number] [phone] Allergies traMADol (Moderate)Nausea, Itchy morphineHallucinosis, Nausea penicillinsItching, Hives What to do next Instructions From Your Doctor DISCHARGE INSTRUCTIONS: 1. Please take temperature 3 - 4 times per day or if you don't feel well or experience the chills, call immediately if temperature is greater than 100.4 2. Eat as much as possible to keep up your nutrition. 3. Drink plenty of fluids. 4. Call for anynew orworsening symptoms includingbut not limited to:fever, chills, nausea, vomiting, diarrhea, shortness of breath,blood in urine/stool,or any other symptom of concern. 5. Try to stay active as much as possible. 6. Avoid unnecessary exposure to infection. 7. Wash hands frequently when out in public. 8. Please continue a neutropenic diet until your counts recover. 9. Due to COVID pandemic, please avoid travel outside the home unless for necessary appointment or medical care. Please advise those who reside with you to limit their exposure to the public/community. Please limit visitors, especially with anyone who has recently traveled 10. Wear your N95 mask (or surgical mask if you don't have one) when leaving the hospital and returning for appointments. We would also recommend wearing your mask in community settings. This is important when your white blood counts are low to prevent quinten respiratory diseases. 11. Wash hands frequently. Please disinfect any items you take in and out of the home. 12. Please call your provider immediately if you experience fever, shortness of breath, and cough. Please do not report to the emergency department, clinic, or urgent care without calling first unless you are experiencing a life threatening emergency. - Please follow-up as previously scheduled withPCP, primary oncology. Please refer to the Appointment section of this paperwork for details. If this appointment has not yet been scheduled, you should be contacted with this appointment in the next 2-3 business days. If you are not, please call [phone] or your RN coordinator to follow up. - Please arrange for follow-up with your primary care provider in 7-10 days after your discharge. Please take a copy of this paperwork with you to this appointment to discuss this hospitalization/medication changes. Medications: - Your medication list has been reviewed and reconciled upon discharge to ensure accuracy and continuity of care. - You are provided with a list of all your current medications at this time. Please review closely and make note of any changes. - Please take all of your medications exactly as prescribed. - Tell your primary care provider if you cannot afford your medications. - Call your primary care provider if you are having any side effects or any other problems. - Call your primary care provider before taking any over the counter medications or supplements, including herbals and vitamins, because some of these may interact with your current medications and/or make your symptoms worse. Discharge instructions, follow-up care, and home medication regimen were reviewed with the patient prior to discharge. Patient verbalized understanding and was in agreement with discharge plan/planof care. Patient was discharged in stable condition on 12/01/24 If you notice the following symptoms Contact the [facility] Careline at . If unable to contact your physician and you feel it is an emergency, go to the nearest Emergency Room or call 911 Diet Instructions Speech Therapy Recommendations: 1. Liberalize diet to allow patient to pick and choose preferred po options (Regular/Thin). Patientwill likely eat mostly soups and puddings. 2. PEG for primary source of nutrition, hydration, and medication. 3. Stringent oral care with rinses 4. Continued pain management 5. ST to sign off Activity Instructions Follow-Up Appointments Scheduled Follow-Up Appointments Date/Time:Provider/Resource: Nov 03:30 MD Deluna James Andrew Location/Instructions:[facility], [address] [place] [address] Drive, 1st floor, [address], [facility] [address] Date/Time:Provider/Resource: Nov 01:[address] GoSim Location/Instructions: Date/Time:Provider/Resource: [facility] 08:30 amRapid Infusion Injection Location/Instructions:[facility], [address], Infusion 1st floor, [address], [place] [address] Date/Time:Provider/Resource: Dec 02:45 MD Saeed Danh C Location/Instructions:[facility], [address], 1st floor, [address], [place] [address] Date/Time:Provider/Resource: Dec 04:00 pmInfusion C 23 Location/Instructions:[facility], [address], Infusion 1st floor, [address], [place] [address] Date/Time:Provider/Resource: Dec 09:45 amRapid Infusion 3 Location/Instructions:[facility], [address], Infusion 1st floor, [address], [place] [address] Date/Time:Provider/Resource: Dec 10:30 amInfusion C 25 Location/Instructions:[facility], [address], [facility] 1st floor, [address], [place] [address] You Need to Schedule the Following [facility]ments [facility] P: [phone] F: [phone] Additional Information: Home Health Service The Following Services Have Been Arranged for You Service: Organization: Business Address: Phone Number: [employer] [address], [address], [place], [address] Home Care Physician Services [facility] (formerly [facility]) [address] [facility], [place], [address] Tests Pending Extra Red Fungitell Extra Red Histoplasma Antigen Legionella Antigen, Urine Histoplasma Antigen To obtain results pending at hospital discharge, call and ask for the following Physician:MD Cristin, Aracelis Special Instructions Common Emergency Awareness Tips Call 911 immediately if: experiencing any of the warning signs and symptoms of stroke: B.E. F.A.S.T. Balance: is there trouble with walking or coordination Eyes: is there double vision or visual loss Face: Smile, do both sides of face move equally Arm: Raise arms, do both arms move equally Speech: Is speech slurred or inappropriate Time: Time is critical, call 911 immediately Heart Attack Signs Chest discomfort: Most heart attacks involve discomfort in the center of the chest and lasts more than a few minutes, or goes away and comes back. It can feel like uncomfortable pressure, squeezing, fullness or pain. Discomfort in upper body: Symptoms can include pain or discomfort in one or both arms, back, neck, jaw or stomach. Shortness of breath: With or without discomfort. Other signs: Breaking out in a cold sweat, nausea, or lightheaded. Remember, MINUTES DO MATTER. If you experience any of these heart attack warning signs, call to get immediate medical attention! * MD Cristin, Aracelis: PERFORM Event Display: Patient Discharge Instructions Authored Date: [id number] CRYSTAL REYNOLDS :1940 Visit Date:11/25/2024 Patient Discharge Instructions [facility] For medical concerns, call: . Date of Admission:11/25/2024 Date of Discharge:11/30/2024 Physician:MD Amaral Veronica Service:Hematology/Oncology Discharge Disposition: . Advance Directive:None Reason for Hospitalization Your Diagnoses Cancer related pain HSV-1 (herpes simplex virus 1) infection History of breast cancer Hyperglycemia Hyponatremia Immunocompromised Lung nodules Oral ulcer Palliative care by specialist Sepsis Squamous cell cancer of tongue My Health Patient Portal: [facility] makes it easy for you to manage your health information online. My [facility] is a free service that provides you instant, secure access to your medical information anytime, anywhere. Sign in or set up your account today at [email or web address] Thank you for allowing us to assist you with your healthcare needs. If you need additional community resources, [facility] can help at https://www.pa211.org. 211 can assist you in connecting with social programs based on your unique needs and locations. 211 is an anonymous search that can help you locate resources for: Food, Housing, Transportation, Goods, Education and Healthcare. Medications What How Much When Instructions Next Dose New cefuroxime (Ceftin 500 mg oral tablet) 1 tab(s) by G-tube 2 times daily Pickup at [facility]/pharmacy #[id number] New valACYclovir (Valtrex 1 g oral tablet) 1 tab(s) by mouth Every 8 hours Pickup at [facility]/pharmacy #[id number] Changed insulin detemir (Levemir Vial 100 units/ mL subcutaneous solution) 15 unit(s) subcutaneously Every 12 hours Pickup at [facility]/pharmacy #[id number] Changed metoprolol (Metoprolol Tartrate 25 mg oral tablet) 1 tab(s) by G-tube Every 6 hours Pickup at [facility]/pharmacy #[id number] Changed oxyCODONE (oxyCODONE 5 mg oral tablet) 5 Milligram by mouth Every 4 hours as needed for as needed for pain Pickup at [facility]/pharmacy #[id number] Unchanged acetaminophen (Tylenol 325 mg oral tablet) 2 tab(s) by mouth Every 6 hours Alternate with tramadol every 3 hours for pain. Do not exceed 4000mg/ day. Unchanged atorvastatin (atorvastatin 10 mg oral tablet) 1 tab(s) by mouth Once daily TAKE 1 TAB NIGHTLY WITH LARGE GLASS OF WATER Unchanged chlorhexidine topical (Peridex 0.12% mucous membrane liquid) 15 Milliliter swish in mouth and spit 2 times daily Duration: 30 Days Swish and spit; do not swallow Unchanged cholecalciferol (Vitamin D3 1000 intl units (25 mcg) oral capsule) 1 cap by mouth Once daily Unchanged clopidogrel (Plavix 75 mg oral tablet) 1 tab(s) by mouth Once daily Unchanged diphenhydrAMINE (Benadryl Allergy 12.5 mg/ 5 mL oral liquid) See instructions Patient an mix with viscous lidocaine and maalox and/ or water to create a solution. then swish and spit 5 to 10 cc q4H Unchanged docusate (Colace 100 mg oral capsule) 2 cap by mouth Once daily as needed for as needed for constipation Unchanged fulvestrant (fulvestrant 50 mg/ mL intramuscular solution) 1 Milliliter intramuscularly Every 4 weeks Unchanged insulin lispro (HumaLOG Insulin Sliding Scale Tool) 5 unit(s) subcutaneously Unchanged levothyroxine (levothyroxine 88 mcg (0.088 mg) oral tablet) 1 tab(s) by mouth Once daily not taking on Sat/ Sun Unchanged lidocaine topical (Lidocaine Viscous 2% mucous membrane solution) See instructions As directed for mouth sores, with or without mixture with liquid benadryl and maaolx/ water into a solution. Unchanged loratadine (Allergy Relief) 10 Milligram by mouth Once daily Unchanged nystatin (nystatin 100,000 units/ mL oral suspension) 5 Milliliter by mouth 4 times daily Unchanged ondansetron (Zofran 8 mg oral tablet) 1 tab(s) by mouth Every 8 hours as needed for as needed for nausea/vomiting Starting 48 hrs after chemotherapy Unchanged pantoprazole (pantoprazole 20 mg oral delayed release tablet) 1 tab(s) by mouth Once daily Unchanged polyethylene glycol 3350 (MiraLax oral powder for reconstitution) 17 gram by mouth Once daily Duration: 14 Days Unchanged prochlorperazine (Compazine 10 mg oral tablet) 1 tab(s) by mouth Every 6 hours as needed for as needed for nausea/vomiting Unchanged senna (senna (sennosides) 8.6 mg oral tablet) 1 tab(s) by mouth 2 times daily as needed for as needed for constipation Unchanged unlisted medication (Magic mouthwash) See instructions magic mouthwash = Maalox/ benadryl/ lidocaine in 1:1:1 solution. Take 5-10 ml po q4h for mouth sores/ pain. Unchanged vitamin E (vitamin E 400 intl units oral capsule) 1 cap by mouth Once daily Patient states 450 mg, 1 tab daily Pharmacy Information [facility]/pharmacy #[id number]: [address] [place], [place] [id number] [phone] Allergies traMADol (Moderate)Nausea, Itchy morphineHallucinosis, Nausea penicillinsItching, Hives What to do next If you notice the following symptoms Contact the [facility] Careline at . If unable to contact your physician and you feel it is an emergency, go to the nearest Emergency Room or call 630 Diet Instructions Speech Therapy Recommendations: 1. Liberalize diet to allow patient to pick and choose preferred po options (Regular/Thin). Patientwill likely eat mostly soups and puddings. 2. PEG for primary source of nutrition, hydration, and medication. 3. Stringent oral care with rinses 4. Continued pain management 5. ST to sign off Activity Instructions Follow-Up Appointments Scheduled Follow-Up Appointments Date/Time:Provider/Resource: Nov 03:30 MD Mikie, Jorge Shore Location/Instructions:[facility], [address], 1st floor, [address], [place] [address] Date/Time:Provider/Resource: Nov 01:[address] GoSim Location/Instructions: Date/Time:Provider/Resource: Dec 08:30 amRapid Infusion Injection Location/Instructions:[facility], [address], Infusion 1st floor, [address], [place] [address] Date/Time:Provider/Resource: Dec 02:45 pmPhamMD Danh C Location/Instructions:[facility], [address], 1st floor, [address], [place] [address] Date/Time:Provider/Resource: Dec 04:00 pmInfusion C 23 Location/Instructions:[facility], [address], Infusion 1st floor, [address], [place] [address] Date/Time:Provider/Resource: B 09:45 amRapid Infusion 3 Location/Instructions:[facility], [address], Infusion 1st floor, [address], [place] [address] Date/Time:Provider/Resource: FEB 10:30 amInfusion C 25 Location/Instructions:[facility], [address], Infusion 1st floor, [address], [place] [address] You Need to Schedule the Following Appointments [facility] P: [phone] F: [phone] Additional Information: Home Health Service The Following Services Have Been Arranged for You Service: Organization: Business Address: Phone Number: [employer] [facility] - [address], [address], [place], [address] Home Care Physician Services [facility] (formerly [facility]) [address] [facility], [place], [address] Tests Pending Extra Red Fungitell Extra Red Histoplasma Antigen Legionella Antigen, Urine Histoplasma Antigen To obtain results pending at hospital discharge, call and ask for the following Physician:MD Cristin, Aracelis Chan Instructions Common Emergency Awareness Tips Call 911 immediately if: experiencing any of the warning signs and symptoms of stroke: B.E. F.A.S.T. Balance: is there trouble with walking or coordination Eyes: is there double vision or visual loss Face: Smile, do both sides of face move equally Arm: Raise arms, do both arms move equally Speech: Is speech slurred or inappropriate Time: Time is critical, call 911 immediately Heart Attack Signs Chest discomfort: Most heart attacks involve discomfort in the center of the chest and lasts more than a few minutes, or goes away and comes back. It can feel like uncomfortable pressure, squeezing, fullness or pain. Discomfort in upper body: Symptoms can include pain or discomfort in one or both arms, back, neck, jaw or stomach. Shortness of breath: With or without discomfort. Other signs: Breaking out in a cold sweat, nausea, or lightheaded. Remember, MINUTES DO MATTER. If you experience any of these heart attack warning signs, call to get immediate medical attention! Patient Care team information Care Team Personnel Name: MD Inez, Jorge Shearer Position: Referring Member Role: Primary Care Provider Address: [address] [address] Name: Morgan Catalan, Familia Position: Pharmacist Member Role: Pharmacy - Lifetime Name: Ayaan Armenta Position: HIS Supervisor_P Member Role: HIS Lifetime Name: R.E.STommie Not Needed Position: Resident Name: MD Chris, Fanta Position: Physician - Hem/Onc Member Role: * Quality Review (1 day after created) Address: [address] [place] [id number] [place] Care Team Related Persons Name: DAYANARA GAO Name: SHIN LOO Name: KASSIE MORALES Name: JEREMY REYNOLDS
--- OUTSIDE RECORDS SUMMARY | 2024-12-08 19:03 | External Medical Summary | Continuity of Care Document ---
Author Name Unknown Organization [facility] Address [address] [id number] Care Team Providers Care Guest Experience Specialist Name Role Phone Jorge Wiley Primary Care Physician [phone] [facility] [id number] Date(s): 11/23/24 - 11/23/24 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) - 11/23/24 Discharge Disposition: Home or Self Care Attending Physician: MD Zee [facility] Referring Physician: MD Wiley James E Allergies, Adverse Reactions, Alerts Substance Criticality Severity [...] spit 5 to 10 cc q4H, Pharmacy: [facility]/pharmacy #[id number] Start Date: 11/01/24 Status: Ordered Colace 100 mg oral capsule Start: 11/10/24 2:02:00 PM EST, 2 cap, PO, Daily, Disp# 60 cap, PRN: as needed for constipation, Pharmacy: [facility]/pharmacy #[id number] Start Date: 11/10/24 Status: Ordered Compazine 10 mg oral tablet Start: 11/23/24 9:01:00 AM EST, 1 tab, PO, q6h, Disp# 60 tab, Refills: 1, PRN: as needed for nausea/vomiting, Pharmacy: [facility] Start Date: 11/23/24 Status: Ordered fulvestrant 50 mg/mL intramuscular solution Start: 10/05/24 12:50:00 PM EST, 1 mL, IM, [id number] Start Date: 10/05/24 Status: Ordered HumaLOG Insulin [...] benadryl and maaolx/water into a solution., Pharmacy: [facility]/pharmacy #[id number] Start Date: 11/01/24 Status: Ordered Magic mouthwash Start: 11/14/24 9:38:00 AM EST, Magic mouthwash, eRx Product Type: Compound, See Instructions, Disp# 480 mL, Refills: 3, magic mouthwash = Maalox/benadryl/lidocaine in 1:1:1 solution. Take 5-10 ml po q4h for mouth sores/pain., Pharmacy [facility] Start Date: 11/14/24 Status: Ordered metoprolol succinate 100 mg oral tablet, extended release Start: 01/26/22 3:27:00 PM EDT, 125 mg =, PO, Daily, 100mg at HS 25mg in AM Start Date: 01/26/22 Status: Ordered MiraLax oral powder for reconstitution Start: 10/09/24 10:47:00 AM EST, 17 g =, PO, Daily, Disp# 14 each, Pharmacy: [facility] Start Date: 10/09/24 Stop Date: 10/23/24 Status: Ordered nystatin 100,000 units/mL oral suspension Start: 11/23/24 9:04:00 AM EST, 5 mL, PO, qid, Disp# 60 mL, Refills: 0, Pharmacy: [facility] Start Date: 11/23/24 Status: Ordered oxyCODONE 10 mg oral tablet, extended release Start: 11/01/24 1:08:00 PM EST, See Instructions, Disp# 30 tab, Refills: 0, 1 tab PO at bedtime, Pharmacy: [facility]/pharmacy #[id number] Start Date: 11/01/24 Status: Ordered oxyCODONE 5 mg oral tablet Start: 10/19/24 4:58:00 PM EST, 5 mg =, PO, q4h, Disp# 180 tab, Refills: 0, PRN: as needed for pain, Pharmacy: [facility]/pharmacy #[id number] Start Date: 10/19/24 Status: Ordered OxyCONTIN 10 mg oral tablet, extended release Start: 10/30/24 9:42:00 AM EST, 15 each, 0 Refill(s), TAKE 1 TABLET BY MOUTH EVERYDAY AT BEDTIME Start Date: 10/30/24 Status: Ordered pantoprazole 20 mg oral delayed release tablet Start: 11/01/24 1:04:00 PM EST, 1 tab, PO, Daily, Disp# 60 tab, Refills: 2, Pharmacy: [facility]/pharmacy #[id number] Start Date: 11/01/24 Status: Ordered Peridex 0.12% mucous membrane liquid Start: 10/29/24 2:06:00 PM EST, 15 mL, swish + spit, bid, Disp# 900 mL, Refills: 1, Swish and spit;do not swallow, Pharmacy: [facility]/pharmacy #[id number] Start Date: 10/29/24 Stop Date: 12/28/24 Status: Ordered Plavix 75 mg oral tablet Start: 01/26/22 3:27:00 PM EDT, 1 tab, PO, Daily Start Date: 01/26/22 Status: Ordered Tylenol 325 mg oral tablet [...] chemotherapy, PRN: as needed for nausea/vomiting, Pharmacy: [facility] Start Date: 11/23/24 Status: Ordered Mental Status 11/23/24 Barriers to Learning one year None evide nt, Acuity of illness Mandatory Health Literacy Documentation Yes Communication Barrier Present No Health Literacy Communication Barriers N ever Primary Language Portuguese Problem List Condition Confirmation Course Effective Dates [...] Diagnosis Diagnosis Type Effective Dates Health Status Cl inical Service Informant Squamous cell carcinoma of oral cavity Discharge Diagnosis 11/23/24 Non-Specified Procedures Procedure Date Related Diagnosis Body Site 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 In January 2022 she underwent partial glossectomy by [facility] with primary closure 01/2022 Comple libra bilateral cataract surgery Completed bilateral mastectomies Co mpleted Colonoscopy Completed Detached retina s/p L eye repair Completed Hysterectomy Completed previous biopsy of the media stinal lymph node Completed Vital Signs Most recent to oldest [Reference Range]: 1 Patient Weight 45.5 kg 1 (11/23/24 8:20 AM) Temperature [36.5-37.9 DegC] 36.8 DegC (11/23/24 8:20 AM) Heart Rate 99 bpm (11/23/24 8:20 AM) Respiratory Rate 16 br/min (11/23/24 8:20 AM) Blood Pressure 116/49mmHg (11/23/24 8:20 AM) Mean Blood Pressure 70 mmHg (11/23/24 8:20 AM) Cuff Pulse Pressure 67 mmHg (11/23/24 8:20 AM) BP Location # 1 Left Arm (11/23/24 8:20 AM) 1Result Comment: w/ shoes on Social History Social History Type Response Smoking Status Never smoked cigaret janes Sex Sex Representation Female (finding) Patient Care team information Care Team Personnel Name: MD Inez, Jorge Shearer Position: Referring Member Role: Primary Care Provider Address: [address] Name: Morgan Catalan, Familia Position: Pharmacist Member Role: Pharmacy - Lifetime Name: Ayaan Armenta Position: HIS Supervisor_P Member Role: HIS Lifetime Care Team Related Persons Name: FERN GAO Name: SHIN LOO Name: KASSIE MORALES Name: JEREMY REYNOLDS
--- OUTSIDE RECORDS SUMMARY | 2024-12-08 19:03 | External Medical Summary | Continuity of Care Document ---
Author Name Unknown Organization [facility] Address [address] [place] [id number] Care Team Providers Care Pooling Operator Name Role Phone Jorge Wiley Primary Care Physician [phone] Encounter [facility] [id number] Date(s): 11/21/24 - 11/21/24 [facility] [id number], [place] [address]- [phone] Discharge Disposition: Home or Self Care Attending Physician: MD Koch Danh C Referring Physician: MD Koch Danh C Allergies, Adverse Reactions, Alerts Substance Criticality Severity [...] spit 5 to 10 cc q4H, Pharmacy: [facility]/pharmacy #[id number] Start Date: 11/01/24 Status: Ordered Colace 100 mg oral capsule Start: 11/10/24 2:02:00 PM EST, 2 cap, PO, Daily, Disp# 60 cap, PRN: as needed for constipation, Pharmacy: [facility]/pharmacy #[id number] Start Date: 11/10/24 Status: Ordered Compazine 10 mg oral tablet Start: 11/23/24 9:01:00 AM EST, 1 tab, PO, q6h, Disp# 60 tab, Refills: 1, PRN: as needed for nausea/vomiting, Pharmacy: [facility] Start Date: 11/23/24 Status: Ordered fulvestrant 50 mg/mL intramuscular solution Start: 10/05/24 12:50:00 PM EST, 1 mL, IM, [id number] Start Date: 10/05/24 Status: Ordered HumaLOG Insulin [...] benadryl and maaolx/water into a solution., Pharmacy: [facility]/pharmacy #[id number] Start Date: 11/01/24 Status: Ordered Magic mouthwash Start: 11/14/24 9:38:00 AM EST, Magic mouthwash, eRx Product Type: Compound, See Instructions, Disp# 480 mL, Refills: 3, magic mouthwash = Maalox/benadryl/lidocaine in 1:1:1 solution. Take 5-10 ml po q4h for mouth sores/pain., Pharmacy [facility] Start Date: 11/14/24 Status: Ordered metoprolol succinate 100 mg oral tablet, extended release Start: 01/26/22 3:27:00 PM EDT, 125 mg =, PO, Daily, 100mg at HS 25mg in AM Start Date: 01/26/22 Status: Ordered MiraLax oral powder for reconstitution Start: 10/09/24 10:47:00 AM EST, 17 g =, PO, Daily, Disp# 14 each, Pharmacy: [facility] Start Date: 10/09/24 Stop Date: 10/23/24 Status: Ordered nystatin 100,000 units/mL oral suspension Start: 11/23/24 9:04:00 AM EST, 5 mL, PO, qid, Disp# 60 mL, Refills: 0, Pharmacy: [facility] Start Date: 11/23/24 Status: Ordered oxyCODONE 10 mg oral tablet, extended release Start: 11/01/24 1:08:00 PM EST, See Instructions, Disp# 30 tab, Refills: 0, 1 tab PO at bedtime, Pharmacy: [facility]/pharmacy #[id number] Start Date: 11/01/24 Status: Ordered oxyCODONE 5 mg oral tablet Start: 10/19/24 4:58:00 PM EST, 5 mg =, PO, q4h, Disp# 180 tab, Refills: 0, PRN: as needed for pain, Pharmacy: [facility]/pharmacy #[id number] Start Date: 10/19/24 Status: Ordered OxyCONTIN 10 mg oral tablet, extended release Start: 10/30/24 9:42:00 AM EST, 15 each, 0 Refill(s), TAKE 1 TABLET BY MOUTH EVERYDAY AT BEDTIME Start Date: 10/30/24 Status: Ordered pantoprazole 20 mg oral delayed release tablet Start: 11/01/24 1:04:00 PM EST, 1 tab, PO, Daily, Disp# 60 tab, Refills: 2, Pharmacy: [facility]/pharmacy #[id number] Start Date: 11/01/24 Status: Ordered Peridex 0.12% mucous membrane liquid Start: 10/29/24 2:06:00 PM EST, 15 mL, swish + spit, bid, Disp# 900 mL, Refills: 1, Swish and spit;do not swallow, Pharmacy: [facility]/pharmacy #[id number] Start Date: 10/29/24 Stop Date: 12/28/24 [...] chemotherapy, PRN: as needed for nausea/vomiting, Pharmacy: [facility] [place] [place] Start Date: 11/23/24 Status: Ordered Problem List [...] node Completed Results Laboratory List Name Date Complete Blood Count w Differential (CBC ,DIFFH) 11/21/24 Comprehensive Metabolic Panel (COMP META B PANEL) 11/21/24 Thyroid Stimulating Hormone (TSH) 5 Most recent to oldest [Reference Range]: 1 eGFR CKD-EPI [>60 mL/min/1.73 m2] 70 mL/ min/1.73 m2 (11/21/24 9:38 AM) Estimated CrCl 37.86 mL/min (11/21/24 10:36 AM) MPV [9.0-12.2 fL] 9.1 fL (11/21/24 9:38 AM) Immature Gran% 0.6 % (11/21/24 9:38 AM) Neut% 82.8 % (11/21/24 9:38 AM) Lymph% 5.2 % (11/21/24 9:38 AM) [place]% 10.5 % (11/21/24 9:38 AM) Baso% 0.2 % (11/21/24 9:38 AM) Eos% 0.7 % (11/21/24 9:38 AM) Immat Gran, Abs [0-0.4 K/uL] 0.06 K/uL (11/21/24 9:38 AM) Neut, Abs [2.0-7.7 K/uL] 8.20 K/uL *HI* (11/21/24 9:38 AM) Lymph, Abs [1.0-3.4 K/uL] 0.51 K/uL *LOW* (11/21/24 9:38 AM) [place], Abs [0-1.0 K/uL] 1.04 K/uL *HI* (11/21/24 9:38 AM) Baso, Abs [0-0.1 K/uL] 0.02 K/uL (11/21/24 9:38 AM) Eos, Abs [0-0.5 K/uL] 0.07 K/uL (11/21/24 9:38 AM) Type of Diff: AUTO *Unknown* (11/21/24 9:38 AM) RDW [11.5-14.2 %] 12.0 % (11/21/24 9:38 AM) Anion Gap [5-14 mmol/L] 12 mmol/L (11/21/24 9:38 AM) Alb [3.5-5.2 g/dL] 3.7 g/dL (11/21/24 9:38 AM) Alk Phos [35-115 unit/L] 110 unit/L 1 (11/21/24 9:38 AM) ALT [0-33 unit/L] 22 unit/L (11/21/24 9:38 AM) AST [0-32 unit/L] 29 unit/L (11/21/24 9:38 AM) BUN [6-23 mg/dL] 25 mg/dL *HI* (11/21/24 9:38 AM) Ca [8.4-10.2 mg/dL] 9.5 mg/dL (11/21/24 9:38 AM) Cl- [98-107 mmol/L] 92 mmol/L *LOW* (11/21/24 9:38 AM) HCO3 [22-29 mmol/L] 27 mmol/L (11/21/24 9:38 AM) Cret [0.60-1.00 mg/dL] 0.83 mg/dL (11/21/24 9:38 AM) Glu [74-109 mg/dL] 261 mg/dL 2 *HI* (11/21/24 9:38 AM) Hct [35-44 %] 27.9 % *LOW* (11/21/24 9:38 AM) Hgb [11.7-15.0 g/dL] 9.4 g/dL *LOW* (11/21/24 9:38 AM) K [3.5-5.1 mmol/L] 4.3 mmol/L (11/21/24 9:38 AM) MCH [28-33 pg] 29.5 pg (11/21/24 9:38 AM) MCHC [32-36 g/dL] 33.7 g/dL (11/21/24 9:38 AM) MCV [81-96 fL] 87.5 fL (11/21/24 9:38 AM) Na [136-145 mmol/L] 131 mmol/L *LOW* (11/21/24 9:38 AM) Plts [150-350 K/uL] 286 K/uL (11/21/24 9:38 AM) RBC [3.90-5.00 M/uL] 3.19 M/uL *LOW* (11/21/24 9:38 AM) T Bili [0.0-1.2 mg/dL] 0.4 mg/dL (11/21/24 9:38 AM) Prot [6.4-8.3 g/dL] 7.3 g/dL (11/21/24 9:38 AM) TSH [0.30-4.20 uIU/mL] 10.43 uIU/mL *HI* (11/21/24 9:38 AM) WBC [4.0-10.4 K/uL] 9.90 K/uL (11/21/24 9:38 AM) 1Result Comment: Low levels of ALKP may indicate a deficiency in zinc, magnesium, or malnutritionbutcan also be an indicator of a rare genetic disease hypophosphatasia (HPP). 2Result Comment: ADA recommendation for FASTING Serum/Plasma Glucose: Normal: 70-100 mg/dL Prediabetes: 100-125 mg/dL Diabetes: 126 mg/dL or higher Social History Social History Type Response Smoking Status Never smoked cigaret janes Sex Sex Representation Female (finding) Patient Care team information Care Team Personnel Name: MD Inez, Jorge Shearer Position: Referring Member Role: Primary Care Provider Address: [address] [address] [place] Name: Morgan Catalan, Familia Position: Pharmacist Member Role: Pharmacy - Lifetime Name: Ayaan Armenta Position: HIS Supervisor_P Member Role: HIS Lifetime Care Team Related Persons Name: FERN GAO Name: KASSIE MORALES Name: JEREMY REYNOLDS
--- OUTSIDE RECORDS SUMMARY | 2024-12-08 19:03 | External Medical Summary | Continuity of Care Document ---
Author Name Unknown Organization [facility] 003 Address [address] [id number] Care Team Providers Care Wiener Packer Name Role Phone Jorge Wiley Primary Care Physician [phone] [id number] Date(s): 11/20/24 - 11/20/24 [facility] [id number] Rad[facility], Ground Floor [address] [facility] [place] [phone] Discharge Disposition: Home or Self Care Attending Physician: MD Taylor Mitchell Referring Physician: MD Koch Danh C Allergies, [...] spit 5 to 10 cc q4H, Pharmacy: [facility]/pharmacy #[id number] Start Date: 11/01/24 Status: Ordered Colace 100 mg oral capsule Start: 11/10/24 2:02:00 PM EST, 2 cap, PO, Daily, Disp# 60 cap, PRN: as needed for constipation, Pharmacy: [facility]/pharmacy #[id number] Start Date: 11/10/24 Status: Ordered fulvestrant 50 mg/mL intramuscular solution Start: 10/05/24 12:50:00 PM EST, 1 mL, IM, [id number] Start Date: 10/05/24 Status: Ordered Levemir Vial 100 units/mL subcutaneous solution Start: 08/10/24 2:15:00 PM EDT, 6 unit =, subQ, qhs Start Date: 08/10/24 [...] benadryl and maaolx/water into a solution., Pharmacy: [facility]/pharmacy #[id number] Start Date: 11/01/24 Status: Ordered Magic mouthwash Start: 11/14/24 9:38:00 AM EST, Magic mouthwash, eRx Product Type: Compound, See Instructions, Disp# 480 mL, Refills: 3, magic mouthwash = Maalox/benadryl/lidocaine in 1:1:1 solution. Take 5-10 ml po q4h for mouth sores/pain., Pharmacy [facility] Start Date: 11/14/24 Status: Ordered metoprolol succinate 100 mg oral tablet, extended release Start: 01/26/22 3:27:00 PM EDT, 125 mg =, PO, Daily, 100mg at HS 25mg in AM Start Date: 01/26/22 Status: Ordered MiraLax oral powder for reconstitution Start: 10/09/24 10:47:00 AM EST, 17 g =, PO, Daily, Disp# 14 each, Pharmacy: [facility] Start Date: 10/09/24 Stop Date: 10/23/24 Status: Ordered nystatin 100,000 units/mL oral suspension Start: 11/18/24 8:13:00 AM EST, 5 mL, PO, qid, Disp# 60 mL, Pharmacy: [facility]/pharmacy #[id number] Start Date: 11/18/24 Status: Ordered ondansetron Start: 10/05/24 12:51:00 PM EST, 4 mg =, PO, q8h Start Date: 10/05/24 Status: Ordered oxyCODONE 10 mg oral tablet, extended release Start: 11/01/24 1:08:00 PM EST, See Instructions, Disp# 30 tab, Refills: 0, 1 tab PO at bedtime, Pharmacy: [facility]/pharmacy #[id number] Start Date: 11/01/24 Status: Ordered oxyCODONE 5 mg oral tablet Start: 10/19/24 4:58:00 PM EST, 5 mg =, PO, q4h, Disp# 180 tab, Refills: 0, PRN: as needed for pain, Pharmacy: [facility]/pharmacy #[id number] Start Date: 10/19/24 Status: Ordered OxyCONTIN 10 mg oral tablet, extended release Start: 10/30/24 9:42:00 AM EST, 15 each, 0 Refill(s), TAKE 1 TABLET BY MOUTH EVERYDAY AT BEDTIME Start Date: 10/30/24 Status: Ordered pantoprazole 20 mg oral delayed release tablet Start: 11/01/24 1:04:00 PM EST, 1 tab, PO, Daily, Disp# 60 tab, Refills: 2, Pharmacy: [facility]/pharmacy #[id number] Start Date: 11/01/24 Status: Ordered Peridex 0.12% mucous membrane liquid Start: 10/29/24 2:06:00 PM EST, 15 mL, swish + spit, bid, Disp# 900 mL, Refills: 1, Swish and spit;do not swallow, Pharmacy: [facility]/pharmacy #[id number] Start Date: 10/29/24 Stop Date: [...] daily Start Date: 01/26/22 Status: Ordered Zofran 4 mg oral tablet Start: 11/14/24 9:37:00 AM EST, 1 tab, PO, tid, Disp# 30 tab, Refills: 3, take one 1 hour before radiation. May take a 2nd tablet if needed for more severe nausea., Note to Pharmacy: please fill this stat. Patient in radiation department unable to get treatment. We do not have Pyxis system here., PRN: as needed for nausea/vomiting, Pharmacy: [facility] Start Date: 11/14/24 Status: Ordered Mental Status 11/20/24 Barriers to Learning one year None evide nt, Acuity of illness Mandatory Health Literacy Documentation Yes Communication Barrier Present N/A Health Literacy Communication Barriers U nable to assess Primary Language Czech Problem List Condition Confirmation Course Effective Dates [...] List Name Date Glucose Meter (GLUCOSE METER) 11/20/24 Most recent to oldest [Reference Range]: 1 Blood Glucose [70-120 mg/dL] 336 mg/dL 1 , 2 *HI* (11/20/24 4:39 PM) Blood Glucose Ref Range [70 - 120 mg/dl] (11/20/24 4:39 PM) Gluc Meter [74-109 mg/dL] 336 mg/dL 3 *HI* (11/20/24 4:22 PM) 1Result Comment: Performed at: [facility],Ground Floor, [address] [facility], [place], [facility] 2Result Comment: done by Edna Joyner RN 3Result Comment: POINT OF CARE TEST RESULTS RECEIVED WITH AN INVALID SAMPLE ID. THE PERSON RESPONSIBLE FOR PERFORMING THE TEST HAS PROVIDED THE CORRECT SAMPLE ID AND SIGNED THEVERIFICATION STATEMENT. Vital Signs Most recent to oldest [Reference Range]: 1 Patient Weight 46.7 kg 1 (11/20/24 3:36 PM) Temperature [36.5-37.9 DegC] 36.6 DegC (11/20/24 3:36 PM) Heart Rate 98 bpm (11/20/24 3:36 PM) Respiratory Rate 14 br/min (11/20/24 3:36 PM) Blood Pressure 175/41mmHg (11/20/24 3:36 PM) Cuff Pulse Pressure 134 mmHg (11/20/24 3:36 PM) BP Location # 1 Right Arm (11/20/24 3:36 PM) 1Result Comment: with shoes Social History Social History Type Response Smoking Status Never smoked cigaret janes Sex Sex Representation Female (finding) Patient Care team information Care Team Personnel Name: MD Inez, Jorge Shearer Position: Referring Member Role: Primary Care Provider Address: [facility] [address] [place] [address] [place] Name: Morgan Catalan, Familia Position: Pharmacist Member Role: Pharmacy - Lifetime Name: Ayaan Armenta Position: HIS Supervisor_P Member Role: HIS Lifetime Care Team Related Persons Name: FERN GAO Name: KASSIE MORALES Name: JEREMY REYNOLDS
--- OUTSIDE RECORDS SUMMARY | 2024-12-08 19:03 | External Medical Summary | Continuity of Care Document ---
Author Name Unknown Organization [facility] Address [address] [place] [id number] Care Team Providers Care Ribbon Cleaner Name Role Phone HumphreyerickJorge Primary Care Physician [phone] [id number] Date(s): 11/14/24 - 11/14/[address] [phone] Discharge Disposition: Home or Self Care Attending Physician: MD Taylor Mitchell Referring Physician: MD Taylor Mitchell Allergies, Adverse Reactions, Alerts Substance Criticality Severity Reaction Reaction Severity Status morphine Hallucinosis Nausea Active penicillins Itching Hives Active traMADol Unable to assess criticality Moderate Nausea Itchy Active Assessment and Plan Extracted from: Title:Radiation - on treatment visit/note Author :MD Taylor Mitchell Date:11/15/24 RADIATION ONCOLOGY OUTPATIENT NOTE Name: CRYSTAL REYNOLDS Patient Number: [id number] : 1940 Date of Service: 11/15/2024 Radiation Oncologist: Marc Taylor M.D. 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 Reynolds. See my note from yesterday -- she had a rough day. Today though she seems somewhat better. She took a lot of fluid the last 24 hrs (mostly tube but also some recreational po). Pain in oral cavity/neck as well as abdomen are under reasonable control -- she reports intermittent nature to both areas of pain. She does have sufficient supply of oxycodone. Nause aimproved with refill of zofran. Constipation still a problem -- last night took a Fleets enema plus a dulcolax pill plus a senekot pill - had a small bm and abdomen felt somewhat better. But sill a long way to go. Current Home Meds: (Last Updated 11/14 09:39) acetaminophen (Tylenol 325 mg oral tablet) 650 mg PO q6h Alternate with tramadol every 3 hours for pain. Do not exceed 4000mg/day. atorvastatin (atorvastatin 10 mg oral tablet) 10 mg PO Daily TAKE 1 TAB NIGHTLY WITH LARGE GLASS OF WATER chlorhexidine topical (Peridex 0.12% mucous membrane liquid) [...] 50 mg/mL intramuscular solution) 50 mg IM [id number] insulin detemir (Levemir Vial 100 units/mL subcutaneous solution) 6 unit subQ qhs levothyroxine (levothyroxine 88 mcg (0.088 mg) oral tablet) 88 mcg PO Daily not taking on Sat/Sun lidocaine topical (Lidocaine Viscous 2% mucous membrane solution) As directed for mouth sores, with or without mixture with liquid benadryl and maaolx/water into a solution. loratadine (Allergy Relief) 10 mg PO Daily metoprolol (metoprolol succinate 100 mg oral tablet, extended release) 125 mg PO Daily 100mg at HS 25mg in AM ondansetron 4 mg PO q8h ondansetron (Zofran 4 mg oral tablet) 4 mg PO tid PRN: as needed for nausea/vomiting take one 1 hour before radiation. May take a 2nd tablet if needed for more severe nausea. oxyCODONE (oxyCODONE 5 mg oral tablet) 5 mg PO q4h PRN: as needed for pain oxyCODONE (OxyCONTIN 10 mg oral tablet, extended release) 15 each, 0 Refill(s), TAKE 1 TABLET BY MOUTH EVERYDAY AT BEDTIME pantoprazole (pantoprazole 20 mg oral delayed release tablet) 20 mg PO Daily polyethylene glycol 3350 (MiraLax oral powder for reconstitution) 17 g PO Daily unlisted medication (Magic mouthwash) magic mouthwash = Maalox/benadryl/lidocaine in 1:1:1 solution. Take 5-10 ml po q4h for mouth sores/pain. vitamin E (vitamin E 400 intl units oral capsule) 400 Int_Unit PO Daily Patient states 450 mg, 1 tab daily Allergies and Sensitivities: traMADol(Itchy, nausea) penicillins(Hives, itching) morphine(Nausea, hallucinations) ObjectiveEvaluations Vitals: Last Updated 11/15/24 14:52 Date Temp BP Location Pulse RR SpO2 Pain 11/15/24 36.5 139/71 Right Arm 103 11/14/24 36 151/64 Right Arm 97 16 97 11/14/24 36.1 111/61 Right Arm 94 98 Height and Weight: Last Updated 11/10/24 05:05 Date BMI Wt(kg) Wt(lb) Method Ht(cm) (ft-in) Method 11/10/24 49.8 110 Bed Scale 11/09/24 19.7 47.3 104 Bed Scale 11/08/24 19.29 46.3 102 Standing Scale 154.94 5-1 Patient stated Heights and Weights are the last 3 documented. General: Alert and oriented. No acute distress. Performance status: PS-2 Nutritional status fair. HEENT and Neck: No change from previous exam (see my consult note from 10/30/2024). Bilateral lymphadenopathy in neck. Large tumor (5 x4 cm) infiltrating right side of the tongue and floor of mouth, causing decreased motion and dysarthria, consistent with T4 lesion. Moderate pain/tenderness. No signs of any infection/thrush at this time - - Cardiorespiratory Clear lungs, heart RRR Abdominal-pelvis/GI/: diffuse non-specific pain/tenderness without acute peritoneal signs. Musculoskeletal/Extremities/Neuro: No acute findings; no change from previous exam) Labs Last Updated 11/14/24 09:16 11/14/24 0837 Hct 30.6 L Hgb 9.8 L MCH 28.7 MCHC 32.0 MCV 89.7 Plts 259 RBC 3.41 L WBC 9.99 MPV 8.9 L Immature Gran% 0.5 Neut% 85.4 Lymph% 4.2 Travis% 8.1 Baso% 0.3 Eos% 1.5 Immat Gran, Abs 0.05 Neut, Abs 8.53 H Lymph, Abs 0.42 L Travis, Abs 0.81 Baso, Abs 0.03 Eos, Abs 0.15 Type of Diff: AUTO RDW 11.9 BUN 23 Ca 9.6 Cl- 95 L HCO3 25 Cret 0.77 Glu 316 H K 4.9 Mg 2.4 Na 133 L PO4 3.3 eGFR CKD-EPI 76 TSH 5.73 H Alk Phos 114 ALT 16 AST 20 T Bili 0.3 Alb 3.8 Prot 7.1 XR Abdomen 2 Views COMPARISON: None FINDINGS: 4 views of the abdomen reveal a G-tube in good position. Normal bowel gas pattern with oral contrast in the colon. Heavily calcified aorta. Degenerative changes within the spine. Clear lung bases. Known pulmonary masses. IMPRESSION: Normal Signed by:MD Francisco, Tadeo Fischer Signed (Electronic Signature):11/14/2024 3:45 p Assessment and Plan Diagnosis and radiation parameters as above, [id number] SCC oral cavity. She is feeling better today than yesterday for various reasons and is pleased that (for now) radiation is done. We will re-evaluate in 1 month, for consideration of re-CT- simulation to plan cycle #2 of 'quad shot' radiation. Hopefully there will be some tumor response to allow some decrease in the volume of the radiation chavez. I explained to her and her family that the oral pain should improve in about a week after these 4 large doses of radiation. I also explained to look for any signs of mucositis and particularly for thrush -- she is at high risk for thrush with her cancer diagnosis, radiaton and hyperglycemia. Abdominal x-ray was ok (lots of stool noted), so I recommend escalating the laxatives. Osomotic ones like milk of mag and miralax haven't worked for her, and she is on a lot of opioids and other constipating meds, and has a lifelong h/o constipation issues. So I recommended increase to 2-3 Dulcolax and 2-3 senekot per day for next two days. She may also need enema or suppository again. She will see heme onc very soon, hopefully cleared to start chemo. We will schedule her to return here in a week. The planof care was reviewed with the patient and her daughter Dayanara, and with our radiation oncology team. This includes the radiation dose/ fractionation plan, concurrent therapy(ies), and supportive measures. Encouragement, counseling and education about the area being irradiated and radiationeffects was provided. Questions were answered, and explained in lay terms. Thank you for allowing me to participate in the care of this sree woman. Please do not hesitate to contact me, preferably via the secure [facility] [employer] system, if I can provide anyother information or assistance in her care. Marc Taylor MD FACR LEENA [email or web address](please follow HIPPA rules if emailing PHI) Radiation Oncology main clinic number: [phone] Radiation Oncology Nurses Office: [phone], [phone] Immunizations Given and Recorded Vaccine Date Status [...] spit 5 to 10 cc q4H, Pharmacy: [facility]/pharmacy #[id number] Start Date: 11/01/24 Status: Ordered Colace 100 mg oral capsule Start: 11/10/24 2:02:00 PM EST, 2 cap, PO, Daily, Disp# 60 cap, PRN: as needed for constipation, Pharmacy: [facility]/pharmacy #[id number] Start Date: 11/10/24 Status: Ordered fulvestrant 50 mg/mL intramuscular solution Start: 10/05/24 12:50:00 PM EST, 1 mL, IM, [id number] Start Date: 10/05/24 Status: Ordered Levemir Vial [...] benadryl and maaolx/water into a solution., Pharmacy: [facility]/pharmacy #[id number] Start Date: 11/01/24 Status: Ordered Magic mouthwash Start: 11/14/24 9:38:00 AM EST, Magic mouthwash, eRx Product Type: Compound, See Instructions, Disp# 480 mL, Refills: 3, magic mouthwash = Maalox/benadryl/lidocaine in 1:1:1 solution. Take 5-10 ml po q4h for mouth sores/pain., Pharmacy [facility] [place] Start Date: 11/14/24 Status: Ordered metoprolol succinate 100 mg oral tablet, extended release Start: 01/26/22 3:27:00 PM EDT, 125 mg =, PO, Daily, 100mg at HS 25mg in AM Start Date: 01/26/22 Status: Ordered MiraLax oral powder for reconstitution Start: 10/09/24 10:47:00 AM EST, 17 g =, PO, Daily, Disp# 14 each, Pharmacy: [facility] Start Date: 10/09/24 Stop Date: 10/23/24 Status: Ordered ondansetron Start: 10/05/24 12:51:00 PM EST, 4 mg =, PO, q8h Start Date: 10/05/24 Status: Ordered oxyCODONE 10 mg oral tablet, extended release Start: 11/01/24 1:08:00 PM EST, See Instructions, Disp# 30 tab, Refills: 0, 1 tab PO at bedtime, Pharmacy: [facility]/pharmacy #[id number] Start Date: 11/01/24 Status: Ordered oxyCODONE 5 mg oral tablet Start: 10/19/24 4:58:00 PM EST, 5 mg =, PO, q4h, Disp# 180 tab, Refills: 0, PRN: as needed for pain, Pharmacy: [facility]/pharmacy #[id number] Start Date: 10/19/24 Status: Ordered OxyCONTIN 10 mg oral tablet, extended release Start: 10/30/24 9:42:00 AM EST, 15 each, 0 Refill(s), TAKE 1 TABLET BY MOUTH EVERYDAY AT BEDTIME Start Date: 10/30/24 Status: Ordered pantoprazole 20 mg oral delayed release tablet Start: 11/01/24 1:04:00 PM EST, 1 tab, PO, Daily, Disp# 60 tab, Refills: 2, Pharmacy: [facility]/pharmacy #[id number] Start Date: 11/01/24 Status: Ordered Peridex 0.12% mucous membrane liquid Start: 10/29/24 2:06:00 PM EST, 15 mL, swish + spit, bid, Disp# 900 mL, Refills: 1, Swish and spit;do not swallow, Pharmacy: [facility]/pharmacy #[id number] Start Date: 10/29/24 Stop Date: [...] here., PRN: as needed for nausea/vomiting, Pharmacy: [facility] [place] Start Date: 11/14/24 Status: Ordered Problem List Condition Confirmation Course [...] Dates Health Status Cl inical Service Informant Cancer related pain 11/14/24 Non-Specified Squamous cell carcinoma of oral cavity 11/14/24 Non-Specified Procedures Procedure Date Related Diagnosis Body [...] the media stinal lymph node Completed Results Radiology Reports * Exam Date Time Procedure Performing Provider Status 11/14/24 1:17 PM XR Abdomen 2 Views Marcie Morelos; Final Notes: (XR Abdomen 2 Views) Reason For Exam: abdominal pain, constipation, head and neck cancer XR Abdomen 2 Views EXAMINATION: XR Abdomen 2 Views CLINICAL HISTORY: G89.3: Neoplasm related pain (acute) (chronic); C06.9: Malignant neoplasm of mouth, unspecified; G89.3: Neoplasm related pain (acute) (chronic); C06.9: Malignant neoplasm of mouth, unspecified; abdominal pain, constipation, head and neck cancer COMPARISON: None FINDINGS: 4 views of the abdomen reveal a G-tube in good position. Normal bowel gas pattern with oral contrast in the colon. Heavily calcified aorta. Degenerative changes within the spine. Clear lung bases. Known pulmonary masses. IMPRESSION: Normal Workstation ID: [id number] Final Dictated by:MD Singh Seth Millard Dictated DT/TM:11/14/2024 3:46 Signed by:MD Singh Seth Millard Signed (Electronic Signature):11/14/2024 3:45 p * Exam Date Time Procedure Performing Provider Status 11/14/24 1:16 PM XR Chest 2 Views Marcie Morelos; Final Notes: (XR Chest 2 Views) Reason For Exam: head and neck cancer, cough and hemoptysis XR Chest 2 Views EXAMINATION: XR Chest 2 Views CLINICAL HISTORY: G89.3: Neoplasm related pain (acute) (chronic); C06.9: Malignant neoplasm of mouth, unspecified; head and neck cancer, cough and hemoptysis COMPARISON: CT chest dated 02/05/2022. CT abdomen pelvis dated 11/08/2024. FINDINGS: Right chest port with tip overlying the cavoatrial junction. Worsening lung metastatic nodules bilaterally, increased in number. No pneumothorax or pleural effusions. Heart size is normal. Mediastinal contours are within normal limits. Normal pulmonary vascularity. Chronic deformity of the left lateral mid ribs, compatible with metastatic involvement or prior trauma. Redemonstrated mild to moderate compression deformities of the L1-L2 vertebral bodies. IMPRESSION: Progression of disease as demonstrated by new pulmonary metastasis, as compared to the CT chest dated 02/05/2022. Workstation ID: [id number] Final Dictated by:MD Newman Benjamin Dictated DT/TM:11/14/2024 1:43 Signed by:MD Newman Benjamin Signed (Electronic Signature):11/14/2024 1:42 p Social History Social History Type Response Smoking Status Never smoked cigaret janes Sex Sex Representation Female (finding) Radiation oncology Outpatient Note * MD Taylor Mitchell: PERFORM Event Display: Radiation Oncology Outpt Note Authored Date: [id number] RADIATION ONCOLOGY OUTPATIENT NOTE Name: CRYSTAL REYNOLDS Patient Number: [id number] : 1940 Date of Service: 11/15/2024 Radiation Oncologist: Marc Taylor M.D. 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 Reynolds. See my note from yesterday -- she had a rough day. Today though she seems somewhat better. She tooka lot of fluid the last 24 hrs (mostly tube but also some recreational po). Pain in oral cavity/neck as well as abdomen are under reasonable control -- she reports intermittent nature to both areas of pain. She does have sufficient supply of oxycodone. Nause aimproved with refill of zofran. Constipation still a problem -- last night took a Fleets enema plus a dulcolax pill plus a senekot pill - had a small bm and abdomen felt somewhat better. But sill a long way to go. Current Home Meds: (Last Updated 11/14 09:39) acetaminophen (Tylenol 325 mg oral tablet) 650 [...] 50 mg/mL intramuscular solution) 50 mg IM [id number] insulin detemir (Levemir Vial 100 units/mL subcutaneous solution) 6 unit subQ qhs levothyroxine (levothyroxine 88 mcg (0.088 mg) oral [...] Daily 100mg at HS 25mg in AM ondansetron 4 mg PO q8h ondansetron (Zofran 4 mg oral tablet) 4 mg PO tid PRN: as needed for nausea/vomiting take one 1 hour before radiation. May take a 2nd tablet if needed for more severe nausea. oxyCODONE (oxyCODONE 5 mg oral tablet) 5 mg PO q4h PRN: as needed for pain oxyCODONE (OxyCONTIN 10 mg oral tablet, extended release) 15 each, 0 Refill(s), TAKE 1 TABLET BY MOUTH EVERYDAY AT BEDTIME pantoprazole (pantoprazole 20 mg oral delayed release tablet) 20 mg PO Daily polyethylene glycol 3350 (MiraLax oral powder for reconstitution) 17 g PO Daily unlisted medication (Magic mouthwash) magic mouthwash = Maalox/benadryl/lidocaine in 1:1:1 solution. Take 5-10 ml po q4h for mouth sores/pain. vitamin E (vitamin E 400 intl units oral capsule) 400 Int_Unit PO Daily Patient states 450 mg, 1 tab daily Allergies and Sensitivities: traMADol(Itchy, nausea) penicillins(Hives, itching) morphine(Nausea, hallucinations) ObjectiveEvaluations Vitals: Last Updated 11/15/24 14:52 Date Temp BP Location Pulse RR SpO2 Pain 11/15/24 36.5 139/71 Right Arm 103 11/14/24 36 151/64 Right Arm 97 16 97 11/14/24 36.1 111/61 Right Arm 94 98 Height and Weight: Last Updated 11/10/24 05:05 Date BMI Wt(kg) Wt(lb) Method Ht(cm) (ft-in) Method 11/10/24 49.8 110 Bed Scale 11/09/24 19.7 47.3 104 Bed Scale 11/08/24 19.29 46.3 102 Standing Scale 154.94 5-1 Patient stated Heights and Weights are the last 3 documented. General: Alert and oriented. No acute distress. Performance status: PS-2 Nutritional status fair. HEENT and Neck: No change from previous exam (see my consult note from 10/30/2024). Bilateral lymphadenopathy in neck. Large tumor (5 x4 cm) infiltrating right side of the tongue and floor of mouth, causing decreased motion and dysarthria, consistent with T4 lesion. Moderate pain/tenderness. No signs of any infection/thrush at this time - - Cardiorespiratory Clear lungs, heart RRR Abdominal-pelvis/GI/: diffuse non-specific pain/tenderness without acute peritoneal signs. Musculoskeletal/Extremities/Neuro: No acute findings; no change from previous exam) Labs Last Updated 11/14/24 09:16 11/14/24 0837 Hct 30.6 L Hgb 9.8 L MCH 28.7 MCHC 32.0 MCV 89.7 Plts 259 RBC 3.41 L WBC 9.99 MPV 8.9 L Immature Gran% 0.5 Neut% 85.4 Lymph% 4.2 Travis% 8.1 Baso% 0.3 Eos% 1.5 Immat Gran, Abs 0.05 Neut, Abs 8.53 H Lymph, Abs 0.42 L Travis, Abs 0.81 Baso, Abs 0.03 Eos, Abs 0.15 Type of Diff: AUTO RDW 11.9 BUN 23 Ca 9.6 Cl- 95 L HCO3 25 Cret 0.77 Glu 316 H K 4.9 Mg 2.4 Na 133 L PO4 3.3 eGFR CKD-EPI 76 TSH 5.73 H Alk Phos 114 ALT 16 AST 20 T Bili 0.3 Alb 3.8 Prot 7.1 XR Abdomen 2 Views COMPARISON: None FINDINGS: 4 views of the abdomen reveal a G-tube in good position. Normal bowel gas pattern with oral contrast in the colon. Heavily calcified aorta. Degenerative changes within the spine. Clear lung bases. Known pulmonary masses. IMPRESSION: Normal Signed by:MD Francisco, Tadeo Fischer Signed (Electronic Signature):11/14/2024 3:45 p Assessment and Plan Diagnosis and radiation parameters as above, [id number] SCC oral cavity. She is feeling better today than yesterday for various reasons and is pleased that (for now) radiation is done. We will re-evaluate in 1 month, for consideration of re-CT- simulation to plan cycle #2 of 'quad shot' radiation. Hopefully there will be some tumor response to allow some decrease in the volume of the radiation chavez. I explained to her and her family that the oral pain should improve in about a week after these 4 large doses of radiation. I also explained to look for any signs of mucositis and particularly for thrush -- she is at high risk for thrush with her cancer diagnosis, radiaton and hyperglycemia. Abdominal x-ray was ok (lots of stool noted), so I recommend escalating the laxatives. Osomotic ones like milk of mag and miralax haven't worked for her, and she is on a lot of opioids and other constipating meds, and has a lifelong h/o constipation issues. So I recommended increase to 2-3 Dulcolaxand 2-3 senekot per day for next two days. She may also need enema or suppository again. She will see heme onc very soon, hopefully cleared to start chemo. We will schedule her to return here in a week. The planof care was reviewed with the patient and her daughter Dayanara, and with our radiation oncology team. This includes the radiation dose/ fractionation plan, concurrent therapy(ies), and supportive measures. Encouragement, counseling and education about the area being irradiated and radiationeffects was provided. Questions were answered, and explained in lay terms. Thank you for allowing me to participate in the care of this sree woman. Please do not hesitate to contact me, preferably via the secure [facility] [employer] system, if I can provide anyother information or assistance in her care. MD EMANUEL MoraR LEENA [email or web address](please follow HIPPA rules if emailing PHI) Radiation Oncology main clinic number: [phone] Radiation Oncology Nurses Office: [phone], [phone] Electronic Signature on File Electronically Reviewed/Signed by: Marc Taylor MD Author Signature Dt/Tm:11/15/2024 03:16 PM Department of Radiation Oncology [facility] Patient Care team information Care Team Personnel Name: MD Inez, Jorge Shearer Position: Referring Member Role: Primary Care Provider Address: [address] Name: Morgan Catalan Mohammed Position: Pharmacist Member Role: Pharmacy - Lifetime Name: Ayaan Armenta Position: HIS Supervisor_P Member Role: HIS Lifetime Care Team Related Persons Name: DAYANARA GAO Name: KASSIE MORALES Name: JEREMY REYNOLDS
--- OUTSIDE RECORDS SUMMARY | 2024-12-08 19:03 | External Medical Summary | Continuity of Care Document ---
Author Name Unknown Organization [facility] Address [address] [place] [id number] Care Team Providers Care Installation Engineer Name Role Phone Jorge Wiley Primary Care Physician [phone] Encounter [facility] [id number] Date(s): 11/14/24 - 11/14/24 [facility] [address], [place] [address]- [phone] Discharge Disposition: Home or Self Care Attending [...] spit 5 to 10 cc q4H, Pharmacy: [facility]/pharmacy #[id number] Start Date: 11/01/24 Status: Ordered Colace 100 mg oral capsule Start: 11/10/24 2:02:00 PM EST, 2 cap, PO, Daily, Disp# 60 cap, PRN: as needed for constipation, Pharmacy: [facility]/pharmacy #[id number] Start Date: 11/10/24 Status: Ordered fulvestrant 50 mg/mL intramuscular solution Start: 10/05/24 12:50:00 PM EST, 1 mL, IM, [id number] Start Date: 10/05/24 Status: Ordered Levemir Vial [...] benadryl and maaolx/water into a solution., Pharmacy: [facility]/pharmacy #[id number] Start Date: 11/01/24 Status: Ordered Magic mouthwash Start: 11/14/24 9:38:00 AM EST, Magic mouthwash, eRx Product Type: Compound, See Instructions, Disp# 480 mL, Refills: 3, magic mouthwash = Maalox/benadryl/lidocaine in 1:1:1 solution. Take 5-10 ml po q4h for mouth sores/pain., Pharmacy [facility] [place] Start Date: 11/14/24 Status: Ordered metoprolol succinate 100 mg oral tablet, extended release Start: 01/26/22 3:27:00 PM EDT, 125 mg =, PO, Daily, 100mg at HS 25mg in AM Start Date: 01/26/22 Status: Ordered MiraLax oral powder for reconstitution Start: 10/09/24 10:47:00 AM EST, 17 g =, PO, Daily, Disp# 14 each, Pharmacy: [facility] [place] Start Date: 10/09/24 Stop Date: 10/23/24 Status: Ordered ondansetron Start: 10/05/24 12:51:00 PM EST, 4 mg =, PO, q8h Start Date: 10/05/24 Status: Ordered oxyCODONE 10 mg oral tablet, extended release Start: 11/01/24 1:08:00 PM EST, See Instructions, Disp# 30 tab, Refills: 0, 1 tab PO at bedtime, Pharmacy: [facility]/pharmacy #[id number] Start Date: 11/01/24 Status: Ordered oxyCODONE 5 mg oral tablet Start: 10/19/24 4:58:00 PM EST, 5 mg =, PO, q4h, Disp# 180 tab, Refills: 0, PRN: as needed for pain, Pharmacy: [facility]/pharmacy #[id number] Start Date: 10/19/24 Status: Ordered OxyCONTIN 10 mg oral tablet, extended release Start: 10/30/24 9:42:00 AM EST, 15 each, 0 Refill(s), TAKE 1 TABLET BY MOUTH EVERYDAY AT BEDTIME Start Date: 10/30/24 Status: Ordered pantoprazole 20 mg oral delayed release tablet Start: 11/01/24 1:04:00 PM EST, 1 tab, PO, Daily, Disp# 60 tab, Refills: 2, Pharmacy: [facility]/pharmacy #[id number] Start Date: 11/01/24 Status: Ordered Peridex 0.12% mucous membrane liquid Start: 10/29/24 2:06:00 PM EST, 15 mL, swish + spit, bid, Disp# 900 mL, Refills: 1, Swish and spit;do not swallow, Pharmacy: [facility]/pharmacy #[id number] Start Date: 10/29/24 Stop Date: 12/28/24 [...] here., PRN: as needed for nausea/vomiting, Pharmacy: [facility] [place] Start Date: 11/14/24 Status: Ordered Problem List [...] node Completed Results Laboratory List Name Date Comprehensive Metabolic Panel (COMP META B PANEL) 11/14/24 Magnesium Level (MAGNESIUM) 11/14/24 Phosphorus Level (PHOSPHORUS) 11/14/24 Thyroid Stimulating Hormone (TSH) 11/14/24 Complete Blood Count w Differential (CBC ,DIFFH) 11/14/24 Most recent to oldest [Reference Range]: 1 eGFR CKD-EPI [>60 mL/min/1.73 m2] 76 mL/ min/1.73 m2 (11/14/24 10:30 AM) Estimated CrCl 40.46 mL/min (11/14/24 11:40 AM) MPV [9.0-12.2 fL] 8.9 fL *LOW* (11/14/24 8:37 AM) Immature Gran% 0.5 % (11/14/24 8:37 AM) Neut% 85.4 % (11/14/24 8:37 AM) Lymph% 4.2 % (11/14/24 8:37 AM) Cassia% 8.1 % (11/14/24 8:37 AM) Baso% 0.3 % (11/14/24 8:37 AM) Eos% 1.5 % (11/14/24 8:37 AM) Immat Gran, Abs [0-0.4 K/uL] 0.05 K/uL (11/14/24 8:37 AM) Neut, Abs [2.0-7.7 K/uL] 8.53 K/uL *HI* (11/14/24 8:37 AM) Lymph, Abs [1.0-3.4 K/uL] 0.42 K/uL *LOW* (11/14/24 8:37 AM) Cassia, Abs [0-1.0 K/uL] 0.81 K/uL (11/14/24 8:37 AM) Baso, Abs [0-0.1 K/uL] 0.03 K/uL (11/14/24 8:37 AM) Eos, Abs [0-0.5 K/uL] 0.15 K/uL (11/14/24 8:37 AM) Type of Diff: AUTO *Unknown* (11/14/24 8:37 AM) RDW [11.5-14.2 %] 11.9 % (11/14/24 8:37 AM) Anion Gap [5-14 mmol/L] 13 mmol/L (11/14/24 10:30 AM) Alb [3.5-5.2 g/dL] 3.8 g/dL (11/14/24 10:30 AM) Alk Phos [35-115 unit/L] 114 unit/L 1 (11/14/24 10:30 AM) ALT [0-33 unit/L] 16 unit/L (11/14/24 10:30 AM) AST [0-32 unit/L] 20 unit/L (11/14/24 10:30 AM) BUN [6-23 mg/dL] 23 mg/dL (11/14/24 10:30 AM) Ca [8.4-10.2 mg/dL] 9.6 mg/dL (11/14/24 10:30 AM) Cl- [98-107 mmol/L] 95 mmol/L *LOW* (11/14/24 10:30 AM) HCO3 [22-29 mmol/L] 25 mmol/L (11/14/24 10:30 AM) Cret [0.60-1.00 mg/dL] 0.77 mg/dL (11/14/24 10:30 AM) Glu [74-109 mg/dL] 316 mg/dL 2 *HI* (11/14/24 10:30 AM) Hct [35-44 %] 30.6 % *LOW* (11/14/24 8:37 AM) Hgb [11.7-15.0 g/dL] 9.8 g/dL *LOW* (11/14/24 8:37 AM) K [3.5-5.1 mmol/L] 4.9 mmol/L (11/14/24 10:30 AM) MCH [28-33 pg] 28.7 pg (11/14/24 8:37 AM) MCHC [32-36 g/dL] 32.0 g/dL (11/14/24 8:37 AM) MCV [81-96 fL] 89.7 fL (11/14/24 8:37 AM) Mg [1.6-2.6 mg/dL] 2.4 mg/dL (11/14/24 10:30 AM) Na [136-145 mmol/L] 133 mmol/L *LOW* (11/14/24 10:30 AM) PO4 [2.5-4.5 mg/dL] 3.3 mg/dL (11/14/24 10:30 AM) Plts [150-350 K/uL] 259 K/uL (11/14/24 8:37 AM) RBC [3.90-5.00 M/uL] 3.41 M/uL *LOW* (11/14/24 8:37 AM) T Bili [0.0-1.2 mg/dL] 0.3 mg/dL (11/14/24 10:30 AM) Prot [6.4-8.3 g/dL] 7.1 g/dL (11/14/24 10:30 AM) TSH [0.30-4.20 uIU/mL] 5.73 uIU/mL *HI* (11/14/24 10:30 AM) WBC [4.0-10.4 K/uL] 9.99 K/uL (11/14/24 8:37 AM) 1Result Comment: Low levels of ALKP [...] Referring Member Role: Primary Care Provider Address: [address] [place] [address] Name: Morgan Catalan, Familia Position: Pharmacist Member Role: Pharmacy - Lifetime Name: Ayaan Armenta Position: HIS Supervisor_P Member Role: HIS Lifetime Care Team Related Persons Name: FERN GAO Name: KASSIE MORALES Name: JEREMY REYNOLDS
--- OUTSIDE RECORDS SUMMARY | 2024-12-08 19:03 | External Medical Summary | Continuity of Care Document ---
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/20/24 Tongue edema(Discharge Diagnosis) - 11/20/24 Mucositis oral(Discharge Diagnosis) - 11/20/24 Hyperglycemia(Discharge Diagnosis) - 11/20/24 S/P otolaryngological surgery, follow-up exam(Discharge Diagnosis) - 11/21/24 Discharge Disposition: Home or Self Care Attending Physician: MD Hurst Emily Kathryn Referring Physician: MD Wiley James E Allergies, Adverse Reactions, Alerts Substance Criticality Severity Reaction Reaction Severity Status morphine Hallucinosis Nausea Active penicillins Itching Hives Active traMADol Unable to assess criticality Moderate Nausea Itchy Active Assessment and Plan Extracted from: Title:Office Visit Note Author:MD Hurst Emily K athryn Date:11/21/24 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 We discussed that her airway is currently patent but if there is worsening edema she will need to be hospitalized for steroids and glucose management. Tracheostomy may be needed in the future if the edema persists and impacts her ability to stay on treatment. She is scheduled to start chemoimmunotherapy in the near future. 3.Mucositis oral Treatment provided by Dr. Taylor 4.Hyperglycemia We discussed her sugars need to be under better control moving forward. She is now on bolus tube feeds and can work with her provider to get on better insulin regimen. I informed her that there should be a discussion with her audit senior associate of how to plan/adjust her insulin when she takes steroid, as this may be required throughout the course of treatment. Her family endorses that they will reach out to her doctor tomorrow, as it is after 5pm at the time of our visit today. 5.S/P otolaryngological surgery, follow-up exam Resolved. Biopsy site has healed. I thoroughly reviewed need to go to the emergency room for any worsening tongue edemaor persistent elevation in glucose. She acknowledges and agrees to this. I will see her as needed during her treatment. No currently scheduled follow up at this time. Will plan to re-evaluate after additional treatment and intervalimaging. We will continue to follow her course closely with Dr. Taylor and Dr. Koch. Immunizations Given and Recorded Vaccine Date Status [...] spit 5 to 10 cc q4H, Pharmacy: [facility]/pharmacy #[id number] Start Date: 11/01/24 Status: Ordered Colace 100 mg oral capsule Start: 11/10/24 2:02:00 PM EST, 2 cap, PO, Daily, Disp# 60 cap, PRN: as needed for constipation, Pharmacy: [facility]/pharmacy #[id number] Start Date: 11/10/24 Status: Ordered Compazine 10 mg oral tablet Start: 11/23/24 9:01:00 AM EST, 1 tab, PO, q6h, Disp# 60 tab, Refills: 1, PRN: as needed for nausea/vomiting, Pharmacy: [facility] Start Date: 11/23/24 Status: Ordered fulvestrant 50 mg/mL intramuscular solution Start: 10/05/24 12:50:00 PM EST, 1 mL, IM, [id number] Start Date: 10/05/24 Status: Ordered HumaLOG Insulin [...] benadryl and maaolx/water into a solution., Pharmacy: [facility]/pharmacy #[id number] Start Date: 11/01/24 Status: Ordered Magic mouthwash Start: 11/14/24 9:38:00 AM EST, Magic mouthwash, eRx Product Type: Compound, See Instructions, Disp# 480 mL, Refills: 3, magic mouthwash = Maalox/benadryl/lidocaine in 1:1:1 solution. Take 5-10 ml po q4h for mouth sores/pain., Pharmacy [facility] Start Date: 11/14/24 Status: Ordered metoprolol succinate 100 mg oral tablet, extended release Start: 01/26/22 3:27:00 PM EDT, 125 mg =, PO, Daily, 100mg at HS 25mg in AM Start Date: 01/26/22 Status: Ordered MiraLax oral powder for reconstitution Start: 10/09/24 10:47:00 AM EST, 17 g =, PO, Daily, Disp# 14 each, Pharmacy: [facility] Start Date: 10/09/24 Stop Date: 10/23/24 Status: Ordered nystatin 100,000 units/mL oral suspension Start: 11/23/24 9:04:00 AM EST, 5 mL, PO, qid, Disp# 60 mL, Refills: 0, Pharmacy: [facility] Start Date: 11/23/24 Status: Ordered oxyCODONE 10 mg oral tablet, extended release Start: 11/01/24 1:08:00 PM EST, See Instructions, Disp# 30 tab, Refills: 0, 1 tab PO at bedtime, [id number] Start Date: 11/01/24 Status: Ordered oxyCODONE 5 mg oral tablet Start: 10/19/24 4:58:00 PM EST, 5 mg =, PO, q4h, Disp# 180 tab, Refills: 0, PRN: as needed for pain, Pharmacy: [facility]/pharmacy #[id number] Start Date: 10/19/24 Status: Ordered OxyCONTIN 10 mg oral tablet, extended release Start: 10/30/24 9:42:00 AM EST, 15 each, 0 Refill(s), TAKE 1 TABLET BY MOUTH EVERYDAY AT BEDTIME Start Date: 10/30/24 Status: Ordered pantoprazole 20 mg oral delayed release tablet Start: 11/01/24 1:04:00 PM EST, 1 tab, PO, Daily, Disp# 60 tab, Refills: 2, Pharmacy: [facility]/pharmacy #[id number] Start Date: 11/01/24 Status: Ordered Peridex 0.12% mucous membrane liquid Start: 10/29/24 2:06:00 PM EST, 15 mL, swish + spit, bid, Disp# 900 mL, Refills: 1, Swish and spit;do not swallow, Pharmacy: [facility]/pharmacy #[id number] Start Date: 10/29/24 Stop Date: 2/21/25 Status: Ordered Plavix 75 mg oral tablet [...] chemotherapy, PRN: as needed for nausea/vomiting, Pharmacy: [facility] [place] Start Date: 11/23/24 Status: Ordered Problem List [...] Effective Dates Health Status Clinical Service Informant Tongue edema Discharge Diagnosis 11/20/24 Mucositis oral Discharge Diagnosis 11/20/24 Squamous cell carcinoma of floor of mouth Discharge Diagnosis 11/20/24 Hyperglycemia Discharge Diagnosis 11/20/24 S/P otolaryngological surgery, follow-up exam Discharge Diagnosis 11/21/24 Procedures Procedure Date Related Diagnosis Body Site [...] Most recent to oldest [Reference Range]: 1 Temperature [36.5-37.9 DegC] 36.7 DegC (11/20/24 4:55 PM) Blood Pressure 155/65mmHg (11/20/24 4:55 PM) Cuff Pulse Pressure 90 mmHg (11/20/24 4:55 PM) Social History Social History Type Response Smoking Status Never smoked cigaret janes Sex Sex Representation Female (finding) Otolaryngology Outpt Note * MD Aris, Marcie Saab: PERFORM Event Display: Otolaryngology Outpt Note Authored Date: Chief Complaint follow up cancer of the tongue History of Present Illness This is a 84 year oldfemale who isreferredto Headand NeckOncology followed for recurrenceof heroralcavity SCC.She is patient with history of left breast cancer and prior tongue cancer. Previously seen by Dr. Booth. 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 In January 2022 she underwent partial glossectomy by OMFSwith primary closure which revealed moderately differentiated squamous cell carcinoma of the tongue measuring 7 mm in greatest dimension with a depth of invasion of 3.4 mm. No evidence of LVI, PNI and all margins were negative with closest margin of 1.8 mm from the deep margin.Specimen size was noted to be3.5x1.8x0.9cm. 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 She is now status post bilateral mastectomies with sentinel lymph node showing metastatic disease, reportedly [id number] stage IV. Past medical history pertinent for breast cancer, anemia, CKD, diabetes, hypothyroidism. She is currently on clopidogrel. Per outside oncology/hematology follow-up note: 07/24/2024atient reports recent biopsy performedby [facility] at [facility] which showed recurrence of her tongue cancer. She underwentoperative iyplxidt05/2/2024showing invasive squamous cell carcinoma. She was admitted overnight for expedited cancer workup with a repeat CTneckshowing suspicious for right, possible left sidedregional metastatic disease in the neck. [place] provider,images are reviewed today.WhilePET scan does showPET avid diseaseat the known siteof the floor of mouth, and bilateral necks, thereisevidence ofmultiple new metastaticpulmonary nodulesconcerning for oligometastatic disease. Decision for surgical management was revisited after these findings and withconsideration of rapid growth at primary site with concern for bone involvement - after thorough discussion with Dr. Becerra, myself andthe patient and her family, decision was made to transition to primarynonsurgical treatment. She is seen in follow up today as urgent request by Dr. Taylor after development of tongue edema following start of quad shot radiation performed 11/14-11/15. She noted the tongue edema this morning and it has improved throughout the day but remains swollen. Currently her blood sugars are out of control and she has plans to discuss with her doctor tomorrow. but she is not able to get steroids at this time. She was also recommended to go to the emergency room but declined. Review of Systems Denies difficulty breathing or SOB. Endorses worsened dysarthria. Physical Exam Vitals & Measurements T:36.7C BP:155/65 SpO2:98% Tongue is slightly proptotic from mouth Right tongue with discrete firm mass anteriorly and at FoM, some induration extends towards midlineat the mid and posterior tongue, left tongue with soft edema. Able to visualize full palate on oralexam. Limited tongue ROM PROCEDURE: Flexible fiberoptic nasopharyngoscopy with laryngoscopy A flexible fiberoptic nasopharyngoscopy was performed after discussing the risks and benefits and obtaining verbal consent from the patient.The patient was anesthetized and decongested 2cc of topical 4% lidocaine and Afrin nasal sprays to both nasal passageways. The scope was passed into the nasal cavity and advanced to the nasopharynx. The scope was advanced and the nasopharynx, oropharynx and endolarynx were evaluated including the posterior soft palate, posterior pharyngeal wall, base of tongue, vallecula, epiglottis, aryepiglottic folds, arytenoids, vocal cords and piriform sinus. The flexible scope was then removed from the nasal passage once the areas were fully evaluated. The patient tolerated the procedure well and without complication. Findings: -Tongue with right sided fullness, asymmetric to left. Overall oropharyngeal airway is well preserved and improves further with positioning chin upwards or sticking out tongue. 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 We discussed that her airway is currently patent but if there is worsening edema she will need to be hospitalized for steroids and glucose management. Tracheostomy may be needed in the future if the edema persists and impacts her ability to stay on treatment. She is scheduled to start chemoimmunotherapy in the near future. 3.Mucositis oral Treatment provided by Dr. Taylor 4.Hyperglycemia We discussed her sugars need to be under better control moving forward. She is now on bolus tube feeds and can work with her provider to get on better insulin regimen. I informed her that there should be a discussion with her audit senior associate of how to plan/adjust her insulin when she takes steroid,as this may be required throughout the course of treatment. Her family endorses that they will reach out to her doctor tomorrow, as it is after 5pm at the time of our visit today. 5.S/P otolaryngological surgery, follow-up exam Resolved. Biopsy site has healed. I thoroughly reviewed need to go to the emergency room for any worsening tongue edemaor persistent elevation in glucose. She acknowledges and agrees to this. I will see her as needed during her treatment. No currently scheduled follow up at this time. Will plan to re-evaluate after additional treatment and intervalimaging. We will continue to follow her course closely with Dr. Taylor and Dr. Koch. Problem List/Past Medical History Ongoing Anorexia symptom [...] In January 2022 she underwent partialglossectomy by [facility] with primary closure| Service Date: 01/2022HysterectomyDetached retina s/p L eye repairColonoscopybilateral mastectomiesprevious biopsy of the mediastinal lymph nodebilateral cataract surgery Medications acetaminophen(Tylenol 325 mg oral tablet), 650 mg= [...] intramuscular solution), 50 mg= 1 mL, IM, [id number] insulin detemir(Levemir Vial 100 units/mL subcutaneous solution), 6 unit, subQ, qhs levothyroxine(levothyroxine 88 mcg (0.088 mg) oral tablet), 88 mcg= 1 tab, PO, Daily lidocaine topical(Lidocaine Viscous 2% mucous membrane solution), See Instructions, 3 refills loratadine(Allergy Relief), 10 mg, PO, Daily metoprolol(metoprolol succinate 100 mg oral tablet, extended release), 125 mg, PO, Daily nystatin(nystatin 100,000 units/mL oral suspension), [id number] unit= 5 mL, PO, qid ondansetron, 4 mg, PO, q8h ondansetron(Zofran 4 mg oral tablet), 4 mg= 1 tab, PO, tid, PRN, 3 refills oxyCODONE(OxyCONTIN 10 mg oral tablet, extended release) oxyCODONE(oxyCODONE 10 mg oral tablet, extended release), See Instructions oxyCODONE(oxyCODONE 5 mg oral tablet), 5 mg, PO, q4h, PRN pantoprazole(pantoprazole 20 mg oral delayed release tablet), 20 mg= 1 tab, PO, Daily, 2 refills polyethylene glycol 3350(MiraLax oral powder for reconstitution), 17 g, PO, Daily unlisted medication(Magic mouthwash), See Instructions, 3 refills vitamin E(vitamin E 400 intl units oral capsule), 400 Int_Unit= 1 cap, PO, Daily Allergies traMADol (Moderate)Nausea, Itchy morphineHallucinosis, Nausea penicillinsItching, Hives Social History Smoking Status Never smoked cigarettes Immunizations Vaccine Date Status SARS-CoV-2 mRNA-1273 (6y+ bivalent) 09/09/2022 Recorded SARS-CoV-2 (COVID-19) mRNA BNT-162b2 vax 09/08/2021 Recorded SARS-CoV-2 (COVID-19) mRNA-1273 vaccine 01/02/2021 Recorded SARS-CoV-2 (COVID-19) mRNA-1273 vaccine 12/05/2020 Recorded influenza virus vaccine, H1N1 09/13/2009 Recorded Recommendations Health Maintenance Pending(in the next year) OverDue Adult Influenza Vaccine due05/07/24and every 1year Due Adult COVID-19 Vaccination due11/21/24Unknown Frequency Adult Tdap/Td Vaccine due11/21/24Unknown Frequency Diabetic Eye Exam due11/21/24Unknown Frequency Medicare Annual Wellness Visit due11/21/24and every 1year Osteoporosis Screening due11/21/24One-time only Pneumococcal Vaccine Older Adults due11/21/24One-time only Shingles Vaccine due11/21/24One-time only Due In Future Adult Social Determinants of Health Screening not due until09/21/25and every 366day Diabetes Management A1c not due until11/10/25and every 366day Satisfied(in the past 1 year) Satisfied Body Mass Index on11/09/24.Satisfied by BUTCH Rodriguez Kapri Diabetes Management A1c on11/09/24.Satisfied by SYSTEM Electronic Signature on File Electronically Reviewed/Signed by: Marcie Hurst MD Author Signature Dt/Tm:11/21/2024 12:32 PM Department of Otolaryngology [facility] Patient Care team information Care Team Personnel Name: MD Inez, Jorge Shearer Position: Referring Member Role: Primary Care Provider Address: [address] [place] [address] Name: Morgan Catalan, Familia Position: Pharmacist Member Role: Pharmacy - Lifetime Name: Ayaan Armenta Position: HIS Supervisor_P Member Role: HIS Lifetime Care Team Related Persons Name: FERN GAO Name: KASSIE MORALES Name: JEREMY REYNOLDS"
--- OUTSIDE RECORDS SUMMARY | 2024-12-08 19:03 | External Medical Summary | Continuity of Care Document ---
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 Discharge Disposition: Home or Self Care Attending Physician: MD Koch Danh C Referring Physician: MD Koch Danh C Allergies, Adverse Reactions, Alerts Substance Criticality Severity Reaction Reaction Severity Status morphine Hallucinosis Nausea Active penicillins Itching Hives Active traMADol Unable to assess criticality Moderate Nausea Itchy Active Functional Status 11/23/24 Gait Steady Immunizations Given and Recorded Vaccine Date Status [...] 5 to 10 cc q4H, Pharmacy: [facility]/pharmacy #[id number] Start Date: 11/01/24 Status: Ordered Colace 100 mg oral capsule Start: 11/10/24 2:02:00 PM EST, 2 cap, PO, Daily, Disp# 60 cap, PRN: as needed for constipation, Pharmacy: [facility]/pharmacy #[id number] Start Date: 11/10/24 Status: Ordered Compazine 10 mg oral tablet Start: 11/23/24 9:01:00 AM EST, 1 tab, PO, q6h, Disp# 60 tab, Refills: 1, PRN: as needed for nausea/vomiting, Pharmacy: [facility] [place] Start Date: 11/23/24 Status: Ordered fulvestrant 50 mg/mL intramuscular solution Start: 10/05/24 12:50:00 PM EST, 1 mL, IM, [id number] Start Date: 10/05/24 Status: Ordered HumaLOG Insulin [...] and maaolx/water into a solution., Pharmacy: [facility]/pharmacy #[id number] Start Date: 11/01/24 Status: Ordered Magic mouthwash Start: 11/14/24 9:38:00 AM EST, Magic mouthwash, eRx Product Type: Compound, See Instructions, Disp# 480 mL, Refills: 3, magic mouthwash = Maalox/benadryl/lidocaine in 1:1:1 solution. Take 5-10 ml po q4h for mouth sores/pain., Pharmacy [facility] Start Date: 11/14/24 Status: Ordered metoprolol succinate 100 mg oral tablet, extended release Start: 01/26/22 3:27:00 PM EDT, 125 mg =, PO, Daily, 100mg at HS 25mg in AM Start Date: 01/26/22 Status: Ordered MiraLax oral powder for reconstitution Start: 10/09/24 10:47:00 AM EST, 17 g =, PO, Daily, Disp# 14 each, Pharmacy: [facility] Start Date: 10/09/24 Stop Date: 10/23/24 Status: Ordered nystatin 100,000 units/mL oral suspension Start: 11/23/24 9:04:00 AM EST, 5 mL, PO, qid, Disp# 60 mL, Refills: 0, Pharmacy: [facility] Start Date: 11/23/24 Status: Ordered oxyCODONE 10 mg oral tablet, extended release Start: 11/01/24 1:08:00 PM EST, See Instructions, Disp# 30 tab, Refills: 0, 1 tab PO at bedtime, Pharmacy: [facility]/pharmacy #[id number] Start Date: 11/01/24 Status: Ordered oxyCODONE 5 mg oral tablet Start: 10/19/24 4:58:00 PM EST, 5 mg =, PO, q4h, Disp# 180 tab, Refills: 0, PRN: as needed for pain, Pharmacy: [facility]/pharmacy #[id number] Start Date: 10/19/24 Status: Ordered OxyCONTIN 10 mg oral tablet, extended release Start: 10/30/24 9:42:00 AM EST, 15 each, 0 Refill(s), TAKE 1 TABLET BY MOUTH EVERYDAY AT BEDTIME Start Date: 10/30/24 Status: Ordered pantoprazole 20 mg oral delayed release tablet Start: 11/01/24 1:04:00 PM EST, 1 tab, PO, Daily, Disp# 60 tab, Refills: 2, Pharmacy: [facility]/pharmacy #[id number] Start Date: 11/01/24 Status: Ordered Peridex 0.12% mucous membrane liquid Start: 10/29/24 2:06:00 PM EST, 15 mL, swish + spit, bid, Disp# 900 mL, Refills: 1, Swish and spit;do not swallow, Pharmacy: [facility]/pharmacy #[id number] Start Date: 10/29/24 Stop Date: [...] chemotherapy, PRN: as needed for nausea/vomiting, Pharmacy: [facility] [place] Start Date: 11/23/24 Status: Ordered Problem List [...] oldest [Reference Range]: 1 Temperature [36.5-37.9 DegC] 37.7 DegC (11/23/24 9:47 AM) Heart Rate 101 bpm (11/23/24 9:47 AM) Respiratory Rate 20 br/min (11/23/24 9:47 AM) Blood Pressure 149/44mmHg (11/23/24 9:47 AM) Mean Blood Pressure 68 mmHg (11/23/24 9:47 AM) Cuff Pulse Pressure 105 mmHg (11/23/24 9:47 AM) BP Location # 1 Right Arm (11/23/24 9:47 AM) Social History Social History Type Response Smoking Status Never smoked cigaret janes Sex Sex Representation Female (finding) Patient Care team information Care Team Personnel Name: MD Inez, Jorge Shearer Position: Referring Member Role: Primary Care Provider Address: [address] Name: Morgan Catalan Mohammed Position: Pharmacist Member Role: Pharmacy - Lifetime Name: Ayaan Armenta Position: HIS Supervisor_P Member Role: HIS Lifetime Care Team Related Persons Name: FERN GAO Name: SHIN LOO Name: KASSIE MORALES Name: JEREMY REYNOLDS
--- OUTSIDE RECORDS SUMMARY | 2024-12-08 19:04 | External Medical Summary ---
Author Name Unknown Address Unknown Organization [facility] [address] [place] Laboratory Report Ordering Provider Test Date Status Maryse Dhaliwal 11/10/2024 12:17:00 Final Observation Date Value Abnormality Reference (Units ) Status Glucose [Mass/volume] in Arterial blood 11/10/2024 12:17:29 306 Above high normal 50-99 (mg/dL) Final Meter: [id number]\R\Operat or: [id number] Luis Carlos Choi
The Reference Range listed is for fasting blood Glucose only. Performing Location [facility] [address] [place] [address]
--- OUTSIDE RECORDS SUMMARY | 2024-12-08 19:04 | External Medical Summary | Continuity of Care Document ---
Author Name Unknown Organization [facility] Address [address] [place] [id number] Care Team Providers Care Factory Representative Name Role Phone Jorge Gee Primary Care Physician [phone] [id number] Date(s): 11/08/24 - 11/10/24 [facility] [address] [place] [id number] [phone] Encounter Diagnosis Mass of floor of mouth(Discharge Diagnosis) - 11/08/24 Other acute postprocedural pain(Discharge Diagnosis) - 11/08/24 Discharge Disposition: Home or Self Care Attending Physician: MD Serra Md Shahjahan Admitting Physician: MD Serra Md Shahjahan Referring Physician: MD Taylor Mitchell Allergies, Adverse Reactions, Alerts Substance Criticality Severity Reaction Reaction Severity Status morphine Hallucinosis Nausea Active penicillins Itching Hives Active traMADol Unable to assess criticality Moderate Nausea Itchy Active Functional Status 11/10/24 Neurological Symptoms None ADLs Minimal assistance Facial Symmetry Symmetric Gait Steady Swallowing Difficulty None Level of Consciousness Neuro Alert Hallucinations Present None History of Fall in Last 3 Months Marks N o Presence of Secondary Diagnosis Marks Ye s Use of Ambulatory Aid Marks None/bedrest /nurse assist IV/Heparin Lock Fall Risk Marks Yes Gait/Transferring Fall Risk Marks Normal /bedrest/immobile Mental Status Fall Risk Marks Oriented t o own ability Marks Fall Risk Score 35 Marks Fall Risk Low Risk Speech Pattern Clear Immunizations Given and Recorded Vaccine Date Status [...] spit 5 to 10 cc q4H, Pharmacy: [facility]/pharmacy #[id number] Start Date: 11/01/24 Status: Ordered Colace 100 mg oral capsule Start: 11/10/24 2:02:00 PM EST, 2 cap, PO, Daily, Disp# 60 cap, PRN: as needed for constipation, Pharmacy: [facility]/pharmacy #[id number] Start Date: 11/10/24 Status: Ordered fulvestrant 50 mg/mL intramuscular solution Start: 10/05/24 12:50:00 PM EST, 1 mL, IM, [id number] Start Date: 10/05/24 Status: Ordered Levemir Vial [...] benadryl and maaolx/water into a solution., Pharmacy: [facility]/pharmacy #[id number] Start Date: 11/01/24 Status: Ordered metoprolol succinate (ER) 25 mg, XL tablet, PO, 11/10/24 9:00:00 AM EST, 11/10/24 2:15:12 PM EST, Extended Release product. Hold for SBP less than 110 or HR less than 60., 11/08/24 19:46:00 EST Start Date: 11/10/24 Stop Date: 11/10/24 Status: Completed metoprolol succinate (ER) 100 mg, tablet, PO, 11/09/24 10:00:00 PM EST, 11/09/24 9:14:14 PM EST, Hold for SBP less than 110 or HRless than 60, 11/08/24 19:48:00 EST Start Date: 11/09/24 Stop Date: 11/09/24 Status: Completed metoprolol succinate 100 mg oral tablet, extended release Start: 01/26/22 3:27:00 PM EDT, 125 mg =, PO, Daily, 100mg at HS 25mg in AM Start Date: 01/26/22 Status: Ordered MiraLax oral powder for reconstitution Start: 10/09/24 10:47:00 AM EST, 17 g =, PO, Daily, Disp# 14 each, Pharmacy: [facility] Start Date: 10/09/24 Stop Date: 10/23/24 Status: Ordered NovoLOG Sliding Scale Low Dose Range: SSI, injection, subQ, 11/09/24 10:00:00 PM EST, 11/09/24 9:50:01 PM EST, 11/08/24 19:02:00 EST Start Date: 11/09/24 Stop Date: 11/09/24 Status: Completed ondansetron Start: 10/05/24 12:51:00 PM EST, 4 mg =, PO, q8h Start Date: 10/05/24 Status: Ordered oxyCODONE 10 mg oral tablet, extended release Start: 11/01/24 1:08:00 PM EST, See Instructions, Disp# 30 tab, Refills: 0, 1 tab PO at bedtime, Pharmacy: [facility]/pharmacy #[id number] Start Date: 11/01/24 Status: Ordered oxyCODONE 5 mg oral tablet Start: 10/19/24 4:58:00 PM EST, 5 mg =, PO, q4h, Disp# 180 tab, Refills: 0, PRN: as needed for pain, [id number] Start Date: 10/19/24 Status: Ordered OxyCONTIN 10 mg oral tablet, extended release Start: 10/30/24 9:42:00 AM EST, 15 each, 0 Refill(s), TAKE 1 TABLET BY MOUTH EVERYDAY AT BEDTIME Start Date: 10/30/24 Status: Ordered pantoprazole 20 mg oral delayed release tablet Start: 11/01/24 1:04:00 PM EST, 1 tab, PO, Daily, Disp# 60 tab, Refills: 2, [id number] Start Date: 11/01/24 Status: Ordered Peridex 0.12% mucous membrane liquid Start: 10/29/24 2:06:00 PM EST, 15 mL, swish + spit, bid, Disp# 900 mL, Refills: 1, Swish and spit;do not swallow, [id number] Start Date: 10/29/24 Stop Date: 12/28/24 [...] tab daily Start Date: 01/26/22 Status: Ordered Mental Status 11/08/24 Communication Barrier Present No Primary Language Ugandan Problem List Condition Confirmation Course Effective Dates [...] Effective Dates Health Status Clinical Service Informant Mass of floor of mouth Discharge Diagnosis 11/08/24 Non-Specified Other acute postprocedural pain Discharge Diagnosis 11/08/24 Non-Specified Procedures Procedure Date Related Diagnosis Body [...] Completed Results Laboratory List Name Date Glucose (POCT). 11/10/24 Glucose (POCT). 11/10/24 Automated Differential. 11/10/24 Basic Metabolic Panel. (BMP.) 11/10/24 CBC w/ Diff. 11/10/24 Ferritin. 11/10/24 Iron Level and TIBC. 11/10/24 Glucose (POCT). 11/09/24 Automated Differential. 11/09/24 Basic Metabolic Panel. (BMP.) 11/09/24 CBC w/ Diff. 11/09/24 Hemoglobin A1c w/eAG. 11/09/24 Automated Differential. 11/08/24 CBC w/ Diff. 11/08/24 PT. (PT (with INR).) 11/08/24 Most recent to oldest [Reference Range]: 1 2 3 eGFR CKD-EPI [>=60 mL/min/1.73 m2] 86 mL/min/1.73 m2 (11/10/24 7:35 AM) 73 mL/min/1.73 m2 (11/09/24 6:59 AM) Blood Glucose [70-120 mg/dL] 196 mg/dL 1 *HI* (11/09/24 9:50 PM) Estimated CrCl 44.51 mL/min (11/10/24 8:16 AM) 38.95 mL/min (11/09/24 7:57 AM) Glucose (POCT) [50-99 mg/dL] 306 mg/dL 2, 3 *HI* (11/10/24 12:17 PM) 228 mg/dL 4, 5 *HI* (11/10/24 8:09 AM) 196 mg/dL 6, 7 *HI* (11/09/24 9:44 PM) RDW-CV [11.5-14.2 %] 11.9 % (11/10/24 7:35 AM) 11.7 % (11/09/24 6:59 AM) 11.9 % (11/08/24 11:51 AM) RDW-SD 39 *NA* (11/10/24 7:35 AM) 38 *NA* (11/09/24 6:59 AM) 39 *NA* (11/08/24 11:51 AM) CO2 [22-29 mmol/L] 30 mmol/L *HI* (11/10/24 7:35 AM) 27 mmol/L (11/09/24 6:59 AM) MPV [9.0-12.2 fL] 9.1 fL (11/10/24 7:35 AM) 8.9 fL *LOW* (11/09/24 6:59 AM) 9.1 fL (11/08/24 11:51 AM) Immature Gran% 0.4 % *NA* (11/10/24 7:35 AM) 0.4 % *NA* (11/09/24 6:59 AM) 0.5 % *NA* (11/08/24 11:51 AM) Neut% 75.8 % *NA* (11/10/24 7:35 AM) 72.9 % *NA* (11/09/24 6:59 AM) 78.9 % *NA* (11/08/24 11:51 AM) Lymph% 9.7 % *NA* (11/10/24 7:35 AM) 10.5 % *NA* (11/09/24 6:59 AM) 8.0 % *NA* (11/08/24 11:51 AM) [place]% 11.7 % *NA* (11/10/24 7:35 AM) 13.9 % *NA* (11/09/24 6:59 AM) 10.9 % *NA* (11/08/24 11:51 AM) Baso% 0.2 % *NA* (11/10/24 7:35 AM) 0.2 % *NA* (11/09/24 6:59 AM) 0.3 % *NA* (11/08/24 11:51 AM) Eos% 2.2 % *NA* (11/10/24 7:35 AM) 2.1 % *NA* (11/09/24 6:59 AM) 1.4 % *NA* (11/08/24 11:51 AM) Immat Gran, Abs [0.00-0.40 K/uL] 0.02 K/uL (11/10/24 7:35 AM) 0.02 K/uL (11/09/24 6:59 AM) 0.03 K/uL (11/08/24 11:51 AM) Neut, Abs [2.00-7.70 K/uL] 4.23 K/uL (11/10/24 7:35 AM) 4.10 K/uL (11/09/24 6:59 AM) 4.91 K/uL (11/08/24 11:51 AM) Lymph, Abs [1.00-3.40 K/uL] 0.54 K/uL *LOW* (11/10/24 7:35 AM) 0.59 K/uL *LOW* (11/09/24 6:59 AM) 0.50 K/uL *LOW* (11/08/24 11:51 AM) [place], Abs [0.00-1.00 K/uL] 0.65 K/uL (11/10/24 7:35 AM) 0.78 K/uL (11/09/24 6:59 AM) 0.68 K/uL (11/08/24 11:51 AM) Baso, Abs [0.00-0.10 K/uL] 0.01 K/uL (11/10/24 7:35 AM) 0.01 K/uL (11/09/24 6:59 AM) 0.02 K/uL (11/08/24 11:51 AM) Eos, Abs [0.00-0.50 K/uL] 0.12 K/uL (11/10/24 7:35 AM) 0.12 K/uL (11/09/24 6:59 AM) 0.09 K/uL (11/08/24 11:51 AM) Est Avg Glucose [<=125.0 mg/dL] 182.9 mg/dL *HI* (11/09/24 6:59 AM) Anion Gap [5-14 mmol/L] 8 mmol/L (11/10/24 7:35 AM) 8 mmol/L (11/09/24 6:59 AM) BUN [6-23 mg/dL] 15 mg/dL (11/10/24 7:35 AM) 15 mg/dL (11/09/24 6:59 AM) Ca [8.4-10.2 mg/dL] 9.1 mg/dL (11/10/24 7:35 AM) 9.2 mg/dL (11/09/24 6:59 AM) Cl- [98-107 mmol/L] 98 mmol/L (11/10/24 7:35 AM) 100 mmol/L (11/09/24 6:59 AM) Cret [0.60-1.00 mg/dL] 0.70 mg/dL (11/10/24 7:35 AM) 0.80 mg/dL (11/09/24 6:59 AM) Iron [33-151 mcg/dL] 25 mcg/dL *LOW* (11/10/24 7:35 AM) Ferritin [13.0-150.0 ng/mL] 285.4 ng/mL *HI* (11/10/24 7:35 AM) HbA1c [4.0-6.4 %] 8.0 % *HI* (11/09/24 6:59 AM) Glu [74-109 mg/dL] 235 mg/dL 8 *HI* (11/10/24 7:35 AM) 142 mg/dL 9 *HI* (11/09/24 6:59 AM) Hct [35.0-44.0 %] 28.9 % *LOW* (11/10/24 7:35 AM) 28.7 % *LOW* (11/09/24 6:59 AM) 27.5 % *LOW* (11/08/24 11:51 AM) Hgb [13.0-17.0 g/dL] 9.4 g/dL *LOW* (11/10/24 7:35 AM) 9.6 g/dL *LOW* (11/09/24 6:59 AM) 9.2 g/dL *LOW* (11/08/24 11:51 AM) INR [0.9-1.1] 1.1 10 (11/08/24 11:51 AM) K [3.5-5.1 mmol/L] 4.4 mmol/L (11/10/24 7:35 AM) 4.3 mmol/L (11/09/24 6:59 AM) MCH [28.0-33.0 pg] 29.1 pg (11/10/24 7:35 AM) 29.5 pg (11/09/24 6:59 AM) 29.5 pg (11/08/24 11:51 AM) MCHC [32.0-36.0 g/dL] 32.5 g/dL (11/10/24 7:35 AM) 33.4 g/dL (11/09/24 6:59 AM) 33.5 g/dL (11/08/24 11:51 AM) MCV [81.0-96.0 fL] 89.5 fL (11/10/24 7:35 AM) 88.3 fL (11/09/24 6:59 AM) 88.1 fL (11/08/24 11:51 AM) Na [136-145 mmol/L] 136 mmol/L (11/10/24 7:35 AM) 135 mmol/L *LOW* (11/09/24 6:59 AM) Plts [150-350 K/uL] 215 K/uL (11/10/24 7:35 AM) 234 K/uL (11/09/24 6:59 AM) 212 K/uL (11/08/24 11:51 AM) PT [12.0-14.2 seconds] 14.6 seconds *HI* (11/08/24 11:51 AM) RBC [3.90-5.00 M/uL] 3.23 M/uL *LOW* (11/10/24 7:35 AM) 3.25 M/uL *LOW* (11/09/24 6:59 AM) 3.12 M/uL *LOW* (11/08/24 11:51 AM) Fe Sat [15-55 %] 16 % (11/10/24 7:35 AM) Total IBC [236-425 ug/dL] 156 ug/dL *LOW* (11/10/24 7:35 AM) Transferrin [200.0-360.0 mg/dL] 132.0 mg/dL *LOW* (11/10/24 7:35 AM) WBC [4.00-10.40 K/uL] 5.57 K/uL (11/10/24 7:35 AM) 5.62 K/uL (11/09/24 6:59 AM) 6.23 K/uL (11/08/24 11:51 AM) 1Result Comment: Performed at: [facility], [address], [place], [id number] 2Interpretive Data: The Reference Range listed is for fasting blood Glucose only. 3Result Comment: Meter: [phone]~Glaze Wiper: [phone] Luis Carlos Choi 4Interpretive Data: The Reference Range listed is for fasting blood Glucose only. 5Result Comment: Meter: [phone]~Glaze Wiper: [id number] Raissa Espinosa 6Result Comment: Meter: [phone]~Glaze Wiper: [phone] Ya Ferguson 7Interpretive Data: The Reference Range listed is for fasting blood Glucose only. 8Interpretive Data: (NOTE): ADA recommendation for FASTING Serum/Plasma Glucose: Normal: 70-100 mg/dL Prediabetes: 100-125 mg/dL Diabetes: 126 mg/dL or higher 9Interpretive Data: (NOTE): ADA recommendation for FASTING Serum/Plasma Glucose: Normal: 70-100 mg/dL Prediabetes: 100-125 mg/dL Diabetes: 126 mg/dL or higher 10Interpretive Data: Suggested therapeutic range for low-intensity Coumadin therapy for venous thromboembolism is INR 2.0-3.0 (ex: atrial fibrillation, history of TIA/stroke). For high risk patients, the suggested therapeutic range is INR 2.5-3.5 (ex: mechanical prosthetic valves). Radiology Reports * Exam Date Time Procedure Performing Provider Status 11/08/24 3:[address] Abdomen w/o Contrast Andrew Urias; Final Notes: (CT Abdomen w/o Contrast) Reason For Exam: Pain s/p G tube placement today 11/08/24. Evaluate for acute pathology/ placement. CT Abdomen w/o Contrast EXAMINATION: CT Abdomen w/o Contrast CLINICAL HISTORY: K13.79: Other lesions of oral mucosa; K13.79: Other lesions of oral mucosa; Pain s/p G tube placement today 11/08/24. Evaluate for acute pathology/ placement. COMPARISON: CT chest for radiation planning 11/01/2024 Outside PET/CT 10/17/2024 TECHNIQUE: CT Abdomen w/o Contrast DOSE: Total Reported Dose Length Product (DLP) = 210.76 mGy.cm FINDINGS: Lower chest: No consolidation. Pleural thickening of the lingula likely reflective of postradiationchange. Multiple solid pulmonary nodules bilaterally, increased in size and distribution from PET/CT 10/17/2024. Index right lower lobe nodule measures 1 cm (series 3 image 15) versus 0.7 cm previously. No pleural effusion. Dependent atelectasis. Changes consistent with left mastectomy. Atherosclerosis of the aorta and coronary arteries. Abdomen: Detailed evaluation of the solid organ parenchyma is limited on this noncontrast exam Liver, Gallbladder \\T\\ bile ducts: Liver parenchyma is homogeneous for technique. The gallbladder is normal. No evidence of biliary dilation. Pancreas: No inflammatory changes. Mild atrophy, similar in appearance. Spleen: Normal. Adrenals: Normal. Kidneys, collecting system and ureters: Relative right renal atrophy, unchanged. No hydronephrosis. Retroperitoneum, lymph nodes, and vessels: Atherosclerosis of the aorta and its branches with predominantly mild luminal narrowing. No discrete retroperitoneal lymphadenopathy. Bowel \\T\\ Mesentery: Percutaneous gastrostomy tube in appropriate position, with balloon in the gastric body. Small volume enteric contrast within the stomach and bowel. Foci of free and subcutaneousair, likely postprocedural. Visualized bowel is nonobstructed. Upper pelvis: Unremarkable for technique. Osseous and body wall: As above. Multilevel compression deformity of the lumbar spine, similar in appearance. IMPRESSION: 1. Gastrostomy tube in appropriate position. 2. Progression of pulmonary metastatic disease from PET/CT 10/17/2024. [place] Act 112: This study does not meet the requirements of [place] Act 112. 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 head and neck cancer, malnutrition PROVIDERS: Attending Physician: Dr. Michele Kuamr Resident Physician: None Physician Rubber Goods Inspector: None INTRA-PROCEDURAL MEDICATIONS: Contrast Type : Omnipaque 300 Contrast Volume in ml:25.00 CONSCIOUS (MODERATE) SEDATIONS: Sedation 1:versed Sedation Volume 1:1.5mg Sedation 2:fentanyl Sedation Volume 2:25mcg Sedation Start Time:1255 Sedation End Time:1330 Sedation Total Time:35min SEDATION: The risks and benefits of moderate sedation were discussed with the patient as part of the procedural informed consent process. Physician supervised intra- procedure moderate sedation was performed for the time as stated below using a trained independent observer who monitored the patient's level ofsedation and physiologic status throughout the procedure. Pre-procedure and post-procedure sedationassessments were performed in accordance with institutional sedation policy and are documented separately in the medical record. DOSIMETRY: Fluoroscopy Time: 6.30 minutes Cumulative Dose: 40.3 mGy TECHNIQUE: Following written consent and verification of the correct patient identity and planned procedure, the patient was placed in the supine position and the left upper quadrant was prepped and draped in usual sterile fashion. Under fluoroscopic guidance a 5Fr catheter was placed into the stomach as a román ogastric tube. Glucagon was administered intravenously. The stomach was then distended by injectionof air through the NG tube. Percutaneous puncture into the body of the stomach with several T-bars was performed under fluoroscopic guidance and contrast injected to confirm intraluminal position. The T-Bars were deployed in a triangular pattern around the initial access. Puncture of the gastric lumen with an 18 gauge needle was performed between the T-Bars. Contrast was injected confirming intraluminal position within the stomach. Over a 0.035 inch Extra-Stiff Amplatz wire, an 8mm x 80mm Conquest balloon catheter with an18 Egyptian gastrostomy tube loaded on the balloon portion of the catheter was positioned over the wire, crossing the stoma. The balloon was inflated, dilating the ostomy tract. As the balloon was deflated, the catheter/gastrostomy combination was advanced into the gastric lumen. The balloon was inflated with 10 ml of sterile water and opposed to the anterior gastric wall.The wire and balloon catheter were removed. The anchoring disk was opposed to the skin and locked in place. Contrast was injected into the newly placed tube. The gastrostomy tube was flushed and capped. Nasogastric tube was removed. FINDINGS: 1. Contrast injection via T-Bar access and 18-gauge access needle confirming intraluminal position of the access needles. 2. Contrast injection via the newly placed gastrostomy tube confirming intraluminal position. No extraluminal contrast was identified. IMPRESSION: 1. Placement of an 18 Egyptian gastrostomy tube. 2. Gastrostomy tube may be used immediately. 3. The patient will be scheduled for routine tube change in 6 months. ATTENDING PHYSICIAN ATTESTATION: The procedure was performed by the signing faculty. Workstation ID: [id number] Final Dictated by:MD Kumar Daniel J Dictated DT/TM:11/08/2024 2:00 Signed by:MD Kumar Daniel J Signed (Electronic Signature):11/08/2024 1:58 p IR G Tube Placement ADDENDUM BEGINS Patient experienced severe pain after the procedure in the PACU. A diagnostic CT was performed and demonstrated appropriate tube position and no complication. Patient to be observed under hospitalistcare for pain control. 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 head and neck cancer, malnutrition PROVIDERS: Attending Physician: Dr. Michele Kumar Resident Physician: None Physician Rubber Goods Inspector: None INTRA-PROCEDURAL MEDICATIONS: Contrast Type : Omnipaque 300 Contrast Volume in ml:25.00 CONSCIOUS (MODERATE) SEDATIONS: Sedation 1:versed Sedation Volume 1:1.5mg Sedation 2:fentanyl Sedation Volume 2:25mcg Sedation Start Time:1255 Sedation End Time:1330 Sedation Total Time:35min SEDATION: The risks and benefits of moderate sedation were discussed with the patient as part of the procedural informed consent process. Physician supervised intra- procedure moderate sedation was performed for the time as stated below using a trained independent observer who monitored the patient's level ofsedation and physiologic status throughout the procedure. Pre-procedure and post-procedure sedationassessments were performed in accordance with institutional sedation policy and are documented separately in the medical record. DOSIMETRY: Fluoroscopy Time: 6.30 minutes Cumulative Dose: 40.3 mGy TECHNIQUE: Following written consent and verification of the correct patient identity and planned procedure, the patient was placed in the supine position and the left upper quadrant was prepped and draped in usual sterile fashion. Under fluoroscopic guidance a 5Fr catheter was placed into the stomach as a román ogastric tube. Glucagon was administered intravenously. The stomach was then distended by injectionof air through the NG tube. Percutaneous puncture into the body of the stomach with several T-bars was performed under fluoroscopic guidance and contrast injected to confirm intraluminal position. The T-Bars were deployed in a triangular pattern around the initial access. Puncture of the gastric lumen with an 18 gauge needle was performed between the T-Bars. Contrast was injected confirming intraluminal position within the stomach. Over a 0.035 inch Extra-Stiff Amplatz wire, an 8mm x 80mm Conquest balloon catheter with an18 Egyptian gastrostomy tube loaded on the balloon portion of the catheter was positioned over the wire, crossing the stoma. The balloon was inflated, dilating the ostomy tract. As the balloon was deflated, the catheter/gastrostomy combination was advanced into the gastric lumen. The balloon was inflated with 10 ml of sterile water and opposed to the anterior gastric wall.The wire and balloon catheter were removed. The anchoring disk was opposed to the skin and locked in place. Contrast was injected into the newly placed tube. The gastrostomy tube was flushed and capped. Nasogastric tube was removed. FINDINGS: 1. Contrast injection via T-Bar access and 18-gauge access needle confirming intraluminal position of the access needles. 2. Contrast injection via the newly placed gastrostomy tube confirming intraluminal position. No extraluminal contrast was identified. IMPRESSION: 1. Placement of an 18 Egyptian gastrostomy tube. 2. Gastrostomy tube may be used immediately. 3. The patient will be scheduled for routine tube change in 6 months. ATTENDING PHYSICIAN ATTESTATION: The procedure was performed by the signing faculty. Workstation ID: [id number] Final Dictated by:MD Kumar Daniel J Dictated DT/TM:11/08/2024 2:00 Signed by:MD Kumar Daniel J Signed (Electronic Signature):11/08/2024 1:58 p IR Sedation Moderate > 5 years ADDENDUM BEGINS Patient experienced severe pain after the procedure in the PACU. A diagnostic CT was performed and demonstrated appropriate tube position and no complication. Patient to be observed under hospitalistcare for pain control. Workstation ID: [id number] ADDENDUM ENDS Final Dictated by:MD Kumar Daniel J Dictated DT/TM:11/08/2024 4:38 Signed by:MD Kumar Daniel J Signed (Electronic Signature):11/08/2024 4:38 p Vital Signs Most recent to oldest [Reference Range]: 1 2 3 Height 154.94 cm (11/08/24 11:55 AM) Patient Weight 49.8 kg (11/10/24 5:05 AM) 47.3 kg (11/09/24 4:45 AM) 46.3 kg (11/08/24 11:55 AM) Body Mass Index 19.7 kg/m2 (11/09/24 4:45 AM) 19.29 kg/m2 (11/08/24 11:55 AM) Temperature [36.5-37.9 DegC] 36.9 DegC (11/10/24 5:04 AM) 36.2 DegC *LOW* (11/10/24 12:05 AM) 36.5 DegC (11/09/24 8:39 PM) Heart Rate 87 bpm (11/10/24 2:15 PM) 85 bpm (1/4/25 5:04 AM) 96 bpm (11/10/24 12:05 AM) Respiratory Rate 18 br/min (11/10/24 5:04 AM) 18 br/min (11/10/24 12:05 AM) 18 br/min (11/09/24 8:39 PM) Blood Pressure 148/60mmHg (11/10/24 5:04 AM) 141/62mmHg (11/10/24 12:05 AM) 167/63mmHg (11/09/24 9:14 PM) Mean Blood Pressure 85 mmHg (11/10/24 5:04 AM) 96 mmHg (11/09/24 8:39 PM) 81 mmHg (11/09/24 12:27 AM) Cuff Pulse Pressure 88 mmHg (11/10/24 5:04 AM) 79 mmHg (11/10/24 12:05 AM) 103 mmHg (11/09/24 8:39 PM) BP Location # 1 Right Arm (11/10/24 5:04 AM) Right Arm (11/10/24 12:05 AM) Right Arm (11/09/24 8:39 PM) Social History Social History Type Response Smoking Status Never smoked cigaret janes Sex Sex Representation Female (finding) History and physical note * CROW Vaughn Angela D: PERFORM CROW Vaughn Angela D: PERFORM Event Display: H&P Authored Date: [id number] Name:CRYSTAL REYNOLDS Patient Number:[id number] :1940 Date of Service:11/08/2024 History of Present Illness Patient is an 84-year-old female with a past medical history of insulin dependent diabetes, hypertension, hypothyroidism, history of left breast breast cancer s/p bilateral mastectomy, 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 Patient reports a 7 to 8 sharp pain at incision site on a pain scale 0 to 10.Patient denies headache, dizziness, nausea, vomiting, chest pain, shortness of breath, urinary or bowel problems,cough, fever or chills. Patient afebrile, hemodynamically stable. Review of Systems Review of systems is done and is negative except as mentioned above in the HPI. Physical Exam: Input and Output - Last 24 hours (Last 8 hours) Total In: 65 (65) Total Out: 0 (0) Total Balance: 65 (65) Gastrostomy Tube Middle, Anterior, Abdomen 11/08/2024:10 (10) MED INTAKE:55 (55) GENERAL: No acute distress, non-toxic appearing EYES: No ecchymosis noted ENT: Nares patent, mucous membranes moist CARDIOVASCULAR:regularwithout murmur PULMONARY:Lungs CTA bilaterally GI:Abdomen,soft,tender topalpation atg tubesurgical incision,dressingintact with slightbloody drainage EXTREMITY:without edema SKIN: No new rash noted PSYCHIATRIC: Appropriate mood and affect NEUROLOGICAL: Awake, alert, and oriented x3. No new focal deficits appreciated. MUSCULOSKELETAL:Moves all extremities. Lab Results - Last 24hrs Glucose (POCT):160 mg/dLHigh (11/08/24 15:21:00) WBC: 6.23 K/uL (11/08/24 11:51:00) Hgb:9.2 g/dLLow (11/08/24 11:51:00) Hct:27.5 %Low (11/08/24 11:51:00) RBC:3.12 M/uLLow (11/08/24 11:51:00) MCV: 88.1 fL (11/08/24 11:51:00) MCHC: 33.5 g/dL (11/08/24 11:51:00) MCH: 29.5 pg (11/08/24 11:51:00) RDW-CV: 11.9 % (11/08/24 11:51:00) RDW-SD: 39 (11/08/24 11:51:00) Plts: 212 K/uL (11/08/24 11:51:00) MPV: 9.1 fL (11/08/24 11:51:00) Immature Gran%: 0.5 % (11/08/24 11:51:00) Neut%: 78.9 % (11/08/24 11:51:00) Lymph%: 8 % (11/08/24 11:51:00) [place]%: 10.9 % (11/08/24 11:51:00) Baso%: 0.3 % (11/08/24 11:51:00) Eos%: 1.4 % (11/08/24 11:51:00) Immat Gran, Abs: 0.03 K/uL (11/08/24 11:51:00) Neut, Abs: 4.91 K/uL (11/08/24 11:51:00) Lymph, Abs:0.5 K/uLLow (11/08/24 11:51:00) [place], Abs: 0.68 K/uL (11/08/24 11:51:00) Baso, Abs: 0.02 K/uL (11/08/24 11:51:00) Eos, Abs: 0.09 K/uL (11/08/24 11:51:00) INR: 1.1 (11/08/24 11:51:00) PT:14.6 secondsHigh (11/08/24 11:51:00) Diagnostic Results:_ (11/08/2024 15:[address] Abdomen w/o Contrast) IMPRESSION: 1. Gastrostomy tube in appropriate position. 2. Progression of pulmonary metastatic disease from PET/CT 10/17/2024. [1] (11/08/2024 13:37 EST IR G Tube Placement) IMPRESSION: 1. Placement of an 18 Egyptian gastrostomy tube. 2. Gastrostomy tube may be used immediately. 3. The patient will be scheduled for routine tube change in 6 months. [2] Assessment/Plan Post procedural pain s/p g tube placement by IR today (POA) Pain control Ok to use G tube per IR, as above Tube feedings started Jevity 1.5, goal rate 45, start at 10 cc per hour and increase every 4 hours Patient also ordered diet, able to eat p.o. Nutrition consult DM Monitor CBGs, start SSI, hold home insulin regimen, resume at discharge Chronic medical comorbidities: as above in HPI Continue with home medicines with appropriate changes -Hold Plavix resumetomorrow DVT prophylaxis: hold due to procedure, reevaluate tomorrow Anticipated discharge and barriers to discharge: pending improvement of symptoms Code status:Full code. Discussed with patient and she wishes to be a full code. Plan discussed with patient andSukh petit, son, Chago, anddaughter, Kassie, andallin agreement with plan. Patient gave verbal permission to speak with , daughter, and son. All questions answered to the best of my ability. Medical decision making: Moderate Non-critical care Shared/Split Visit The supervising physician, Rosalba Azul _ minutes of discrete time performing the activities of this visit. The LIME KILN TENDER, Roderick Dunham 45 minutes of discrete time performing the activities of this visit. Activities include: -Preparing to see the patient -Obtaining and/or reviewing obtained history -Reviewing prior medical records -Performing a medically appropriate examination and/or evaluation -Ordering medications, tests or procedures -Monitoring response for the ordered treatment -Independently interpreting results -Referring and communicating with other healthcare professionals -Care coordination -Documenting clinical information in the electronic or other health record -Counseling and education the patient/family/caregiver Attestation I have personally seen and examined the patient. I did not see the patient at the same time as the nurse practitioner. I performed my own independent history and physical exam. The medical record and all of the above studies have been reviewed. Please refer to the note as detailed above for a full past medical history. Past surgical history, social history, family history, active medication list in allergies have been reviewed in the chart. After discussing with the advanced practitioner, I fully agree with the assessment and plan as documented above Seen after the procedure Admittedafter G-tube placement due topain. Spoke to IR (Dr. Kumar)they will see her again in the morning Reporting pain all over the body. Will start her on IV Dilaudid, OxyContinscheduled In casesymptoms do not improve in the next 24 hoursconsult pain team/palliative for further eval Start tube feeding, Nutrition eval Will need TF at home? Spoke to family at bedside 60minutes were spent in the care of this patient. More than half of my time was spent counselling the patient or family and coordinating care for the patient on the floor.Patient's questions and concerns were answered to the best of my knowledge & ability. This chart was completed in part utilizing [employer] Voice Recognition Software. Grammatical errors, random word insertions, pronoun errors, and incomplete sentences are an occasional consequence of this system due to software limitations, ambient noise, and hardware issues. Any formal questions orconcerns about the content, text, or information contained within the body of this dictation shouldbe directly addressed to the provider for clarification. Problem List/Past Medical History Ongoing Anorexia symptom [...] mediastinal lymph nodebilateral cataract surgery Medications Inpatient acetaminophen, 650 mg= 2 tab, PO, q4h, PRN heparin flush(heparin flush 100 units/mL), 5 mL, intracatheter, As indicated, PRN HYDROmorphone(Dilaudid), 0.2 mg= 0.4 mL, IV Push, q4h, PRN HYDROmorphone(Dilaudid), 0.2 mg= 0.4 mL, IV Push, ONCE ondansetron(Zofran), 4 mg= 2 mL, IV Push, q6h, PRN oxyCODONE, 5 mg= 1 tab, PO, q4h, PRN Sodium Chloride 0.9% 500 mL(NS 500 mL), 500 mL, IV Fluid Home acetaminophen(Tylenol 325 mg oral tablet), 650 [...] mL oral liquid), See Instructions, 3 refills fulvestrant(fulvestrant 50 mg/mL intramuscular solution), 50 mg= 1 mL, IM, [id number] insulin detemir(Levemir Vial 100 units/mL subcutaneous solution), 6 unit, subQ, qhs levothyroxine(levothyroxine 88 mcg (0.088 mg) oral tablet), 88 mcg= 1 tab, PO, Daily lidocaine topical(Lidocaine Viscous 2% mucous membrane solution), See Instructions, 3 refills loratadine(Allergy Relief), 10 mg, PO, Daily metoprolol(metoprolol succinate 100 mg oral tablet, extended release), 125 mg, PO, Daily ondansetron, 4 mg, PO, q8h oxyCODONE(OxyCONTIN 10 mg oral tablet, extended release) oxyCODONE(oxyCODONE 10 mg oral tablet, extended release), See Instructions oxyCODONE(oxyCODONE 5 mg oral tablet), 5 mg, PO, q4h, PRN pantoprazole(pantoprazole 20 mg oral delayed release tablet), 20 mg= 1 tab, PO, Daily, 2 refills polyethylene glycol 3350(MiraLax oral powder for reconstitution), 17 g, PO, Daily vitamin E(vitamin E 400 intl units oral capsule), 400 Int_Unit= 1 cap, PO, Daily Allergies traMADol (Moderate)Nausea, Itchy morphineHallucinosis, Nausea penicillinsItching, Hives Social History Smoking Status Never smoked cigarettes Illicit drugs: denies use Alcohol: denies use Family History Father: heart disease Mother: colon cancer, diabetes mellitus, hypertension Immunizations Vaccine Date Status SARS-CoV-2 mRNA-1273 (6y+ bivalent) 09/09/2022 Recorded SARS-CoV-2 (COVID-19) mRNA BNT-162b2 vax 09/08/2021 Recorded SARS-CoV-2 (COVID-19) mRNA-1273 vaccine 01/02/2021 Recorded SARS-CoV-2 (COVID-19) mRNA-1273 vaccine 12/05/2020 Recorded influenza virus vaccine, H1N1 09/13/2009 Recorded [1]CT Abdomen w/o Contrast; MD Rhonda, [facility] 11/08/2024 15:59 EST [2]IR G Tube Placement; MD José, Michele Washington 11/08/2024 13:37 EST Electronic Signature on File Electronically Reviewed/Signed by: CROW Hitchcock Hospitalist Electronically Reviewed/Signed by: Allyssa Maldonadoigntabatha Signature Dt/Tm: 11/08/2024 07:27PM Hospitalist ADB * MELANIE Edgar, Génesis: PERFORM Event Display: Radiology H&P Authored Date: [id number] RADIOLOGY HISTORY AND PHYSICAL RADIOLOGY HISTORY AND PHYSICAL - SEDATION Name: CRYSTAL REYNOLDS Patient Number: [id number] : 1940 Date of Service: 11/08/2024 PLANNED PROCEDURE: Gastrostomy tube placement Chief Complaint: Head and neck cancer, gastrostomy tube for nutrition History of Present Illness: The patient is an 84 [id number] with prior CVA, diabetes and hypertension. 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 She now has a deep right FOM/tongue lesion abuttingthe mandible. The plan is for her to begin chemotherapy and radiation. She was referred for gastrostomy tube placement due to dysphagia. Past Medical History: Problems Active Palliativecarebyspecialist Anorexiasymptom Constipationduetoopioidtherapy Neoplasmrelatedpain Squamouscellcanceroftongue Massoffloorofmouth S/Potolaryngologicalsurgery,follow-upexam Squamouscellcarcinomaoffloorofmouth Essentialtremor Occlusion,artery,cerebral Breastcancer Diabetes Seasonalallergies Hypertension Hyperlipidemia Hypothyroidism Surgical History: Procedure History Procedure Procedure Date Comments bilateral cataract surgery previous biopsy of the mediastinal lymph node bilateral mastectomies Colonoscopy Detached retina s/p L eye repair Hysterectomy 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 In January 2022 she underwent partial glossectomy by OMFS with primary closure 01/2022 Anesthetic History: Prior difficulty: _ Yes X No If yes, provider details: _ Allergies and Sensitivities: traMADol(Itchy) traMADol(Nausea) penicillins(Hives) penicillins(Itching) morphine(Nausea) morphine(Hallucinosis) Current Home Meds: (Last Updated 11/08 12:03) acetaminophen (Tylenol 325 mg oral tablet) 650 [...] and spit 5 to 10 cc q4H fulvestrant (fulvestrant 50 mg/mL intramuscular solution) 50 mg IM [id number] HAZARDOUS MEDICATION | injection: Nursing - teal, Pharmacy - green - A Barbie 10/05 12:50 insulin detemir (Levemir Vial [...] in AM ondansetron 4 mg PO q8h oxyCODONE (oxyCODONE 5 mg oral tablet) 5 mg PO q4h PRN: as needed for pain oxyCODONE (OxyCONTIN 10 mg oral tablet, extended release) 15 each, 0 Refill(s), TAKE 1 TABLET BY MOUTH EVERYDAY AT BEDTIME Responsible Provider: BRUCE MOSES Bupp 10/30 09:42 oxyCODONE (oxyCODONE 10 mg oral tablet, extended release) 1 tab PO at bedtime pantoprazole (pantoprazole 20 mg oral delayed release tablet) 20 mg PO Daily polyethylene glycol 3350 (MiraLax oral powder for reconstitution) 17 g PO Daily vitamin E (vitamin E 400 intl units oral capsule) 400 Int_Unit PO Daily Patient states 450 mg, 1 tab daily Vitals: Last Updated 11/08/24 11:55 Weights: Last Updated 11/08/24 11:55 Date Temp Pulse BP RR SpO2 FIO2 Date Wt(kg) Wt(lb) 11/08 11:55 36.0 148/56 17 97 11/08 11:55 46.3 102 01 11:55 46.3 102 24 Hr Tmax: 36.0 at 11/08 11:55 Initial Wt: 11/08 46.3 kg 102 lb Physical Exam: _ Level of Consciousness/Mental Status: Awake:X Yes _ No Alert: XYes _ No Oriented: X Yes _ No Mental Status: If No, Comment _ Airway: Indicate class, A high score (class 3 or 4) is a predictor of a more difficult intubation. The Mallampati Score _ Class 1: Complete visualization of the soft palate _ Class 2: Complete visualization of the uvula _ Class 3: Visualization of only the base of the uvula X Class 4: Soft palate is not visible at all *Difficult to assess due to pain with the patient opening her mouth Lungs: X Clear _ Rales _ Rhonchi _ Wheeze Heart: X Normal Sinus Rhythm _ Murmur _ Arrhythmia _ List: _ Accessed right chest port [place] Society of Anesthesia Classification: _ I. Normal healthy patient X II. Patient with mild systemic disease _ III. Severe systemic disease _ IV. Severe systemic disease which is threat to life _ V. Moribund, not expected to survive without procedure Sedation Plan: X Moderate _ Reschedule with Anesthesia 30 Day Labs: 11/08/24 1222 Glucose (POCT) 142 H 11/08/24 1151 Neut% 78.9 Lymph% 8.0 [place]% 10.9 Eos% 1.4 Baso% 0.3 Immature Gran% 0.5 Neut, Abs 4.91 Lymph, Abs 0.50 L [place], Abs 0.68 Eos, Abs 0.09 Baso, Abs 0.02 Immat Gran, Abs 0.03 WBC 6.23 RBC 3.12 L Hgb 9.2 L Hct 27.5 L MCV 88.1 MCH 29.5 MCHC 33.5 RDW-CV 11.9 RDW-SD 39 Plts 212 MPV 9.1 INR 1.1 PT 14.6 H Assessment: Gastrostomy tube placement with sedation. Plan: The patient has head and neck cancer and requires a gastrostomy tube for nutrition. She will undergo placement of the tube today with moderate sedation. The procedure was discussed with the patient and consent obtained. X The planned sedation has been discussed with the patient and consent obtained. I have identified the patient, determined the appropriateness of sedation, and have assessed the patient immediately prior to procedure. All medicine(s) and interventions are by my order. Electronic Signature on File Electronically Reviewed/Signed by: TERRENCE Mauro Author Signature Dt/Tm:11/08/2024 12:49 PM [facility] [address] .D/C Summary * MD Maryse, Md Marino: PERFORM Event Display: .D/C Summary Authored Date: [id number] [facility] For questions or further information, call: . Address: [address] [place] [address] [place] [id number] (HOME) [phone] (MOBILE) :1940 . Date of Admission:11/08/2024 Date of Discharge:11/10/2024 Physician:MD Maryse, Md Marino Service:Hospitalist Discharge Disposition:home Primary Care Provider/Phone: MD GEE JAMES E (BUSINESS) [phone] (FAX BUSINESS) Principal Diagnosis: Mass of floor of mouth Other Diagnoses: Other acute postprocedural pain Major Tests and Procedures: Gastrostomy tube placement 11/08/2024 Brief History of Present Illness: History of Present Illness Patient is an 84-year-old female with a past medical history of insulin dependent diabetes, hypertension, hypothyroidism, history of left breast breast cancer s/p bilateral mastectomy, 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 Patient reports a 7 to 8 sharp pain at incision site on a pain scale 0 to 10.Patient denies headache, dizziness, nausea, vomiting, chest pain, shortness of breath, urinary or bowel problems,cough, fever or chills. Patient afebrile, hemodynamically stable. Hospital Course: Patient is 84-year-old female with past medical history of insulin-dependent diabetes mellitus, hypertension, hypothyroidism, history of left breastcancer status post bilateral mastectomy, squamouscell carcinoma of the floor ofmouth status post otolaryngological surgerywith recentPET scan revealing mediastinal lymph node concerning formetastatic disease or recurrence of mouth cancer, right head and neck cancerstatus postG-tube placement by IR yesterdayandwas recommended hospitalist admission forpain control. Statuspost procedural pain s/p g tube placement by IRon11/08/2024 (POA) Pain controlwith Dilaudid Ok to use G tube per IR, as above,will follow-up with IR for further management Tube feedings started Jevity 1.5, goal rate 45, start at 10 cc per hour and increase every 4 hours Patient also ordered diet, able to eat p.o.little bit Nutrition evaluationappreciated Patient will go home withJevity1 can/237 mLbolusvia G-tube 4 times a day. Patient and familyeducated DM Monitor CBGs, start SSI, hold home insulin regimen, resume at discharge Chronic medical comorbidities: as above in HPI Continue with home medicines with appropriate changes -Lacie resume Plavix Generalized weakness: Physical and Occupational Therapy Nutritionrecommendation: Recommendations: For Jevity 1.5, suggest to give one carton (237 mL) four times per day via bolusfeed. This will provide 948 mL of TF per day, 1422 calories, 60 grams protein, 720 mL of free waterfrom the TF. Suggest to give a free water flush of 85 mL before and after each bolus feed. This regimen will meet estimated calorie, protein, and fluids needs. Patient hemodynamicallystablefor discharge,she will continuepain medicationas needed at home. Patient will follow-up withher oncologist in 3 daysfor further management. I had long discussion with patient, her husbandand daughter and son at bedside in length and updated. Agreedwith discharge plan. Exam on Discharge: Vitals & Measurements: T:36.9C TMIN:36C TMAX:36.9C HR:85(Monitored) RR:18 BP:148/60 SpO2:94% Oxygen Therapy:Room Air WT:49.8kg Discharge Medications: 1.Levothyroxine (levothyroxine 88 mcg (0.088 mg) oral tablet) 88 mcg (1 tab) by mouth once daily. not taking on Sat/Sun. 2.Cholecalciferol (Vitamin D3 1000 intl units (25 mcg) oral capsule) 25 mcg (1 cap) by mouth once daily. 3.Clopidogrel (Plavix 75 mg oral tablet) 75 mg (1 tab) by mouth once daily. 4.Loratadine (Allergy Relief) 10 mg by mouth once daily. 5.Metoprolol (metoprolol succinate 100 mg oral tablet, extended release) 125 mg by mouth once daily. 100mg at HS 25mg in AM. 6.Vitamin E (vitamin E 400 intl units oral capsule) 400 Int_Unit (1 cap) by mouth once daily. Patient states 450 mg, 1 tab daily. 7.Atorvastatin (atorvastatin 10 mg oral tablet) 10 mg (1 tab) by mouth once daily. TAKE 1 TAB NIGHTLY WITH LARGE GLASS OF WATER. 8.Insulin detemir (Levemir Vial 100 units/mL subcutaneous solution) 6 unit subcutaneously at bedtime. 9.Ondansetron 4 mg by mouth every 8 hours. 10.Fulvestrant (fulvestrant 50 mg/mL intramuscular solution) 50 mg (1 mL) intramuscularly every 4 weeks. 11.Acetaminophen (Tylenol 325 mg oral tablet) 650 mg (2 tab) by mouth every 6 hours. Alternate with tramadol every 3 hours for pain. Do not exceed 4000mg/day.. 12.Polyethylene glycol 3350 (MiraLax oral powder for reconstitution) 17 g by mouth once daily. 13.OxyCODONE (oxyCODONE 5 mg oral tablet) 5 mg by mouth every 4 hours, as needed for pain. 14.Chlorhexidine topical (Peridex 0.12% mucous membrane liquid) 0.018 g (15 mL) swish in mouth and spit 2 times daily. Swish and spit; do not swallow. 15.OxyCODONE (OxyCONTIN 10 mg oral tablet, extended release) . 15 each, 0 Refill(s), TAKE 1 TABLET BY MOUTH EVERYDAY AT BEDTIME. 16.Pantoprazole (pantoprazole 20 mg oral delayed release tablet) 20 mg (1 tab) by mouth once daily. 17.DiphenhydrAMINE (Benadryl Allergy 12.5 mg/5 mL oral liquid) See Instructions . Patient an mix with viscous lidocaine and maalox and/or water to create a solution. then swish and spit 5 to 10 cc q4H. 18.OxyCODONE (oxyCODONE 10 mg oral tablet, extended release) See Instructions . 1 tab PO at bedtime. For: Squamous cell carcinoma of oral cavity. Cancer related pain. 19.Lidocaine topical (Lidocaine Viscous 2% mucous membrane solution) See Instructions . As directed for mouth sores, with or without mixture with liquid benadryl and maaolx/water into a solution.. 20.Docusate (Colace 100 mg oral capsule) 200 mg (2 cap) by mouth once daily, as needed for constipation. Allergies and Sensitivities: traMADol (Moderate)Nausea, Itchy morphineHallucinosis, Nausea penicillinsItching, Hives Tests Pending: None Scheduled Appointments: Date/Time:Provider/Resource: Nov 08:15 amLab/Specimen Location/Instructions:[facility], [address], 1st floor, [address], [place] [address] Date/Time:Provider/Resource: Nov 09:30 amRad Onc IX Location/Instructions:[facility], Ground Floor, [address], [place] [address] Date/Time:Provider/Resource: Nov 08:30 amRad Onc IX Location/Instructions:[facility], Ground Floor, [address], [place] [address] Date/Time:Provider/Resource: Nov 09:45 amLab/Specimen Location/Instructions:[facility], [address], 1st floor, [address], [facility] [address] Date/Time:Provider/Resource: Nov 07:45 MD Potter Danh C Location/Instructions:[facility], [address], 1st floor, [address], [place] [address] Date/Time:Provider/Resource: Nov 08:30 amLab/Specimen Location/Instructions:[facility], [address], 1st floor, [address], [facility] [address] Date/Time:Provider/Resource: Nov 09:15 MD Potter Danh C Location/Instructions:[facility], [address], 1st floor, [address], [place] [address] Date/Time:Provider/Resource: Nov 02:00 pmInfusion B 20 Location/Instructions:[facility], [address], Infusion 1st floor, [address], [place] [address] Date/Time:Provider/Resource: Nov 03:30 pmPMD mckeon James Andrew Location/Instructions:[facility], [address], 1st floor, [address], [place] [address] Date/Time:Provider/Resource: Dec 10:30 amLab/Specimen Location/Instructions:[facility], [address], 1st floor, [address], [place] [address] Date/Time:Provider/Resource: Dec 11:30 amInfusion C 25 Location/Instructions:[facility], [address], [facility] 1st floor, [address], [place] [address] Other Appointments: Follow Up MD Danny, Jorge Shearer When:Within 5 to 7 days Where:[facility] [address] [place] [address]- [phone] Discharge Services: Service: Organization: Business Address: Phone Number: [employer] [facility] [address], [address], [place], [address] Care Instructions: The feeding tube may be used immediately. SKIN CARE AND DRESSING CHANGES: The dressing over the tube should be changed at least everyfew daysor if it becomes wet or soiled.Wash hands with soap and water prior to and after handling the tube and changing the dressing.Gently remove the tape and dressing from around the tube. Be careful not to pull on the tube while removing the dressing. Avoid using scissors to remove the dressing, since this may lead to accidental damage to the tube.Inspect the skin around the tube for redness, swelling and foul smelling yellow/green discharge.Wash the skin around the tube, rinse well, and dry with a clean cloth.Place two split drain sponges in and around the tube exit site. Do not apply alcohol or ointments to the site unless directed by a medical provider.Place a gauze over the split gauze and tube.Place tape in a picture frame around the edge of the dressing.Secure the tubing. FLUSHING THE TUBE: The feeding tube should be flushed every four hours to prevent clogging. To do this, turn off the feeds and disconnect the tubing. Flush the G and/or GJ ports with at least 15 mL of warm water with asyringe. Reattach the feeds and start the feeds again. After each feeding, flush again with at least15 mL. of warm tap water. DO NOT add or remove fluid from the balloon port on the tube unless directed by a medical provider. MEDICATIONS: You may give liquid medications through the feeding tube. DO NOT give pills or crushedpills through the feeding tube. COMMON FEEDING TUBE PROBLEMS: CLOGGED TUBE: The best way to prevent a clogged tube is to make sure it is flushed before and afterevery time food or medicine is placed into the tube. If the tube becomes clogged, try to open it byforcibly injecting warm tap water into the tube with a 1 or 3 mL. syringe. If this does not open the tube, stop tube feedings and call Radiology to have the tube evaluated.? Do not mix medications together. Make sure to flush between each liquid medication or feed. TUBE FALLS OUT: Sometimes the tube will accidentally fall out either due to the inside balloon breaking, or the outside tube becoming snagged on something. If the entire tube comes out, it is important that a tube be placed in the opening so that it will not close up. Place an available tube that you have been given into the opening. If you can get the G-tube in, fill the balloon with 3 - 5 mL ofwater, and tape the tube to the skin. Please call the interventional radiology team to schedule a change of the tube. LEAKING AROUND TUBE: There can be too much leaking around the gastrostomy site.Make sure the discfits against the skin and is well secured (taped down). It is important to keep the skin site cleanand dry. Clean the site as described above. The dressing will probably need to be changed several times a day until the leaking stops.If the skin becomes irritated or if the leaking does not stop, contact a healthcare provider or interventional radiology to have the site evaluated. IRRITATION OR GRANULATION TISSUE: Sometimes extra scar tissue called granulation tissue builds up around the feeding tube site. This is a red raised area that may be irritated or bleed. Usuallyyour doctor will treat with a 0.1% Kenalog cream applied to the site three times a day. Other treatments are available if necessary. VOMITING BY MOUTH:If the patient is vomiting feeds by mouth, stop feeding and contact your doctor. Sometimes part of the tube gets internally malpositioned, and the tube needs to be repositioned. Isolation: None . Advance Directive:None I personally spent30 minutes in discharge planning. Electronic Signature on File Electronically Reviewed/Signed by: Md Ned Serra MD Author Signature Dt/Tm:11/10/2024 02:08 PM [facility] Hospitalist [facility] Discharge instructions * MD Maryse, Md Marino: PERFORM, MODIFY, MODIFY Event Display: Patient Discharge Instructions Authored Date: [id number] RODOLFO CRYSTAL A :1940 Visit Date:11/08/2024 Patient Discharge Instructions [facility] For questions or further information, call: . Date of Admission:11/08/2024 Date of Discharge:11/10/2024 Physician:MD Maryse, Md Marino Service:Hospitalist Discharge Disposition: . Advance Directive:None Reason for Hospitalization Mass of floor of mouth Status post G-tube placement Pain on mouth andabdominal wall Your Diagnoses Mass of floor of mouth Other acute postprocedural pain My Health Patient Portal: [place] makes it easy for you to manage your health information online. My [facility] is a free service that provides you instant, secure access to your medical information anytime, anywhere. Sign in or set up your account today at [email or web address] Thank you for allowing us to assist you with your healthcare needs. If you need additional community resources, [place] can help at https://www.pa211.org. 211 can assist you in connecting with social programs based on your unique needs and locations. 211 is an anonymous search that can help you locate resources for: Food, Housing, Transportation, Goods, Education and Healthcare. Medications What How Much When Why Instructions Next Dose New docusate (Colace 100 mg oral capsule) 2 cap by mouth Once daily as needed for as needed for constipation Pickup at [facility]/pharmacy #[id number] Unchanged acetaminophen (Tylenol 325 mg oral tablet) [...] spit 5 to 10 cc q4H Unchanged fulvestrant (fulvestrant 50 mg/ mL intramuscular solution) 1 Milliliter intramuscularly Every 4 weeks Unchanged insulin detemir (Levemir Vial 100 units/ mL subcutaneous solution) 6 unit(s) subcutaneously At bedtime Unchanged levothyroxine (levothyroxine 88 mcg (0.088 mg) oral tablet) 1 tab(s) by mouth Once daily not taking on Sat/ Sun Unchanged lidocaine topical (Lidocaine Viscous 2% mucous membrane solution) See instructions As directed for mouth sores, with or without mixture with liquid benadryl and maaolx/ water into a solution. 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 1 tab PO at bedtime Unchanged oxyCODONE (oxyCODONE 5 mg oral tablet) 5 Milligram by mouth Every 4 hours as needed for as needed for pain Unchanged oxyCODONE (OxyCONTIN 10 mg oral tablet, extended release) 15 each, 0 Refill(s), TAKE 1 TABLET BY MOUTH EVERYDAY AT BEDTIME Unchanged pantoprazole (pantoprazole 20 mg oral delayed release tablet) 1 tab(s) by mouth Once daily Unchanged polyethylene glycol 3350 (MiraLax oral powder for reconstitution) 17 gram by mouth Once daily Duration: 14 Days Unchanged vitamin E (vitamin E 400 intl units oral capsule) 1 cap by mouth Once daily Patient states 450 mg, 1 tab daily Pharmacy Information [facility]/pharmacy #[id number]: [address], [place] [id number] [phone] Allergies traMADol (Moderate)Nausea, Itchy morphineHallucinosis, Nausea penicillinsItching, Hives What to do next Instructions From Your Doctor The feeding tube may be used immediately. SKIN CARE AND DRESSING CHANGES: The dressing over the tube should be changed at least everyfew daysor if it becomes wet or soiled.Wash hands with soap and water prior to and after handling the tube and changing the dressing.Gently remove the tape and dressing from around the tube. Be careful not to pull on the tube while removing the dressing. Avoid using scissors to remove the dressing, since this may lead to accidental damage to the tube.Inspect the skin around the tube for redness, swelling and foul smelling yellow/green discharge.Wash the skin around the tube, rinse well, and dry with a clean cloth.Place two split drain sponges in and around the tube exit site. Do not apply alcohol or ointments to the site unless directed by a medical provider.Place a gauze over the split gauze and tube.Place tape in a picture frame around the edge of the dressing.Secure the tubing. FLUSHING THE TUBE: The feeding tube should be flushed every four hours to prevent clogging. To do this, turn off the feeds and disconnect the tubing. Flush the G and/or GJ ports with at least 15 mL of warm water with asyringe. Reattach the feeds and start the feeds again. After each feeding, flush again with at least15 mL. of warm tap water. DO NOT add or remove fluid from the balloon port on the tube unless directed by a medical provider. MEDICATIONS: You may give liquid medications through the feeding tube. DO NOT give pills or crushedpills through the feeding tube. COMMON FEEDING TUBE PROBLEMS: CLOGGED TUBE: The best way to prevent a clogged tube is to make sure it is flushed before and afterevery time food or medicine is placed into the tube. If the tube becomes clogged, try to open it byforcibly injecting warm tap water into the tube with a 1 or 3 mL. syringe. If this does not open the tube, stop tube feedings and call Radiology to have the tube evaluated.? Do not mix medications together. Make sure to flush between each liquid medication or feed. TUBE FALLS OUT: Sometimes the tube will accidentally fall out either due to the inside balloon breaking, or the outside tube becoming snagged on something. If the entire tube comes out, it is important that a tube be placed in the opening so that it will not close up. Place an available tube that you have been given into the opening. If you can get the G-tube in, fill the balloon with 3 - 5 mL ofwater, and tape the tube to the skin. Please call the interventional radiology team to schedule a change of the tube. LEAKING AROUND TUBE: There can be too much leaking around the gastrostomy site.Make sure the discfits against the skin and is well secured (taped down). It is important to keep the skin site cleanand dry. Clean the site as described above. The dressing will probably need to be changed several times a day until the leaking stops.If the skin becomes irritated or if the leaking does not stop, contact a healthcare provider or interventional radiology to have the site evaluated. IRRITATION OR GRANULATION TISSUE: Sometimes extra scar tissue called granulation tissue builds up around the feeding tube site. This is a red raised area that may be irritated or bleed. Usuallyyour doctor will treat with a 0.1% Kenalog cream applied to the site three times a day. Other treatments are available if necessary. VOMITING BY MOUTH:If the patient is vomiting feeds by mouth, stop feeding and contact your doctor. Sometimes part of the tube gets internally malpositioned, and the tube needs to be repositioned. If you notice the following symptoms Watch for worsening pain Contact the [facility] at . If unable to contact your physician and you feel it is an emergency, go to the nearest Emergency Room or call 911 Diet Instructions Oral diet as tolerated, Recommendations from nutrition: For Jevity 1.5, suggest to give one carton (237 mL) four times per day via bolus feed. This will provide 948 mL of TF per day, 1422 calories, 60 grams protein, 720mL of free water from the TF. Suggest to give a free water flush of 85 mL before and after each bolus feed. This regimen will meet estimated calorie, protein, and fluids needs. Activity Instructions Activity as tolerated Follow-Up Appointments Scheduled Follow-Up Appointments Date/Time:Provider/Resource: Nov 08:15 amLab/Specimen Location/Instructions:[facility], [address], 1st floor, [address], [place] [address] Date/Time:Provider/Resource: Nov 09:30 amRad Onc IX Location/Instructions:[facility], Ground Floor, [address], [place], [place] [address] Date/Time:Provider/Resource: Nov 08:30 amRad Onc IX Location/Instructions:[facility], Ground Floor, [address], [place] [address] Date/Time:Provider/Resource: Nov 09:45 amLab/Specimen Location/Instructions:[facility], [address], 1st floor, [address], [place] [address] Date/Time:Provider/Resource: Nov 07:45 MD Potter Danh C Location/Instructions:[facility], [address], 1st floor, [address], [place] [address] Date/Time:Provider/Resource: Nov 08:30 amLab/Specimen Location/Instructions:[facility], [address], 1st floor, [address], [place] [address] Date/Time:Provider/Resource: Nov 09:15 MD Potter Danh C Location/Instructions:[facility], [address], 1st floor, [address], [place] [address] Date/Time:Provider/Resource: Nov 02:00 pmInfusion B 20 Location/Instructions:[facility], [address], Infusion 1st floor, [address], [place] [address] Date/Time:Provider/Resource: Nov 03:30 MD Deluna James Andrew Location/Instructions:[facility], [address], 1st floor, [address], [facility] [address] Date/Time:Provider/Resource: Dec 10:30 amLab/Specimen Location/Instructions:[facility], [address], 1st floor, [address], [facility] [address] Date/Time:Provider/Resource: Dec 11:30 amInfusion C 25 Location/Instructions:[facility], [address], Infusion 1st floor, [address], [place] [address] You Need to Schedule the Following Appointments Follow Up withMD Inez, Jorge Shearer When:Within 5 to 7 days Where:[facility] [address] [place] [address] [phone] The Following Services Have Been Arranged for You Service: Organization: Business Address: Phone Number: Durable Medical Equipment [facility] [address], [address], [place], [address] Tests Pending None Procedures Performed Gastrostomy tube placement 11/08/2024 Immunizations This Visit None Special Instructions Common Emergency Awareness Tips Call [...] call to get immediate medical attention! * MELANIE Edgar, Génesis: PERFORM Event Display: Patient Discharge Instructions Authored Date: [id number] CRYSTAL REYNOLDS :1940 Visit Date:11/08/2024 Patient Discharge Instructions [facility] For questions or further information, call: . Date of Admission:11/08/2024 Date of Discharge:11/08/2024 Physician:MD Kumar Daniel J Service:Radiology Discharge Disposition: . Advance Directive:None Reason for Hospitalization Mass of floor of mouth, Gastrostomy tube placement Your Diagnoses Mass of floor of mouth My Health Patient Portal: [facility] [employer] makes it easy for you to manage your health information online. My [facility] is a free service that provides you instant, secure access to your medical information anytime, anywhere. Sign in or set up your account today at [email or web address] Thank you for allowing us to assist you with your healthcare needs. If you need additional community resources, [place] 211 can help at [email or web address]. Maureen can assist you in connecting with social programs based on your unique needs and locations. 211 is an anonymous search that can help you locate resources for: Food, Housing, Transportation, Goods, Education and Healthcare. Medications What How Much When Why Instructions Next Dose Unchanged acetaminophen (Tylenol 325 mg oral tablet) [...] spit 5 to 10 cc q4H Unchanged fulvestrant (fulvestrant 50 mg/ mL intramuscular solution) 1 Milliliter intramuscularly Every 4 weeks Unchanged insulin detemir (Levemir Vial 100 units/ mL subcutaneous solution) 6 unit(s) subcutaneously At bedtime Unchanged levothyroxine (levothyroxine 88 mcg (0.088 mg) oral tablet) 1 tab(s) by mouth Once daily not taking on Sat/ Sun Unchanged lidocaine topical (Lidocaine Viscous 2% mucous membrane solution) See instructions As directed for mouth sores, with or without mixture with liquid benadryl and maaolx/ water into a solution. 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 1 tab PO at bedtime Unchanged oxyCODONE (oxyCODONE 5 mg oral tablet) 5 Milligram by mouth Every 4 hours as needed for as needed for pain Unchanged oxyCODONE (OxyCONTIN 10 mg oral tablet, extended release) 15 each, 0 Refill(s), TAKE 1 TABLET BY MOUTH EVERYDAY AT BEDTIME Unchanged pantoprazole (pantoprazole 20 mg oral delayed release tablet) 1 tab(s) by mouth Once daily Unchanged polyethylene glycol 3350 (MiraLax oral powder for reconstitution) 17 gram by mouth Once daily Duration: 14 Days Unchanged vitamin E (vitamin E 400 intl units oral capsule) 1 cap by mouth Once daily Patient states 450 mg, 1 tab daily Allergies traMADol (Moderate)Nausea, Itchy morphineHallucinosis, Nausea penicillinsItching, Hives What to do next Instructions From Your Doctor The feeding tube may be used immediately. SKIN CARE AND DRESSING CHANGES: The dressing over the tube should be changed at least everyfew daysor if it becomes wet or soiled.Wash hands with soap and water prior to and after handling the tube and changing the dressing.Gently remove the tape and dressing from around the tube. Be careful not to pull on the tube while removing the dressing. Avoid using scissors to remove the dressing, since this may lead to accidental damage to the tube.Inspect the skin around the tube for redness, swelling and foul smelling yellow/green discharge.Wash the skin around the tube, rinse well, and dry with a clean cloth.Place two split drain sponges in and around the tube exit site. Do not apply alcohol or ointments to the site unless directed by a medical provider.Place a gauze over the split gauze and tube.Place tape in a picture frame around the edge of the dressing.Secure the tubing. FLUSHING THE TUBE: The feeding tube should be flushed every four hours to prevent clogging. To do this, turn off the feeds and disconnect the tubing. Flush the G and/or GJ ports with at least 15 mL of warm water with asyringe. Reattach the feeds and start the feeds again. After each feeding, flush again with at least15 mL. of warm tap water. DO NOT add or remove fluid from the balloon port on the tube unless directed by a medical provider. MEDICATIONS: You may give liquid medications through the feeding tube. DO NOT give pills or crushedpills through the feeding tube. COMMON FEEDING TUBE PROBLEMS: CLOGGED TUBE: The best way to prevent a clogged tube is to make sure it is flushed before and afterevery time food or medicine is placed into the tube. If the tube becomes clogged, try to open it byforcibly injecting warm tap water into the tube with a 1 or 3 mL. syringe. If this does not open the tube, stop tube feedings and call Radiology to have the tube evaluated.? Do not mix medications together. Make sure to flush between each liquid medication or feed. TUBE FALLS OUT: Sometimes the tube will accidentally fall out either due to the inside balloon breaking, or the outside tube becoming snagged on something. If the entire tube comes out, it is important that a tube be placed in the opening so that it will not close up. Place an available tube that you have been given into the opening. If you can get the G-tube in, fill the balloon with 3 - 5 mL ofwater, and tape the tube to the skin. Please call the interventional radiology team to schedule a change of the tube. LEAKING AROUND TUBE: There can be too much leaking around the gastrostomy site.Make sure the discfits against the skin and is well secured (taped down). It is important to keep the skin site cleanand dry. Clean the site as described above. The dressing will probably need to be changed several times a day until the leaking stops.If the skin becomes irritated or if the leaking does not stop, contact a healthcare provider or interventional radiology to have the site evaluated. IRRITATION OR GRANULATION TISSUE: Sometimes extra scar tissue called granulation tissue builds up around the feeding tube site. This is a red raised area that may be irritated or bleed. Usuallyyour doctor will treat with a 0.1% Kenalog cream applied to the site three times a day. Other treatments are available if necessary. VOMITING BY MOUTH:If the patient is vomiting feeds by mouth, stop feeding and contact your doctor. Sometimes part of the tube gets internally malpositioned, and the tube needs to be repositioned. If you notice the following symptoms New onset of pain (at the procedure site or elsewhere). You have a fever greater than 101.5F. or chills. You have abdominal pain during the first week. You have back pain, redness, swelling, or purulent (yellow or green) drainage at the tube insertionsite. You have difficulty flushing the tube. Your tube comes out, broken, or the suture holding your tube becomes free. You can contact the interventional radiology service at [facility] with any concerns during normal business hours at [phone]. Contact the [facility] at . If unable to contact your physician and you feel it is an emergency, go to the nearest Emergency Room or call 911 Diet Instructions Activity Instructions Follow-Up Appointments Scheduled Follow-Up Appointments Date/Time:Provider/Resource: Nov 08:15 amLab/Specimen Location/Instructions:[facility], [address], 1st floor, [address], [place] [address] Date/Time:Provider/Resource: Nov 09:30 amRad Onc IX Location/Instructions:[facility], Ground Floor, [address], [place] [address] Date/Time:Provider/Resource: Nov 08:30 amRad Onc IX Location/Instructions:[facility], Ground Floor, [address], [place] [address] Date/Time:Provider/Resource: Nov 09:45 amLab/Specimen Location/Instructions:[facility], [address], 1st floor, [address], [facility] [address] Date/Time:Provider/Resource: Nov 07:45 amPhazucena, , Anoop C Location/Instructions:[facility], [address], 1st floor, [address], [place] [address] Date/Time:Provider/Resource: Nov 08:30 amLab/Specimen Location/Instructions:[facility], [address], 1st floor, [address], [place] [address] Date/Time:Provider/Resource: Nov 09:15 MD Potter Danh C Location/Instructions:[facility], [address], 1st floor, [address], [place] [address] Date/Time:Provider/Resource: Nov 02:00 pmInfusion B 20 Location/Instructions:[facility], [address], Infusion 1st floor, [address], [place] [address] Date/Time:Provider/Resource: Nov 03:30 MD Deluna James Andrew Location/Instructions:[facility], [address], 1st floor, [address], [facility] [address] Date/Time:Provider/Resource: Dec 10:30 amLab/Specimen Location/Instructions:[facility], [address], 1st floor, [address], [facility] [address] Date/Time:Provider/Resource: Dec 11:30 amInfusion C 25 Location/Instructions:[facility], [address], Infusion 1st floor, [address], [place] The Following Services Have Been Arranged for You No Post-Acute Placement(s) Listed No Post-Acute Service(s) Listed Tests Pending None Procedures Performed Gastrostomy tube placement 11/08/2024 Special Instructions Common Emergency Awareness Tips Call [...] Referring Member Role: Primary Care Provider Address: [address] [place] [address] Name: Ayaan Armenta Position: HIS Supervisor_P Member Role: HIS Lifetime Care Team Related Persons Name: FERN GAO Name: KASSIE MORALES Name: JEREMY REYNOLDS"
--- OUTSIDE RECORDS SUMMARY | 2024-12-08 19:04 | External Medical Summary ---
Author Name Unknown Address Unknown Organization [facility] bsection:[facility] [address] [place] Laboratory Report Ordering Provider Test Date Status José Bautista 11/08/2024 15:21:00 Final Observation Date Value Abnormality Reference (Units ) Status Glucose [Mass/volume] in Arterial blood 11/08/2024 15:21:47 160 Above high normal 50-99 (mg/dL) Final Meter: [id number]\R\Operat or: [id number] Dionne Ely
The Reference Range listed is for fasting blood Glucose only. Performing Location [facility] [address] [place] Devries3
--- OUTSIDE RECORDS SUMMARY | 2024-12-08 19:04 | External Medical Summary | Continuity of Care Document ---
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) - 10/26/24 Discharge Disposition: Home or Self Care Attending Physician: MD Zee, [facility] Allergies, Adverse Reactions, Alerts Substance Criticality Severity [...] OF WATER Start Date: 08/10/24 Status: Ordered fulvestrant 50 mg/mL intramuscular solution Start: 10/05/24 12:50:00 PM EST, 1 mL, IM, [id number] Start Date: 10/05/24 Status: Ordered Levemir Vial 100 units/mL subcutaneous solution Start: 08/10/24 2:15:00 PM EDT, 6 unit =, subQ, qhs Start Date: 08/10/24 Status: Ordered levothyroxine 88 mcg (0.088 mg) oral tablet Start: 01/26/22 3:27:00 PM EDT, 1 tab, PO, Daily, not taking on Sat/Sun Start Date: 01/26/22 Status: Ordered metoprolol succinate 100 mg oral tablet, extended release Start: 01/26/22 3:27:00 PM EDT, 125 mg =, PO, Daily, 100mg at HS 25mg in AM Start Date: 01/26/22 Status: Ordered MiraLax oral powder for reconstitution Start: 10/09/24 10:47:00 AM EST, 17 g =, PO, Daily, Disp# 14 each, Pharmacy: [facility] [place] Start Date: 10/09/24 Stop Date: 10/23/24 Status: Ordered ondansetron Start: 10/05/24 12:51:00 PM EST, 4 mg =, PO, q8h Start Date: 10/05/24 Status: Ordered oxyCODONE 10 mg oral tablet, extended release Start: 10/12/24 10:32:00 AM EST, See Instructions, Disp# 15 tab, Refills: 0, 1 tab PO at bedtime, Pharmacy: [facility]/pharmacy #[id number] Start Date: 10/12/24 Status: Ordered oxyCODONE 5 mg oral tablet Start: 10/19/24 4:58:00 PM EST, 5 mg =, PO, q4h, Disp# 180 tab, Refills: 0, PRN: as needed for pain, Pharmacy: [facility]/pharmacy #[id number] Start Date: 10/19/24 Status: Ordered Peridex Start: 10/08/24 8:55:00 AM EST, 15 mL, swish + spit, bid, Swish and spit; do not swallow. Use for 2 weeks. Start Date: 10/08/24 Status: Ordered Plavix 75 mg oral tablet [...] Start Date: 01/26/22 Status: Ordered Mental Status 10/26/24 Barriers to Learning one year None evide nt, Acuity of illness Mandatory Health Literacy Documentation Yes Communication Barrier Present No Health Literacy Communication Barriers N ever Primary Language Occitan Problem List Condition Confirmation Course Effective Dates [...] cell carcinoma of oral cavity Discharge Diagnosis 10/26/24 Non-Specified Procedures Procedure Date Related Diagnosis Body [...] to oldest [Reference Range]: 1 Patient Weight 48.7 kg (10/26/24 3:24 PM) Temperature [36.5-37.9 DegC] 36.5 DegC (10/26/24 3:24 PM) Heart Rate 92 bpm (10/26/24 3:24 PM) Respiratory Rate 28 br/min (10/26/24 3:24 PM) Blood Pressure 144/48mmHg (10/26/24 3:24 PM) Mean Blood Pressure 70 mmHg (10/26/24 3:24 PM) Cuff Pulse Pressure 96 mmHg (10/26/24 3:24 PM) BP Location # 1 Right Arm (10/26/24 3:24 PM) Social History Social History Type Response Smoking Status Never smoked cigaret janes Sex Sex Representation Female (finding) Patient Care team information Care Team Personnel Name: MD Inez, Jorge Shearer Position: Referring Member Role: Primary Care Provider Address: [address] [address] [place] Name: Ayaan Armenta Position: HIS Supervisor_P Member Role: HIS Lifetime Care Team Related Persons Name: FERN GAO Name: KASSIE MORALES Name: JEREMY REYNOLDS
--- OUTSIDE RECORDS SUMMARY | 2024-12-08 19:04 | External Medical Summary ---
Author Name Unknown Address Unknown Organization [facility] [address] [place] Laboratory Report Ordering Provider Test Date Status Maryse Dhaliwal 11/09/2024 12:19:00 Final Observation Date Value Abnormality Reference (Units ) Status Glucose [Mass/volume] in Arterial blood 11/09/2024 12:19:14 247 Above high normal 50-99 (mg/dL) Final Meter: [id number]\R\Operat or: [id number] Raissa Espinosa
The Reference Range listed is for fasting blood Glucose only. Performing Location [facility] [address] [place]
--- OUTSIDE RECORDS SUMMARY | 2024-12-08 19:04 | External Medical Summary ---
Author Name Unknown Address Unknown Organization [facility] [address] [place] [address] Laboratory Report Ordering Provider Test Date Status Maryse Dhaliwal 11/10/2024 07:35:00 Final Observation Date Value Abnormality Reference (Units ) Status Leukocytes [#/volume] in Blood by Automated count 11/10/2024 07:53:00 5.57 4.00-10.40 (K/uL) Final Erythrocytes [#/volume] in Blood by Automated count 11/10/2024 07:53:00 3.23 Below low normal 3.90-5.00 (M/uL) Final Hemoglobin [Mass/volume] in Blood 11/10/2024 07:53:00 9.4 Below low normal 13.0-17.0 (g/dL) Final Hematocrit [Volume Fraction] of Blood by Automated count 11/10/2024 07:53:00 28.9 Below low normal 35.0-44.0 (%) Final MCV [Entitic volume] by Automated count 11/10/2024 07:53:00 89.5 81.0-96.0 (fL) Final MCH [Entitic mass] by Automated count 11/10/2024 07:53:00 29.1 28.0-33.0 (pg) Final MCHC [Mass/volume] by Automated count 11/10/2024 07:53:00 32.5 32.0-36.0 (g/dL) Final Erythrocyte distribution width [Ratio] by Automated count 11/10/2024 07:53:00 11.9 11.5-14.2 (%) Final Platelets [#/volume] in Blood by Automated count 11/10/2024 07:53:00 215 150-350 (K/uL) Final Erythrocyte distribution width [Entitic volume] by Automated count 11/10/2024 07:53:00 39 Final Platelet mean volume [Entitic volume] in Blood by Automated count 11/10/2024 07:53:00 9.1 9.0-12.2 (fL) Final Performing Location [facility] [address] [place] [address]
--- OUTSIDE RECORDS SUMMARY | 2024-12-08 19:04 | External Medical Summary ---
Author Name Unknown Address Unknown Organization [facility] [address] [place] [address] Laboratory Report Ordering Provider Test Date Status SarahRoderick 11/09/2024 06:59:00 Final Observation Date Value Abnormality Reference (Units ) Status Hemoglobin A1c/Hemoglobin.total in Blood 11/09/2024 11:43:36 8.0 Above high normal 4.0-6.4 (%) Final Glucose mean value [Mass/volume] in Blood Estimated from glycated hemoglobin 11/09/2024 11:43:36 182.9 Above high normal <=125.0 (mg/dL) Final Performing Location [facility] Paramedic Rn ry [address] [place] [address] [place] [address]
--- OUTSIDE RECORDS SUMMARY | 2024-12-08 19:04 | External Medical Summary ---
Author Name Unknown Address Unknown Organization [facility] [employer] Chemistry:[facility] [employer] [facility] [address] [place] [address] [place] [address] Laboratory Report Ordering Provider Test Date Status Maryse Dhaliwal 11/10/2024 07:35:00 Final Observation Date Value Abnormality Reference (Units ) Status Ferritin [Mass/volume] in Serum or Plasma 11/10/2024 11:24:13 285.4 Above high normal 13.0-150.0 (ng/mL) Final Performing Location [facility] [employer] Shift Stacker ry [address] [place] [address]
--- OUTSIDE RECORDS SUMMARY | 2024-12-08 19:04 | External Medical Summary ---
Author Name Unknown Address Unknown Organization [facility] [address] [place] Laboratory Report Ordering Provider Test Date Status Maryse Dhaliwal 11/09/2024 21:44:00 Final Observation Date Value Abnormality Reference (Units ) Status Glucose [Mass/volume] in Arterial blood 11/09/2024 21:44:21 196 Above high normal 50-99 (mg/dL) Final Meter: [id number]\R\Operat or: [id number] Noss Phyllis
The Reference Range listed is for fasting blood Glucose only. Performing Location [facility] [address] [place]
--- OUTSIDE RECORDS SUMMARY | 2024-12-08 19:04 | External Medical Summary ---
Author Name Unknown Address Unknown Organization [facility] [address] [place] [address] Laboratory Report Ordering Provider Test Date Status José Bautista 11/08/2024 11:51:00 Final Observation Date Value Abnormality Reference (Units ) Status Prothrombin time (PT) 11/08/2024 12:30:54 14.6 Above high normal 12.0-14.2 (seconds) Final INR in Platelet poor plasma by Coagulation assay 11/08/2024 12:30:54 1.1 0.9-1.1 Final Suggested therapeutic range for low-intensity Coumadin therapy for venous thromboembolism is INR 2.0-3.0 (ex: atrial fibrillation, history of TIA/stroke).

For high risk patients, the suggested therapeutic range is INR 2.5-3.5 (ex: mechanical prosthetic valves). Performing Location [facility] [address] [place] [address]
--- OUTSIDE RECORDS SUMMARY | 2024-12-08 19:04 | External Medical Summary | Continuity of Care Document ---
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) - 10/30/24 Secondary malignant neoplasm lymph nodes of head, 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 Malnutrition(Discharge Diagnosis) - 11/01/24 Discharge Disposition: Home or Self Care Attending Physician: MD Taylor Mitchell Referring Physician: MD Wiley James E Allergies, [...] spit 5 to 10 cc q4H, Pharmacy: [facility]/pharmacy #[id number] Start Date: 11/01/24 Status: Ordered fulvestrant 50 mg/mL intramuscular solution Start: 10/05/24 12:50:00 PM EST, 1 mL, IM, [id number] Start Date: 10/05/24 Status: Ordered Levemir Vial [...] benadryl and maaolx/water into a solution., Pharmacy: [facility]/pharmacy #[id number] Start Date: 11/01/24 Status: Ordered metoprolol succinate 100 mg oral tablet, extended release Start: 01/26/22 3:27:00 PM EDT, 125 mg =, PO, Daily, 100mg at HS 25mg in AM Start Date: 01/26/22 Status: Ordered MiraLax oral powder for reconstitution Start: 10/09/24 10:47:00 AM EST, 17 g =, PO, Daily, Disp# 14 each, Pharmacy: [facility] [place] Start Date: 10/09/24 Stop Date: 10/23/24 Status: Ordered ondansetron Start: 10/05/24 12:51:00 PM EST, 4 mg =, PO, q8h Start Date: 10/05/24 Status: Ordered oxyCODONE 10 mg oral tablet, extended release Start: 11/01/24 1:08:00 PM EST, See Instructions, Disp# 30 tab, Refills: 0, 1 tab PO at bedtime, [id number] Start Date: 11/01/24 Status: Ordered oxyCODONE 5 mg oral tablet Start: 10/19/24 4:58:00 PM EST, 5 mg =, PO, q4h, Disp# 180 tab, Refills: 0, PRN: as needed for pain, Pharmacy: [facility]/pharmacy #[id number] Start Date: 10/19/24 Status: Ordered OxyCONTIN 10 mg oral tablet, extended release Start: 10/30/24 9:42:00 AM EST, 15 each, 0 Refill(s), TAKE 1 TABLET BY MOUTH EVERYDAY AT BEDTIME Start Date: 10/30/24 Status: Ordered pantoprazole 20 mg oral delayed release tablet Start: 11/01/24 1:04:00 PM EST, 1 tab, PO, Daily, Disp# 60 tab, Refills: 2, [id number] Start Date: 11/01/24 Status: Ordered Peridex 0.12% mucous membrane liquid Start: 10/29/24 2:06:00 PM EST, 15 mL, swish + spit, bid, Disp# 900 mL, Refills: 1, Swish and spit;do not swallow, Pharmacy: [facility]/pharmacy #[id number] Start Date: 10/29/24 Stop [...] Start Date: 01/26/22 Status: Ordered Mental Status 10/30/24 Barriers to Learning one year None evide nt, Acuity of illness Mandatory Health Literacy Documentation Yes Communication Barrier Present N/A Health Literacy Communication Barriers U nable to assess Primary Language Korean Problem List Condition Confirmation Course Effective Dates [...] Effective Dates Health Status Clinical Service Informant Squamous cell carcinoma of floor of mouth Discharge Diagnosis 10/30/24 Neoplasm related pain Discharge Diagnosis 10/30/24 Secondary malignant neoplasm lymph nodes of head, face and neck Discharge Diagnosis 10/30/24 Squamous cell cancer of tongue Discharge Diagnosis 10/30/24 Malnutrition Discharge Diagnosis 11/01/24 Procedures Procedure Date Related Diagnosis Body Site [...] to oldest [Reference Range]: 1 Patient Weight 48.9 kg 1 (10/30/24 9:46 AM) Temperature [36.5-37.9 DegC] 36.2 DegC *LOW* (10/30/24 9:46 AM) Heart Rate 87 bpm (10/30/24 9:46 AM) Respiratory Rate 14 br/min (10/30/24 9:46 AM) Blood Pressure 142/59mmHg (10/30/24 9:46 AM) Cuff Pulse Pressure 83 mmHg (10/30/24 9:46 AM) BP Location # 1 Right Arm (10/30/24 9:46 AM) 1Result Comment: with shoes Social History Social History Type Response Smoking Status Never smoked cigaret janes Sex Sex Representation Female (finding) Patient Care team information Care Team Personnel Name: MD Inez, Jorge Shearer Position: Referring Member Role: Primary Care Provider Address: [address] [place] [address] Name: Ayaan Armenta Position: HIS Supervisor_P Member Role: HIS Lifetime Care Team Related Persons Name: FERN GAO Name: KASSIE MORALES Name: JEREMY REYNOLDS
--- OUTSIDE RECORDS SUMMARY | 2024-12-08 19:04 | External Medical Summary ---
Author Name Unknown Address Unknown Organization [facility] [employer] Chemistry:[facility] [employer] [facility] [address] [place] [address] Laboratory Report Ordering Provider Test Date Status Maryse Dhaliwal 11/10/2024 07:35:00 Final Observation Date Value Abnormality Reference (Units ) Status Iron [Mass/volume] in Serum or Plasma 11/10/2024 11:24:13 25 Below low normal 33-151 (mcg/dL) Final Transferrin [Mass/volume] in Serum or Plasma 11/10/2024 11:24:13 132.0 Below low normal 200.0-360.0 (mg/dL) Final Iron binding capacity.unsaturated [Mass/volume] in Serum or Plasma 11/10/2024 11:24:13 156 Below low normal 236-425 (ug/dL) Final Iron saturation [Mass Fraction] in Serum or Plasma 11/10/2024 11:24:13 16 15-55 (%) Final Performing Location [facility] [employer] Servicer Repairer [employer] [address] [place] [address]
--- OUTSIDE RECORDS SUMMARY | 2024-12-08 19:04 | External Medical Summary ---
Author Name Unknown Address Unknown Organization [facility] [address] [place] [address] Laboratory Report Ordering Provider Test Date Status Roderick Smith 11/09/2024 06:59:00 Final Observation Date Value Abnormality Reference (Units ) Status Leukocytes [#/volume] in Blood by Automated count 11/09/2024 07:18:20 5.62 4.00-10.40 (K/uL) Final Erythrocytes [#/volume] in Blood by Automated count 11/09/2024 07:18:20 3.25 Below low normal 3.90-5.00 (M/uL) Final Hemoglobin [Mass/volume] in Blood 11/09/2024 07:18:20 9.6 Below low normal 13.0-17.0 (g/dL) Final Hematocrit [Volume Fraction] of Blood by Automated count 11/09/2024 07:18:20 28.7 Below low normal 35.0-44.0 (%) Final MCV [Entitic volume] by Automated count 11/09/2024 07:18:20 88.3 81.0-96.0 (fL) Final MCH [Entitic mass] by Automated count 11/09/2024 07:18:20 29.5 28.0-33.0 (pg) Final MCHC [Mass/volume] by Automated count 11/09/2024 07:18:20 33.4 32.0-36.0 (g/dL) Final Erythrocyte distribution width [Ratio] by Automated count 11/09/2024 07:18:20 11.7 11.5-14.2 (%) Final Platelets [#/volume] in Blood by Automated count 11/09/2024 07:18:20 234 150-350 (K/uL) Final Erythrocyte distribution width [Entitic volume] by Automated count 11/09/2024 07:18:20 38 Final Platelet mean volume [Entitic volume] in Blood by Automated count 11/09/2024 07:18:20 8.9 Below low normal 9.0-12.2 (fL) Final Performing Location [facility] [address] [place] [address]
--- OUTSIDE RECORDS SUMMARY | 2024-12-08 19:04 | External Medical Summary ---
Author Name Unknown Address Unknown Organization [facility] [address] [place] Laboratory Report Ordering Provider Test Date Status Maryse Dhaliwal 11/09/2024 08:21:00 Final Observation Date Value Abnormality Reference (Units ) Status Glucose [Mass/volume] in Arterial blood 11/09/2024 08:21:24 208 Above high normal 50-99 (mg/dL) Final Meter: [id number]\R\Operat or: [id number] Raissa Espinosa
The Reference Range listed is for fasting blood Glucose only. Performing Location [facility] [address] [place]
--- OUTSIDE RECORDS SUMMARY | 2024-12-08 19:04 | External Medical Summary ---
Author Name Unknown Address Unknown Organization [facility] [address] [place] [address] Laboratory Report Ordering Provider Test Date Status José Bautista 11/08/2024 11:51:00 Final Observation Date Value Abnormality Reference (Units ) Status Neutrophils/100 leukocytes in Blood by Automated count 11/08/2024 12:24:02 78.9 (%) Final Lymphocytes/100 leukocytes in Blood by Automated count 11/08/2024 12:24:02 8.0 (%) Final Monocytes/100 leukocytes in Blood by Automated count 11/08/2024 12:24:02 10.9 (%) Final Eosinophils/100 leukocytes in Blood by Automated count 11/08/2024 12:24:02 1.4 (%) Final Basophils/100 leukocytes in Blood by Automated count 11/08/2024 12:24:02 0.3 (%) Final Immature granulocytes/100 leukocytes in Blood 11/08/2024 12:24:02 0.5 (%) Final Neutrophils [#/volume] in Blood by Automated count 11/08/2024 12:24:02 4.91 2.00-7.70 (K/uL) Final Lymphocytes [#/volume] in Blood by Automated count 11/08/2024 12:24:02 0.50 Below low normal 1.00-3.40 (K/uL) Final Monocytes [#/volume] in Blood by Automated count 11/08/2024 12:24:02 0.68 0.00-1.00 (K/uL) Final Eosinophils [#/volume] in Blood by Automated count 11/08/2024 12:24:02 0.09 0.00-0.50 (K/uL) Final Basophils [#/volume] in Blood by Automated count 11/08/2024 12:24:02 0.02 0.00-0.10 (K/uL) Final Immature granulocytes [#/volume] in Blood by Automated count 11/08/2024 12:24:02 0.03 0.00-0.40 (K/uL) Final Performing Location [facility] [address] [place] [address]
--- OUTSIDE RECORDS SUMMARY | 2024-12-08 19:04 | External Medical Summary ---
Author Name Unknown Address Unknown Organization [facility] [address] [place] [address] Laboratory Report Ordering Provider Test Date Status Maryse Dhaliwal 11/10/2024 07:35:00 Final Observation Date Value Abnormality Reference (Units ) Status Neutrophils/100 leukocytes in Blood by Automated count 11/10/2024 07:53:00 75.8 (%) Final Lymphocytes/100 leukocytes in Blood by Automated count 11/10/2024 07:53:00 9.7 (%) Final Monocytes/100 leukocytes in Blood by Automated count 11/10/2024 07:53:00 11.7 (%) Final Eosinophils/100 leukocytes in Blood by Automated count 11/10/2024 07:53:00 2.2 (%) Final Basophils/100 leukocytes in Blood by Automated count 11/10/2024 07:53:00 0.2 (%) Final Immature granulocytes/100 leukocytes in Blood 11/10/2024 07:53:00 0.4 (%) Final Neutrophils [#/volume] in Blood by Automated count 11/10/2024 07:53:00 4.23 2.00-7.70 (K/uL) Final Lymphocytes [#/volume] in Blood by Automated count 11/10/2024 07:53:00 0.54 Below low normal 1.00-3.40 (K/uL) Final Monocytes [#/volume] in Blood by Automated count 11/10/2024 07:53:00 0.65 0.00-1.00 (K/uL) Final Eosinophils [#/volume] in Blood by Automated count 11/10/2024 07:53:00 0.12 0.00-0.50 (K/uL) Final Basophils [#/volume] in Blood by Automated count 11/10/2024 07:53:00 0.01 0.00-0.10 (K/uL) Final Immature granulocytes [#/volume] in Blood by Automated count 11/10/2024 07:53:00 0.02 0.00-0.40 (K/uL) Final Performing Location D [facility] [address] [place] [address]
--- OUTSIDE RECORDS SUMMARY | 2024-12-08 19:04 | External Medical Summary ---
Author Name Unknown Address Unknown Organization [facility] [place] [address] [facility] [place] [address] Laboratory Report Ordering Provider Test Date Status Maryse Dhaliwal 11/10/2024 07:35:00 Final Observation Date Value Abnormality Reference (Units ) Status Glucose [Mass/volume] in Serum or Plasma 11/10/2024 08:16:26 235 Above high normal 74-109 (mg/dL) Final (NOTE):
ADA recommendati on for FASTING Serum/Plasma Glucose:
Normal: 70- 100 mg/dL
Prediabetes: 100-125 mg/dL
Diabetes: 126 mg/dL or higher Urea nitrogen [Mass/volume] in Serum or Plasma 11/10/2024 08:16:26 15 6-23 (mg/dL) Final Glomerular filtration rate/1.73 sq M.predicted [Volume Rate/Area] in Serum, Plasma or Blood by Creatinine-based formula (CKD-EPI) 11/10/2024 08:16:26 86 >=60 (mL/min/1.73 m2) Final Creatinine [Mass/volume] in Serum or Plasma 11/10/2024 08:16:26 0.70 0.60-1.00 (mg/dL) Final Sodium [Moles/volume] in Serum or Plasma 11/10/2024 08:16:26 136 136-145 (mmol/L ) Final K 11/10/2024 08:16:26 4.4 3.5-5.1 (m mol/L) Final Cl- 11/10/2024 08:16:26 98 98-107 (mm ol/L) Final CO2 11/10/2024 08:16:26 30 Above hi gh normal 22-29 (mmol/L) Final Anion Gap 11/10/2024 08:16:26 8 5-14 (mmol /L) Final Ca 11/10/2024 08:16:26 9.1 8.4-10.2 ( mg/dL) Final Performing Location [facility] [address] [place] [address]
--- OUTSIDE RECORDS SUMMARY | 2024-12-08 19:04 | External Medical Summary ---
Author Name Unknown Address Unknown Organization [facility] [address] [place] [address] Laboratory Report Ordering Provider Test Date Status Roderick Smith 11/09/2024 06:59:00 Final Observation Date Value Abnormality Reference (Units ) Status Neutrophils/100 leukocytes in Blood by Automated count 11/09/2024 07:18:20 72.9 (%) Final Lymphocytes/100 leukocytes in Blood by Automated count 11/09/2024 07:18:20 10.5 (%) Final Monocytes/100 leukocytes in Blood by Automated count 11/09/2024 07:18:20 13.9 (%) Final Eosinophils/100 leukocytes in Blood by Automated count 11/09/2024 07:18:20 2.1 (%) Final Basophils/100 leukocytes in Blood by Automated count 11/09/2024 07:18:20 0.2 (%) Final Immature granulocytes/100 leukocytes in Blood 11/09/2024 07:18:20 0.4 (%) Final Neutrophils [#/volume] in Blood by Automated count 11/09/2024 07:18:20 4.10 2.00-7.70 (K/uL) Final Lymphocytes [#/volume] in Blood by Automated count 11/09/2024 07:18:20 0.59 Below low normal 1.00-3.40 (K/uL) Final Monocytes [#/volume] in Blood by Automated count 11/09/2024 07:18:20 0.78 0.00-1.00 (K/uL) Final Eosinophils [#/volume] in Blood by Automated count 11/09/2024 07:18:20 0.12 0.00-0.50 (K/uL) Final Basophils [#/volume] in Blood by Automated count 11/09/2024 07:18:20 0.01 0.00-0.10 (K/uL) Final Immature granulocytes [#/volume] in Blood by Automated count 11/09/2024 07:18:20 0.02 0.00-0.40 (K/uL) Final Performing Location [facility] [address] [place] [address]
--- OUTSIDE RECORDS SUMMARY | 2024-12-08 19:04 | External Medical Summary ---
Author Name Unknown Address Unknown Organization [facility] [place] [address] [facility] [place] [address] Laboratory Report Ordering Provider Test Date Status Roderick Smith 11/09/2024 06:59:00 Final Observation Date Value Abnormality Reference (Units ) Status Glucose [Mass/volume] in Serum or Plasma 11/09/2024 07:57:54 142 Above high normal 74-109 (mg/dL) Final (NOTE):
ADA recommendati on for FASTING Serum/Plasma Glucose:
Normal: 70- 100 mg/dL
Prediabetes: 100-125 mg/dL
Diabetes: 126 mg/dL or higher Urea nitrogen [Mass/volume] in Serum or Plasma 11/09/2024 07:57:54 15 6-23 (mg/dL) Final Glomerular filtration rate/1.73 sq M.predicted [Volume Rate/Area] in Serum, Plasma or Blood by Creatinine-based formula (CKD-EPI) 11/09/2024 07:57:54 73 >=60 (mL/min/1.73 m2) Final Creatinine [Mass/volume] in Serum or Plasma 11/09/2024 07:57:54 0.80 0.60-1.00 (mg/dL) Final Sodium [Moles/volume] in Serum or Plasma 11/09/2024 07:57:54 135 Below low normal 136-145 (mmol/L) Final K 11/09/2024 07:57:54 4.3 3.5-5.1 (m mol/L) Final Cl- 11/09/2024 07:57:54 100 98-107 (mm ol/L) Final CO2 11/09/2024 07:57:54 27 22-29 (mmo l/L) Final Anion Gap 11/09/2024 07:57:54 8 5-14 (mmol /L) Final Ca 11/09/2024 07:57:54 9.2 8.4-10.2 ( mg/dL) Final Performing Location [facility] [address] [place] [address]
--- OUTSIDE RECORDS SUMMARY | 2024-12-08 19:04 | External Medical Summary ---
Author Name Unknown Address Unknown Organization [facility] [address] [place] [address] Laboratory Report Ordering Provider Test Date Status José Bautista 11/08/2024 11:51:00 Final Observation Date Value Abnormality Reference (Units ) Status Leukocytes [#/volume] in Blood by Automated count 11/08/2024 12:24:02 6.23 4.00-10.40 (K/uL) Final Erythrocytes [#/volume] in Blood by Automated count 11/08/2024 12:24:02 3.12 Below low normal 3.90-5.00 (M/uL) Final Hemoglobin [Mass/volume] in Blood 11/08/2024 12:24:02 9.2 Below low normal 13.0-17.0 (g/dL) Final Hematocrit [Volume Fraction] of Blood by Automated count 11/08/2024 12:24:02 27.5 Below low normal 35.0-44.0 (%) Final MCV [Entitic volume] by Automated count 11/08/2024 12:24:02 88.1 81.0-96.0 (fL) Final MCH [Entitic mass] by Automated count 11/08/2024 12:24:02 29.5 28.0-33.0 (pg) Final MCHC [Mass/volume] by Automated count 11/08/2024 12:24:02 33.5 32.0-36.0 (g/dL) Final Erythrocyte distribution width [Ratio] by Automated count 11/08/2024 12:24:02 11.9 11.5-14.2 (%) Final Erythrocyte distribution width [Entitic volume] by Automated count 11/08/2024 12:24:02 39 Final Platelets [#/volume] in Blood by Automated count 11/08/2024 12:24:02 212 150-350 (K/uL) Final Platelet mean volume [Entitic volume] in Blood by Automated count 11/08/2024 12:24:02 9.1 9.0-12.2 (fL) Final Performing Location [facility] [address] [place] [address]
--- OUTSIDE RECORDS SUMMARY | 2024-12-08 19:04 | External Medical Summary ---
Author Name Unknown Address Unknown Organization [facility] [address] [place] Laboratory Report Ordering Provider Test Date Status Maryse Dhaliwal 11/09/2024 16:42:00 Final Observation Date Value Abnormality Reference (Units ) Status Glucose [Mass/volume] in Arterial blood 11/09/2024 16:42:56 215 Above high normal 50-99 (mg/dL) Final Meter: [id number]\R\Operat or: [id number] Luis Carlos Choi
The Reference Range listed is for fasting blood Glucose only. Performing Location [facility] [address] [place]
--- OUTSIDE RECORDS SUMMARY | 2024-12-08 19:04 | External Medical Summary ---
Author Name Unknown Address Unknown Organization [facility] [address] [place] Laboratory Report Ordering Provider Test Date Status Maryse Dhaliwal 11/10/2024 08:09:00 Final Observation Date Value Abnormality Reference (Units ) Status Glucose [Mass/volume] in Arterial blood 11/10/2024 08:09:33 228 Above high normal 50-99 (mg/dL) Final Meter: [id number]\R\Operat or: [id number] Raissa Espinosa
The Reference Range listed is for fasting blood Glucose only. Performing Location [facility] [address] [place]
--- OUTSIDE RECORDS SUMMARY | 2024-12-08 19:04 | External Medical Summary ---
Author Name Unknown Address Unknown Organization [facility] [address] [place] Laboratory Report Ordering Provider Test Date Status José Bautista 11/08/2024 12:22:00 Final Observation Date Value Abnormality Reference (Units ) Status Glucose [Mass/volume] in Arterial blood 11/08/2024 12:22:39 142 Above high normal 50-99 (mg/dL) Final Meter: [id number]\R\Operat or: [id number] Maryana Gibson
The Reference Range listed is for fasting blood Glucose only. Performing Location [facility] [address] [place] Devries3
--- NOTE | 2024-12-08 19:43 | Emergency Department Note ---
Impression & Plan Neutropenia, Influenza A, Weakness, Acute dehydration, Metastatic cancer to lung, Pancytopenia, Acute hyperglycemia ED Provider Note NAME: CRYSTAL REYNOLDS AGE: 84 SEX: F : 1940 ARRIVES VIA: Walk-In INFORMANT: Patient, ED PROVIDER(S): Wally Mane MD CHIEF COMPLAINT: Outpatient referral, crackling in the lungs MEDICAL DECISION MAKING: patient presents due to concern for outpatient referral reported crackles on lung exam. Patient may have bibasilar crackles but no significant wheezing or rhonchi. IV was established with Blood work obtained and the patient did have a chest x-ray EKG and bio fire performed. Patient was ordered a Xopenex treatment and was ordered IV fluids. Patient's blood work shows a white count of 1.2 with a hemoglobin of 8.2. The patient's platelet count is 88,000. Neutrophil count 540. Also associated lymphocytopenia. Sodium of 131. The patient's blood sugar of 236. Bicarb and anion gap are normal. Not DKA. Lactate is normal. The patient was ordered additional IV fluids. Nasal MRSA screen ordered along with cefepime due to concerns for the patient significant neutropenia. Blood cultures and lactate also ordered. BioFire positive for influenza A and patient was ordered Tamiflu. Chest x-ray does not show evidence of obvious pneumonia but the patient does have pulmonary nodules likely consistent with metastatic disease. No obvious consolidation for pneumonia. I did inform the patient the patient's family at bedside. I did speak the on-call hospitalist Dr. Ott the patient was admitted to the medicine service. Additional IV fluids ordered. I did have a rectal temperature that was checked and the patient was afebrile. Discussion w/ other healthcare providers: Dr. Ott inpatient medicine service Prior /Outside records reviewed: None Differential diagnosis: Infection, dehydration, metabolic abnormality, hypo/hyperglycemia, electrolyte imbalance, anemia, UTI, pneumonia, thyroid dysfunction among others were considered. Diagnostics, as interpreted by me: ECG: Sinus tachycardia, rate 111, normal intervals, normal axis T wave version in V2 as well as aVL. No obvious ST elevations. Cardiac monitoring: An order was placed for continuous cardiac monitoring. The monitor shows a rate of 115 with tachycardic and regular rhythm. Patient was placed on pulse oximetry Medical decision rules: None Imaging studies: I informally interpreted the patient's chest x-ray concerning for pulmonary nodules with formal report to follow. HPI: Patient presents as a referral from home health due to concern for crackles in the lungs. Patient denies any chest pain or shortness of breath no reported cough. Patient does have known history of lung cancer. Patient denies any leg swelling or calf pain. No history of DVT or PE. Patient denies any falls or trauma. Patient states that her appetite has been poor. The patient does have a G-tube and has been tolerating her feeds. She does occasionally have liquid stools. Patient denies any smoking history. She still undergoing active chemo. No fevers or chills. PAST MEDICAL HISTORY: See Below PAST SURGICAL HISTORY: See Below SOCIAL HISTORY: See Below HOME MEDICATIONS: See Below ALLERGIES: See Below VITALS: See Below PHYSICAL EXAMINATION: GENERAL: Fatigue comfortable in appearance. EYE EXAM: Normal conjunctiva. PERRL, no anisocoria and EOM's grossly intact w/o pain. OROPHARYNX: Moist mucus membranes, grossly normal dentition. NECK: Trachea midline, no stridor. Supple, no nuchal rigidity, no adenopathy, non-tender. No signs of meningismus. FROM of the neck with good chin to chest and neck extension. Chest: Port noted in right chest. LUNGS: Bibasilar crackles without wheezing or rhonchi. Normal chest wall mechanics. HEART: Tachycardic and regular, no MRG. ABDOMEN: Abdomen soft, non-tender, G-tube in place, no masses, no rebound or guarding. BACK: No CVA TTP. SKIN: No rashes and no bruising. UPPER EXTREMITIES: Upper extremities are grossly normal. LOWER EXTREMITIES: Grossly normal, no edema. NEURO EXAM: A&O x3, cranial nerves II-XII grossly intact, normal speech, moves all 4 extremities. Past Med/Surg History Problem List Influenza A Hyponatremia Pancytopenia Cancer related pain H/O migraine Benign head tremor Cervical spondylosis Metastatic breast cancer (Chronic) Cervicogenic headache Cervicalgia Ganglion cyst Wrist pain Anemia due to blood loss, acute Hypothyroidism Hypertension Hyperlipidemia Diabetes mellitus Sternal fracture (Acute) Closed rib fracture (Acute) Fall (Acute) H/O mastectomy (05/05/20) COVID-19 (Acute) Shoulder pain Vision loss Headache Stroke-like symptoms Cerebrovascular disease Ocular migraine H/O bilateral mastectomy Breast cancer, left (Chronic 10/10/19) Medical History Sternal fracture DVT prophylaxis Anemia chronic, baseline hgb in the 8-10 range History of solitary pulmonary nodule under surveillance with routine imaging Hyponatremia Artery stenosis Mediastinal adenopathy Abnormal CT scan of lung Vertebral artery stenosis Moderate stenosis at origin of L vertebral artery per 10/2019 Neck CTA Visual impairment 2/2 vertebral artery stenosis. 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 Vision loss potentially related to stroke though MRI negative. Lumbar compression fracture Acute L4 and chronic L2 Reflux esophagitis Chronic kidney disease, stage III (moderate) follows with PCP Raynauds syndrome Osteoporosis Cataract of both eyes Surgical History History of bronchoscopy video mediastinoscopy with biopsy: 12/31/19: Grade 2 view, MAC#3, ETT 7.5 at [facility] Port-A-Cath in place (01/03/20) RIGHT CHEST S/P bronchoscopy HX OF History of colonoscopy History of cataract surgery R/L History of appendectomy 1975 S/P lumpectomy, left breast HX OF H/O: hysterectomy H/O tubal ligation Family History Father Coronary heart disease Heart disease Hypertension Mother , age 86 Diabetes CHF (congestive heart failure) Heart disease Colorectal cancer Hypertension Stroke Family history of reaction to anesthesia SLOW TO WAKE UP Son Multiple sclerosis Social History Smoking Status: Never smoker Second Hand Exposure: No; Do You Dip or Chew Tobacco: No; Hx Alcohol Use: No Hx Substance Use: No Preferred Language: Citizen Of [place] Communication Ability: Effective Visual Impairment: No Limitations Hearing Ability: Normal Ged Instructor Required: No Beliefs That Will Affect Care: None marital status: Current Living Situation: Spouse current occupational status: other current occupation: semi retired substitute clerical person How many Children do You have: 6 How many Children do You have Comment: 6 Feels Safe at Home: Yes Childhood Exposure to Second-Hand Smoke: No during the past year weight has: remained stable Dental Care, Regularly: No Assistive Devices: None Allergies Allergies Allergy/AdvReac Type Severity Reaction Status Date / Time Penicillins Allergy Intermediate ITCHY Verified 12/08/24 22:24 morphine AdvReac Intermediate NAUSEA AND Verified 12/08/24 22:24 VOMITING Home Meds Home Medications Medication Instructions Recorded Confirmed cholecalciferol (vitamin D3) 25 1,000 units PO HS 10/02/18 12/08/24 mcg (1,000 unit) capsule insulin detemir U-100 100 unit/mL 6 unit subcut HS 06/25/24 12/08/24 subcutaneous solution (Levemir U-100 Insulin) atorvastatin 10 mg tablet 10 mg PO HS 12/08/24 12/08/24 cefuroxime axetil 500 mg tablet 500 mg PO BID 12/08/24 12/08/24 clopidogrel 75 mg tablet 75 mg PO QAM 12/08/24 12/08/24 levothyroxine 75 mcg tablet 75 mcg PO 5XWK 12/08/24 12/08/24 loratadine 10 mg tablet 10 mg PO HS 12/08/24 12/08/24 metoprolol succinate 100 mg 100 mg PO HS 12/08/24 12/08/24 tablet,extended release 24 hr nystatin 100,000 unit/mL oral 5 ml PO QID 12/08/24 12/08/24 suspension ondansetron HCl 8 mg tablet 8 mg PO Q8 PRN Nausea 12/08/24 12/08/24 oxycodone 5 mg tablet 5 mg PO Q4 PRN Pain 12/08/24 12/08/24 pantoprazole 20 mg tablet,delayed 20 mg PO QAM 12/08/24 12/08/24 release Results & Data (ED) Vital Signs Vital Signs - 24 hr 12/08/24 19:06 12/08/24 19:36 12/08/24 19:39 Temperature 37 C Temperature Source Skin Pulse Rate 122 H 111 H Pulse Rate [Apical] 108 H Pulse Rhythm Pulse Rhythm [Apical] Regular Pulse Strength [Apical] Normal Respiratory Rate 16 19 Respiratory Effort / Characteristics Non-Labored Spontaneous Respiratory Depth Normal Respiratory Pattern Regular Blood Pressure 126/64 Blood Pressure [Right Arm] 143/67 H Blood Pressure Mean 84 Blood Pressure Mean [Right Arm] 92 Blood Pressure Position [Right Arm] Sitting Pulse Oximetry 97 96 Oxygen Delivery Method Room Air Room Air Sepsis Recent Fever Within 48 Hours No Sepsis New/Unexplained Change in Mental Status No Sepsis Action Taken by Nursing No Action Required 12/08/24 19:39 12/08/24 19:43 12/08/24 21:00 Temperature Temperature Source Pulse Rate 106 H Pulse Rate [Apical] 121 H Pulse Rhythm Regular Pulse Rhythm [Apical] Regular Pulse Strength [Apical] Normal Respiratory Rate 19 22 Respiratory Effort / Characteristics Non-Labored Spontaneous Respiratory Depth Normal Respiratory Pattern Regular Blood Pressure Blood Pressure [Right Arm] Blood Pressure Mean Blood Pressure Mean [Right Arm] Blood Pressure Position [Right Arm] Pulse Oximetry 95 95 93 Oxygen Delivery Method Room Air Room Air Sepsis Recent Fever Within 48 Hours Sepsis New/Unexplained Change in Mental Status Sepsis Action Taken by Nursing 12/08/24 21:31 Temperature 36.9 C Temperature Source Rectal Pulse Rate Pulse Rate [Apical] Pulse Rhythm Pulse Rhythm [Apical] Pulse Strength [Apical] Respiratory Rate Respiratory Effort / Characteristics Respiratory Depth Respiratory Pattern Blood Pressure Blood Pressure [Right Arm] Blood Pressure Mean Blood Pressure Mean [Right Arm] Blood Pressure Position [Right Arm] Pulse Oximetry Oxygen Delivery Method Sepsis Recent Fever Within 48 Hours Sepsis New/Unexplained Change in Mental Status Sepsis Action Taken by [facility] Medications Current Medication List: was personally reviewed by me Laboratory Data Attestation: I reviewed the patient's lab results. 12/08/24 20:06 12/08/24 20:06 Lab Results 12/08/24 12/08/24 12/08/24 Range/Units 19:36 20:06 20:09 WBC 1.21 L (4.8-10.8) K/ul RBC 2.87 L (4.20-5.40) M/uL Hgb 8.2 L (12.0-16.0) g/dl Hct 25.3 L (37.0-47.0) % MCV 88.2 (80.0-100.0) fL MCH 28.6 (25.0-34.0) pg MCHC 32.4 (32.0-36.0) g/dL RDW Std Deviation 40.9 (36.4-46.3) fL RDW Coeff of Alfredo 14.4 (11.5-14.5) % Plt Count 88 L (130-400) K/uL MPV 10.5 (9.4-12.4) fL Immature Gran % (Auto) 0.0 % Neut % (Auto) 44.7 % Lymph % (Auto) 32.2 % [place] % (Auto) 22.3 % Eos % (Auto) 0.8 % Baso % (Auto) 0.0 % Neut # (Auto) 0.54 L* (1.40-6.50) K/uL Lymph # (Auto) 0.39 L (1.20-3.40) K/uL [place] # (Auto) 0.27 (0.11-0.59) K/uL Eos # (Auto) 0.01 (0.00-0.50) K/uL Baso # (Auto) 0.00 (0.00-0.20) K/uL Immature Gran # (Auto) 0.00 L (0.01-0.20) K/uL PT 10.3 (9.0-12.0) Seconds INR 0.9 (0.9-1.1) APTT 26 (21-31) Seconds PTT Ratio 1.0 Sodium 131 L (136-145) mmol/L Potassium 4.7 (3.5-5.1) mmol/L Chloride 96 L (98-107) mmol/L Carbon Dioxide 29 (21-32) mmol/L Anion Gap 6 (3-11) BUN 23 (6-23) mg/dl Creatinine 0.63 (0.6-1.2) mg/dl Est Cr Clr Drug Dosing Not Reportable eGFR 87.97 BUN/Creatinine Ratio 36.5 H (10-20) Glucose 236 H (70-99(Fasting)) mg/dl POC Glucose (70-99) mg/dl Lactate (0.4-2.0) mmol/L Calcium 9.2 (8.6-10.3) mg/dl Magnesium 2.1 (1.7-2.4) mg/dl Total Bilirubin 0.4 (0.2-1.0) mg/dl AST 27 (13-39) U/L ALT 31 (7-52) U/L Alkaline Phosphatase 174 H (34-104) U/L Troponin I High Sens 8.6 (0-14) pg/ml Total Protein 7.3 (6.0-8.3) gm/dl Albumin 3.4 (3.4-5.0) gm/dl Globulin 3.9 (2.5-4.0) gm/dl Albumin/Globulin Ratio 0.9 (0.9-2) Procalcitonin 0.22 (0-0.5) ng/ml Nasal Screen MRSA (PCR) (Negative) Adenovirus (PCR) Not Detected (NotDetected) B. pertussis DNA (PCR) Not Detected (NotDetected) B.parapertussis DNA PCR Not Detected (NotDetected) C. pneumoniae DNA (PCR) Not Detected (NotDetected) Coronavirus OC43 (PCR) Not Detected (NotDetected) Coronavirus HKU1 (PCR) Not Detected (NotDetected) Coronavirus 229E (PCR) Not Detected (NotDetected) SARS-CoV-2 (PCR) Not Detected (NotDetected) Coronavirus NL63 (PCR) Not Detected (NotDetected) Human Metapneumovir PCR Not Detected (NotDetected) Influenza A (H3) PCR DETECTED A (NotDetected) Influenza Type B (PCR) Not Detected (NotDetected) M. pneumoniae (PCR) Not Detected (NotDetected) Parainfluenza 1 (PCR) Not Detected (NotDetected) Parainfluenza 2 (PCR) Not Detected (NotDetected) Parainfluenza 3 (PCR) Not Detected (NotDetected) Parainfluenza 4 (PCR) Not Detected (NotDetected) RSV (PCR) Not Detected (NotDetected) Entero/Rhino (PCR) Not Detected (NotDetected) 12/08/24 12/08/24 12/08/24 Range/Units 21:34 22:39 23:15 WBC (4.8-10.8) K/ul RBC (4.20-5.40) M/uL Hgb (12.0-16.0) g/dl Hct (37.0-47.0) % MCV (80.0-100.0) fL MCH (25.0-34.0) pg MCHC (32.0-36.0) g/dL RDW Std Deviation (36.4-46.3) fL RDW Coeff of Alfredo (11.5-14.5) % Plt Count (130-400) K/uL MPV (9.4-12.4) fL Immature Gran % (Auto) % Neut % (Auto) % Lymph % (Auto) % [place] % (Auto) % Eos % (Auto) % Baso % (Auto) % Neut # (Auto) (1.40-6.50) K/uL Lymph # (Auto) (1.20-3.40) K/uL [place] # (Auto) (0.11-0.59) K/uL Eos # (Auto) (0.00-0.50) K/uL Baso # (Auto) (0.00-0.20) K/uL Immature Gran # (Auto) (0.01-0.20) K/uL PT (9.0-12.0) Seconds INR (0.9-1.1) APTT (21-31) Seconds PTT Ratio Sodium (136-145) mmol/L Potassium (3.5-5.1) mmol/L Chloride (98-107) mmol/L Carbon Dioxide (21-32) mmol/L Anion Gap (3-11) BUN (6-23) mg/dl Creatinine (0.6-1.2) mg/dl Est Cr Clr Drug Dosing eGFR BUN/Creatinine Ratio (10-20) Glucose (70-99(Fasting)) mg/dl POC Glucose 301 H* (70-99) mg/dl Lactate 0.8 (0.4-2.0) mmol/L Calcium (8.6-10.3) mg/dl Magnesium (1.7-2.4) mg/dl Total Bilirubin (0.2-1.0) mg/dl AST (13-39) U/L ALT (7-52) U/L Alkaline Phosphatase (34-104) U/L Troponin I High Sens (0-14) pg/ml Total Protein (6.0-8.3) gm/dl Albumin (3.4-5.0) gm/dl Globulin (2.5-4.0) gm/dl Albumin/Globulin Ratio (0.9-2) Procalcitonin (0-0.5) ng/ml Nasal Screen MRSA (PCR) Negative (Negative) Adenovirus (PCR) (NotDetected) B. pertussis DNA (PCR) (NotDetected) B.parapertussis DNA PCR (NotDetected) C. pneumoniae DNA (PCR) (NotDetected) Coronavirus OC43 (PCR) (NotDetected) Coronavirus HKU1 (PCR) (NotDetected) Coronavirus 229E (PCR) (NotDetected) SARS-CoV-2 (PCR) (NotDetected) Coronavirus NL63 (PCR) (NotDetected) Human Metapneumovir PCR (NotDetected) Influenza A (H3) PCR (NotDetected) Influenza Type B (PCR) (NotDetected) M. pneumoniae (PCR) (NotDetected) Parainfluenza 1 (PCR) (NotDetected) Parainfluenza 2 (PCR) (NotDetected) Parainfluenza 3 (PCR) (NotDetected) Parainfluenza 4 (PCR) (NotDetected) RSV (PCR) (NotDetected) Entero/Rhino (PCR) (NotDetected) Administered Medications Discontinued Medications Sodium Chloride (Nss) 1,000 mls @ 999 mls/hr IV .Q1H1M ONE Stop: 12/08/24 20:55 Last Infusion: 12/08/24 21:26 Dose: Infused Documented By: Admin: 12/08/24 20:05 Dose: 999 mls/hr Documented By: ZHEN Cefepime HCl (Maxipime 2000mg) 2,000 mg in 20 mls @ 5 mls/min IV NOW STA; Protocol Stop: 12/08/24 21:32 Last Admin: 12/08/24 23:22 Dose: 5 mls/min Documented By: STEVE Sodium Chloride (Nss) 1,000 mls @ 999 mls/hr IV .Q1H1M ONE Stop: 12/08/24 22:46 Last Admin: 12/08/24 22:09 Dose: 999 mls/hr Documented By: ZHEN Insulin Glargine (Lantus Per Unit Charge) 6 units SQ NOW STA Stop: 12/08/24 22:52 Last Admin: 12/08/24 23:27 Dose: 6 units Documented By: STEVE Co-signed By: DAVID Levalbuterol HCl (Levalbuterol 1.25 Mg/3 Ml Neb) 2.5 mg NEB NOW STA Stop: 12/08/24 19:56 Last Admin: 12/08/24 20:04 Dose: 2.5 mg Documented By: ZHEN Oseltamivir Phosphate (Oseltamivir Phosphate 75 Mg Cap) 75 mg PO NOW STA; Protocol Stop: 12/08/24 21:34 Last Admin: 12/08/24 21:46 Dose: 75 mg Documented By: ZHEN Oxycodone HCl (Oxycodone Hcl Ir 5 Mg Tab (Immediate Release)) 5 mg PO NOW STA Stop: 12/08/24 22:44 Last Admin: 12/08/24 23:28 Dose: 5 mg Documented By: STEVE Imaging Data Radiologist's Impression: Chest X-Ray 12/08/24 19:40 Exam(s): XR CXR 1 VIEW EXAM: XR Chest, 1 View CLINICAL HISTORY: Reason for exam: Dyspnea. TECHNIQUE: Frontal view of the chest. COMPARISON: Prior portable chest x-ray from February 24, 2023. FINDINGS: There is a right subclavian approach Port-A-Cath in place with the distal tip in the SVC. Lungs: Moderate peribronchial thickening of the central and lower lobe bronchi. Hyperinflation lungs with flattening diaphragms. There are multiple pulmonary nodules throughout both lungs. Pleural space: Unremarkable. No pneumothorax. Heart: Unremarkable. No cardiomegaly. Mediastinum: Unremarkable. Normal mediastinal contour. Bones/joints: Unremarkable. No acute fracture. IMPRESSION: Bronchitis, which may be of infectious or inflammatory etiologies. No consolidation or pleural effusion. Numerous pulmonary nodules concerning for metastatic disease. Electronically signed by: Gely Grove MD 12/08/24 23:40 PM Discharge Plan Visit Data Chief Complaint: Respiratory Problems Stated Complaint: FLUID IN LUNGS ED Provider: Wally Mane Discharge Problem: Neutropenia, Influenza A, Weakness, Acute dehydration, Metastatic cancer to lung, Pancytopenia, Acute hyperglycemia Forms Stand Alone Forms: [employer] Prescriptions Prescriptions: No Action cholecalciferol (vitamin D3) 1,000 unit capsule 1,000 units PO HS Levemir U-100 Insulin 100 unit/mL solution 6 unit SUBCUT HS levothyroxine 75 mcg tablet 75 mcg PO [id number] Rx Instructions: do not take on TUESDAY OR SUNDAYS oxycodone 5 mg tablet 5 mg PO Q4 PRN (Reason: Pain) ondansetron HCl 8 mg tablet 8 mg PO Q8 PRN (Reason: Nausea) pantoprazole 20 mg tablet,delayed release (DR/EC) 20 mg PO QAM cefuroxime axetil 500 mg tablet 500 mg PO BID atorvastatin 10 mg tablet 10 mg PO HS metoprolol succinate 100 mg tablet extended release 24 hr 100 mg PO HS loratadine 10 mg Tablet 10 mg PO HS clopidogrel 75 mg tablet 75 mg PO QAM nystatin 100,000 unit/mL suspension 5 ml PO QID Referrals Referrals: Jorge Mota MD [Primary Care Provider] - Discharge Problem: Neutropenia Qualifiers: Neutropenia type: unspecified Qualified Code(s): D70.9 - Neutropenia, unspecified Metastatic cancer to lung Qualifiers: Laterality: bilateral Qualified Code(s): C78.01 - Secondary malignant neoplasm of right lung; C78.02 - Secondary malignant neoplasm of left lung
[2024-12-08] MEDS: LEVALBUTEROL 1.25 MG/3 ML NEB NEB STA (20:04)
[2024-12-08] MEDS: SODIUM CHLORIDE 0.9% 1,000 ML IV ONE ×2 (20:05→22:09)
[2024-12-08 20:22] LABS: Hematocrit (blood only) 25.3 % (37.0-47.0); Hemoglobin 8.2 g/dl (12.0-16.0); Mean Corpuscular Hemoglobin 28.6 pg (25.0-34.0); Mean Corpuscular Hgb Conc 32.4 g/dL (32.0-36.0); Mean Corpuscular Volume 88.2 fL (80.0-100.0); Mean Platelet Volume 10.5 fL (9.4-12.4); Platelet Count 88 K/uL (130-400); RDW Coefficient of Variation 14.4 % (11.5-14.5); RDW Standard Deviation 40.9 fL (36.4-46.3); Red Blood Count 2.87 M/uL (4.20-5.40); White Blood Count 1.21 K/ul (4.8-10.8)
[2024-12-08 20:39] LABS: Adenovirus PCR Not Detected (NotDetected); Bordetella parapertussis PCR Not Detected (NotDetected); Bordetella pertussis PCR Not Detected (NotDetected); Chlamydia pneumoniae PCR Not Detected (NotDetected); Coronavirus 229E PCR Not Detected (NotDetected); Coronavirus CoV-2 (COVID19)PCR Not Detected (NotDetected); Coronavirus HKU1 PCR Not Detected (NotDetected); Coronavirus NL63 PCR Not Detected (NotDetected); Coronavirus OC43PCR Not Detected (NotDetected); Human Metapneumovirus PCR Not Detected (NotDetected); Influenza A (H3) PCR DETECTED (NotDetected); Influenza B PCR Not Detected (NotDetected); Mycoplasma pneumoniae PCR Not Detected (NotDetected); Parainfluenza Virus 1 PCR Not Detected (NotDetected); Parainfluenza Virus 2 PCR Not Detected (NotDetected); Parainfluenza Virus 3 PCR Not Detected (NotDetected); Parainfluenza Virus 4 PCR Not Detected (NotDetected); Respiratory Syncytial VirusPCR Not Detected (NotDetected); Rhinovirus/Enterovirus PCR Not Detected (NotDetected)
[2024-12-08 20:46] LABS: Alanine Aminotransferase 31 U/L (7-52); Albumin Globulin Ratio 0.9 (0.9-2); Albumin Level 3.4 gm/dl (3.4-5.0); Alkaline Phosphatase 174 U/L (34-104); Anion Gap 6 (3-11); Aspartate Aminotransferase 27 U/L (13-39); BUN Creatinine Ratio 36.5 (10-20); Bilirubin,Total 0.4 mg/dl (0.2-1.0); Blood Urea Nitrogen 23 mg/dl (6-23); Calcium 9.2 mg/dl (8.6-10.3); Carbon Dioxide 29 mmol/L (21-32); Chloride 96 mmol/L (98-107); Globulin 3.9 gm/dl (2.5-4.0); Glucose 236 mg/dl (70-99(Fasting)); Magnesium 2.1 mg/dl (1.7-2.4); Potassium 4.7 mmol/L (3.5-5.1); Sodium 131 mmol/L (136-145); Total Protein 7.3 gm/dl (6.0-8.3)
[2024-12-08 20:53] LABS: Troponin I High Sensitivity 8.6 pg/ml (0-14)
[2024-12-08 20:55] LABS: INR 0.9 (0.9-1.1); Partial Thromboplastin Time 26 Seconds (21-31); Prothrombin Time 10.3 Seconds (9.0-12.0)
[2024-12-08 21:20] LABS: Eosinophils # (auto) 0.01 K/uL (0.00-0.50); Eosinophils % (auto) 0.8 %; Lymphocytes # (auto) 0.39 K/uL (1.20-3.40); Lymphocytes % (auto) 32.2 %; Monocytes # (auto) 0.27 K/uL (0.11-0.59); Monocytes % (auto) 22.3 %; Neutrophils # (auto) 0.54 K/uL (1.40-6.50); Neutrophils % (auto) 44.7 %
[2024-12-08] MEDS: OSELTAMIVIR PHOSPHATE 75 MG CAP PO STA (21:46)
--- NOTE | 2024-12-08 22:46 | History & Physical Report ---
Date of Service December 08, 2024 Assessment & Plan (1) Cancer related pain: (2) Metastatic breast cancer: (3) Pancytopenia: (4) Hyponatremia: (5) Influenza A: (6) Diabetes mellitus: (7) G tube feedings: Plan Patient is an 84-year-old female with a past medical history of breast cancer with mets to right tongue and lung, type II DM insulin-dependent, hypertension, hyperlipidemia, hypothyroidism. She presented to the ED due to pain, tachycardia, hypertension, diarrhea, and uncontrollable blood glucose levels. She was found to have influenza A in the ED. She is being admitted due to influenza A, severe pain, pancytopenia, and hyponatremia. #cancer related pain/Metastatic breast cancer Currently undergoing treatment for metastatic breast cancer s/p bilateral mastectomy and right lateral oral tongue cancer with mets to lung previously followed with CCP Dr. Merchant but has transition care to [facility] and is currently undergoing chemotherapy Is on oxycodone extended release 10 Mg at bedtime and oxycodone immediate release 2.5/5 every 4 as needed patient with nausea taking oxycodone on admission; requested IV Tylenol Has allergy to morphine IV Tylenol as needed Oxycodone immediate release 5/10 every 4 as needed Ice and heat as needed tachycardia 2/2 pain versus acute infection below #pancytopenia 2/2 chemotherapy, DIC low on differential Platelet count 88, WBC 1.21, neutrophil count 0.54, lymphocytes 0.39 Neutropenic precautions Continue IV cefepime started in ED; MRSA negative no need for further coverage Afebrile on admission, however tachycardic consult heme/onc; day team to reach out regarding Epogen infusion follow blood cultures #hyponatremia NA 131 on admission, Although corrected for hyperglycemia is 136; pseudo hyponatremia Patient's family noted has been hyponatremic during recent admissions to [facility] 2L NSS bolus in ED followed by NSS at 80 mL/hour overnight Trend BMP, if persistently low after glucose correction can consider adding serum osmole, urine osmole, urine NA #influenza A Patient with cough since CXR negative Immunocompromised with cancer as above started on Tamiflu in ED; continue Tessalon Perles incentive spirometry #T2DM Insulin: Controlled at home with 6 UHS glargine and SSI Patient's family noted she has been hyperglycemic during recent hospitalization with [facility] They have been unable to control her glucose at home and would like geographic area intelligence officer consult; placed Glucose 236 on admission Ordered evening glargine On admission and to receive SSI HS Continue home 6U at bedtime glargine and SSI with CF of 30, defer carb ratio at this time and adjust as needed #G-tube status Placed 3 weeks ago with [place] No concern for displacement on admission Patient gets 5 feeds a day, every 4 hours between the hours of 6A-10P Noted records from [facility] is a diabetic source and 200 mL water with each feed on nestle diabetic source AC supplement drinks by PEG 5x daily at home able to take p.o. medications often with applesauce Tube feeds ordered + Diabetes diet (patient still has p.o. intake) Daily tube care Flushes as needed Dietitian consulted continue PPI and Zofran as needed Chronic stable diagnoses: HLD - continue atorvastatin And Plavix Hypothyroidism - continue levothyroxine, does not take Tuesday and Sundays HTN - continue metoprolol VTE ppx: SCDs Diet: tube feeds ordered Dispo: med/telemetry with tachycardia - patient's family would ideally like for discharge prior to Tuesday as they have many appointment set up throughout the week Admission and Anticipated Discharge Date Admission Date: 12/08/2024 History of Present Illness Chief Complaint: respiratory problems Primary Care Provider: Jorge Mota Patient is an 84-year-old female with a past medical history of breast cancer with mets to right tongue and lung, type II DM insulin-dependent, hypertension, hyperlipidemia, hypothyroidism. She presented to the ED due to pain, tachycardia, hypertension, diarrhea, and uncontrollable blood glucose levels. Shee was found to have influenza A in the ED. She is being admitted due to influenza A, severe pain, pancytopenia, and hyponatremia. Patient seen at bedside with and daughter present. They are heavily involved in her care. She previously followed with Dr. Merchant at [facility] with transition care to [facility] to be closer to her other daughter. Following history is obtained by patient's daughter and as patient was in significant pain. They stated that in early November around the or she received 4 courses of intense radiation to her face followed by chemotherapy 1 week later. After that she was admitted to [facility] for 6 days due to her blood pressure being high and uncontrollable glucose elevations. They stopped her chemo back 1 day early due to this. She returned home on Tuesday and has continued to have high glucose levels noted to be as high as 371, tachycardia, and high blood pressure. Her daughter also stated that she has had diarrhea for a week since starting radiation therapy and G-tube feeds. She is still able to take p.o. medications with applesauce. Her daughter also noted that the patient developed a cough on . She stated that her mother has not been eating a lot since transitioning to the G-tube. The patient receives G-tube feedings 5 times a day which is every 4 hours. She typically gets her blood sugar checked 30 minutes before and receives SSI. She had a feed at 830 this evening and still needs her insulin. Patient's family would like for her to be home by Tuesday for her appointments with her civil attorney. She also has an appointment in her she Tuesday and is to receive more treatment on Tuesday. Patient's family states she has not complained of fevers, no runny nose or sore throat, no dyspnea, no chest pain. She has been pain-free since coming home from the hospital on Tuesday and has not been taking her oxycodone at home. They typically use warm compresses and ice to help with the pain. She did get her a.m. medications today but needs her p.m. medications. She wishes to be full code at this time. 0130have received multiple messages regarding family concern with patient's G- tube feeding. Patient still would like p.o. meals along with G-tube feeding. They also are concerned about diabetes meals through G-tube, nursing aware that nutrition/dietitian was consulted. Ordered G-tube feeding based off recommendations from [facility] medical records. Family is able to bring in home feedings if they wish. Allergies Allergy/AdvReac Type Severity Reaction Status Date / Time Penicillins Allergy Intermediate ITCHY Verified 12/08/24 22:24 morphine AdvReac Intermediate NAUSEA AND Verified 12/08/24 22:24 VOMITING Home Medications Medication Instructions Recorded Confirmed Type cholecalciferol (vitamin D3) 25 1,000 units PO HS 10/02/18 12/08/24 History mcg (1,000 unit) capsule insulin detemir U-100 100 unit/mL 6 unit subcut HS 06/25/24 12/08/24 History subcutaneous solution (Levemir U-100 Insulin) atorvastatin 10 mg tablet 10 mg PO HS 12/08/24 12/08/24 History cefuroxime axetil 500 mg tablet 500 mg PO BID 12/08/24 12/08/24 History clopidogrel 75 mg tablet 75 mg PO QAM 12/08/24 12/08/24 History levothyroxine 75 mcg tablet 75 mcg PO 5XWK 12/08/24 12/08/24 History loratadine 10 mg tablet 10 mg PO HS 12/08/24 12/08/24 History metoprolol succinate 100 mg 100 mg PO HS 12/08/24 12/08/24 History tablet,extended release 24 hr nystatin 100,000 unit/mL oral 5 ml PO QID 12/08/24 12/08/24 History suspension ondansetron HCl 8 mg tablet 8 mg PO Q8 PRN Nausea 12/08/24 12/08/24 History oxycodone 5 mg tablet 5 mg PO Q4 PRN Pain 12/08/24 12/08/24 History pantoprazole 20 mg tablet,delayed 20 mg PO QAM 12/08/24 12/08/24 History release Past Med/Surg History Problem List (Updated 12/09/24 @ 00:25 by Janet Manriquez PA-C) G tube feedings Influenza A Hyponatremia Pancytopenia Cancer related pain H/O migraine Benign head tremor Cervical spondylosis Metastatic breast cancer (Chronic) Cervicogenic headache Cervicalgia Ganglion cyst Wrist pain Anemia due to blood loss, acute Hypothyroidism Hypertension Hyperlipidemia Diabetes mellitus Sternal fracture (Acute) Closed rib fracture (Acute) Fall (Acute) H/O mastectomy (05/05/20) COVID-19 (Acute) Shoulder pain Vision loss Headache Stroke-like symptoms Cerebrovascular disease Ocular migraine H/O bilateral mastectomy Breast cancer, left (Chronic 10/10/19) Medical History Sternal fracture DVT prophylaxis Anemia chronic, baseline hgb in the 8-10 range History of solitary pulmonary nodule under surveillance with routine imaging Hyponatremia Artery stenosis Mediastinal adenopathy Abnormal CT scan of lung Vertebral artery stenosis Moderate stenosis at origin of L vertebral artery per 10/2019 Neck CTA Visual impairment 2/2 vertebral artery stenosis. 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 Vision loss potentially related to stroke though MRI negative. Lumbar compression fracture Acute L4 and chronic L2 Reflux esophagitis Chronic kidney disease, stage III (moderate) follows with PCP Raynauds syndrome Osteoporosis Cataract of both eyes Surgical History History of bronchoscopy video mediastinoscopy with biopsy: 12/31/19: Grade 2 view, MAC#3, ETT 7.5 at [facility] Port-A-Cath in place (01/03/20) RIGHT CHEST S/P bronchoscopy HX OF History of colonoscopy History of cataract surgery R/L History of appendectomy 1975 S/P lumpectomy, left breast HX OF H/O: hysterectomy H/O tubal ligation Family History Father Coronary heart disease Heart disease Hypertension Mother , age 86 Diabetes CHF (congestive heart failure) Heart disease Colorectal cancer Hypertension Stroke Family history of reaction to anesthesia SLOW TO WAKE UP Son Multiple sclerosis Social History Smoking Status: Never smoker Second Hand Exposure: No; Do You Dip or Chew Tobacco: No; Hx Alcohol Use: No Hx Substance Use: No Preferred Language: French Communication Ability: Effective Visual Impairment: No Limitations Hearing Ability: Normal Lace Paper Machine Operator Required: No Beliefs That Will Affect Care: None marital status: Current Living Situation: Spouse current occupational status: other current occupation: semi retired substitute clerical person How many Children do You have: 6 How many Children do You have Comment: 6 Feels Safe at Home: Yes Safety Concerns: Feels Safe At This Time Childhood Exposure to Second-Hand Smoke: No during the past year weight has: remained stable Dental Care, Regularly: No Assistive Devices: None Review of Systems Review of Systems: see HPI Physical Exam Physical Exam: The patient is awake, alert and oriented 3, well developed and well nourished, normocephalic and atraumatic, tearful in pain. HEENT- EOMI, mucous membranes dry. Hearing grossly intact. Heart-normal S1 and S2. No murmurs, rubs or gallops. Lungs-clear bilaterally, no respiratory distress, no accessory muscle use. Abdomen-normal bowel sounds and soft. No ascites noted. Non-tender. Extremities- no clubbing, cyanosis, or edema. Results & Data Results & Data Vital Signs (Past 12 Hours) Vital Signs Temp Pulse Pulse Resp BP BP Pulse Ox 12/08/24 21:31 36.9 C 12/08/24 21:00 121 H 22 93 12/08/24 19:43 106 H 19 95 12/08/24 19:39 95 12/08/24 19:39 108 H 19 143/67 H 96 12/08/24 19:36 111 H 12/08/24 19:06 37 C 122 H 16 126/64 97 O2 Del Method 12/08/24 21:31 12/08/24 21:00 12/08/24 19:43 Room Air 12/08/24 19:39 Room Air 12/08/24 19:39 Room Air 12/08/24 19:36 12/08/24 19:06 Room Air Laboratory Results reviewed CBC, CMP, troponin, lactate, mag, BioFire Diagnostic Findings reviewed CXR Medications Administered ED: 2L NSS bolus, cefepime 2G IV, Tamiflu 75 Mg p.o. ECG Additional Comments: ordered Code Status & VTE Plan Code Status full code VTE Prophylaxis Plan VTE Prophylaxis will be ordered: Yes Supervising Physician Co-Signing Physician Notes Attending addendum: I have physically seen this patient, have supervised the FAREED's activities, and agree with the H&P unless as otherwise noted. 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 Patient presented emergency department due to severe jaw and generalized pain, tachycardia, hypertension, diarrhea and uncontrolled blood glucose levels. She was found to be influenza A positive in ED. Metastatic breast cancer/metastatic right jaw squamous cell cancer/pulmonary mets- Ongoing cancer related pain Presently undergoing treatment for metastatic breast cancer status post bilateral mastectomy and right lateral oral tongue cancer with mets to lung Consult oncology Dr. Foley, and getting chemotherapy at [facility] due to close proximity with family Pain control with oxycodone extended release as noted Acetaminophen 1 g IV every 6 hours as needed for mild pain or fever Pancytopenia- Secondary to chemotherapy Unlikely DIC Neutropenic precautions Cefepime 2 g IV every 12 hours MRSA negative Follow blood culture and sensitivities Influenza A- Continue Tamiflu begun in the ED Tessalon Perles and incentive spirometry as noted Diabetes mellitus glargine and SSI as noted G-tube feeds Coordinate with dietitian and family PG Care Time/CCT Total # of Minutes Spent Total Time Spent with Patient: Total time spent is greater than 50% in coordination of care (as documented) at patient's floor/unit and/or counseling patient: Coding Level of Care Code 77124 INT INP/OBS CARE 375MIN Diagnoses Cancer related pain G89.3 Metastatic breast cancer C50.919 Pancytopenia D61.818 Hyponatremia E87.1 Influenza A J10.1 Diabetes mellitus E11.9 G tube feedings Z93.1
[2024-12-08] MEDS: CEFEPIME 2000MG 2,000 MG/20 ML SYR IV STA (23:22)
[2024-12-08] MEDS: LANTUS PER UNIT CHARGE SQ STA (23:27)
[2024-12-08] MEDS: oxyCODONE HCL IR 5 MG TAB (IMMEDIATE RELEASE) PO STA (23:28)
--- NOTE | 2024-12-08 23:41 | XRay Report ---
Exam(s): XR CXR 1 VIEW EXAM: XR Chest, 1 View CLINICAL HISTORY: Reason for exam: Dyspnea. TECHNIQUE: Frontal view of the chest. COMPARISON: Prior portable chest x-ray from February 24, 2023. FINDINGS: There is a right subclavian approach Port-A-Cath in place with the distal tip in the SVC. Lungs: Moderate peribronchial thickening of the central and lower lobe bronchi. Hyperinflation lungs with flattening diaphragms. There are multiple pulmonary nodules throughout both lungs. Pleural space: Unremarkable. No pneumothorax. Heart: Unremarkable. No cardiomegaly. Mediastinum: Unremarkable. Normal mediastinal contour. Bones/joints: Unremarkable. No acute fracture. IMPRESSION: Bronchitis, which may be of infectious or inflammatory etiologies. No consolidation or pleural effusion. Numerous pulmonary nodules concerning for metastatic disease. Electronically signed by: Gely Grove MD 12/08/24 23:40 PM
[2024-12-08] MEDS: ACETAMINOPHEN 1,000 MG/100 ML VIAL IV STA (23:59)
[2024-12-09] MEDS ORDERED: CARBOHYDRATES FOR HYPOGLYCEMIA PO PRN (01:37)
[2024-12-09] MEDS ORDERED: oxyCODONE HCL IR 5 MG TAB (IMMEDIATE RELEASE) PO PRN ×2 (01:37)
[2024-12-09] MEDS ORDERED: GLUCAGON FOR INJ 1 MG VIAL SQ PRN (01:37)
[2024-12-09] MEDS ORDERED: GLUCOSE 40% GEL 15 GM TUBE PO PRN (01:37)
[2024-12-09] MEDS ORDERED: DEXTROSE 50% 50 ML SYRINGE IV PRN (01:37)
[2024-12-09] MEDS ORDERED: GLUCOSE 10 TAB/TUBE PO PRN (01:37)
[2024-12-09] MEDS ORDERED: oxyCODONE HCL 10 MG TABCR (OxyCONTIN) PO PRN (01:37)
[2024-12-09] MEDS ORDERED: PHARMACY GLYCEMIC MGMT CONSULT PRN (01:37)
[2024-12-09 01:57] LABS: Appearance Urine Clear (Clear); Bacteria Urine Automated None Seen (None Seen); Bilirubin Urine Negative (Negative); Blood Urine Negative (Negative); Cast Urine Automated 0-2 /lpf (0-2); Color Urine Yellow; Epithelial Cell Urine Auto 0-2 /hpf (0-2); Glucose Urine UA Trace (Negative); Ketones Urine Negative (Negative); Leukocyte Esterase Urine Negative (Negative); Nitrite Urine Negative (Negative); Protein Urine Trace (Negative); RBC Urine Automated 0-2 /hpf (0-2); Specific Gravity Urine 1.016 (1.000-1.030); Urobilinogen Urine Negative (Negative); WBC Urine Automated 0-5 /hpf (0-5); pH Urine 7.5 (4.5-7.5)
[2024-12-09] MEDS ORDERED: METOPROLOL SUCC 50MG EXT REL TAB PO STA (02:08)
[2024-12-09] MEDS ORDERED: INSULIN ASPART PER UNIT CHARGE SC SCH (02:10)
[2024-12-09] MEDS: SODIUM CHLORIDE 0.9% 1,000 ML IV SCH (02:10)
[2024-12-09] MEDS: oxyCODONE HCL 10 MG TABCR (OxyCONTIN) PO SCH ×2 (02:21→21:54)
[2024-12-09] MEDS: INSULIN ASPART PER UNIT CHARGE SC STA (02:22)
[2024-12-09] MEDS: METOPROLOL SUCC 50MG EXT REL TAB PO SCH (02:42)
[2024-12-09] MEDS ORDERED: FIBERSOURCE HN 1.2 CAL 1000 ML BAG GT SCH (05:30)
[2024-12-09] MEDS: ACETAMINOPHEN 1,000 MG/100 ML VIAL IV PRN (06:48)
[2024-12-09] MEDS: FIBERSOURCE HN 1.2 CAL 1000 ML BAG GT STA (07:03)
[2024-12-09 07:28] LABS: Hematocrit (blood only) 22.6 % (37.0-47.0); Hemoglobin 7.3 g/dl (12.0-16.0); Mean Corpuscular Hemoglobin 28.7 pg (25.0-34.0); Mean Corpuscular Hgb Conc 32.3 g/dL (32.0-36.0); Mean Platelet Volume 10.6 fL (9.4-12.4); Platelet Count 82 K/uL (130-400); RDW Coefficient of Variation 14.5 % (11.5-14.5); RDW Standard Deviation 42.3 fL (36.4-46.3); Red Blood Count 2.54 M/uL (4.20-5.40); White Blood Count 1.37 K/ul (4.8-10.8)
--- NOTE | 2024-12-09 07:33 | Hospitalist Progress Note ---
Date of Service December 09, 2024 Assessment & Plan (1) Cancer related pain: Plan: Pt is an 84yo female with a past medical history of breast cancer w/ mets, SCC of tongue and lung mets (breast vs. SCC), type II DM insulin-dependent, hypertension, hyperlipidemia, and hypothyroidism. She presented to the ED due to pain, tachycardia, hypertension, diarrhea, and uncontrollable blood glucose levels. She was found to have influenza A in the ED. She is being admitted due to influenza A, severe pain, pancytopenia, and hyponatremia. 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 SCC met) - previously followed with [facility]CP Dr. Alfaro but has transitioned care to [facility] and is currently undergoing chemotherapy (with next dose due this week) - pain regimen: IV tylenol scheduled, oxycodone XR 10 mg scheduled at bedtime, oxycodone IR 5/10mg every 4hr PRN, toradol 15mg q6hr PRN- discussed with pt that with her severe cancer related pain opiods are most likely to be the most effective for pain relief - spot dose of dilaudid 1mg IV given this afternoon - bowel regimen: s/p senna this AM and addition of miralax 17gm BID through her G tube - in discussion with pt on first meeting this AM, she was tearful throughout and is unsure if she wants to continue with chemo; would recommend continue discussion with pt and family about GOC Pancytopenia - suspect secondary to chemotherapy - CXR w/o acute findings; blood cx pending - continue cefepime - heme/onc consulted Influenza A - pt with cough since - CXR neg for acute process; demonstrated multiple mets - immunocompromised with cancer/chemo as above - continue tamiflu BID x5-10 days - tessalon perles PRN, incentive spirometry T2DM - pt previously controlled at home with insulin glargine 6u HS and SSI - however, pt's family noted she has been hyperglycemic during recent hospitalization at [facility] and they have been unable to control her glucose at home - family requested hospice educator consult - pharmacy consult for glycemic management Gtube in place - placed a few weeks ago with [facility] - pt gets 5 feeds per day (q4 hr between the hours of 6AM-10PM) - records from [facility] show diabetic source and 200 mL water with each feed - also on nestle diabetic source AC supplement drinks by PEG 5x daily at home - pt is able to take meds PO with applesauce - nutrition consulted and managing tube feeds Hyponatremia- resolved - s/p IVF Chronic stable diagnoses: HLD - continue atorvastatin and plavix Hypothyroidism - continue levothyroxine, does not take Tuesday and Sundays HTN - continue metoprolol Code: full VTE ppx: despite pancytopenia, pt high risk for clotting so lovenox added- monitoring CBC/signs of bleeding closely Diet: tube feeds, PO as wanted Dispo med/tele Of note, pt's family would ideally like for discharge prior to Tuesday as they have many appointment set up throughout the week (2) G tube feedings: (3) Pancytopenia: (4) Diabetes mellitus: (5) Influenza A: (6) Metastatic breast cancer: Admission and Anticipated Discharge Date Admission Date: December 09, 2024 Supervising Physician Co-Signing Physician Notes I personally examined the patient and verified all vo points of history and exam, discussed case, and agree with decision making with Dr Talavera pt holding side of face and crying in pain. did not want narcotics - given severity of pain dr talavera asked what her reticence was -> constipation. once discussed further and discussed bowel regimen she was no longer as reticent and did want pain relief vitals noted thin and frail appearing holding L side of face and crying in pain. heent nc at mmm holding left side of face given severe pain and known CA did not make pt open mouth wide etc when dr talavera had already examined the area of concern. breathing unlabored no accessory muscles good effort skin no rashes no pallor or icterus cancer/pain - after discussion - her reticence was due to constipation - ongoing miralax/senna orderd, trial of dilauded - can continue vs trial of oxycodone since oxycodone would be a workable plan for home. follow hyperglycemia - insulin management. neutropenic fever - almost certainly due to flu but with neutropenia covering w cefepime to be safe DVT proph - mild thrombocytopenia but high risk for clot - lovenox, follow otherwise as above Subjective Pt seen at bedside this AM- she provides all history as there is no family in the room. Pt notes she has been through a lot including breast cancer (with some remaining cancer in her sternum that she says is "uncurable") and her more recent mouth/tongue cancer. Her mouth is painful mostly on the left side down into her neck. This make it hard for her to take PO. She recently got a G tube placed in [place] a few weeks ago and she says this has been going well. She has had DM for many years and never had any issues with her BS until the G tube placement. Pt is intermittently tearful throughout the encounter. I ask when she is due for chemo next and she states this week "if I decide to do it again." She states things were going ok until her most recent chemo session. Review of Systems Review of Systems: As per HPI Physical Exam Physical Exam: Constitutional: ill appearing, no acute distress HEENT: normocephalic, no conjunctival injection CV: RRR, no murmur Respiratory: CTA bilaterally. No rhonchi, wheezes, or crackles. No increased work of breathing GI: G tube in place; soft, nondistended, nontender, + bowel sounds MSK: no gross deformities noted Neuro: alert, oriented, no FND noted Psych: mood and affect congruent; pt intermittently tearful Results & Data Results & Data Vital Signs (Past 12 Hours) Vital Signs Temp Pulse Pulse Resp BP BP Pulse Ox 12/09/24 01:52 109 H 12/09/24 01:30 12/09/24 01:30 37.6 C H 111 H 20 176/79 H 97 12/09/24 01:00 113 H 25 H 161/71 H 93 12/09/24 00:06 116 H 22 169/71 H 96 12/08/24 23:03 118 H 17 96 12/08/24 21:31 36.9 C 12/08/24 21:00 121 H 22 93 12/08/24 19:43 106 H 19 95 12/08/24 19:39 95 12/08/24 19:39 108 H 19 143/67 H 96 12/08/24 19:36 111 H O2 Del Method 12/09/24 01:52 12/09/24 01:30 Room Air 12/09/24 01:30 Room Air 12/09/24 01:00 Room Air 12/09/24 00:06 Room Air 12/08/24 23:03 Room Air 12/08/24 21:31 12/08/24 21:00 12/08/24 19:43 Room Air 12/08/24 19:39 Room Air 12/08/24 19:39 Room Air 12/08/24 19:36 Resident Activity Tracking Resident Involvement: Resident Care Provided Care Provided: Adult Hospital Medicine
[2024-12-09 07:53] LABS: BUN Creatinine Ratio 35.3 (10-20); Calcium 8.4 mg/dl (8.6-10.3); Creatinine Clr Calc Pharmacy 63.8 ml/min; Magnesium 1.8 mg/dl (1.7-2.4); Potassium 4.6 mmol/L (3.5-5.1)
[2024-12-09 08:26] LABS: Ovalocytes 1+
[2024-12-09 08:35] LABS: Basophils # (auto) 0.01 K/uL (0.00-0.20); Basophils % (auto) 0.7 %; Lymphocytes # (auto) 0.55 K/uL (1.20-3.40); Lymphocytes % (auto) 40.1 %; Monocytes # (auto) 0.31 K/uL (0.11-0.59); Monocytes % (auto) 22.6 %; Neutrophils % (auto) 36.6 %
[2024-12-09] MEDS: PANTOprazole 40 MG TAB PO SCH (08:59)
[2024-12-09] MEDS: CLOPIDOGREL BISULFATE 75 MG TAB PO SCH (08:59)
[2024-12-09] MEDS: BENZONATATE 100 MG CAPSULE PO SCH (08:59)
[2024-12-09] MEDS: INSULIN ASPART PER UNIT CHARGE SC SCH ×2 (09:01→13:22)
[2024-12-09] MEDS: TUBE FEEDING WATER FLUSH GT SCH (09:02)
[2024-12-09] MEDS: NYSTATIN SUSP 500,000 U/5 ML UDC PO SCH (09:02)
[2024-12-09] MEDS: FIBERSOURCE HN 1.2 CAL 1000 ML BAG GT SCH (09:05)
[2024-12-09] MEDS: OSELTAMIVIR PHOSPHATE SUSP 30 MG/5 ML UDP PO SCH (09:09)
--- NOTE | 2024-12-09 09:21 | Electrocardiogram Report ---
Test Reason : Blood Pressure : */* mmHG Vent. Rate : 111 BPM Atrial Rate : 111 BPM P-R Int : 148 ms QRS Dur : 58 ms QT Int : 326 ms P-R-T Axes : 70 32 70 degrees QTcB Int : 443 ms Sinus tachycardia with Premature atrial complexes Minimal voltage criteria for LVH, may be normal variant ( Sokolow-Barlow ) Borderline ECG When compared with ECG of 24-Feb-2023 15:34, Premature atrial complexes are now Present Confirmed by Jose Luis Cherry ([id number]) on 12/09/2024 9:20:59 AM Referred By: REFERRED SELF Confirmed By: Jose Luis Cherry
[2024-12-09] MEDS: CEFEPIME 2000MG 2,000 MG/20 ML SYR IV SCH (11:54)
[2024-12-09] MEDS: POLYETHYLENE (MIRALAX) 17 GM PACK GT SCH (12:35)
[2024-12-09] MEDS: SENNA 8.6 MG TAB PO ONE ×2 (12:35→12:36)
[2024-12-09] MEDS: HYDROmorphone INJ 1 MG/ML SYRINGE IV STA (12:35)
--- NOTE | 2024-12-09 13:09 | Pharmacy Report ---
Pharmacy Glycemic Short Note 2 - Date of Service December 09, 2024 - Glycemic Short BSG Results (Last 24 hours): 12/08/24 12/08/24 12/09/24 20:06 23:15 01:32 Glucose 236 H POC Glucose 301 H* 342 H* 12/09/24 12/09/24 12/09/24 06:37 06:41 08:18 Glucose 155 H POC Glucose 177 H 286 H 12/09/24 12:34 Glucose POC Glucose 194 H OUTPATIENT ANTIDIABETIC REGIMEN: * Levemir 6 units SC HS HbA1c: * pending - A1c analyzer at [facility] inpatient lab down until 12/10/24 ASSESSMENT: * 84 yo F admitted on 12/08/24 secondary to influenza A. Pharmacy has been consulted to assist with inpatient glycemic management. Patient is a Type 2 diabetic as an outpatient. Please refer to outpatient regimen and most recent HbA1c above. * Ordered home tube feeds 5 x day. Contains 25 g carbs per carton. Does have some additional PO intake but very little. * Fasting BSG was 177 mg/dL this AM. Will continue with home basal dose. Novolog ordered to cover bolus TF 5 x day. PLAN FOR INPATIENT GLYCEMIC CONTROL: * Basal insulin * Lantus 6 units SC HS * Bolus insulin * NovoLog per scale ACHS or Q6hrs while NPO * Goal Range: Low 110 mg/dL - High 140 mg/dL * Correction Factor: 30 mg/dL/unit * Nutritional / Prandial insulin per carb ratio of 1 unit per 10 grams CHO consumed
[2024-12-09] MEDS: TUBE FEEDING WATER FLUSH PEG SCH (13:24)
[2024-12-09] MEDS: ACETAMINOPHEN 1,000 MG/100 ML VIAL IV SCH (13:24)
[2024-12-09] MEDS: FIRST - Mouthwash BLM 5 ML UDP PO PRN (13:32)
--- NOTE | 2024-12-09 14:00 | Billing Data ---
Date of Service December 09, 2024 Coding Level of Care Code 03831 SUB INP/OBS CARE MIN
[2024-12-09] MEDS: oxyCODONE HCL IR 5 MG TAB (IMMEDIATE RELEASE) PO SCH (17:13)
[2024-12-09] MEDS: PATIENT'S OWN ENTERAL FEEDING PEG SCH (17:14)
--- NOTE | 2024-12-09 18:19 | Oncology Consultation ---
Date of Consultation December 09, 2024 Assessment & Plan (1) Pancytopenia: transfuse packed red blood cells to maintain hemoglobin. > 7.0 g/dl Or in case of hemodynamic instability continue broad-spectrum antibiotic such as cefepime till the ANC is greater than 1500 can start Neupogen 300 mcg daily till the ANC is greater than 1000 for 2 consecutive days or ANC is greater than 1500 transfuse platelets if actively bleeding or if platelet count is less than 10,000/mcL upon discharge resume care with my colleagues from [facility] Plan thank you for this interesting oncological consult. Medical oncology will continue to follow the patient make appropriate recommendations. History of Present Illness Reason for Consultation: Neutropenia Chemotherapy induced myelosupression Attending Physician: Aubrey Martinez DO History of Present Illness 84-year-old woman, previously following my colleague Dr. Alfaro; Currently under care of information specialist at [facility]. She is undergoing radiation and chemotherapy for metastatic cancer. At this point I do not have any records from [place], I do not know the protocol she is on. Apparently she goes home with infusional chemotherapy so most likely she may be on infusional 5-FU. However I will obtain records from [place]. She presented to [facility] with weakness, fatigue, tiredness.Medical Oncolohy has been consulted to assist in management of this patient with Chemotherapy- induced pancytopenia. Diagnoses #1: Breast cancer A. 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 Stage IA (pT1b pN0 cM0) B. Incomplete pending surgery. Status post bilateral mastectomies, left breast contained a 6 mm invasive focus however it was the right sentinel lymph node which had metastatic disease. Staging equivalent to pT4b, N1A stage IIIb---> Now stage IV Molecular Testing: TMB high, AK T1 pathogenic variant exon 3, ESR 1 negative Current Treatment: Monthly fulvestrant. Previously on abemaciclib which she has been held Diagnosis/ Treatment History: 1. Screening mammogram 08/12/2001 revealed a suspicious cluster of microcalcifications in the 6:00 left breast. 2. On 08/30/01, she underwent an excisional biopsy that revealed invasive ductal carcinoma, grade 2, with associated high-grade DCIS with comednoecrosis. ER was 70%, FL 40%, and HER2 negative for overexpression. The tumor measured 1.0 cm in greatest extent and had a focally positive margin. 3. On 10/13/2001, she underwent re-excision and SLNB. All final margins were negative, as were two sentinel nodes (0/2). 4. She underwent adjuvant RT (4680 cGy to whole breast with 1440 cGy boost to the tumor bed), from 11/21- 01/11/2002. 5. She was treated with tamoxifen for 5 years, per her recollection. 6. She came to attention in September, with an inverted left nipple. Targeted US 08/01/19 revealed marked subareolar acoustic shadowing that may have been related to the nipple, though clinical correlation was suggested. 7. Bilateral breast MRI 09/10/19 revealed postsurgical changes in the left breast with retraction of the left nipple and a rounded, enhancing mass/masslike area that extends superficially into the nipple-areolar complex, measuring 1.1 x 1.1 x 1 cm. Also seen was a small focus of intradermal enhancement at the upper inner left breast. No axillary adenopathy was seen and no concerning findings were noted in the right breast. 8. US of the left breast 10/02/19 revealed two suspicious findings: a hypoechoic mass/masslike area measuring 0.9 cm in the 1:00 left breast, 1 cm from the nipple, and a 1.1 cm nodular area within the subareolar left breast intimately related to the inverted nipple. The subareolar lesion was felt to be best sampled by skin punch biopsy, but the 1:00 lesion was biopsied, revealing fibroadipose tissue with small areas of fat necrosis and no atypia or malignancy. 9. Punch biopsy of the nipple lesion 10/10/19 revealed carcinoma with an IHC pattern consistent with ductal breast carcinoma. By our pathology review, there was a single small focus concerning for dermal lymphatic involvement. The tumor was ER 100% positive, though FL and HER2 were performed subsequently and are pending. 10. PET/CT 12/03/19 revealed moderate FDG uptake within borderline enlarged mediastinal and right hilar lymph nodes, along with an 8 mm irregular RUL pulmonary nodule with minimal FDG uptake and mild left retroareolar FDG uptake consistent with her biopsy-proven breast cancer. 11. On 12/14/19, she underwent bronhcoscopy with EBUS and transbronchial biopsies of nodes from level 2, 4R, 4L, and 7 all yielded adequate smear passes and revealed lymphoid tissue without malignant cells. 12. Referred to clinical genetics and underwent panel testing, which was negative for deleterious variants, though she did have a VUS in MSH3. 13. Completing 4 cycles of neoadjuvant Taxotere and cyclophosphamide on 03/24/2020. 14. Underwent bilateral mastectomies on 05/05/2020 pathology was somewhat interesting where her invasive disease was predominantly within the left breast however it was the right sentinel lymph node that was positive measuring 8 mm in size. This finding turned out to be a clerical error which was straightened out by pathology her sentinel lymph node was actually on the left. 15. Status post adjuvant radiation therapy left chest wall supraclavicular and axilla receiving 6400 cGy, completed on 08/21/2020. 16. CT chest on02/05/2022 revealed increased prominence of 7 x 6 mm spiculated right upper lobe pulmonary noduleas well as multiple left-sided rib fractures of unknown acuitywith subacute sternal fracture.CT neckalso on 02/05/2022 revealedbilateral nonenlarged level 2A lymph nodes. 17. CT guided biopsy of soft tissue sternal mass on 09/22/2022 which revealed metastatic ER positive, FL negative and Her2 negative metastatic carcinoma of breast primary. 18.PET/CT obtained on 11/04/2022 revealed development of lucency and fragmentation in the body of the sternum with increased FDG uptake, nonspecific left cervical lymph node uptake as well as higher level mediastinal and left internal mammary chain uptake suspicious for metastatic disease and tiny right upper lobe focus of uptake, likely metastatic disease 19. [id number] cGy in 5 fractions palliative RT to sternum completed 11/19/2022 20. On cycle 1, Day 15 of treatment, ANC was noted to be 0.67 for which ibrance was held. Repeat CBC 1 week later on 12/24/2022 revealed ANC of 0.72 and platelet count of 45,000. Ibrance was subsequently discontinued due to significant cytopenias and she was started on abemaciclib 150 mg p.o. twice daily on 01/14/2023. Patient also evaluated at [facility] for second opinion who agreed with plan of switching to abemaciclib 21. Shortly after starting abemaciclib, she developed GI symptoms for which she was evaluated in the ER. Verzenio was held for several days until resolution of symptoms. She then presented to the ER again on 02/24/2023 with worsening respiratory symptoms despite being on oral antibiotics prescribed by her PCP. CTA chest on 03/03/2023 revealed subpleural groundglass opacities in the anterior right upper and middle lobes. Prescribed antibiotics and steroids with improvement in her symptoms. Verzenio was subsequently dose reduced to 50 mg p.o. 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 Biopsy obtained in on 12/22/2021 revealed squamous cell carcinoma. 2.On 01/06/2022 she underwent partial glossectomy with primary closure at [facility] in [place] which revealed moderately differentiated squamous cell carcinoma measuring 7 mm in greatest dimension with depth of invasion of 3.4 mm there was no evidence of LVI, PNI and margins were negative with closest margin about 1.8 mm from the deep margin 3. Biopsy performed by oral and maxillofacial surgeon at [facility] revealed atypia concerning forrecurrent disease 4.PET/CTon 07/11/2024nd CT soft tissue neck on 08/03/2024 negative forrecurrent disease 5.PET/CT on 10/17/2024 Most compatible with disease progression with increased size of right tongue lesion with involvement of the adjacent right mandible, new multifocal pulmonary metastasis along with cervical chain lymphatic metastasis, stable subcentimeter hypermetabolic mediastinal and hilar lymph nodes, no evidence of metastatic disease within abdomen and pelvis, hypermetabolic right thyroid lobe/nodule. Allergies Allergy/AdvReac Type Severity Reaction Status Date / Time Penicillins Allergy Intermediate ITCHY Verified 12/08/24 22:24 morphine AdvReac Intermediate NAUSEA AND Verified 12/08/24 22:24 VOMITING Home Medications Medication Instructions Recorded Confirmed Type cholecalciferol (vitamin D3) 25 1,000 units PO HS 10/02/18 12/08/24 History mcg (1,000 unit) capsule insulin detemir U-100 100 unit/mL 6 unit subcut HS 06/25/24 12/08/24 History subcutaneous solution (Levemir U-100 Insulin) atorvastatin 10 mg tablet 10 mg PO HS 12/08/24 12/08/24 History cefuroxime axetil 500 mg tablet 500 mg PO BID 12/08/24 12/08/24 History clopidogrel 75 mg tablet 75 mg PO QAM 12/08/24 12/08/24 History levothyroxine 75 mcg tablet 75 mcg PO 5XWK 12/08/24 12/08/24 History loratadine 10 mg tablet 10 mg PO HS 12/08/24 12/08/24 History metoprolol succinate 100 mg 100 mg PO HS 12/08/24 12/08/24 History tablet,extended release 24 hr nystatin 100,000 unit/mL oral 5 ml PO QID 12/08/24 12/08/24 History suspension ondansetron HCl 8 mg tablet 8 mg PO Q8 PRN Nausea 12/08/24 12/08/24 History oxycodone 5 mg tablet 5 mg PO Q4 PRN Pain 12/08/24 12/08/24 History pantoprazole 20 mg tablet,delayed 20 mg PO QAM 12/08/24 12/08/24 History release Patient History Medical History Sternal fracture DVT prophylaxis Anemia chronic, baseline hgb in the 8-10 range History of solitary pulmonary nodule under surveillance with routine imaging Hyponatremia Artery stenosis Mediastinal adenopathy Abnormal CT scan of lung Vertebral artery stenosis Moderate stenosis at origin of L vertebral artery per 10/2019 Neck CTA Visual impairment 2/2 vertebral artery stenosis. 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 Vision loss potentially related to stroke though MRI negative. Lumbar compression fracture Acute L4 and chronic L2 Reflux esophagitis Chronic kidney disease, stage III (moderate) follows with PCP Raynauds syndrome Osteoporosis Cataract of both eyes Surgical History History of bronchoscopy video mediastinoscopy with biopsy: 12/31/19: Grade 2 view, MAC#3, ETT 7.5 at [facility] Port-A-Cath in place (01/03/20) RIGHT CHEST S/P bronchoscopy HX OF History of colonoscopy History of cataract surgery R/L History of appendectomy 1975 S/P lumpectomy, left breast HX OF H/O: hysterectomy H/O tubal ligation Family History Father Coronary heart disease Heart disease Hypertension Mother , age 86 Diabetes CHF (congestive heart failure) Heart disease Colorectal cancer Hypertension Stroke Family history of reaction to anesthesia SLOW TO WAKE UP Son Multiple sclerosis Social History Smoking Status: Never smoker Second Hand Exposure: No; Do You Dip or Chew Tobacco: No; Hx Alcohol Use: No Hx Substance Use: No Preferred Language: Mozambican Communication Ability: Effective Visual Impairment: No Limitations Hearing Ability: Normal Speedboat Operator Required: No Beliefs That Will Affect Care: None marital status: Current Living Situation: Spouse current occupational status: other current occupation: semi retired substitute clerical person How many Children do You have: 6 How many Children do You have Comment: 6 Feels Safe at Home: Yes Safety Concerns: Feels Safe At This Time Childhood Exposure to Second-Hand Smoke: No during the past year weight has: remained stable Dental Care, Regularly: No Assistive Devices: None Review of Systems Review of Systems: weakness, fatigue, tiredness, low energy Constitutional: as per Subjective / HPI Eyes: as per Subjective / HPI Ear, Nose, Mouth, Throat: as per Subjective / HPI Respiratory: as per Subjective / HPI Cardiovascular: as per Subjective / HPI Gastrointestinal: as per Subjective / HPI Genitourinary: as per Subjective / HPI Musculoskeletal: as per Subjective / HPI Integumentary: as per Subjective / HPI Neurologic: as per Subjective / HPI Psychiatric: as per Subjective / HPI Endocrine: as per Subjective / HPI Hematologic / Lymphatic: as per Subjective / HPI Allergy / Immunological: as per Subjective / HPI Physical Exam Constitutional: WD/WN, vitals as above Eyes: PERRL, conjunctivae normal, anicteric sclerae ENMT: external ear and nose normal, oropharynx normal Neck: trachea midline, no thyromegaly Respiratory: normal respiratory effort, lungs clear to auscultation Cardiovascular: RRR, no murmur, no edema Gastrointestinal (Abdomen): normal bowel sounds, soft, nontender, no hepatosplenomegaly Musculoskeletal: no cyanosis or clubbing, extremities motor strength 5/5 Skin: no rashes, warm and dry Neurologic: patellar DTR's 2+ bilat, sensation intact Psychiatric: A+Ox3, euthymic affect Results & Data Vital Signs (Past 12 Hours) Vital Signs Temp Pulse Pulse Resp BP Pulse Ox O2 Del Method 12/09/24 15:45 36.7 C 97 H 16 128/64 96 Room Air 12/09/24 14:21 101 H 12/09/24 14:21 Room Air 12/09/24 11:27 36.8 C 100 H 16 156/68 H 95 Room Air 12/09/24 10:38 36.7 C 98 H 16 147/64 H 97 Room Air 12/09/24 08:18 36.7 C 18 145/67 H 91 Room Air
[2024-12-09] MEDS: ATORVASTATIN 10 MG TAB PO SCH (21:26)
[2024-12-09] MEDS: LORATADINE 10 MG TAB PO SCH (21:26)
[2024-12-09] MEDS: LANTUS PER UNIT CHARGE SQ SCH (21:53)
[2024-12-10] MEDS ORDERED: LEVOTHYROXINE SODIUM 75 MCG TABLET PO SCH (06:30)
[2024-12-10 06:37] LABS: Calcium 8.8 mg/dl (8.6-10.3); Creatinine Clr Calc Pharmacy 67.4 ml/min; Potassium 4.4 mmol/L (3.5-5.1)
[2024-12-10 06:59] LABS: Mean Corpuscular Hemoglobin 28.4 pg (25.0-34.0); Mean Corpuscular Hgb Conc 32.1 g/dL (32.0-36.0); Mean Corpuscular Volume 88.5 fL (80.0-100.0); Platelet Count 84 K/uL (130-400); RDW Coefficient of Variation 14.7 % (11.5-14.5); RDW Standard Deviation 42.9 fL (36.4-46.3); Red Blood Count 2.43 M/uL (4.20-5.40); White Blood Count 1.62 K/ul (4.8-10.8)
[2024-12-10 07:06] LABS: Ovalocytes 1+; Polychromasia 1+
[2024-12-10 07:08] LABS: Eosinophils # (auto) 0.01 K/uL (0.00-0.50); Eosinophils % (auto) 0.6 %; Hematocrit (blood only) 21.5 % (37.0-47.0); Hemoglobin 6.9 g/dl (12.0-16.0); Lymphocytes # (auto) 0.57 K/uL (1.20-3.40); Lymphocytes % (auto) 35.2 %; Monocytes % (auto) 18.5 %; Neutrophils # (auto) 0.74 K/uL (1.40-6.50); Neutrophils % (auto) 45.7 %
[2024-12-10] MEDS ORDERED: SODIUM CHLORIDE 0.9% 50 ML IV PRN (07:49)
[2024-12-10] MEDS ORDERED: SODIUM CHLORIDE 0.9% 100 ML IV PRN (07:49)
[2024-12-10] MEDS: LEVOTHYROXINE SODIUM 75 MCG TABLET PO SCH (09:30)
[2024-12-10] MEDS: DOCUSATE SODIUM 100 MG CAP PO PRN (09:32)
[2024-12-10] MEDS: SENNA 8.6 MG TAB PO SCH (09:32)
[2024-12-10] MEDS: ENOXAPARIN INJ 30 MG/0.3 ML SYR SQ SCH (11:00)
--- NOTE | 2024-12-10 12:11 | Hospitalist Progress Note ---
Date of Service December 10, 2024 Assessment & Plan (1) Cancer related pain: Plan: Pt is an 84yo female with a past medical history of breast cancer w/ mets, SCC of tongue and lung mets (breast vs. SCC), type II DM insulin-dependent, hypertension, hyperlipidemia, and hypothyroidism. She presented to the ED due to pain, tachycardia, hypertension, diarrhea, and uncontrollable blood glucose levels. She was found to have influenza A in the ED. She is being admitted due to influenza A, severe pain, pancytopenia, and hyponatremia. 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 SCC met) - previously followed with CCP Dr. Alfaro but has transitioned care to [place] and is currently undergoing chemotherapy (with next dose due this week) - pain regimen: IV tylenol scheduled, oxycodone XR 10 mg scheduled at bedtime, oxycodone IR 5/10mg every 4hr PRN, toradol 15mg q6hr PRN- discussed with pt that with her severe cancer related pain opiods are most likely to be the most effective for pain relief - spot dose of dilaudid 1mg IV given this afternoon - bowel regimen: s/p senna this AM and addition of miralax 17gm BID through her G tube - in discussion with pt on first meeting this AM, she was tearful throughout and is unsure if she wants to continue with chemo; would recommend continue discussion with pt and family about GOC Pancytopenia - Transfuse 1U PRBCs - suspect secondary to chemotherapy - CXR w/o acute findings; blood cx pending - continue cefepime - heme/onc consulted Influenza A - pt with cough since - CXR neg for acute process; demonstrated multiple mets - immunocompromised with cancer/chemo as above - continue tamiflu BID x5-10 days - tessalon perles PRN, incentive spirometry T2DM - pt previously controlled at home with insulin glargine 6u HS and SSI - however, pt's family noted she has been hyperglycemic during recent hospitalization at [place] and they have been unable to control her glucose at home - family requested clinical informatics educator consult - pharmacy consult for glycemic management Gtube in place - placed a few weeks ago with [place] - pt gets 5 feeds per day (q4 hr between the hours of 6AM-10PM) - records from [place] show diabetic source and 200 mL water with each feed - also on nestle diabetic source AC supplement drinks by PEG 5x daily at home - pt is able to take meds PO with applesauce - nutrition consulted and managing tube feeds Hyponatremia- resolved - s/p IVF Chronic stable diagnoses: HLD - continue atorvastatin and plavix Hypothyroidism - continue levothyroxine, does not take Tuesday and Sundays HTN - continue metoprolol Code: full VTE ppx: despite pancytopenia, pt high risk for clotting so lovenox added- monitoring CBC/signs of bleeding closely Diet: tube feeds, PO as wanted Dispo med/tele Of note, pt's family would ideally like for discharge prior to Tuesday as they have many appointment set up throughout the week (2) G tube feedings: (3) Pancytopenia: (4) Diabetes mellitus: (5) Influenza A: (6) Metastatic breast cancer: Admission and Anticipated Discharge Date Admission Date: December 08, 2024 Supervising Physician Co-Signing Physician Notes ATTESTATION I also saw the patient and confirmed vo portions of the history and exam. I agree with the impression and plan in the resident documentation, and as summarized below. Upon our midmorning exam, patient is somewhat tearful, understandably so. Blood transfusion currently running. EXAM 167/69, 23, 16, 36.8, 94% on room air Heart slightly tachycardic; mid 80s upon auscultation Respirations nonlabored DATA Labs WBC 1.9, hemoglobin 6.9 (8.8 posttransfusion) sodium 132, potassium 4.4, BUN 15, creatinine 0.50 Imaging chest x-ray dated 12/08/2024 shows bronchitis and numerous pulmonary nodules concerning for metastatic disease. Micro blood cultures from 12/08/2024 demonstrate no growth at 24 hours. 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 Getting chemotherapy at [facility] due to close proximity with family Pain control with oxycodone extended release as noted Acetaminophen 1 g IV every 6 hours as needed for mild pain or fever Pancytopenia Secondary to chemotherapy Neutropenic precautions Cefepime 2 g IV every 12 hours MRSA negative Follow blood culture and sensitivities Influenza A Tamiflu Tessalon Perles and incentive spirometry as noted Diabetes mellitus glargine and SSI as noted G-tube feeds Coordinate with dietitian and family Subjective Patient seen and evaluated at bedside this morning. No acute events overnight. Hb 6.9, onc not reviewed. Review of Systems Review of Systems: As per HPI Physical Exam Physical Exam: Constitutional: well-appearing, no acute distress HEENT: NCAT, no conjunctival injection CV: regular rhythm, no murmur appreciated, extremities well-perfused, no LE edema Resp: CTABL, no wheezes/rales/rhonchi appreciated, no increased work of breathing GI: soft, nondistended, nontender, BS normoactive MSK: no gross deformities appreciated Skin: warm, dry, no rash appreciated Neuro: alert, oriented, no focal neurologic deficit appreciated Results & Data Results & Data Vital Signs (Past 12 Hours) Vital Signs Temp Pulse Pulse Resp BP BP Pulse Ox 12/10/24 11:22 36.3 C L 104 H 20 133/69 96 12/10/24 10:58 36.6 C 101 H 20 148/77 H 93 12/10/24 10:30 36.9 C 100 H 20 147/74 H 94 12/10/24 10:22 36.7 C 98 H 16 144/70 H 12/10/24 09:51 36.6 C 101 H 20 162/75 H 93 12/10/24 09:37 36.6 C 101 H 20 152/69 H 94 12/10/24 09:19 36.9 C 103 H 20 155/69 H 96 12/10/24 08:05 12/10/24 07:37 107 H 12/10/24 07:33 36.7 C 102 H 16 136/66 94 12/10/24 02:31 36.8 C 101 H 18 151/76 H 91 O2 Del Method 12/10/24 11:22 12/10/24 10:58 12/10/24 10:30 12/10/24 10:22 12/10/24 09:51 12/10/24 09:37 12/10/24 09:19 12/10/24 08:05 Room Air 12/10/24 07:37 12/10/24 07:33 Room Air 12/10/24 02:31 Room Air Resident Activity Tracking Resident Involvement: Resident Care Provided Care Provided: Adult Hospital Medicine
[2024-12-10] MEDS ORDERED: CALCIUM CARBONATE 500 MG CHEWABLE TAB PO PRN (15:24)
[2024-12-10 15:45] LABS: Hematocrit (blood only) 26.2 % (37.0-47.0); Hemoglobin 8.8 g/dl (12.0-16.0); Mean Corpuscular Hemoglobin 29.7 pg (25.0-34.0); Mean Corpuscular Hgb Conc 33.6 g/dL (32.0-36.0); Mean Corpuscular Volume 88.5 fL (80.0-100.0); Mean Platelet Volume 10.6 fL (9.4-12.4); Platelet Count 80 K/uL (130-400); RDW Coefficient of Variation 14.4 % (11.5-14.5); RDW Standard Deviation 42.3 fL (36.4-46.3); Red Blood Count 2.96 M/uL (4.20-5.40)
[2024-12-10] MEDS: HEPARIN 100 UNIT/ML 5ML FLUSH FLUSH PRN (18:50)
[2024-12-11] MEDS: KETOROLAC TROMETHAMINE 15 MG/ML VIAL IV PRN (03:23)
[2024-12-11] MEDS: diphenhydrAMINE 50 MG/ML VIAL IV STA (06:03)
[2024-12-11 09:10] LABS: Eosinophils # (auto) 0.02 K/uL (0.00-0.50); Eosinophils % (auto) 0.9 %; Hematocrit (blood only) 27.2 % (37.0-47.0); Hemoglobin 9.1 g/dl (12.0-16.0); Immature Granulocytes # (auto) 0.02 K/uL (0.01-0.20); Immature Granulocytes % (auto) 0.9 %; Lymphocytes # (auto) 0.73 K/uL (1.20-3.40); Lymphocytes % (auto) 32.2 %; Mean Corpuscular Hemoglobin 29.4 pg (25.0-34.0); Mean Corpuscular Hgb Conc 33.5 g/dL (32.0-36.0); Mean Platelet Volume 10.6 fL (9.4-12.4); Monocytes # (auto) 0.46 K/uL (0.11-0.59); Monocytes % (auto) 20.3 %; Neutrophils # (auto) 1.04 K/uL (1.40-6.50); Neutrophils % (auto) 45.7 %; Platelet Count 84 K/uL (130-400); RDW Coefficient of Variation 14.6 % (11.5-14.5); RDW Standard Deviation 43.9 fL (36.4-46.3); Red Blood Count 3.09 M/uL (4.20-5.40); White Blood Count 2.27 K/ul (4.8-10.8)
[2024-12-11 09:29] LABS: Albumin Globulin Ratio 0.9 (0.9-2); Albumin Level 2.8 gm/dl (3.4-5.0); BUN Creatinine Ratio 32.3 (10-20); Bilirubin,Total 0.4 mg/dl (0.2-1.0); Calcium 9.1 mg/dl (8.6-10.3); Creatinine Clr Calc Pharmacy 51.9 ml/min; Globulin 3.2 gm/dl (2.5-4.0); Potassium 4.3 mmol/L (3.5-5.1)
--- NOTE | 2024-12-11 11:22 | Pharmacy Report ---
Pharmacy Glycemic Short Note 2 - Date of Service December 11, 2024 - Glycemic Short BSG Results (Last 24 hours): 12/10/24 12/10/24 12/10/24 13:13 17:02 22:41 Glucose POC Glucose 208 H 194 H 142 H 12/11/24 12/11/24 12/11/24 05:29 08:09 08:37 Glucose 149 H POC Glucose 140 H 164 H 12/11/24 10:02 Glucose POC Glucose 141 H OUTPATIENT ANTIDIABETIC REGIMEN: * Levemir 6 units SC HS HbA1c: * pending - A1c analyzer at [facility] inpatient lab down until 12/10/24 ASSESSMENT: 12/11 * Jo received 32 units of insulin yesterday (6 units were basal) * Fasting BSG this AM within goal range, continue home basal regimen * Correction factor tightened slightly to better cover tube feeds, BSGs better controlled today * She continues on cefepime and Tamiflu 12/09 * 84 yo F admitted on 12/08/24 secondary to influenza A. Pharmacy has been consulted to assist with inpatient glycemic management. Patient is a Type 2 diabetic as an outpatient. Please refer to outpatient regimen and most recent HbA1c above. * Ordered home tube feeds 5 x day. Contains 25 g carbs per carton. Does have some additional PO intake but very little. * Fasting BSG was 177 mg/dL this AM. Will continue with home basal dose. Novolog ordered to cover bolus TF 5 x day. PLAN FOR INPATIENT GLYCEMIC CONTROL: * Basal insulin * Lantus 6 units SC HS * Bolus insulin * NovoLog per scale ACHS or Q6hrs while NPO * Goal Range: Low 110 mg/dL - High 140 mg/dL * Correction Factor: 30 mg/dL/unit * Nutritional / Prandial insulin per carb ratio of 1 unit per 8 grams CHO consumed
[2024-12-11 12:07] LABS: Estimated Average Glucose 217 mg/dl; Hemoglobin A1C 9.2 % (4.5-5.6)
--- NOTE | 2024-12-11 12:39 | Hospitalist Progress Note ---
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 She presented to the ED due to pain, tachycardia, hypertension, diarrhea, and uncontrollable blood glucose levels. She was found to have influenza A in the ED. She is being admitted due to influenza A, severe pain, pancytopenia, and hyponatremia. 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 SCC met) - previously followed with [facility] Dr. Alfaro but has transitioned care to [facility] and is currently undergoing chemotherapy (with next dose due this week) - pain regimen: IV tylenol scheduled, oxycodone XR 10 mg scheduled at bedtime, oxycodone IR 5/10mg every 4hr PRN, toradol 15mg q6hr PRN- discussed with pt that with her severe cancer related pain opiods are most likely to be the most effective for pain relief - add fentanyl patch - spot dose of dilaudid 1mg IV given this afternoon - bowel regimen: s/p senna this AM and addition of miralax 17gm BID through her G tube - in discussion with pt on first meeting this AM, she was tearful throughout and is unsure if she wants to continue with chemo; would recommend continue discussion with pt and family about GOC Pancytopenia - Transfuse 1U PRBCs - suspect secondary to chemotherapy - CXR w/o acute findings; blood cx pending - continue cefepime - heme/onc consulted Influenza A - pt with cough since - CXR neg for acute process; demonstrated multiple mets - immunocompromised with cancer/chemo as above - continue tamiflu BID x5-10 days - tessalon perles PRN, incentive spirometry T2DM - pt previously controlled at home with insulin glargine 6u HS and SSI - however, pt's family noted she has been hyperglycemic during recent hosp italization at [facility] and they have been unable to control her glucose at home - family requested chemical laboratory scientist consult - pharmacy consult for glycemic management Gtube in place - placed a few weeks ago with [facility] - pt gets 5 feeds per day (q4 hr between the hours of 6AM-10PM) - records from [facility] show diabetic source and 200 mL water with each feed - also on [facility] diabetic source AC supplement drinks by PEG 5x daily at home - pt is able to take meds PO with applesauce - nutrition consulted and managing tube feeds Hyponatremia- resolved - s/p IVF Chronic stable diagnoses: HLD - continue atorvastatin and plavix Hypothyroidism - continue levothyroxine, does not take Tuesday and Sundays HTN - continue metoprolol Code: full VTE ppx: despite pancytopenia, pt high risk for clotting so lovenox added- monitoring CBC/signs of bleeding closely Diet: tube feeds, PO as wanted Dispo med/tele Of note, pt's family would ideally like for discharge prior to Tuesday as they have many appointment set up throughout the week (2) G tube feedings: (3) Pancytopenia: (4) Diabetes mellitus: (5) Influenza A: (6) Metastatic breast cancer: Admission and Anticipated Discharge Date Admission Date: December 08, 2024 Supervising Physician Co-Signing Physician Notes Attending attestation Pt seen and examined in concert with Dr. Doll. In agreement with the documented findings as noted in the resident documentation with any exceptions or additions as noted here. Predominantly complaining of ongoing oral/tongue pain between pain medication boluses with ongoing decreased appetite overall. On examination, S1/S2 nl RRR no MCG. CTAB. Abd NT/ND BS+ve. VS as noted. WBC 2.27, hgb 9.1, Plt 84, Cr 0.65 Chronic pain and decreased appetite in the setting of metastatic breast cancer & R jaw cancer - reviewed options for pain control extensively today. Will escalate current orders, consult palliative care to establish routine and local support, and add fentanyl patch for baseline symptom control. Monitor for adverse effects Else see resident documentation as noted. Subjective Patient seen and evaluated at bedside this morning. No acute events overnight. Still with significant pain despite opiate administration. She is interested in meeting with palliative care for ongoing management of her cancer pain. Review of Systems Review of Systems: As per HPI Physical Exam Physical Exam: Constitutional: well-appearing, no acute distress HEENT: NCAT, no conjunctival injection CV: regular rhythm, no murmur appreciated, extremities well-perfused, no LE edema Resp: CTABL, no wheezes/rales/rhonchi appreciated, no increased work of breathing GI: soft, nondistended, nontender, BS normoactive MSK: no gross deformities appreciated Skin: warm, dry, no rash appreciated Neuro: alert, oriented, no focal neurologic deficit appreciated Results & Data Results & Data Vital Signs (Past 12 Hours) Vital Signs Temp Pulse Pulse Resp BP Pulse Ox O2 Del Method 12/11/24 11:44 36.5 C 68 18 125/70 96 Room Air 12/11/24 07:45 Room Air 12/11/24 07:44 36.6 C 88 18 147/72 H 93 Room Air 12/11/24 05:45 95 H 12/11/24 02:20 36.8 C 95 H 18 146/68 H 93 Room Air Resident Activity Tracking Resident Involvement: Resident Care Provided Care Provided: Adult Hospital Medicine
[2024-12-11] MEDS: fentaNYL 12 MCG/HR TDSY TD SCH (12:45)
[2024-12-11] MEDS: ONDANSETRON INJ 2 MG/ML 2 ML VIAL IV STA (12:46)
[2024-12-11] MEDS: FIRST - Mouthwash BLM 5 ML UDP PO ONE (12:47)
[2024-12-11] MEDS: FIRST - Mouthwash BLM 5 ML UDP PO SCH (13:33)
[2024-12-11] MEDS: CHECK fentaNYL PATCH PLACEMENT SCH (16:10)
[2024-12-11] MEDS: oxyCODONE HCL IR 5 MG TAB (IMMEDIATE RELEASE) PO PRN (20:37)
[2024-12-11] MEDS: ONDANSETRON INJ 2 MG/ML 2 ML VIAL IV PRN (20:43)
--- NOTE | 2024-12-11 23:37 | Palliative Care Consultation ---
Date of Consultation December 11, 2024 Assessment & Plan (1) Palliative care by specialist: Palliative care will continue to follow for ongoing GOC discussions. Plan for deeper GOC discussion including POLST and AD completion later this week, family not local and are trying to plan for in person vs phone conference call. Grand daughter wldeyvi schedule and call with time. (2) Counseling regarding goals of care: (3) Counseling regarding advanced directives and goals of care: GOC discussion summary: Met with pt and her spouse at bedside from 3pm - 4pm today. Introduced them to Palliative Medicine and explained our role in advanced care planning, symptom management and navigation through the progression of life limiting disease. Patient and/or family were receptive to palliative services for goals of care discussions. Reviewed we are different from hospice, a home health nurse visiting service. Patient has exhibited current possession of decisional capacity based on the ability to convey understanding of personal PMHx, current medical condition, treatment options as well aa the risks / benefits of those options, and ability to make decisions based on such knowledge. Hospital does not have written documentation of patient wishes concerning her chosen proxy for medical decisions. Pt does not currently require a proxy for medical decisions. Per PA [id number], in absence of written documentation of patient wishes, pt's proxy for medical decisions would be her spouse and six adult children with equal decisional authority. Pt shared that her spouse has early dementia and she would like to designate her grand daughter Sadie Gonzalez (who is a speech therapist) to be her primary MDM proxy, and her son as back up, Helped pt and her spouse understand importance of LAW/AD and value of choosing a MDM proxy who knows her goals and values and will support her wishes if they are called upon as proxy. Sadie Gonzalez ([phone]) called in on phone during my visit. Spoke with her briefly on phone to give update and encouraged that she and her uncle make themselves available in person or via phone to discuss LW/AD as well as pt GOC. Sadie did express willingness to serve as MDM proxy for this pt. She shared that she will reach out to her uncle to schedule time for GOC meeting in next few days. Contact information shared to inform me of time. Discussed code status and helped them to understand that CPR is only done after a person has and involves uncomfortable and invasive procedures that, if successful. have high risk of multiple complications including but not limited to rib fractures, pneumo/hemothorax, JONN, ventilator dependence, anoxic brain injury, and mcc/permanent cognitive and functional deficits. CPR survival: Only about 10% of patients who have pas-xe-cmpxbwur sudden cardiac arrest survive to hospital discharge, with many survivors having neurologic impairment. This rate is even lower among patients with serious coexisting co nditions, ie chance of survival to hospital discharge for in-hospital CPR in older people is low to moderate (15%) and decreases with age, comorbidities, performance status and frailty: for pts > 70 yo, more than half of the patients who initially survived resuscitation in the hospital before hospital discharge. The pooled survival to discharge after in-hospital CPR was 18% for patients between 70 and 79 years old, 15% for patients between 80 and 89 years old and 11% for patients of 90 years and older. (Juan COELHOY, Bandar LJ, Winifred F, et al. Trends in short- and long-term survival among [id number] cardiac arrest patients alive at hospital arrival. Circulation 2014;130:7725-4141. AND Fahad C, Haylie T, Josette R, et al. Performance of clinical risk scores to predict mortality and neurological outcome in cardiac arrest patients. Resuscitation 2019;136:21-29.) Pt expressed desire to have no resuscitation, DNR/DNI. However she requests no change in status until we are able to have GOC discussion and complete LW/AD with her family. Further discussion of GOC planned for upcoming days, time TBD by Dedra. (4) POLST (Physician Orders for Life-Sustaining Treatment): to be completed this admission, pending further GOC discussion Plan See above. 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 She presented to the ED due to pain, tachycardia, hypertension, diarrhea, and uncontrollable blood glucose levels. Shee was found to have influenza A in the ED. She was admitted 12/07 [facility] medical mgmt of influenza A, severe pain, pancytopenia, and hyponatremia. Pt was previously followed with Dr. Merchant at [facility] but transitioned care to [place] to be closer to her daughter. She received 4 courses of intense radiation to her face followed by chemotherapy 1 week later iin november 2024.. After that she was admitted to [place] for 6 days due to her blood pressure being high and uncontrollable glucose elevations. They stopped her chemo back 1 day early due to this. She returned home and was brought to [facility] ED after a week of hyperglycemia, diarrhea and tongue/jaw pain. . She iis scheduled ffor F/U appointment with [facility] Tuesday and is to receive more treatment on Tuesday. . Per med/onc consult note: Breast cancer A. Invasive ductal carcinoma of the left breast, grade 2, ER 70%, SC 40%, HER2-, diagnosed 08/30/2001 B. 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 Stage IA (pT1b pN0 cM0) B. Incomplete pending surgery. Status post bilateral mastectomies, left breast contained a 6 mm invasive focus however it was the right sentinel lymph node which had metastatic disease. Staging equivalent to pT4b, N1A stage IIIb---> Now stage IV Molecular Testing: TMB high, AK T1 pathogenic variant exon 3, ESR 1 negative Current Treatment: Monthly fulvestrant. Previously on abemaciclib which she has been held Diagnosis/ Treatment History: 1. Screening mammogram 08/12/2001 revealed a suspicious cluster of microcalcifications in the 6:00 left breast. 2. On 08/30/01, she underwent an excisional biopsy that revealed invasive ductal carcinoma, grade 2, with associated high-grade DCIS with comednoecrosis. ER was 70%, SC 40%, and HER2 negative for overexpression. The tumor measured 1.0 cm in greatest extent and had a focally positive margin. 3. On 10/13/2001, she underwent re-excision and SLNB. All final margins were negative, as were two sentinel nodes (0/2). 4. She underwent adjuvant RT (4680 cGy to whole breast with 1440 cGy boost to the tumor bed), from 11/21- 01/11/2002. 5. She was treated with tamoxifen for 5 years, per her recollection. 6. She came to attention in September, with an inverted left nipple. Targeted US 08/01/19 revealed marked subareolar acoustic shadowing that may have been related to the nipple, though clinical correlation was suggested. 7. Bilateral breast MRI 09/10/19 revealed postsurgical changes in the left breast with retraction of the left nipple and a rounded, enhancing mass/masslike area that extends superficially into the nipple-areolar complex, measuring 1.1 x 1.1 x 1 cm. Also seen was a small focus of intradermal enhancement at the upper inner left breast. No axillary adenopathy was seen and no concerning findings were noted in the right breast. 8. US of the left breast 10/02/19 revealed two suspicious findings: a hypoechoic mass/masslike area measuring 0.9 cm in the 1:00 left breast, 1 cm from the nipple, and a 1.1 cm nodular area within the subareolar left breast intimately related to the inverted nipple. The subareolar lesion was felt to be best sampled by skin punch biopsy, but the 1:00 lesion was biopsied, revealing fibroadipose tissue with small areas of fat necrosis and no atypia or malignancy. 9. Punch biopsy of the nipple lesion 10/10/19 revealed carcinoma with an IHC pattern consistent with ductal breast carcinoma. By our pathology review, there was a single small focus concerning for dermal lymphatic involvement. The tumor was ER 100% positive, though SC and HER2 were performed subsequently and are pending. 10. PET/CT 12/03/19 revealed moderate FDG uptake within borderline enlarged mediastinal and right hilar lymph nodes, along with an 8 mm irregular RUL pulmonary nodule with minimal FDG uptake and mild left retroareolar FDG uptake consistent with her biopsy-proven breast cancer. 11. On 12/14/19, she underwent bronhcoscopy with EBUS and transbronchial biopsies of nodes from level 2, 4R, 4L, and 7 all yielded adequate smear passes and revealed lymphoid tissue without malignant cells. 12. Referred to clinical genetics and underwent panel testing, which was negative for deleterious variants, though she did have a VUS in MSH3. 13. Completing 4 cycles of neoadjuvant Taxotere and cyclophosphamide on 03/24/2020. 14. Underwent bilateral mastectomies on 05/05/2020 pathology was somewhat i nteresting where her invasive disease was predominantly within the left breast however it was the right sentinel lymph node that was positive measuring 8 mm in size. This finding turned out to be a clerical error which was straightened out by pathology her sentinel lymph node was actually on the left. 15. Status post adjuvant radiation therapy left chest wall supraclavicular and axilla receiving 6400 cGy, completed on 08/21/2020. 16. CT chest on02/05/2022 revealed increased prominence of 7 x 6 mm spiculated right upper lobe pulmonary noduleas well as multiple left-sided rib fractures of unknown acuitywith subacute sternal fracture.CT neckalso on 02/05/2022 revealedbilateral nonenlarged level 2A lymph nodes. 17. CT guided biopsy of soft tissue sternal mass on 09/22/2022 which revealed metastatic ER positive, SC negative and Her2 negative metastatic carcinoma of breast primary. 18.PET/CT obtained on 11/04/2022 revealed development of lucency and fragmentation in the body of the sternum with increased FDG uptake, nonspecific left cervical lymph node uptake as well as higher level mediastinal and left internal mammary chain uptake suspicious for metastatic disease and tiny right upper lobe focus of uptake, likely metastatic disease 19. Stcnucvb7342 cGy in 5 fractions palliative RT to sternum completed 11/19/2022 20. On cycle 1, Day 15 of treatment, ANC was noted to be 0.r which ibrance was held. Repeat CBC 1 week later on 12/24/2022 revealed ANC of 0.72 and platelet count of 45,000. Ibrance was subsequently discontinued due to significant cytopenias and she was started on abemaciclib 150 mg p.o. twice daily on 01/14/2023. Patient also evaluated at [facility] for second opinion who agreed with plan of switching to abemaciclib 21. Shortly after starting abemaciclib, she developed GI symptoms for which she was evaluated in the ER. Verzenio was held for several days until resolution of symptoms. She then presented to the ER again on 02/24/2023 with worsening respiratory symptoms despite being on oral antibiotics prescribed by her PCP. CTA chest on 03/03/2023 revealed subpleural groundglass opacities in the anterior right upper and middle lobes. Prescribed antibiotics and steroids with improvement in her symptoms. Verzenio was subsequently dose reduced to 50 mg p.o. 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 Biopsy obtained in on 12/22/2021 revealed squamous cell carcinoma. 2.On 01/06/2022 she underwent partial glossectomy with primary closure at [facility] in [place] which revealed moderately differentiated squamous cell carcinoma measuring 7 mm in greatest dimension with depth of invasion of 3.4 mm there was no evidence of LVI, PNI and margins were negative with closest margin about 1.8 mm from the deep margin 3. Biopsy performed by oral and maxillofacial surgeon at [facility] revealed atypia concerning forrecurrent disease 4.PET/CTon 07/11/2024nd CT soft tissue neck on 08/03/2024 negative forrecurrent disease 5.PET/CT on 10/17/2024 Most compatible with disease progression with increased size of right tongue lesion with involvement of the adjacent right mandible, new multifocal pulmonary metastasis along with cervical chain lymphatic metastasis, stable subcentimeter hypermetabolic mediastinal and hilar lymph nodes, no evidence of metastatic disease within abdomen and pelvis, hypermetabolic right thyroid lobe/nodule. Allergies Allergy/AdvReac Type Severity Reaction Status Date / Time Penicillins Allergy Intermediate ITCHY Verified 12/08/24 22:24 morphine AdvReac Intermediate NAUSEA AND Verified 12/08/24 22:24 VOMITING Home Medications Medication Instructions Recorded Confirmed Type cholecalciferol (vitamin D3) 25 1,000 units PO HS 10/02/18 12/08/24 History mcg (1,000 unit) capsule insulin detemir U-100 100 unit/mL 6 unit subcut HS 06/25/24 12/08/24 History subcutaneous solution (Levemir U-100 Insulin) atorvastatin 10 mg tablet 10 mg PO HS 12/08/24 12/08/24 History cefuroxime axetil 500 mg tablet 500 mg PO BID 12/08/24 12/08/24 History clopidogrel 75 mg tablet 75 mg PO QAM 12/08/24 12/08/24 History levothyroxine 75 mcg tablet 75 mcg PO 5XWK 12/08/24 12/08/24 History loratadine 10 mg tablet 10 mg PO HS 12/08/24 12/08/24 History metoprolol succinate 100 mg 100 mg PO HS 12/08/24 12/08/24 History tablet,extended release 24 hr nystatin 100,000 unit/mL oral 5 ml PO QID 12/08/24 12/08/24 History suspension ondansetron HCl 8 mg tablet 8 mg PO Q8 PRN Nausea 12/08/24 12/08/24 History oxycodone 5 mg tablet 5 mg PO Q4 PRN Pain 12/08/24 12/08/24 History pantoprazole 20 mg tablet,delayed 20 mg PO QAM 12/08/24 12/08/24 History release Patient History Medical History Sternal fracture DVT prophylaxis Anemia chronic, baseline hgb in the 8-10 range History of solitary pulmonary nodule under surveillance with routine imaging Hyponatremia Artery stenosis Mediastinal adenopathy Abnormal CT scan of lung Vertebral artery stenosis Moderate stenosis at origin of L vertebral artery per 10/2019 Neck CTA Visual impairment 2/2 vertebral artery stenosis. 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 Vision loss potentially related to stroke though MRI negative. Lumbar compression fracture Acute L4 and chronic L2 Reflux esophagitis Chronic kidney disease, stage III (moderate) follows with PCP Raynauds syndrome Osteoporosis Cataract of both eyes Surgical History History of bronchoscopy video mediastinoscopy with biopsy: 12/31/19: Grade 2 view, MAC#3, ETT 7.5 at [facility] Port-A-Cath in place (01/03/20) RIGHT CHEST S/P bronchoscopy HX OF History of colonoscopy History of cataract surgery R/L History of appendectomy 1975 S/P lumpectomy, left breast HX OF H/O: hysterectomy H/O tubal ligation Family History Father Coronary heart disease Heart disease Hypertension Mother , age 86 Diabetes CHF (congestive heart failure) Heart disease Colorectal cancer Hypertension Stroke Family history of reaction to anesthesia SLOW TO WAKE UP Son Multiple sclerosis Social History Smoking Status: Never smoker Second Hand Exposure: No; Do You Dip or Chew Tobacco: No; Hx Alcohol Use: No Hx Substance Use: No Preferred Language: Comoran Communication Ability: Effective Visual Impairment: No Limitations Hearing Ability: Normal Catalytic Case Operator Required: No Beliefs That Will Affect Care: None marital status: Current Living Situation: Spouse current occupational status: other current occupation: semi retired substitute clerical person How many Children do You have: 6 How many Children do You have Comment: 6 Feels Safe at Home: Yes Childhood Exposure to Second-Hand Smoke: No during the past year weight has: remained stable Dental Care, Regularly: No Assistive Devices: None Review of Systems Review of Systems: All systems reviewed & are unremarkable except as noted in HPI & below Ear, Nose, Mouth, Throat: + mouth lesions and + pain with swallowi ng Integumentary: intermittent sharp stabbing pain in tongue and right jaw r/t cancer Neurologic: + generalized weakness and + headache(s) Physical Exam Physical Exam: Constitutional: well-appearing, no acute distress HEENT: NCAT, no conjunctival injection CV: regular rhythm, no murmur appreciated, extremities well-perfused, no LE edema Resp: CTABL, no wheezes/rales/rhonchi appreciated, no increased work of breathing GI: soft, nondistended, nontender, BS normoactive MSK: no gross deformities appreciated Skin: warm, dry, no rash appreciated Neuro: drowsy but arusabl,e and oriented, no focal neurologic deficit appreciated Results & Data Vital Signs (Past 12 Hours) Vital Signs Temp Pulse Pulse Resp BP Pulse Ox O2 Del Method 12/11/24 19:28 36.8 C 111 H 18 169/74 H 96 Room Air 12/11/24 15:28 36.7 C 93 H 16 125/61 93 Room Air 12/11/24 13:04 96 H 12/11/24 11:44 36.5 C 68 18 125/70 96 Room Air Laboratory Results Abnormal lab results 12/08/24 12/09/24 12/10/24 Range/Units 22:40 06:37 22:41 WBC (4.8-10.8) K/ul RBC (4.20-5.40) M/uL Hgb (12.0-16.0) g/dl Hct (37.0-47.0) % RDW Coeff of Alfredo (11.5-14.5) % Plt Count (130-400) K/uL Neut # (Auto) (1.40-6.50) K/uL Lymph # (Auto) (1.20-3.40) K/uL Sodium (136-145) mmol/L BUN/Creatinine Ratio (10-20) Glucose (70-99(Fasting)) mg/dl POC Glucose 142 H (70-99) mg/dl Hemoglobin A1c 9.2 H (4.5-5.6) % Alkaline Phosphatase (34-104) U/L Albumin (3.4-5.0) gm/dl Crossmatch See Detail 12/11/24 12/11/24 12/11/24 Range/Units 05:29 08:09 08:37 WBC 2.27 L (4.8-10.8) K/ul RBC 3.09 L (4.20-5.40) M/uL Hgb 9.1 L (12.0-16.0) g/dl Hct 27.2 L (37.0-47.0) % RDW Coeff of Alfredo 14.6 H (11.5-14.5) % Plt Count 84 L (130-400) K/uL Neut # (Auto) 1.04 L (1.40-6.50) K/uL Lymph # (Auto) 0.73 L (1.20-3.40) K/uL Sodium 134 L (136-145) mmol/L BUN/Creatinine Ratio 32.3 H (10-20) Glucose 149 H (70-99(Fasting)) mg/dl POC Glucose 140 H 164 H (70-99) mg/dl Hemoglobin A1c (4.5-5.6) % Alkaline Phosphatase 133 H (34-104) U/L Albumin 2.8 L (3.4-5.0) gm/dl Crossmatch 12/11/24 12/11/24 12/11/24 Range/Units 10:02 13:05 16:54 WBC (4.8-10.8) K/ul RBC (4.20-5.40) M/uL Hgb (12.0-16.0) g/dl Hct (37.0-47.0) % RDW Coeff of Alfredo (11.5-14.5) % Plt Count (130-400) K/uL Neut # (Auto) (1.40-6.50) K/uL Lymph # (Auto) (1.20-3.40) K/uL Sodium (136-145) mmol/L BUN/Creatinine Ratio (10-20) Glucose (70-99(Fasting)) mg/dl POC Glucose 141 H 185 H 159 H (70-99) mg/dl Hemoglobin A1c (4.5-5.6) % Alkaline Phosphatase (34-104) U/L Albumin (3.4-5.0) gm/dl Crossmatch 12/11/24 12/11/24 Range/Units 20:11 21:49 WBC (4.8-10.8) K/ul RBC (4.20-5.40) M/uL Hgb (12.0-16.0) g/dl Hct (37.0-47.0) % RDW Coeff of Alfredo (11.5-14.5) % Plt Count (130-400) K/uL Neut # (Auto) (1.40-6.50) K/uL Lymph # (Auto) (1.20-3.40) K/uL Sodium (136-145) mmol/L BUN/Creatinine Ratio (10-20) Glucose (70-99(Fasting)) mg/dl POC Glucose 287 H 197 H (70-99) mg/dl Hemoglobin A1c (4.5-5.6) % Alkaline Phosphatase (34-104) U/L Albumin (3.4-5.0) gm/dl Crossmatch Diagnostic Findings Chest X-Ray 12/08/24 19:40 Exam(s): XR CXR 1 VIEW EXAM: XR Chest, 1 View CLINICAL HISTORY: Reason for exam: Dyspnea. TECHNIQUE: Frontal view of the chest. COMPARISON: Prior portable chest x-ray from February 24, 2023. FINDINGS: There is a right subclavian approach Port-A-Cath in place with the distal tip in the SVC. Lungs: Moderate peribronchial thickening of the central and lower lobe bronchi. Hyperinflation lungs with flattening diaphragms. There are multiple pulmonary nodules throughout both lungs. Pleural space: Unremarkable. No pneumothorax. Heart: Unremarkable. No cardiomegaly. Mediastinum: Unremarkable. Normal mediastinal contour. Bones/joints: Unremarkable. No acute fracture. IMPRESSION: Bronchitis, which may be of infectious or inflammatory etiologies. No consolidation or pleural effusion. Numerous pulmonary nodules concerning for metastatic disease. Electronically signed by: Gely Grove MD 12/08/24 23:40 PM Medications Administered Current Inpatient Medications Atorvastatin Calcium (Atorvastatin 10 Mg Tab) 10 mg PO HS JOSH Stop: 01/08/25 20:59 Last Admin: 12/11/24 20:39 Dose: 10 mg Benzonatate (Benzonatate 100 Mg Capsule) 100 mg PO TID JOSH Stop: 01/08/25 08:59 Last Admin: 12/11/24 20:39 Dose: 100 mg Calcium Carbonate (Calcium Carbonate 500 Mg Chewable Tab) 1,500 mg PO Q6H PRN PRN Reason: Indigestion Stop: 01/09/25 15:23 Clopidogrel Bisulfate (Clopidogrel Bisulfate 75 Mg Tab) 75 mg PO DAILY JOSH Stop: 01/08/25 08:59 Last Admin: 12/11/24 08:20 Dose: 75 mg Dextrose (Dextrose 50% 50 Ml Syringe) 25 - 50 ml IV UD PRN; Protocol PRN Reason: Hypoglycemia Protocol Stop: 01/08/25 01:36 Docusate Sodium (Docusate Sodium 100 Mg Cap) 100 mg PO BID PRN PRN Reason: Constipation Stop: 01/08/25 01:36 Last Admin: 12/11/24 08:22 Dose: 100 mg Enoxaparin Sodium (Enoxaparin Inj 30 Mg/0.3 Ml Syr) 30 mg SQ QAM JOSH Stop: 01/09/25 08:59 Last Admin: 12/11/24 08:21 Dose: 30 mg Fentanyl (Fentanyl 12 Mcg/Hr Tdsy) 1 patch TD Q3D JOSH Stop: 12/25/24 11:59 Last Admin: 12/11/24 12:45 Dose: 1 patch Glucagon (Glucagon For Inj 1 Mg Vial) 1 mg SQ UD PRN; Protocol PRN Reason: Hypoglycemia Protocol Stop: 01/08/25 01:36 Glucose (Glucose 40% Gel 15 Gm Tube) 15 - 30 gm PO UD PRN; Protocol PRN Reason: Hypoglycemia Protocol Stop: 01/08/25 01:36 Glucose (Glucose 10 Tab/Tube) 4 - 8 tab PO UD PRN; Protocol PRN Reason: Hypoglycemia Protocol Stop: 01/08/25 01:36 Heparin Sodium (Porcine) (Heparin 100 Unit/Ml 5ml Flush) 5 ml FLUSH PRN PRN PRN Reason: Flush Stop: 01/09/25 15:45 Last Admin: 12/10/24 18:50 Dose: 5 ml Cefepime HCl (Maxipime 2000mg) 2,000 mg in 20 mls @ 5 mls/min IV Q12H [facility]; Protocol Stop: 01/08/25 10:59 Last Admin: 12/11/24 22:10 Dose: 5 mls/min Acetaminophen (Ofirmev) 1,000 mg in 100 mls @ 400 mls/hr IV Q8H [facility] Stop: 12/12/24 13:59 Last Admin: 12/11/24 21:56 Dose: 400 mls/hr Insulin Aspart (Insulin Aspart Per Unit Charge) 0 units SC 0600,1000,1300,1700,2200 [facility] Stop: 01/08/25 07:29 Last Admin: 12/11/24 22:06 Dose: 2 units Insulin Glargine (Lantus Per Unit Charge) 6 units SQ [facility] Stop: 01/08/25 20:59 Last Admin: 12/11/24 20:38 Dose: 6 units Ketorolac Tromethamine (Ketorolac Tromethamine 15 Mg/Ml Vial) 15 mg IV Q6H PRN PRN Reason: Pain Stop: 12/14/24 11:55 Last Admin: 12/11/24 03:23 Dose: 15 mg Levothyroxine Sodium (Levothyroxine Sodium 75 Mcg Tablet) 75 mcg PO [id number] [facility] Stop: 01/09/25 06:29 Last Admin: 12/11/24 06:04 Dose: 75 mcg Loratadine (Loratadine 10 Mg Tab) 10 mg PO [facility] Stop: 01/08/25 20:59 Last Admin: 12/11/24 20:40 Dose: 10 mg Metoprolol Succinate (Metoprolol Succ 50mg Ext Rel Tab) 100 mg PO [facility] Stop: 01/08/25 01:36 Last Admin: 12/11/24 20:40 Dose: 100 mg Miscellaneous (Carbohydrates For Hypoglycemia ) 15 - 30 gm PO UD PRN PRN Reason: Hypoglycemia Protocol Stop: 01/08/25 01:36 Miscellaneous (Fentanyl Patch Remove & Waste) 1 each N/A Q3D [facility] Stop: 01/10/25 11:59 Last Admin: 12/11/24 12:48 Dose: Not Given Miscellaneous (Check Fentanyl Patch Placement) 1 each N/A QS [facility] Stop: 01/10/25 15:59 Last Admin: 12/11/24 16:10 Dose: 1 each Miscellaneous Information (Pharmacy Glycemic Mgmt Consult) 1 each N/A UD PRN PRN Reason: Consult Stop: 01/08/25 01:36 Multi-Ingredient Mouthwash/Gargle (First - Mouthwash Blm 5 Ml Udp) 5 ml PO TID [facility] Stop: 01/10/25 13:59 Last Admin: 12/11/24 20:38 Dose: 5 ml Nutritional Formula (Patient's Own Enteral Feeding) 237 ml PEG .See Protocol [facility]; Protocol Stop: 01/08/25 12:59 Last Admin: 12/11/24 21:56 Dose: 237 ml Nystatin (Nystatin Susp 500,000 U/5 Ml Udc) 5 ml PO QID [facility] Stop: 01/08/25 08:59 Last Admin: 12/11/24 20:39 Dose: 5 ml Ondansetron HCl (Ondansetron Inj 2 Mg/Ml 2 Ml Vial) 4 mg IV Q6H PRN PRN Reason: Nausea And Vomiting Stop: 01/08/25 01:36 Last Admin: 12/11/24 20:43 Dose: 4 mg Oseltamivir Phosphate (Oseltamivir Phosphate Susp 30 Mg/5 Ml Udp) 30 mg PO BID [facility]; Protocol Stop: 12/14/24 08:59 Last Admin: 12/11/24 20:39 Dose: 30 mg Oxycodone HCl (Oxycodone Hcl Ir 5 Mg Tab (Immediate Release)) 5 mg PO Q4H PRN PRN Reason: Pain Stop: 12/25/24 11:59 Last Admin: 12/11/24 20:37 Dose: 5 mg Pantoprazole Sodium (Pantoprazole 40 Mg Tab) 40 mg PO QAM [facility] Stop: 01/08/25 08:59 Last Admin: 12/11/24 08:20 Dose: 40 mg Polyethylene Glycol (Polyethylene (Miralax) 17 Gm Pack) 17 gm GT BID [facility] Stop: 01/08/25 12:29 Last Admin: 12/11/24 20:38 Dose: 17 gm Sennosides (Senna 8.6 Mg Tab) 17.2 mg PO QAM [facility] Stop: 01/09/25 08:59 Last Admin: 12/11/24 08:20 Dose: 17.2 mg Sterile Water (Tube Feeding Water Flush) 200 ml PEG 0600,1000,1300,1700,2200 [facility] Stop: 01/08/25 12:59 Last Admin: 12/11/24 22:18 Dose: Not Given PG Care Time/CCT Total # of Minutes Spent Total Time Spent with Patient: Total time spent is greater than 50% in coordination of care (as documented) at patient's floor/unit and/or counseling patient: Advanced Care Planning 68777 Advanced Care Planning 30 [place] [address] IN/OBS CONSULT LVL 3,45M Patient Type New History Problem Focused Exam Problem Focused Medical Decision Making Moderate Complexity Diagnoses Palliative care by specialist Z51.5 Counseling regarding goals of care Z71.89 Counseling regarding advanced directives and goals of care Z71.89 POLST (Physician Orders for Life-Sustaining Treatment) Z78.9 Additional Codes Advanced Care Planning - 66179 Advanced Care Planning 30 Min: 61493 Advanced Care Planning 30 Min ([id number])
--- NOTE | 2024-12-12 11:03 | Hospitalist Progress Note ---
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 She presented to the ED due to pain, tachycardia, hypertension, diarrhea, and uncontrollable blood glucose levels. She was found to have influenza A in the ED. She is being admitted due to influenza A, severe pain, pancytopenia, and hyponatremia. 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 SCC met) - previously followed with [facility] Dr. Alfaro but has transitioned care to [facility] and is currently undergoing chemotherapy (with next dose due this week) - pain regimen: IV tylenol scheduled, oxycodone XR 10 mg scheduled at bedtime, oxycodone IR 5/10mg every 4hr PRN, toradol 15mg q6hr PRN- discussed with pt that with her severe cancer related pain opiods are most likely to be the most effective for pain relief - add fentanyl patch - bowel regimen: s/p senna this AM and addition of miralax 17gm BID through her G tube - met with palliative care, will arrange family meeting to clarify goals of care and outpatient symptom management Pancytopenia - Transfuse 1U PRBCs - suspect secondary to chemotherapy - CXR w/o acute findings; blood cx pending - continue cefepime - heme/onc consulted T2DM - pt previously controlled at home with insulin glargine 6u HS and SSI - however, pt's family noted she has been hyperglycemic during recent hospitalization at [facility] and they have been unable to control her glucose at home - family requested family living educator consult - pharmacy consult for glycemic management Gtube in place - placed a few weeks ago with [facility] - pt gets 5 feeds per day (q4 hr between the hours of 6AM-10PM) - records from [facility] show diabetic source and 200 mL water with each feed - also on nestle diabetic source AC supplement drinks by PEG 5x daily at home - pt is able to take meds PO with applesauce - nutrition consulted and managing tube feeds Hyponatremia- resolved - s/p IVF Chronic stable diagnoses: HLD - continue atorvastatin and plavix Hypothyroidism - continue levothyroxine, does not take Tuesday and Sundays HTN - continue metoprolol Code: full VTE ppx: despite pancytopenia, pt high risk for clotting so lovenox added- monitoring CBC/signs of bleeding closely Diet: tube feeds, PO as wanted Dispo med/tele Of note, pt's family would ideally like for discharge prior to Tuesday as they have many appointment set up throughout the week (2) G tube feedings: (3) Pancytopenia: (4) Diabetes mellitus: (5) Influenza A: (6) Metastatic breast cancer: Admission and Anticipated Discharge Date Admission Date: December 08, 2024 Supervising Physician Co-Signing Physician Notes ATTESTATION I also saw the patient and confirmed vo portions of the history and exam. I agree with the impression and plan in the resident documentation, and as summarized below. Her main complaint today is nausea with eating. She does note decreased appetit e, which that surprising. Suspect this is worsening from the concurrent influenza A and Tamiflu. She also notes continued left-sided oral pain, specifically left underside of tongue. EXAM 129/77, 98, 16, 36.7, 93% room air Examination of the oral cavity shows what appears to be either an ulcer or induration left underside of the tongue, not sure if this represents a pressure wound from her dental bridge or if this represents a site of a previous biopsy. Heart slightly tachycardic Respirations nonlabored DATA Labs WBC 2.27, hemoglobin 9.1 (8.8 posttransfusion) sodium 134, potassium 4.3, BUN 21, creatinine 0.65 Imaging chest x-ray dated 12/08/2024 shows bronchitis and numerous pulmonary nodules con cerning for metastatic disease. Micro blood cultures from 12/08/2024 demonstrate no growth at 48 hours. 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 Palliative consultation appreciated Will try to get some viscous lidocaine applied directly to the area of discomfort Discussed small more frequent meals to avoid nausea Consider appetite stimulant; this may improve somewhat as she gets further away from both chemotherapy and the influenza A Pancytopenia Secondary to chemotherapy, slow improvement Neutropenic precautions Cefepime 2 g IV every 12 hours Influenza A Tamiflu Tessalon Perles and incentive spirometry as noted Diabetes mellitus glargine and SSI as noted G-tube feeds Coordinate with dietitian and family Subjective Patient seen and evaluated at bedside this morning. No acute events overnight. Pain better controlled today. States she does not have much of an appetite at all. Did meet with palliative care yesterday. Attempting to arrange family meeting to clarify goals of care. Review of Systems Review of Systems: As per HPI Physical Exam Physical Exam: Constitutional: well-appearing, no acute distress HEENT: NCAT, no conjunctival injection CV: regular rhythm, no murmur appreciated, extremities well-perfused, no LE edema Resp: CTABL, no wheezes/rales/rhonchi appreciated, no increased work of breathing GI: soft, nondistended, nontender, BS normoactive MSK: no gross deformities appreciated Skin: warm, dry, no rash appreciated Neuro: alert, oriented, no focal neurologic deficit appreciated Results & Data Results & Data Vital Signs (Past 12 Hours) Vital Signs Temp Pulse Pulse Resp BP Pulse Ox O2 Del Method 12/12/24 07:40 36.7 C 94 H 16 120/59 L 95 Room Air 12/12/24 07:36 Room Air 12/12/24 05:55 104 H 12/12/24 04:12 36.8 C 98 H 16 153/99 H 93 Room Air 12/11/24 23:47 36.7 C 100 H 16 138/66 95 Room Air Resident Activity Tracking Resident Involvement: Resident Care Provided Care Provided: Adult Hospital Medicine
[2024-12-12] MEDS: LIDOCAINE VISCOUS 2% 15 ML UDC MT PRN (16:46)
[2024-12-12] MEDS: MIRTAZAPINE TAB 15 MG TAB PO SCH (21:15)
--- NOTE | 2024-12-13 00:24 | Palliative Care Progress Note ---
Date of Service December 12, 2024 Assessment & Plan (1) Counseling regarding advanced directives and goals of care: Plan: Received incoming call from pt's elected MDM proxies, requesting GOC at that time as both are available. We discussed pt's current medical condition, her wishes for DNR/DNI and importance of her establishing a LW/AD given the her has worsening dementia. We discussed that pt does not currently require a proxy for medical decisions but she has requested assistance in establishing written documentation of patient wishes concerning her chosen HCPOA. Per PA [id number], in absence of written documentation of patient wishes, pt's proxy for medical decisions would be her spouse who has dementia. Discussed roles and expectations of a HCPOA and both are agreeable to serve in this capacity. Reinforced that at this time they should focus on continuing open conversations with the patient so that they are aware of pt's current wishes, values and goals in the event that she loses decisional capacity in the future. Both expressed understanding. will complete POLST/AD with pt on morning of 12/14/24. (2) Counseling regarding goals of care: Plan: pt has expressed desire for DNR/DNI at this time but does wish to continue all other life prolonging treatments in hopes of returning to her oncologist to discuss cancer directed treatment options, she did express understanding that her cancer is NOT curable but may prolong life and offer reduction of symptomatic burden. (3) Palliative care by specialist: Plan: as above, pt agreeable to outpt follow up with pallliative care for symptom management and navigation throughout the progression of her disease. (4) Cancer related pain: Plan: Pt states that pain is currently well managed and does not wish to make any changes, she does express concerns for increasing lethargy as need for opiate analgesia increases. She shared that her tongue/jaw pain is making eating difficult and she has very little desire to eat for fear of pain. Briefly discussed possible [facility]ELCOM[facility] CENTER ATTENDANT for dose finding and more consistent pain control, pt does not want to change regime at this time. She shared that she has severe projectile N/V with morphine. Plan as above Admission and Anticipated Discharge Date Admission Date: December 08, 2024 Subjective Patient seen and evaluated at bedside this morning. No acute events overnight. spouse was at bedside. pt states pain better controlled today. States she does not have much of an appetite at all. Attempting to work with family to schedule goals of care meeting. Review of Systems Review of Systems: All systems reviewed & are unremarkable except as noted in Subjective Physical Exam Physical Exam: Constitutional: well-appearing, no acute distress HEENT: NCAT, no conjunctival injection CV: regular rhythm, no murmur appreciated, extremities well-perfused, no LE edema Resp: CTABL, no wheezes/rales/rhonchi appreciated, no increased work of breathing GI: soft, nondistended, nontender, BS normoactive MSK: no gross deformities appreciated Skin: warm, dry, no rash appreciated Neuro: drowsy but arusabl,e and oriented, no focal neurologic deficit appreciated Results & Data Vital Signs (Past 12 Hours) Vital Signs Temp Pulse Pulse Resp BP Pulse Ox O2 Del Method 12/12/24 23:54 Room Air 12/12/24 23:11 36.8 C 98 H 18 136/62 95 Room Air 12/12/24 19:00 36.9 C 97 H 18 125/82 93 Room Air 12/12/24 15:25 37.3 C 103 H 20 131/73 95 Room Air 12/12/24 13:02 108 H Laboratory Results Abnormal lab results 12/12/24 12/12/24 12/12/24 Range/Units 05:28 09:56 13:10 POC Glucose 107 H 172 H 172 H (70-99) mg/dl 12/12/24 12/12/24 Range/Units 17:04 21:51 POC Glucose 138 H 203 H (70-99) mg/dl Diagnostic Findings Chest X-Ray 12/08/24 19:40 Exam(s): XR CXR 1 VIEW EXAM: XR Chest, 1 View CLINICAL HISTORY: Reason for exam: Dyspnea. TECHNIQUE: Frontal view of the chest. COMPARISON: Prior portable chest x-ray from February 24, 2023. FINDINGS: There is a right subclavian approach Port-A-Cath in place with the distal tip in the SVC. Lungs: Moderate peribronchial thickening of the central and lower lobe bronchi. Hyperinflation lungs with flattening diaphragms. There are multiple pulmonary nodules throughout both lungs. Pleural space: Unremarkable. No pneumothorax. Heart: Unremarkable. No cardiomegaly. Mediastinum: Unremarkable. Normal mediastinal contour. Bones/joints: Unremarkable. No acute fracture. IMPRESSION: Bronchitis, which may be of infectious or inflammatory etiologies. No consolidation or pleural effusion. Numerous pulmonary nodules concerning for metastatic disease. Electronically signed by: Gely Grove MD 12/08/24 23:40 PM Medications Administered Current Inpatient Medications Atorvastatin Calcium (Atorvastatin 10 Mg Tab) 10 mg PO HS [facility] Stop: 01/08/25 20:59 Last Admin: 12/12/24 21:14 Dose: Not Given Benzonatate (Benzonatate 100 Mg Capsule) 100 mg PO TID [facility] Stop: 01/08/25 08:59 Last Admin: 12/12/24 21:14 Dose: Not Given Calcium Carbonate (Calcium Carbonate 500 Mg Chewable Tab) 1,500 mg PO Q6H PRN PRN Reason: Indigestion Stop: 01/09/25 15:23 Clopidogrel Bisulfate (Clopidogrel Bisulfate 75 Mg Tab) 75 mg PO DAILY [facility] Stop: 01/08/25 08:59 Last Admin: 12/12/24 09:39 Dose: 75 mg Dextrose (Dextrose 50% 50 Ml Syringe) 25 - 50 ml IV UD PRN; Protocol PRN Reason: Hypoglycemia Protocol Stop: 01/08/25 01:36 Docusate Sodium (Docusate Sodium 100 Mg Cap) 100 mg PO BID PRN PRN Reason: Constipation Stop: 01/08/25 01:36 Last Admin: 12/11/24 08:22 Dose: 100 mg Enoxaparin Sodium (Enoxaparin Inj 30 Mg/0.3 Ml Syr) 30 mg SQ QAM [facility] Stop: 01/09/25 08:59 Last Admin: 12/12/24 08:36 Dose: 30 mg Glucagon (Glucagon For Inj 1 Mg Vial) 1 mg SQ UD PRN; Protocol PRN Reason: Hypoglycemia Protocol Stop: 01/08/25 01:36 Glucose (Glucose 40% Gel 15 Gm Tube) 15 - 30 gm PO UD PRN; Protocol PRN Reason: Hypoglycemia Protocol Stop: 01/08/25 01:36 Glucose (Glucose 10 Tab/Tube) 4 - 8 tab PO UD PRN; Protocol PRN Reason: Hypoglycemia Protocol Stop: 01/08/25 01:36 Heparin Sodium (Porcine) (Heparin 100 Unit/Ml 5ml Flush) 5 ml FLUSH PRN PRN PRN Reason: Flush Stop: 01/09/25 15:45 Last Admin: 12/12/24 22:12 Dose: 5 ml Cefepime HCl (Maxipime 2000mg) 2,000 mg in 20 mls @ 5 mls/min IV Q12H [facility]; Protocol Stop: 01/08/25 10:59 Last Admin: 12/12/24 22:12 Dose: 5 mls/min Insulin Aspart (Insulin Aspart Per Unit Charge) 0 units SC 0600,1000,1300,1700,2200 [facility] Stop: 01/08/25 07:29 Last Admin: 12/12/24 21:57 Dose: 6 units Insulin Glargine (Lantus Per Unit Charge) 6 units SQ [facility] Stop: 01/08/25 20:59 Last Admin: 12/12/24 21:07 Dose: 6 units Ketorolac Tromethamine (Ketorolac Tromethamine 15 Mg/Ml Vial) 15 mg IV Q6H PRN PRN Reason: Pain Stop: 12/14/24 11:55 Last Admin: 12/11/24 03:23 Dose: 15 mg Levothyroxine Sodium (Levothyroxine Sodium 75 Mcg Tablet) 75 mcg PO [id number] [facility] Stop: 01/09/25 06:29 Last Admin: 12/12/24 05:35 Dose: 75 mcg Lidocaine HCl (Lidocaine Viscous 2% 15 Ml Udc) 15 ml MT Q4H PRN PRN Reason: tongue pain Stop: 01/11/25 13:19 Last Admin: 12/12/24 16:46 Dose: 15 ml Loratadine (Loratadine 10 Mg Tab) 10 mg PO [facility] Stop: 01/08/25 20:59 Last Admin: 12/12/24 21:15 Dose: Not Given Metoprolol Succinate (Metoprolol Succ 50mg Ext Rel Tab) 100 mg PO [facility] Stop: 01/08/25 01:36 Last Admin: 12/12/24 21:05 Dose: 100 mg Mirtazapine (Mirtazapine Tab 15 Mg Tab) 15 mg PO [facility] Stop: 01/11/25 20:59 Last Admin: 12/12/24 21:15 Dose: Not Given Miscellaneous (Carbohydrates For Hypoglycemia ) 15 - 30 gm PO UD PRN PRN Reason: Hypoglycemia Protocol Stop: 01/08/25 01:36 Miscellaneous Information (Pharmacy Glycemic Mgmt Consult) 1 each N/A UD PRN PRN Reason: Consult Stop: 01/08/25 01:36 Multi-Ingredient Mouthwash/Gargle (First - Mouthwash Blm 5 Ml Udp) 5 ml PO TID [facility] Stop: 01/10/25 13:59 Last Admin: 12/12/24 21:07 Dose: 5 ml Nutritional Formula (Patient's Own Enteral Feeding) 237 ml PEG .See Protocol [facility]; Protocol Stop: 01/08/25 12:59 Last Admin: 12/12/24 05:35 Dose: 237 ml Nystatin (Nystatin Susp 500,000 U/5 Ml Udc) 5 ml PO QID [facility] Stop: 01/08/25 08:59 Last Admin: 12/12/24 21:07 Dose: 5 ml Ondansetron HCl (Ondansetron Inj 2 Mg/Ml 2 Ml Vial) 4 mg IV Q6H PRN PRN Reason: Nausea And Vomiting Stop: 01/08/25 01:36 Last Admin: 12/11/24 20:43 Dose: 4 mg Oseltamivir Phosphate (Oseltamivir Phosphate Susp 30 Mg/5 Ml Udp) 30 mg PO BID [facility]; Protocol Stop: 12/14/24 08:59 Last Admin: 12/12/24 21:07 Dose: 30 mg Oxycodone HCl (Oxycodone Hcl Ir 5 Mg Tab (Immediate Release)) 5 mg PO Q4H PRN PRN Reason: Pain Stop: 12/25/24 11:59 Last Admin: 12/12/24 21:05 Dose: 5 mg Pantoprazole Sodium (Pantoprazole 40 Mg Tab) 40 mg PO QAM [facility] Stop: 01/08/25 08:59 Last Admin: 12/12/24 08:36 Dose: 40 mg Polyethylene Glycol (Polyethylene (Miralax) 17 Gm Pack) 17 gm GT BID [facility] Stop: 01/08/25 12:29 Last Admin: 12/12/24 21:10 Dose: 17 gm Sennosides (Senna 8.6 Mg Tab) 17.2 mg PO QAM [facility] Stop: 01/09/25 08:59 Last Admin: 12/12/24 09:41 Dose: 17.2 mg Sterile Water (Tube Feeding Water Flush) 200 ml PEG 0600,1000,1300,1700,2200 [facility] Stop: 01/08/25 12:59 Last Admin: 12/12/24 22:00 Dose: 200 ml PG Care Time/CCT Total # of Minutes Spent Total Time Spent with Patient: Total time spent is greater than 50% in coordination of care (as documented) at patient's floor/unit and/or counseling patient: Advanced Care Planning 80942 Advanced Care Planning 30 Min Coding [place] [address] SUB INP/OBS CARE 2/35MIN Patient Type Established Medical Decision Making Moderate Complexity Diagnoses Counseling regarding advanced directives and goals of care Z71.89 Counseling regarding goals of care Z71.89 Palliative care by specialist Z51.5 Cancer related pain G89.3 Additional Codes Advanced Care Planning - 64917 Advanced Care Planning 30 Min: 16769 Advanced Care Planning 30 Min ([id number])
[2024-12-13 07:31] LABS: Basophils # (auto) 0.02 K/uL (0.00-0.20); Basophils % (auto) 0.7 %; Eosinophils # (auto) 0.01 K/uL (0.00-0.50); Eosinophils % (auto) 0.4 %; Hematocrit (blood only) 30.5 % (37.0-47.0); Immature Granulocytes # (auto) 0.02 K/uL (0.01-0.20); Immature Granulocytes % (auto) 0.7 %; Lymphocytes # (auto) 0.72 K/uL (1.20-3.40); Lymphocytes % (auto) 25.3 %; Mean Corpuscular Hemoglobin 28.6 pg (25.0-34.0); Mean Corpuscular Hgb Conc 32.8 g/dL (32.0-36.0); Mean Corpuscular Volume 87.1 fL (80.0-100.0); Mean Platelet Volume 10.2 fL (9.4-12.4); Monocytes # (auto) 0.42 K/uL (0.11-0.59); Monocytes % (auto) 14.7 %; Neutrophils # (auto) 1.66 K/uL (1.40-6.50); Neutrophils % (auto) 58.2 %; Platelet Count 129 K/uL (130-400); RDW Coefficient of Variation 14.7 % (11.5-14.5); RDW Standard Deviation 44.3 fL (36.4-46.3); White Blood Count 2.85 K/ul (4.8-10.8)
[2024-12-13 10:49] LABS: BUN Creatinine Ratio 37.5 (10-20); Calcium 9.5 mg/dl (8.6-10.3); Creatinine Clr Calc Pharmacy 50.5 ml/min; Potassium 4.6 mmol/L (3.5-5.1)
[2024-12-13] MEDS: ACETAMINOPHEN 325 MG TAB PO PRN (13:08)
[2024-12-13] MEDS: TUBE FEEDING WATER FLUSH PEG SCH (13:11)
--- NOTE | 2024-12-13 14:13 | Palliative Family Discussion ---
Date of Service December 13, 2024 Patient Directed Conference Time of Meeting: [] Participants: MaiaAlaina mirza AGACNP Patient participation: yes Patient Support System: no visitors present Other Healthcare Provider Participation: None Meeting Location: bedside Advanced Directive available: No If yes, descriptors: The patient's surrogate medical decision maker participated: no Legally authorized health care proxy: No LW/AD available, pt selected her grand daughter Sadie Other surrogate: [] A family meeting was held for CRYSTAL REYNOLDS. This meeting was necessary for determining the appropriate course of treatment. Topics of Discussion Topics of Discussion: 1. goals of care 2. LW/AD 3. POLST 4. symptom management 5. outpt resources Other Content of Meetin. Opportunity given for participants to speak and ask questions. 2. pt was assured of attention to patient comfort. 3. Reassurance provided. 4. Support was provided for informed, good-shruthi decisions. 5. Emotions expressed by family were acknowledged and addressed. 6. Follow-up Outpatient: symptom mgmt and navigation with outpt Palliative Care clinic 7. Plan of Care: DNR/DNI, continue current course of treatment Met with pt at bedside, she was awake and alert, oriented x4. Pt shared pain well managed today. Patient continues to exhibit current possession of decisional capacity based on the ability to convey understanding of personal PMHx, current medical condition, treatment options as well as the risks / benefits of those options, and ability to make decisions based on such knowledge. Hospital does not have written documentation of patient wishes concerning her chosen proxy for medical decisions. Pt does not currently require a proxy for medical decisions. Per PA [id number], in absence of written documentation of patient wishes, pt's proxy for medical decisions would be her spouse and six adult children with equal decisional authority. Reinforced the importance of LAW/AD and value of choosing a MDM proxy who knows her goals and values and will support her wishes if they are called upon as proxy. Pt shared that her spouse has early dementia and she would like to designate her grand daughter, Sadie Gonzalez ) to be her primary MDM proxy, and her son Chago Vickers ([phone]) as back up, Sadie is a speech therapist and very close with the pt. We reviewed that LW paperwork and I left blank copy with pt to discuss with her family. Today we again discussed code status and her goals and values as they pertain to her health care at end of life. She reinforced her desire for DNR/DNI and POLST form was completed with pt and placed on chart. DNR/DNI order placed. Pt remains plagued by her 's dementia and fears that he will out live her and have no one to care for him. She shared that he comes from a family of centenarians and has two children who have stated that they will not care for him. She worries that given he is very physically healthy, he will end up in a [facility] due to his dementia and no one will visit with him. She shared that this is her biggest fear as the end of her life approaches. She shared that Dr. Alfaro gave her a prognosis of 5 years back in October, but she can feel herself getting weaker and does not believe that she will survive this year. She shared plan to transition to FORMULATION TECHNICIAN if there are no further treatment options for her cancer, but she is hopeful to extend her life and quality time at home. She again shared the focus driving her pursuit of ongoing life prolonging and cancer directed treatment is concern for her spouse. She shared that she does all of the book keeping and financial planning at home and she needs to "get things in order before he is left alone to struggle through". Also discussed engaging palliative foundation funded Conscious Dying Coaching with Rev Amy Briones. I reviewed that Rev Briones offers assistance on non clinical issues, supporting patients as they consider, navigate and become clear on what is most important for their end of life. Rev Briones helps patients align how they are currently living with the vision they see for yourself at the end, then identify and set goals, along with action steps for yourself to fulfill that vision. The focus is on the 5 domains of life: Spiritual, emotional, physical, mental, and practical. Gloria would like this engagement with Rev Briones and I have provided pt with Rev Briones's contact information. Patient and family asked that I share her name and phone with Rev Briones to contact, as it is sometimes hard for pt to make the call, fearing rejection. I reviewed that End of life coaching and planning begins with 10 structured sessions we like to call, the best three months. Based on 10 total meetings over a 3-4 month period. Average meeting time 60-90 minutes. 2 meetings per domain. Over a three month period, there is support for the family and patient to identify their vision, current reality and steps to be taken to implement life fulfillment and care wishes in the spiritual, emotional, mental, physical and practical domains of life. This service includes: Best Three Months End-of-Life Care Coaching and Planning with Family, Patient and Co-coordination with Medical/Hospice Care Providers. Patient was thankful for offer but not agreeable to this service. She does remain agreeable to outpt F/U with Palliative Care team for ongoing pain/symptom management and navigation through the progression of her disease. Time Involved in Meeting: I spent 60minutes overall addressing this case: 10 in medical data review/discussion with referring provider(s) and/or preparation for the visit 40 in direct interaction with the patient [] 40 Advance Care Planning/Goals of Care discussions as detailed above in note (must be >16min) 10 in subsequent review and synthesis of assessment and plan
--- NOTE | 2024-12-13 15:48 | Hospitalist Progress Note ---
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 She presented to the ED due to pain, tachycardia, hypertension, diarrhea, and uncontrollable blood glucose levels. She was found to have influenza A in the ED. She is being admitted due to influenza A, severe pain, pancytopenia, and hyponatremia. 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 SCC met) previously followed with [facility] Dr. Alfaro but has transitioned care to [place] and is currently undergoing chemotherapy (with next dose due this week) pain regimen: IV Tylenol scheduled, oxycodone XR 10 mg scheduled at bedtime, oxycodone IR 5/10mg every 4hr PRN, toradol 15mg q6hr PRN- discussed with pt that with her severe cancer related pain opioids are most likely to be the most effective for pain relief bowel regimen: s/p senna this AM and addition of MiraLax 17gm BID through her G tube met with palliative care working towards clarification of GOC #Pancytopenia Improved s/p 1U PRBCs suspect secondary to chemotherapy CXR w/o acute findings; blood cx negative dc cefepime #T2DM pt previously controlled at home with insulin glargine 6u HS and SSI however, pt's family noted she has been hyperglycemic during recent hospitalization at [place] and they have been unable to control her glucose at home family requested parent educator consult pharmacy consult for glycemic management #Gtube in place placed with [place] pt gets 5 feeds per day (q4 hr between the hours of 6AM-10PM) records from [place] show diabetic source and 200 mL water with each feed also on nestle diabetic source AC supplement drinks by PEG 5x daily at home pt is able to take meds PO with applesauce nutrition consulted and managing tube feeds #Hyponatremia- resolved Chronic stable diagnoses: HLD - continue atorvastatin and plavix Hypothyroidism - continue levothyroxine, does not take Tuesday and Sundays HTN - continue metoprolol Code: full VTE ppx: Lovenox Diet: tube feeds, PO as wanted Dispo med/tele Admission and Anticipated Discharge Date Admission Date: December 08, 2024 Supervising Physician Co-Signing Physician Notes Attending attestation Pt seen and examined in concert with Dr. Doll. In agreement with the documented findings as noted in the resident documentation with any exceptions or additions as noted here. Reports pain is well controlled and had a single episode of vomitus following tube feed, which she is normally very comfortable with. Otherwise tolerating intake well. On examination, S1/S2 nl RRR no MCG. CTAB. Abd NT/ND BS+ve. Oral lesion of the left tongue. VS as noted. 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 Pain is controlled on PO oxycodone at present, though may require adjustment following discontinuation of fentanyl patch on 12.12.24. Pancytopenia - improved, d/c cefepime Else see resident documentation as noted. Subjective Patient seen and evaluated at bedside this morning. No acute events overnight. Reports pain well controlled at this time. Did have an episode of vomiting with tube feed. Still not taking much PO due to lack of appetite and discomfort. Review of Systems Review of Systems: As per HPI Physical Exam Physical Exam: Constitutional: ill-appearing, no acute distress HEENT: NCAT, no conjunctival injection CV: clinically well perfused Resp: no increased work of breathing GI: nondistended, gtube in place MSK: no gross deformities appreciated Skin: warm, dry, no rash appreciated Neuro: alert, oriented, no focal neurologic deficit appreciated Results & Data Results & Data Vital Signs (Past 12 Hours) Vital Signs Temp Pulse Pulse Resp BP Pulse Ox O2 Del Method 12/13/24 15:02 37.4 C 101 H 16 159/75 H 97 Room Air 12/13/24 13:04 100 H 12/13/24 11:52 36.6 C 92 H 20 154/75 H 96 Room Air 12/13/24 08:05 36.8 C 100 H 16 128/70 91 Room Air 12/13/24 07:25 Room Air 12/13/24 05:35 97 H 12/13/24 04:00 36.7 C 95 H 18 131/73 93 Room Air Resident Activity Tracking Resident Involvement: Resident Care Provided Care Provided: Adult Hospital Medicine
[2024-12-13] MEDS: LANTUS PER UNIT CHARGE SQ SCH (20:06)
--- NOTE | 2024-12-14 10:53 | Pharmacy Report ---
Pharmacy Glycemic Short Note 2 - Date of Service December 14, 2024 - Glycemic Short BSG Results (Last 24 hours): 12/13/24 12/13/24 12/13/24 13:00 17:02 22:01 POC Glucose 183 H 156 H 140 H 12/14/24 12/14/24 05:40 10:05 POC Glucose 155 H 163 H OUTPATIENT ANTIDIABETIC REGIMEN: * Levemir 6 units SC HS HbA1c: * pending - A1c analyzer at [facility] inpatient lab down until 12/10/24 ASSESSMENT: 12/14 * Patient received total of 30 units of insulin yesterday, of which 7 units were basal * Fasting BSG better since increasing dose last evening, will continue same for now 12/11 * Jo received 32 units of insulin yesterday (6 units were basal) * Fasting BSG this AM within goal range, continue home basal regimen * Correction factor tightened slightly to better cover tube feeds, BSGs better controlled today * She continues on cefepime and Tamiflu 12/09 * 84 yo F admitted on 12/08/24 secondary to influenza A. Pharmacy has been consulted to assist with inpatient glycemic management. Patient is a Type 2 diabetic as an outpatient. Please refer to outpatient regimen and most recent HbA1c above. * Ordered home tube feeds 5 x day. Contains 25 g carbs per carton. Does have some additional PO intake but very little. * Fasting BSG was 177 mg/dL this AM. Will continue with home basal dose. Novolog ordered to cover bolus TF 5 x day. PLAN FOR INPATIENT GLYCEMIC CONTROL: * Basal insulin * Lantus 7 units SC HS * Bolus insulin * NovoLog per scale ACHS or Q6hrs while NPO * Goal Range: Low 110 mg/dL - High 140 mg/dL * Correction Factor: 25 mg/dL/unit * Nutritional / Prandial insulin per carb ratio of 1 unit per 7 grams CHO consumed
--- NOTE | 2024-12-14 10:54 | Palliative Care Progress Note ---
Date of Service December 14, 2024 Assessment & Plan (1) Counseling regarding advanced directives and goals of care: (2) Counseling regarding goals of care: Plan: pt has clearlry establlshed goals for DNR/DNI continue all other life prolonging treatments in hopes of returning to her oncologist to discuss cancer directed treatment options to prolong life and offer reduction of symptomatic burden. (3) Palliative care by specialist: Plan: as above, pt agreeable to outpt follow up with pallliative care for symptom management and navigation throughout the progression of her disease. (4) Cancer related pain: Plan: Pt states that pain is currently well managed and does not wish to make any changes, she does express concerns for increasing lethargy as need for opiate analgesia increases. She shared that her tongue/jaw pain is making eating difficult and she has very little desire to eat for fear of pain. Plan pt to be discharged over weekend. We will sign off on this patient as goals of care are clearly established for DNR/DNI but continue all other life prolonging therapies Thank you for including Palliative Care in the management of this patient. Please call with any questions or concerns regarding this consultation. Admission and Anticipated Discharge Date Admission Date: December 08, 2024 Subjective Patient seen and evaluated at bedside this morning. No acute events overnight. spouse was at bedside. pt states pain only mild today, she requested tylenol, BSRN made aware. Pt requests to delay a y GOC conversation, she plans to complete LW/AD after DC with her corporation lawyer. Review of Systems Review of Systems: All systems reviewed & are unremarkable except as noted in Subjective Physical Exam Physical Exam: Constitutional: well-appearing, no acute distress HEENT: NCAT, no conjunctival injection CV: regular rhythm, no murmur appreciated, extremities well-perfused, no LE edema Resp: CTABL, no wheezes/rales/rhonchi appreciated, no increased work of breathing GI: soft, nondistended, nontender, BS normoactive MSK: no gross deformities appreciated Skin: warm, dry, no rash appreciated Neuro: drowsy but arousable and oriented, no focal neurologic deficit appreciated Results & Data Vital Signs (Past 12 Hours) Vital Signs Temp Pulse Pulse Resp BP Pulse Ox O2 Del Method 12/14/24 07:33 36.4 C L 105 H 18 109/68 92 Room Air 12/14/24 07:32 Room Air 12/14/24 05:44 107 H 12/14/24 03:03 36.6 C 98 H 18 134/75 93 Room Air 12/13/24 23:56 Room Air 12/13/24 23:00 36.8 C 92 H 18 134/73 95 Room Air Laboratory Results Abnormal lab results 12/13/24 12/13/24 12/13/24 Range/Units 13:00 17:02 22:01 POC Glucose 183 H 156 H 140 H (70-99) mg/dl 12/14/24 12/14/24 Range/Units 05:40 10:05 POC Glucose 155 H 163 H (70-99) mg/dl Diagnostic Findings Chest X-Ray 12/08/24 19:40 Exam(s): XR CXR 1 VIEW EXAM: XR Chest, 1 View CLINICAL HISTORY: Reason for exam: Dyspnea. TECHNIQUE: Frontal view of the chest. COMPARISON: Prior portable chest x-ray from February 24, 2023. FINDINGS: There is a right subclavian approach Port-A-Cath in place with the distal tip in the SVC. Lungs: Moderate peribronchial thickening of the central and lower lobe bronchi. Hyperinflation lungs with flattening diaphragms. There are multiple pulmonary nodules throughout both lungs. Pleural space: Unremarkable. No pneumothorax. Heart: Unremarkable. No cardiomegaly. Mediastinum: Unremarkable. Normal mediastinal contour. Bones/joints: Unremarkable. No acute fracture. IMPRESSION: Bronchitis, which may be of infectious or inflammatory etiologies. No consolidation or pleural effusion. Numerous pulmonary nodules concerning for metastatic disease. Electronically signed by: Gely Grove MD 12/08/24 23:40 PM Medications Administered Current Inpatient Medications Acetaminophen (Acetaminophen 325 Mg Tab) 650 mg PO Q4H PRN PRN Reason: Pain or Fever Stop: 01/12/25 11:06 Last Admin: 12/13/24 19:24 Dose: 650 mg Atorvastatin Calcium (Atorvastatin 10 Mg Tab) 10 mg PO HS JOSH Stop: 01/08/25 20:59 Last Admin: 12/13/24 20:51 Dose: Not Given Benzonatate (Benzonatate 100 Mg Capsule) 100 mg PO TID JOSH Stop: 01/08/25 08:59 Last Admin: 12/14/24 10:00 Dose: 100 mg Calcium Carbonate (Calcium Carbonate 500 Mg Chewable Tab) 1,500 mg PO Q6H PRN PRN Reason: Indigestion Stop: 01/09/25 15:23 Clopidogrel Bisulfate (Clopidogrel Bisulfate 75 Mg Tab) 75 mg PO DAILY [facility] Stop: 01/08/25 08:59 Last Admin: 12/14/24 10:00 Dose: 75 mg Dextrose (Dextrose 50% 50 Ml Syringe) 25 - 50 ml IV UD PRN; Protocol PRN Reason: Hypoglycemia Protocol Stop: 01/08/25 01:36 Docusate Sodium (Docusate Sodium 100 Mg Cap) 100 mg PO BID PRN PRN Reason: Constipation Stop: 01/08/25 01:36 Last Admin: 12/11/24 08:22 Dose: 100 mg Enoxaparin Sodium (Enoxaparin Inj 30 Mg/0.3 Ml Syr) 30 mg SQ QAM JOSH Stop: 01/09/25 08:59 Last Admin: 12/14/24 10:00 Dose: 30 mg Glucagon (Glucagon For Inj 1 Mg Vial) 1 mg SQ UD PRN; Protocol PRN Reason: Hypoglycemia Protocol Stop: 01/08/25 01:36 Glucose (Glucose 40% Gel 15 Gm Tube) 15 - 30 gm PO UD PRN; Protocol PRN Reason: Hypoglycemia Protocol Stop: 01/08/25 01:36 Glucose (Glucose 10 Tab/Tube) 4 - 8 tab PO UD PRN; Protocol PRN Reason: Hypoglycemia Protocol Stop: 01/08/25 01:36 Heparin Sodium (Porcine) (Heparin 100 Unit/Ml 5ml Flush) 5 ml FLUSH PRN PRN PRN Reason: Flush Stop: 01/09/25 15:45 Last Admin: 12/13/24 10:21 Dose: 5 ml Insulin Aspart (Insulin Aspart Per Unit Charge) 0 units SC 0600,1000,1300,1700,2200 JOSH Stop: 01/08/25 07:29 Last Admin: 12/14/24 10:11 Dose: 5 units Insulin Glargine (Lantus Per Unit Charge) 7 units SQ HS [facility] Stop: 01/12/25 20:59 Last Admin: 12/13/24 20:06 Dose: 7 units Ketorolac Tromethamine (Ketorolac Tromethamine 15 Mg/Ml Vial) 15 mg IV Q6H PRN PRN Reason: Pain Stop: 12/14/24 11:55 Last Admin: 12/13/24 01:06 Dose: 15 mg Levothyroxine Sodium (Levothyroxine Sodium 75 Mcg Tablet) 75 mcg PO [id number] [facility] Stop: 01/09/25 06:29 Last Admin: 12/14/24 06:02 Dose: 75 mcg Lidocaine HCl (Lidocaine Viscous 2% 15 Ml Udc) 15 ml MT Q4H PRN PRN Reason: tongue pain Stop: 01/11/25 13:19 Last Admin: 12/14/24 10:00 Dose: 15 ml Loratadine (Loratadine 10 Mg Tab) 10 mg PO [facility] Stop: 01/08/25 20:59 Last Admin: 12/13/24 20:51 Dose: Not Given Metoprolol Succinate (Metoprolol Succ 50mg Ext Rel Tab) 100 mg PO [facility] Stop: 01/08/25 01:36 Last Admin: 12/13/24 20:10 Dose: 100 mg Mirtazapine (Mirtazapine Tab 15 Mg Tab) 15 mg PO [facility] Stop: 01/11/25 20:59 Last Admin: 12/13/24 20:10 Dose: 15 mg Miscellaneous (Carbohydrates For Hypoglycemia ) 15 - 30 gm PO UD PRN PRN Reason: Hypoglycemia Protocol Stop: 01/08/25 01:36 Miscellaneous Information (Pharmacy Glycemic Mgmt Consult) 1 each N/A UD PRN PRN Reason: Consult Stop: 01/08/25 01:36 Multi-Ingredient Mouthwash/Gargle (First - Mouthwash Blm 5 Ml Udp) 5 ml PO TID [facility] Stop: 01/10/25 13:59 Last Admin: 12/14/24 10:00 Dose: 5 ml Nutritional Formula (Patient's Own Enteral Feeding) 237 ml PEG .See Protocol [facility]; Protocol Stop: 01/08/25 12:59 Last Admin: 12/12/24 05:35 Dose: 237 ml Nystatin (Nystatin Susp 500,000 U/5 Ml Udc) 5 ml PO QID [facility] Stop: 01/08/25 08:59 Last Admin: 12/14/24 10:00 Dose: 5 ml Ondansetron HCl (Ondansetron Inj 2 Mg/Ml 2 Ml Vial) 4 mg IV Q6H PRN PRN Reason: Nausea And Vomiting Stop: 01/08/25 01:36 Last Admin: 12/11/24 20:43 Dose: 4 mg Oxycodone HCl (Oxycodone Hcl Ir 5 Mg Tab (Immediate Release)) 5 mg PO Q4H PRN PRN Reason: Pain Stop: 12/25/24 11:59 Last Admin: 12/14/24 02:53 Dose: 5 mg Pantoprazole Sodium (Pantoprazole 40 Mg Tab) 40 mg PO QAM [facility] Stop: 01/08/25 08:59 Last Admin: 12/14/24 10:00 Dose: 40 mg Polyethylene Glycol (Polyethylene (Miralax) 17 Gm Pack) 17 gm GT BID [facility] Stop: 01/08/25 12:29 Last Admin: 12/14/24 10:00 Dose: 17 gm Sennosides (Senna 8.6 Mg Tab) 17.2 mg PO QAM [facility] Stop: 01/09/25 08:59 Last Admin: 12/14/24 10:00 Dose: 17.2 mg Sterile Water (Tube Feeding Water Flush) 300 ml PEG 0600,1000,1300,1700,2200 [facility] Stop: 01/12/25 12:59 Last Admin: 12/14/24 10:01 Dose: 300 ml PG Care Time/CCT Total # of Minutes Spent Total Time Spent with Patient: Total time spent is greater than 50% in coordination of care (as documented) at patient's floor/unit and/or counseling patient: Coding [place] [address] SUB INP/OBS CARE 12/01MIN Patient Type Established History Problem Focused Medical Decision Making Moderate Complexity Diagnoses Counseling regarding advanced directives and goals of care Z71.89 Counseling regarding goals of care Z71.89 Palliative care by specialist Z51.5 Cancer related pain G89.3
--- NOTE | 2024-12-14 11:44 | Discharge Summary ---
Date of Service December 14, 2024 Admission HPI Per Admitting Provider Patient is an 84-year-old female with a past medical history of breast cancer with mets to right tongue and lung, type II DM insulin-dependent, hypertension, hyperlipidemia, hypothyroidism. She presented to the ED due to pain, tachycardia, hypertension, diarrhea, and uncontrollable blood glucose levels. Shee was found to have influenza A in the ED. She is being admitted due to influenza A, severe pain, pancytopenia, and hyponatremia. Patient seen at bedside with and daughter present. They are heavily involved in her care. She previously followed with Dr. Merchant at [facility] with transition care to [facility] to be closer to her other daughter. Following history is obtained by patient's daughter and as patient was in significant pain. They stated that in early November around the or she received 4 courses of intense radiation to her face followed by chemotherapy 1 week later. After that she was admitted to [facility] for 6 days due to her blood pressure being high and uncontrollable glucose elevations. They stopped her chemo back 1 day early due to this. She returned home on Tuesday and has continued to have high glucose levels noted to be as high as 371, tachycardia, and high blood pressure. Her daughter also stated that she has had diarrhea for a week since starting radiation therapy and G-tube feeds. She is still able to take p.o. medications with applesauce. Her daughter also noted that the patient developed a cough on . She stated that her mother has not been eating a lot since transitioning to the G-tube. The patient receives G-tube feedings 5 times a day which is every 4 hours. She typically gets her blood sugar checked 30 minutes before and receives SSI. She had a feed at 830 this evening and still needs her insulin. Patient's family would like for her to be home by Tuesday for her appointments with her workers compensation attorney. She also has an appointment in her she Tuesday and is to receive more treatment on Tuesday. Patient's family states she has not complained of fevers, no runny nose or sore throat, no dyspnea, no chest pain. She has been pain-free since coming home from the hospital on Tuesday and has not been taking her oxycodone at home. They typically use warm compresses and ice to help with the pain. She did get her a.m. medications today but needs her p.m. medications. She wishes to be full code at this time. 0130have received multiple messages regarding family concern with patient's G- tube feeding. Patient still would like p.o. meals along with G-tube feeding. They also are concerned about diabetes meals through G-tube, nursing aware that nutrition/dietitian was consulted. Ordered G-tube feeding based off recommendations from [facility] medical records. Family is able to bring in home feedings if they wish. Admission Exam Per Admitting Provider The patient is awake, alert and oriented 3, well developed and well nourished, normocephalic and atraumatic, tearful in pain. HEENT- EOMI, mucous membranes dry. Hearing grossly intact. Heart-normal S1 and S2. No murmurs, rubs or gallops. Lungs-clear bilaterally, no respiratory distress, no accessory muscle use. Abdomen-normal bowel sounds and soft. No ascites noted. Non-tender. Extremities- no clubbing, cyanosis, or edema. Principal Diagnosis flu A Discharge Exam Gen: well appearing patient in NAD HEENT: AT NC MMM Resp: good air movement scattered rhonchi no increased work of breathing CV: RRR no m/r/g clinically well perfused Abd: soft, non-tender, non-distended MSK: no obvious deformities Skin: no rashes or bruising Neuro: alert and oriented Psych: appropriate mood and affect Discharge Data Allergies Allergy/AdvReac Type Severity Reaction Status Date / Time Penicillins Allergy Intermediate ITCHY Verified 12/08/24 22:24 morphine AdvReac Intermediate NAUSEA AND Verified 12/08/24 22:24 VOMITING Consultations 12/08/24 21:32 ED Decision to Admit Stat 12/09/24 01:37 Consult Hematology Routine 12/11/24 12:51 Consult Palliative Care Routine Ordered Studies Chest X-Ray 12/08/24 19:40 FINDINGS: There is a right subclavian approach Port-A-Cath in place with the distal tip in the SVC. Lungs: Moderate peribronchial thickening of the central and lower lobe bronchi. Hyperinflation lungs with flattening diaphragms. There are multiple pulmonary nodules throughout both lungs. Pleural space: Unremarkable. No pneumothorax. Heart: Unremarkable. No cardiomegaly. Mediastinum: Unremarkable. Normal mediastinal contour. Bones/joints: Unremarkable. No acute fracture. IMPRESSION: Bronchitis, which may be of infectious or inflammatory etiologies. No consolidation or pleural effusion. Numerous pulmonary nodules concerning for metastatic disease. 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 Presented with pain, hyperglycemia, tachycardia, and hypertension. Found to be positive for flu A and admitted for further management. Patient now with adequate pain control and resolution of respiratory symptoms. #Influenza A CXR without superimposed pneumonia. Treated with 5 days of Tamiflu. Continue supportive care - IS, tessalon pearzee. #Cancer related pain/metastatic breast cancer/SCC of tongue Patient with multiple metastatic cancers - breast and tongue cancer with mets to the lung. Significant cancer related pain. Patient undergoing chemotherapy. Pain relatively controlled at present. Bowel regimen on board - senna daily, miralax BID. Pain regimen: Tylenol 650 mg Q4H PRN Magic mouthwash scheduled and lidocaine swish PRN Oxycodone 5 mg Q4H PRN #T2DM Pharm consult for glycemic management - Levemir 7 units HS and Novolog 4-5 units immediately before each feeding #G-tube in place Placed with Noy - 5 feeds per day (Q4H between the hours of 6AM-10PM), diabetic source, increased to 300 mL free water flushes x 5. Can take PO meds with applesauce. Nutrition managing tube feeds - appreciate recs #Pancytopenia s/p 1U PRBCs, likely bone marrow suppression from chemotherapy. Non-infectious appearing. Was on cefepime for ppx, since d/c Chronic: HLD - continue atorvastatin and plavix Hypothyroidism - continue levothyroxine, does not take Tuesday and Sundays HTN - continue metoprolol Total Time Total Time Spent Total Time Spent (In Minutes): See attending attestation Discharge Plan Discharge Items Patient Disposition: Home - Home Health Services Reason For Visit: CANCER PAIN, PANCYTOPENIA, INFLU A Discharge Diagnosis: flu A, cancer pain Activity: Per Instructions section Non-emergency contact: Primary Care Provider and Oncologist Call non-emergency contact if: you have any medication questions and your temperature is above 101.5 Follow-up/Referrals: Natasha Perry CRNP [Nurse Practitioner] - Jorge Mota MD [Primary Care Provider] - () Diet: Regular Diet Comment: tube feeds, PO as desired Addtl Attending Provider Instructions: You were seen here in the hospital for flu A. You were treated with Tamiflu and improved. You can continue using Tessalon pearls as needed for cough. If symptoms worsen please follow up with your PCP. Deconditioning: We did recommend rehab to help with weakness after this hospital stay. You declined. Plan to go home with home health. Diabetes: Increased insulin coverage - basal insulin (levemir) 7 units nightly. Continue tube feeds as scheduled with 4-5 units of short acting insulin prior to each feed. Continue free water flushes as scheduled. Added Miralax 17 gm twice daily in G-tube for opioid induced constipation. Also scheduled Senna 17.2 mg daily. Can use docusate 100 mg twice a day as needed. Oral intake as desired. Tube feeds will provide required calories. Cancer related pain: Continue oxycodone 5 mg every 4 hours as needed. Continue nystatin swish, lid ocaine swish at needed, magic mouthwash. Can take Tylenol 650 mg every 4 hours as needed. Please follow up with palliative care for further pain control and continued discussion of goals of care. Follow up with oncology as desired for continued treatment. We did start a medication call mirtazapine which can help with appetite and mood. Continue this medication on discharge. If symptoms worsen please return to care. Thank you for allowing us to participate in your care. Pending Studies at Discharge: No Stand-Alone Forms: My [employer], Smoking Cessation Medications and DC Order Prescriptions: New insulin glargine [Lantus U-100 Insulin] 100 unit/mL Solution 7 unit subcut HS 30 Days Qty: 2.1 0RF insulin aspart U-100 [Novolog U-100 Insulin aspart] 100 unit/mL Solution See Rx Instructions .ROUTE .COMPLEX Qty: 10 0RF Rx Instructions: 4-5 units with each tube feed mirtazapine 15 mg Tablet 15 mg PO HS 30 Days Qty: 30 0RF benzonatate 100 mg Capsule 100 mg PO TID 15 Days Qty: 45 0RF First - Mouthwash Blm [Magic Mouthwash] 5 ml PO TID 30 Days 0RF sennosides [Senokot] 8.6 mg Tablet 17.2 mg PO QAM Qty: 60 0RF polyethylene glycol 3350 [Miralax] 17 gram Powder In Packet 17 g G-tube BID Qty: 30 0RF lidocaine HCl [Lidocaine Viscous] 2 % Solution 15 ml MT Q4H PRN (Reason: pain) 30 Days Qty: 300 0RF Continued cholecalciferol (vitamin D3) 1,000 unit capsule 1,000 units PO HS levothyroxine 75 mcg tablet 75 mcg PO [id number] Rx Instructions: do not take on TUESDAY OR SUNDAYS ondansetron HCl 8 mg tablet 8 mg PO Q8 PRN (Reason: Nausea) pantoprazole 20 mg tablet,delayed release (DR/EC) 20 mg PO QAM cefuroxime axetil 500 mg tablet 500 mg PO BID atorvastatin 10 mg tablet 10 mg PO HS metoprolol succinate 100 mg tablet extended release 24 hr 100 mg PO HS loratadine 10 mg Tablet 10 mg PO HS clopidogrel 75 mg tablet 75 mg PO QAM nystatin 100,000 unit/mL suspension 5 ml PO QID oxycodone 5 mg tablet 5 mg PO Q4 PRN (Reason: Pain) Qty: 30 0RF Discontinued Levemir U-100 Insulin 100 unit/mL solution 6 unit SUBCUT HS Discharge Orders: Discharge Order (Routine); Ordered 12/15/24 Ordered By: Rolanda Diaz Admission Data Admit Date/Time: 12/08/24 23:37 Attending Provider: José Miguel Padgett Admit Provider: Jon Aguilar Primary Care Provider: Jorge Mota Other Providers: Jon Aguilar; Varun Piedra; [facility]; Yohana Perry Patricia A. Other Interventions: Discharge Summary Assessment (RN) Last Done: 12/15/24 11:29 Supervising Physician Co-Signing Physician Notes Attending attestation Pt seen and examined in concert with Dr. Diaz. In agreement with the documented findings as noted in the resident documentation with any exceptions or additions as noted here. Reports pain remains well controlled on present regimen with no further episode of vomitus following tube feed. On examination, S1/S2 nl RRR no MCG. CTAB. Abd NT/ND BS+ve. Oral lesion of the left tongue. VS as noted. 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 Else see resident documentation as noted. Total attending physician time spent with this patient's care on the day of discharge: 20 minutes. Resident Activity Tracking Resident Involvement: Resident Care Provided Care Provided: Adult Hospital Medicine
--- NOTE | 2024-12-14 16:37 | Hospitalist Progress Note ---
Date of Service December 14, 2024 Assessment & Plan (1) Cancer related pain: (2) G tube feedings: (3) Pancytopenia: (4) Diabetes mellitus: (5) Influenza A: (6) Metastatic breast cancer: Plan Pt is an 84 y/o female with a PMHx of breast cancer w/mets, SCC of tongue and lung mets (breast vs. SCC), T2DM, HLD, HTN, and hypothyroidism. Presented with pain, hyperglycemia, tachycardia, and hypertension. Found to be positive for flu A and admitted for further management. Patient now with adequate pain control and resolution of respiratory symptoms. #Influenza A CXR without superimposed pneumonia. Treated with 5 days of Tamiflu. Continue supportive care - IS, tessalon pearls. #Cancer related pain/metastatic breast cancer/SCC of tongue Patient with multiple metastatic cancers - breast and tongue cancer with mets to the lung. Significant cancer related pain. Patient undergoing chemotherapy. Pain relatively controlled at present. Bowel regimen on board - senna daily, miralax BID. Pain regimen: Tylenol 650 mg Q4H PRN Magic mouthwash scheduled and lidocaine swish PRN Oxycodone 5 mg Q4H PRN #T2DM Pharm consult for glycemic management - Levemir 7 units HS and Novolog 4-5 units immediately before each feeding #G-tube in place Placed with Noy - 5 feeds per day (Q4H between the hours of 6AM-10PM), diabetic source, increased to 300 mL free water flushes x 5. Can take PO meds with applesauce. Nutrition managing tube feeds - appreciate recs #Pancytopenia s/p 1U PRBCs, likely bone marrow suppression from chemotherapy. Non-infectious appearing. Was on cefepime for ppx, since d/c Chronic: HLD - continue atorvastatin and plavix Hypothyroidism - continue levothyroxine, does not take Tuesday and Sundays HTN - continue metoprolol Code: DNR/DNI VTE ppx: Lovenox Diet: tube feeds, PO as wanted Dispo: med/tele, working on safe dispo plan Admission and Anticipated Discharge Date Admission Date: December 08, 2024 Supervising Physician Co-Signing Physician Notes Attending attestation Pt seen and examined in concert with Dr. Diaz. In agreement with the documented findings as noted in the resident documentation with any exceptions or additions as noted here. Reports pain remains well controlled on present regimen with no further episode of vomitus following tube feed. On examination, S1/S2 nl RRR no MCG. CTAB. Abd NT/ND BS+ve. Oral lesion of the left tongue. VS as noted. 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 Services and support at home pending tomorrow. Else see resident documentation as noted. Subjective Patient seen at bedside. Review of Systems Review of Systems: As per HPI Results & Data Results & Data Vital Signs (Past 12 Hours) Vital Signs Temp Pulse Pulse Resp BP Pulse Ox Pulse Ox 12/14/24 16:25 36.2 C L 109 H 18 134/74 92 12/14/24 13:01 101 H 12/14/24 13:01 95 12/14/24 11:42 36.8 C 116 H 18 135/76 95 12/14/24 07:33 36.4 C L 105 H 18 109/68 92 12/14/24 07:32 12/14/24 05:44 107 H O2 Del Method O2 Flow Rate 12/14/24 16:25 Room Air 12/14/24 13:01 12/14/24 13:01 0 12/14/24 11:42 Room Air 12/14/24 07:33 Room Air 12/14/24 07:32 Room Air 12/14/24 05:44 Resident Activity Tracking Resident Involvement: Resident Care Provided Care Provided: Adult Hospital Medicine
[2024-12-15 03:02] VITALS: O2SAT 96
[2024-12-15 08:00] VITALS: BP 114/67; PULSE 99; RESP 16; TEMP 97.2
[2024-12-15] MEDS ORDERED: INSULIN ASPART PER UNIT CHARGE SC SCH (14:00)
[2024-12-15] MEDS ORDERED: PATIENT'S OWN ENTERAL FEEDING PEG SCH (14:00)
[2024-12-15] MEDS ORDERED: TUBE FEEDING WATER FLUSH PEG SCH (14:00)
== END 2024-12-15 12:30 | disposition home health service (06) | DRG 193 ==
LOC: ED 18:58 → 2W 23:37 → SUATTDRO 23:37 → 2W 12-09 01:42